=== PATIENT | female | born 1970 | race Caucasian/White ===

== ENCOUNTER 2024-06-03 13:10 | Outpatient (OUT) | payer BC, SELFPAY | END 2024-06-03 13:11 | disposition home or self-care (01) | LOC: PST 13:10 | PROVIDERS: Visit Provider Surgery | DX: Z01.818 Encounter for other preprocedural examination (principal); Z86.010 Personal history of colon polyps ==

== ENCOUNTER 2024-06-11 06:28 | Day surgery (SDC) | payer BC, SELFPAY ==
--- NOTE | 2024-06-11 | OP_ITS ---
OPERATION DATE: 06/11/2024 PREOPERATIVE DIAGNOSIS: Personal history of tubulovillous adenoma of the cecum. POSTOPERATIVE DIAGNOSIS: 4 mm sessile ascending colon polyp, as well as diffuse diverticulosis throughout the colon. PROCEDURE: Colonoscopy to cecum with cold snare polypectomy x1. SURGEON: Henry Hooks M.D. ANESTHESIA: Monitored anesthesia care. ESTIMATED BLOOD LOSS: Less than 1 mL. INDICATIONS AND CONSENT: Patient is a 54-year-old female with a personal history of colon polyps, tubulovillous adenoma removed from the ascending colon in 2020. She now presents for surveillance colonoscopy. Indications, risks, benefits, alternatives of proceeding with colonoscopy were explained extensively to the patient, including the risks of bleeding, colon perforation or anesthetic complications. All of her questions were answered. Informed consent was obtained. PROCEDURE: Patient brought to the operating room, placed in the left lateral decubitus position. Monitored anesthesia care was provided. Rectal exam was performed which showed no masses or blood. The scope was inserted into the anal canal. Under direct visualization was advanced. With the aid of abdominal compression, it was advanced to the cecum where cecal markings were clearly identified. There was noted to be a good prep. Upon withdrawal of the scope, mucosal surfaces were carefully examined. Within the ascending colon, there was noted to be a 4 mm sessile polyp that was removed with cold snare with good hemostasis. There was diffuse diverticulosis throughout the colon, including the right colon, without inflammatory changes or scarring. There were no other mass lesions or polyps. No inflammatory changes or ulcerations. The scope was retroflexed in the anal canal. There was no significant hemorrhoidal disease. Scope was then withdrawn. Patient tolerated procedure well, was sent to recovery room in good condition. f/u surveillance colonoscopy in 5 years. CC: Patient?s family physician FELIPE
--- OUTSIDE RECORDS SUMMARY | 2024-06-11 06:34 | XMS_ITS | CCD ---
Author Organization [facility] CliniSymt Care Team Providers Care Tour Agent Name Role Phone KOREY, DR WONG Admitting Unavailable NILL, DR WONG Attending Unavailable JOHNSON, DR SHWETHA Reddy Primary Care Unavailable NILL, DR WONG Consulting Unavailable MANA, CARMEN Consulting Unavailable DORKODANUTA PUENTE Consulting Unavailable NILL, DR WONG Admitting Unavailable NILL, DR WONG Attending Unavailable JOHNSON, DR SHWETHA Reddy Primary Care Unavailable NILL, DR WONG Consulting Unavailable JOHNSON, DR SHWETHA Reddy Admitting Unavailable JOHNSON, DR SHWETHA Reddy Attending Unavailable JOHNSON, DR SHWETHA Reddy Primary Care Unavailable JOHNSON, DR SHWETHA Reddy Consulting Unavailable JOHNSON, DR SHWETHA Reddy Primary Care Unavailable MARKER, DR BARROSO Admitting Unavailable MARKER, DR BARROSO Attending Unavailable MARKER, DR BARROSO Consulting Unavailable MALDONADO, LESLIE Consulting Unavailable Shwetha Johnson Unavailable Shwetha Johnson MD Primary Care Provider [phone] DERICK MONGE Attending Unavailable SHWETHA JOHNSON Referring Unavailable SHWETHA JOHNSON Primary Care Unavailable Shwetha Johnson Primary Care Unavailable Shwetha Johnson Admitting Unavailable Shwetha Johnson Attending Unavailable Shwetha Johnson Primary Care Unavailable Shwetha Johnson Admitting Unavailable Shwetha Johnson Attending Unavailable Fernanda Flood Consulting Unavailable Shwetha Johnson Primary Care Unavailable Fernanda Flood Admitting Unavailable Fernanda Flood Attending Unavailable Shwetha Johnson Primary Care Unavailable Derick Monge Admitting Unavailable Derick Monge Attending Unavailable WALE ANDERSON Primary Care Physician Marvin NAIR Attending Unavailable Allergies Allergy Classification Reported Allergen(s) Allergy Type Date of Onset Reaction(s) Facility (3 sources) benzonatate; Translations: [Walter Ingram] Drug Allergy Unknown [facility] Repository (2 sources) Clarithromycin; Translations: [Biaxin] Drug Allergy [facility] Repository (1 source) Biaxin *MACROLIDES* Propensity to adverse reactions Unknown adjust [facility] Other (1 source) Allergies Reconciled Propensity to adverse reactions Unknown adjust [facility] Other (1 source) patient allergy list reviewed by nurse or physicia Propensity to adverse reactions 4 Comment:Done [place] Other (1 source) benzonatate; Translations: [benzonatate] Drug Allergy Cough (finding) [facility] (1 source) Clarithromycin; Translations: [clarithromycin ] Drug Allergy Unknown (qualifier value) [facility] Medications Current Medications Medication Drug Class(es) Dates Sig (Normalized) Sig (Original) atorvastatin 40 mg oral tablet (9 sources) HMG-CoA Reductase Inhibitor Start: 08-22-2023 End: 09-27-2023 take 1 tablet by mouth once daily atorvastatin 40 mg Tab 40 mg = 1 tab(s), Oral, Daily, Refills(s) 0 Start Date: 09/27/23 Status: Ordered Start: 08-25-2019 take 80 mg by mouth once daily at bedtime Atorvastatin Active 80 MG PO Daily at bedtime August 25, 2019 1:00am take 1 tablet by bridger th every twenty-four hours Atorvastatin Calcium 10 MG 1 tablet once a day Active 24 hr metoprolol succinate 50 mg extended release oral tablet (9 sources) beta-Adrenergic Paola Start: 09-27-2023 take 1 tablet by mouth once daily metoprolol succinate 50 mg ER Tab 50 mg = 1 tab(s), Oral, Daily, Refills(s) 0 Start Date: 09/27/23 Status: Ordered Start: 08-22-2023 End: 09-27-2023 take 1 tablet by mouth every twenty-four hours in the morning metoprolol succinate XL (TOPROL XL) 50 mg 24 hr tablet Indications: Presence of coronary angioplasty implant and graft Take 1 tablet (50 mg total) by mouth in the morning. 90 tablet 0 09/28/2023 Active Start: 08-25-2019 take 25 mg by mouth twice jem y Metoprolol Tartrate Active 25 MG PO Twice daily August 25, 2019 1:00am Metoprolol Succi shayna 50 MG 1 tablet bid Active nitroglycerin 0.4 mg sublingual tablet (4 sources) Nitrate Vasodilator Start: 04-11-2024 nitroglyce rin 0.4 mg sublingual Tab oral, 0 Refill(s), Take by mouth as needed., Refills(s) 0 Start Date: 04/11/24 Status: Ordered End: 10-25-2023 nitroglycerin (NITROSTAT) 0. 4 MG SL tablet Take by mouth as needed. 0 10/25/2023 Discontinued (Patient Stopped On Own) omeprazole 20 mg delayed release oral capsule (8 sources) Proton Pump Inhibitor Start: 03-19-2024 take 1 capsule by mouth once daily Omeprazole Active 1 CAP PO Daily March 19, 2024 12:00am FreeTextSi capsule 30 minutes before morning meal Orally Once a day; Note: Source Status: Taking; Provider: Graciela Tadeo ( ) Start: 02-07-2021 take 1 capsule by mo [facility] once daily omeprazole 10 mg Cap-EC 10 mg = 1 cap(s), Oral, Daily, Refills(s) 0 Start Date: 02/07/21 Status: Ordered Start: 04-06-2020 take 1 capsule by mo [facility] in the morning omeprazole (PriLOSEC) 20 mg capsule Take 1 capsule (20 mg total) by mouth in the morning. 0 04/06/2020 Active ticagrelor 90 mg oral tablet (10 sources) Start: 09-20-2022 End: 11-16-2023 take 1 tablet by mouth in the morning BRILINTA 60 mg tablet TAKE 1 TABLET BY MOUTH IN THE MORNING AND 1 TABLET BEFORE BEDTIME 180 tablet 3 11/16/2023 Active Start: 02-07-2021 take 1 tablet by bridger twice daily Ticagrelor (Brilinta) 90 mg tablet Active 90 MG PO Twice daily March 19, 2024 12:00am Start: 08-25-2019 End: 09-01-2019 take 1 tablet by mouth twice daily Ticagrelor (Brilinta) 60 mg tablet Discontinued 60 MG PO Twice daily August 25, 2019 1:00am September 01, 2019 11:26am Brilinta Active 24 hr venlafaxine 150 mg extended release oral tablet (11 sources) Serotonin and Norepinephrine Reuptake Inhibitor Start: 05-14-2017 take 1 capsule by mouth once daily venlafaxine XR (EFFEXOR-XR) 150 mg 24 hr capsule Take 1 capsule (150 mg total) by mouth nightly. 0 05/14/2017 Active Start: 05-14-2017 take 1 capsule by mo [facility] every twenty-four hours in the morning venlafaxine XR (EFFEXOR-XR) 150 mg 24 hr capsule Take 1 capsule (150 mg total) by mouth in the morning. 0 05/14/2017 Active Start: 05-13-2017 End: 03-03-2024 take 150 mg by mouth once daily at bedtime Venlafaxine Active 150 MG PO Daily at bedtime 90 March 03, 2024 2:47pm Completed/Discontinued Medications Medication Drug Class(es) Dates Sig (Normalized) Sig (Original) amitriptyline hydrochloride 10 mg oral tablet (3 sources) Tricyclic Antidepressant Start: 03-19-2024 End: 03-20-2024 take 1 tablet by mouth once daily at bedtime Amitriptyline Discontinued 10 MG PO Daily at bedtime March 19, 2024 12:00am March 20, 2024 11:09am FreeTextSig: TAKE 1 TABLET BY MOUTH EVERYDAY AT BEDTIME; Note: Source Status: Start; Refills: 0; Qty: 90 Tablet; Provider: Graciela Tadeo ( ) Start: 02-21-2023 take 1 tablet by bridger every twenty-four hours Amitriptyline HCl 10 MG 1 tablet at bedtime Orally Once a day for 30 days January, Active cholecalciferol 0.025 mg oral capsule (1 source) Vitamin D Start: 08-25-2019 End: 03-20-2024 take 2 capsules by mouth once daily Cholecalciferol (Vitamin D3) (Vitamin D3) 1,000 unit Capsule Discontinued 2000 UNITS PO Daily August 25, 2019 1:00am March 20, 2024 11:09am Problems Active Problems Problem Classification Problem Date Documented Date Episodic/Chronic Abdominal pain (1 source) C/O pelvic pain 10-07-2010 Episodic Acute myocardial infarction (5 sources) Myocardial infarction; Translations: [Acute myocardial infarction, unspecified] 05-07-2017 Chronic Anxiety disorders (5 sources) Phobic disorder; 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, unspecified] Onset: 06-27-2018 02-07-2021 Chronic Complications of surgical procedures or medical care (1 source) Postprocedural asymptomatic ovarian failure; Translations: [Asymptomatic postprocedural ovarian failure] Chronic Conditions associated with dizziness or vertigo (5 sources) Benign paroxysmal positional vertigo; Translations: [Benign paroxysmal vertigo, unspecified ear] Onset: 07-08-2015 04-11-2024 Episodic Coronary atherosclerosis and other heart disease (20 sources) Atherosclerotic heart disease of [place] coronary artery without angina pectoris; Translations: [Old myocardial infarction] Onset: 02-18-2017 Resolved: 04-11-2024 06-07-2021 Chronic Coronary atherosclerosis and other heart disease (8 sources) Presence of coronary angioplasty implant and graft; Translations: [History of cardiovascular surgery] Onset: 05-19-2021 09-27-2023 Episodic Disorders of lipid metabolism (13 sources) Pure hyperglyceridemia; Translations: [Pure hyperglyceridemia] Onset: 10-21-2013 09-27-2023 Chronic Diverticulosis and diverticulitis (1 source) Diverticulosis of large intestine without perforation or abscess without bleeding; Translations: [DVRTCLOS LG INT NO PERF/ABSC W/O BL] Onset: 03-02-2021 Chronic Essential hypertension (7 sources) Hypertensive disorder; Translations: [Essential (primary) hypertension] Onset: 06-07-2021 06-07-2021 Chronic Genitourinary congenital anomalies (1 source) 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 Genitourinary symptoms and ill-defined conditions (1 source) Dysuria; Translations: [Dysuria] Episodic Menopausal disorders (2 sources) Menopause present; Translations: [Menopausal and female climacteric states] Onset: 04-22-2011 Chronic Menstrual disorders (1 source) Dysmenorrhea 12-12-2013 Chronic Miscellaneous mental health disorders (3 sources) Insomnia due to anxiety and fear; Translations: [Insomnia due to other mental disorder] Chronic Mood disorders (8 sources) Major depression, single episode; Translations: [Major depressive disorder, single episode, unspecified] Onset: 04-23-2017 05-07-2017 Chronic Osteoporosis (3 sources) Age-related osteoporosis without current pathological fracture; Translations: [Primary osteoporosis] Onset: 10-20-2016 02-07-2021 Chronic Other and ill-defined heart disease (1 source) Heart disease 02-07-2021 Chronic Other and unspecified benign neoplasm (1 source) Adenomatous polyp of colon 03-02-2021 Episodic Other bone disease and musculoskeletal deformities (1 source) Osteopenia 02-07-2021 Episodic Other connective tissue disease (2 sources) Lateral epicondylitis; Translations: [Lateral epicondylitis, unspecified elbow] Onset: 11-27-2014 02-07-2021 Episodic Other connective tissue disease (2 sources) Fibromyalgia; Translations: [Fibromyalgia] Onset: 02-24-2015 02-07-2021 Episodic Other endocrine disorders (1 source) Hyperparathyroidism, unspecified; Translations: [HYPERPARATHYROIDISM UNSPECIFIED] Onset: 03-02-2021 Chronic Other endocrine disorders (7 sources) Hyperparathyroidism; Translations: [Hyperparathyroidism, unspecified] Onset: 08-06-2019 08-06-2019 Chronic Other female genital disorders (1 source) Enlarged uterus 12-12-2013 Episodic Other nervous system disorders (2 sources) Carnes's palsy; 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] Onset: 09-09-2014 02-07-2021 Episodic Other non-traumatic joint disorders (2 sources) Joint pain; Translations: [Pain in unspecified joint] Onset: 02-24-2015 02-07-2021 Episodic Other nutritional; endocrine; and metabolic disorders (1 source) Hypercalcemia; Translations: [Hypercalcemia] Chronic Other nutritional; endocrine; and metabolic disorders (2 sources) Body mass index 40+ - severely obese; Translations: [Body mass index (BMI) 40.0-44.9, adult] Onset: 03-06-2018 Chronic Other nutritional; endocrine; and metabolic disorders (6 sources) Obesity; Translations: [Obesity, unspecified] Onset: 11-27-2014 05-07-2017 Chronic Other nutritional; endocrine; and metabolic disorders (1 source) Body mass index 30+ - obesity 04-16-2024 Chronic Other nutritional; endocrine; and metabolic disorders (1 source) Obese class III 04-16-2024 Chronic Other screening for suspected conditions (not mental disorders or infectious disease) (8 sources) Encounter for screening for malignant neoplasm of colon; Translations: [Encounter for screening mammogram for malignant neoplasm of breast] Onset: 02-23-2021 Episodic Residual codes; unclassified (6 sources) Obstructive sleep apnea syndrome; Translations: [Obstructive sleep apnea (adult) (pediatric)] Onset: 08-06-2019 08-06-2019 Chronic Residual codes; unclassified (1 source) Obstructive sleep apnea (adult) (pediatric); Translations: [Obstructive sleep apnea (adult) (pediatric)] Onset: 08-06-2019 Chronic Residual codes; unclassified (1 source) Sleep apnea 02-07-2021 Chronic Residual codes; unclassified (2 sources) Insomnia; Translations: [Insomnia, unspecified] Onset: 10-21-2013 02-07-2021 Episodic Residual codes; unclassified (1 source) Menopause present; Translations: [Asymptomatic menopausal state] 03-20-2024 Episodic Residual codes; unclassified (1 source) Asymptomatic menopausal state; Translations: [Symptomatic menopausal or female climacteric states] 03-20-2024 Episodic Substance-related disorders (1 source) Nicotine dependence, cigarettes, uncomplicated; Translations: [NICOTINE DEPEND CIGARETTES UNCOMP] Onset: 05-19-2021 Chronic Systemic lupus erythematosus and connective tissue disorders (3 sources) Takayasu's disease; 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]] Onset: 10-20-2016 02-07-2021 Chronic Unclassified (4 sources) CONTACT W/AND (SUSP) EXPOS COVID-19; Translations: [CONTACT W/AND (SUSP) EXPOS COVID-19] Onset: 02-25-2021 Unclassified (1 source) Med Refill Onset: 10-25-2023 Urinary tract infections (2 sources) Urinary tract infectious disease; Translations: [Urinary tract infection, site not specified] Episodic Past or Other Problems Problem Classification Problem Date Documented Da te Episodic/Chronic Cardiac dysrhythmias (4 sources) Palpitations; Translations: [Palpitations] Onset: 06-07-2021 06-07-2021 Episodic Headache; including migraine (1 source) Headache; Translations: [Headache, unspecified] Onset: 09-09-2014 Episodic Malaise and fatigue (1 source) Fatigue; Translations: [Other fatigue] Onset: 03-30-2015 Episodic Mood disorders (1 source) Mood disorders Nausea and vomiting (1 source) Nausea; Translations: [NAUSEA] Onset: 05-19-2021 Episodic Nonspecific chest pain (5 sources) Chest pain; Translations: [Chest pain, unspecified] Onset: 10-21-2013 Resolved: 06-07-2021 06-07-2021 Episodic Other aftercare (1 source) Other long term care social worker (current) drug therapy; Translations: [OTH [facility] CURRENT DRUG THERAPY] Onset: 05-19-2021 Episodic Other aftercare (1 source) Surgical follow-up; Translations: [Surgery follow-up examination] Onset: 03-29-2011 Episodic Other and unspecified benign neoplasm (1 source) Benign neoplasm of cecum; Translations: [BENIGN NEOPLASM OF CECUM] Onset: 03-02-2021 Episodic Other connective tissue disease (1 source) Fibromyalgia; Translations: [FIBROMYALGIA] Onset: 03-02-2021 Episodic Other connective tissue disease (1 source) Disorder of musculoskeletal system; Translations: [Other symptoms and signs involving the musculoskeletal system] Onset: 01-12-2016 Episodic Other connective tissue disease (1 source) Pain in forearm; Translations: [Pain in joint, forearm] Onset: 02-28-2017 Episodic Other fractures (1 source) Closed fracture of one rib; Translations: [Fracture of one rib, right side, initial encounter for closed fracture] Onset: 10-30-2016 Episodic Other gastrointestinal disorders (1 source) Bariatric surgery status; Translations: [BARIATRIC SURGERY STATUS] Onset: 05-19-2021 Episodic Other lower respiratory disease (4 sources) Dyspnea; Translations: [Shortness of breath] Onset: 09-16-2021 09-16-2021 Episodic Other skin disorders (4 sources) Generalized hyperhidrosis; Translations: [GENERALIZED HYPERHIDROSIS] Onset: 05-18-2021 Episodic Other skin disorders (1 source) Generalized hyperhidrosis Onset: 05-18-2021 04-11-2024 Episodic Residual codes; unclassified (1 source) Acquired absence of both cervix and uterus; Translations: [ACQUIRED ABSENCE BOTH CERVIX AND UTERUS] Onset: 05-19-2021 Episodic Residual codes; unclassified (2 sources) Edema; Translations: [Edema] Onset: 01-12-2016 04-11-2024 Episodic Spondylosis; intervertebral disc disorders; other back problems (3 sources) Lumbar radiculopathy; Translations: [Radiculopathy, lumbar region] Onset: 03-06-2018 04-11-2024 Episodic Unclassified (1 source) CONTACT W/AND (SUSP) EXPOS COVID-19; Translations: [CONTACT W/AND (SUSP) EXPOS COVID-19] Onset: 10-12-2021 Unclassified (1 source) LEIOMYOMATA 10-07-2010 Unclassified (1 source) Patient encounter status 04-11-2024 Results Test Name Value Interpretation Reference Range Facility General Surgery Office/Clini c Noteon 04-17-2024 General Surgery Office/Clinic Note General Surgery Office/Clinic Note Chief Complaint surveillance colonoscopy HPI Staff 54 year old female presents for surveillance colonoscopy. Denies abdominal or rectal pain. No rectal bleeding or change in bowel habits. Denies nausea or vomiting. No unexplained weight loss. Last colonoscopy completed 01/2021 with cecal villous adenoma. Patient taking Brilinta chronically. History of Present Illness 54 yo female with h/o htn, CAD, on Brilinta, Takayasu's disease, hyperlipidemia, CAPRICE, presents for surveillance colonoscopy. last colonoscopy 2020 with removal of cecal tubulovillous adenoma; patient denies change in bms or blood in stools, no abd complaints; abd operations significant for hyterectomy, gastric sleeve resection, umbilical hernia repair; on Brilinta, no asa or NSAID use; no fmhx of GI malignancy or IBD; vapes nicotine-containing products. Review of Systems PHQ Score Initial Depression Screen Score: 0 SCORE ROS - Provider Constitutional: no fever, no sweats, no weight loss. Eyes: no glasses, no blurred vision, no visual loss. ENMT: no dentures, no hoarseness, no swallowing difficulties, no hearing loss, no ear infection(s), no nose bleeds. Cardiovascular: normal blood pressure, no chest pain, regular heartbeat, no heart murmur. Respiratory: no shortness of breath, no cough, no asthma, no wheezing. Gastrointestinal: no nausea, no vomiting, no diarrhea, no constipation, no blood in stool, no change in bowel habits, no abdominal pain, no hepatitis. Genitourinary: no kidney stones, no urine infection, no dysuria. Musculoskeletal: no pain, no weakness. Skin: no changing moles, no rash, no skin lumps. Neurologic: no seizures, no epilepsy, no headache. Psychiatric: no emotional or psychiatric problem. Heme/Lymph: no bleeding problems, no anemia, no blood clots, no transfusions. Allergy/Immunologic: no swollen lymph nodes/glands, no IV drug abuse. Other: Additional ROS info: Except as noted in the above Review of Systems and in the History of Present Illness, all other systems have been reviewed and are negative or noncontributory. Physical Exam Vitals & Measurements HR: 72(Peripheral) RR: 16 BP: 124/84 HT: 64 in HT: 162.5 cm WT: 82 kg WT: 180.4 lb BMI: 31.05 HEENT: normal conjunctiva, sclera clear, no scleral icterus, EOM intact, PERRLA, oral mucosa moist without lesions. Neck: trachea midline, no mass, symmetric, no thyromegaly or nodules, no adenopathy Respiratory: lungs CTA, respirations non labored. Cardiovascular: regular rate and rhythm, no murmur, no pedal edema or varicosities. Gastrointestinal: soft, non distended, no tenderness, no masses, no palpable hernias, diastasis recti no, no hepatosplenomegaly; normal bs Lymphatic: no cervical adenopathy, no supraclavicular adenopathy. Musculoskeletal: normal gait, digits and nails without infection, nodes, cyanosis, clubbing. Skin: no rashes, no lesions, no ulcers, no subcutaneous nodules, induration. Psychiatric/Neuro: oriented to time, place, person, judgement normal, affect appropriate for age, insight intact, no focal deficits. Tests: review of old records completed , Discussed surgical options, risks, and possible complications with patient. Assessment/Plan 1. Personal history of colonic polyps (Z86.010: Personal history of colonic polyps) plan surveillance colonoscopy under anesthesia, informed consent obtained. 2. Vapes nicotine containing substance (Z72.0: Tobacco use) We strongly recommend to quit tobacco use. Cigarette smoking harms nearly every organ of the body, causes many diseases, and reduces the health of smokers in general. Quitting smoking lowers your risk for smoking-related diseases and can add years to your life. We encourage you to visit www.smokefree.gov access to helpful resources including free telephone support. If you decide on prescription treatment to help you quit, your family doctor would be happy to provide these. Follow-up No qualifying data available Problem List/Past Medical History Ongoing Benign paroxysmal positional vertigo BMI 31.0-31.9,adult Class 3 obesity Coronary atherosclerosis Depressive disorder Edema Generalized hyperhidrosis Hyperlipidemia Hyperparathyroidism Hypertensive disorder Lumbar radiculopathy Myocardial infarct Obstructive sleep apnea syndrome Personal history of colonic polyps Phobic disorder Pure hyperglyceridemia Takayasu's disease Tubulovillous adenoma of colon Vapes nicotine containing substance Historical Acute coronary syndrome Acute ischemic heart disease Anxiety Aortic arch syndrome Arthralgia Carnes palsy BPPV - Benign paroxysmal positional vertigo C/O pelvic pain CAD - Coronary artery disease Dizziness Double ureter Dysmenorrhea Fibromyalgia Heart disease Hyperparathyroidism Hypertriglyceridemia Insomnia Lateral epicondylitis LEIOMYOMATA Major depressive disorder Obesity Osteopenia Osteoporosis Screenin (more content not included)... Normal [facility] Comment on above: Result Comment: Elec tronically Signed By: KOREY PICKETT, Marvin Fitzgerald\.br\Date and Time Signed: 04/17/24 14:01 EDT Ambulatory Visit Summaryon 0 04-16-2024 Ambulatory Visit Summary Ambulatory Visit Summary LIZETTE BERGMAN :1970 Visit Date:04/16/2024 Ambulatory Visit Instructions Your Care Team Attending Physician - Marvin NAIR MD Primary Care Physician - WALE ANDERSON DO This Is Your Medications List Contact prescribing physician if questions or concerns atorvastatin (atorvastatin 40 mg Tab) metoprolol (metoprolol succinate 50 mg ER Tab) nitroglycerin (nitroglycerin 0.4 mg sublingual Tab) omeprazole (omeprazole 10 mg Cap-EC) ticagrelor (Brilinta 90 mg Tablet) venlafaxine (venlafaxine 150 mg oral tablet, extended release) Procedures Performed Colonoscopy (02/23/2021), Parathyroidectomy (10/01/2018), Bilateral oophorectomy, Extraction of wisdom tooth, Gastric sleeve, Insertion of coronary artery stent, Myringotomy and insertion of short-term tympanic ventilation tube, Nasal septoplasty, Plantar fasciotomy, Rectal prolapse, Repair of umbilical hernia, Repair of vaginal wall prolapse, Vaginal hysterectomy. Discharge Vitals Heart Rate (Peripheral) 72 Respiratory Rate 16 Blood Pressure 124/84 Height 162.5 cm Height 64 in Weight 82 kg Weight 180.4 lb BMI 31.05 Medications What How Much When Instructions Unchanged atorvastatin (atorvastatin 40 mg Tab) 1 Tablets By Mouth Every day Contact prescribing physician if questions or concerns Unchanged metoprolol (metoprolol succinate 50 mg ER Tab) 1 Tablets By Mouth Every day Contact prescribing physician if questions or concerns Unchanged nitroglycerin (nitroglycerin 0.4 mg sublingual Tab) oral, 0 Refill(s), Take by mouth as needed. Contact prescribing physician if questions or concerns Unchanged omeprazole (omeprazole 10 mg Cap-EC) 1 Capsules By Mouth Every day Contact prescribing physician if questions or concerns Unchanged ticagrelor (Brilinta 90 mg Tablet) By Mouth 2 times a day Contact prescribing physician if questions or concerns Unchanged venlafaxine (venlafaxine 150 mg oral tablet, extended release) 1 Tablets By Mouth Every day Contact prescribing physician if questions or concerns Allergies Biaxin (Unknown) Walter Ingram (Cough) Problems Ongoing - Any problem that you are currently receiving treatment for. Benign paroxysmal positional vertigo BMI 31.0-31.9,adult Class 3 obesity Coronary atherosclerosis Depressive disorder Edema Generalized hyperhidrosis Hyperlipidemia Hyperparathyroidism Hypertensive disorder Lumbar radiculopathy Myocardial infarct Obstructive sleep apnea syndrome Phobic disorder Pure hyperglyceridemia Takayasu's disease Tubulovillous adenoma of colon Historical - Any problem that you are no longer receiving treatment for. Acute coronary syndrome Acute ischemic heart disease Anxiety Aortic arch syndrome Arthralgia Carnes palsy BPPV - Benign paroxysmal positional vertigo C/O pelvic pain CAD - Coronary artery disease Dizziness Double ureter Dysmenorrhea Fibromyalgia Heart disease Hyperparathyroidism Hypertriglyceridemia Insomnia Lateral epicondylitis LEIOMYOMATA Major depressive disorder Obesity Osteopenia Osteoporosis Screening for malignant neoplasm of colon Sleep apnea Uterine enlargement Patient Survey You may receive a survey via text or e-mail asking about your office visit. Please share your experience with us by completing your survey. We appreciate your feedback and thank you for choosing us for your care. Normal [facility] Coding Summaryon 04-09-2024 Coding Summary HTMLBase 64 VkyroirlKNt9nLk+PGhlYWQ +[id number] NMTElOSywgQVBQTElOSyIgb fKhGV4cmFYlFNGc IC8+OM9mOLSpQjplxZSgw4I 1tVJ0A18rap7xENlozME4VL IaCbFrzbqok0iywCw2XWokM mluOyBt LMTcfI22JKX1iB57Ur27nCK nbXAzf0dfePl2FiByTZHkUP E6lVtzSNxyj1YmCUVhG82uv LQyl5U2 GRCvxGcgkWQjMqDgpIB5jG6 hAIawomupt0lfthmdTkh6mu 62dBWjp4Q8tUG8N7PdplJ8G GJvbGQg HdnyxVHKhX7rzppio4twjyv bDdSlHPEgAEh1DNh8MWWbrY sgWeMyRI28PLF6RLWzkjAuA 2FsLWFs yZjvIhX6z7R0Wj8IM4YCRvo eD0PICAEUONshyZT+PC90cj 79Y4WwMhulImk5QRLrZZT2k CW8zI8l DHJeQIesl5V9nXS5L3DlksF mfu9ju9uoDJDfKDowN77pvO Nqq2Y5BNGntVD5DOEdhGcpV iBzaG93 Oyc+ZLFtuRlya2QqPdicw5r tl8jbeZx2PicqBXHgrtTreD ciZVA4p3TpLy9zRLWhoAN2c CK8kB6l McJcHdK4HUrbE130ZpBzpLT uEwqdK45nT5IkzPZ+PHRyPj j5TQYknEcyYJ6mR7RoOXJak mctbGVm hUlpJO5kUMRwfqlxPXAxxK2 tGVUhU8q7KcJaCeM4JOzhJ5 XmJNRjhaokTh89eT8tUwAjT pD5TJjm F5JrdyL4WAStmBZjLWblLPE 9Q32yv9V0UESdSJXgGPR3xZ Y0oP4nmMfhmnfqkPTxyYtkb mVydGlj ZQzpJQdiS182HXIppQayXlB vZGluZyBEYXRlOiAgMDcvMT AvMjAyNDwvdGQ+KMYpPRK5b WxlPSAn kGMxFFuiMz1ebVvupRzgCI3 jRJMpjemeIACmyA6tJVHtnR CuaFlsCX3dNQDgqrldx848F iAxMHB0 VCKrmAGxP6PalP8yWwVbZLK jVPYgT5UdzPQnHAbxX901XW soLoI7WOXetnHeD8QvAVMdw WduOiB0 t1L6Tw5To9ZuulwuT1UrmED nHfQgUfryIQx7L7IqFyqlpN I+BL51UBUaQQ22XYh7XFN7f WxlPSdi HKUtA0XsmW4uVsLpYLQvVTU kOyc+PHRhYmxlIHdpZHRoPS ghURTgRqRxhQxoSH1iPh9sK GVyLWNv uXvafMMoUpBbt4cmPYLpDSb jUE2gpIqbM3KdbEQ1HQKzr0 i9Yl98M74nG5BifWD+PGNvb IZ2lIR5 sV3kBlYpAcO9ETmxV475LpK byIAkPkuxa5ywc5pkiVt6Oq N0LPNltmWndEqlEWJ6n1ViJ f99L09s IHdpZHRoPSIxNSUiIHZhbGl mro6flS7zXt2+UDDvlRZ0rT I6eJ1yWrNnVkN9SJtfT213Z nRvcCIv Giuko7ayf0ublWf5XlWyVZG bxpDklNrmHQA7h3BlWa77Z2 VnwGmuo6ZaGes0xq50sPQpa 8M3zIY4 U2CyUMYmcqzkoKOgsKqjOR8 aOJMjnbfrPKZhiC4dIOCsR0 p2LzGhOqO5SSbfE2RjlfR7P GJvbGQg DQWquDXDoD0bcgbaj1trakw cZuDhFSJyEOb8ELf1OAWyyP vaZbWpSWO3HtO0GRI4wRLro G8ezIza ebuurF3qSjk+HYF0zGHydCC VOY0nErxohPF+TMMbHID6hO udMMlyOYXkrF5zEWXvH9a1L iAwLjA1 MYrkT2QqkhG2LXAjqCFdFPU axXIHxG9vnomhr4utlthlXu BvQSHuGWu3JHs8XHEixXafA iBsZWZ0 AuS5JDF4sBNsoP3usLfdhly teP5bEou+UvlkkSypGEI3VR q8M8QzObd0AGLdtYhxPK9dz GFkZGlu Wo5wlRlieFiyLM7rKCCohyz st357AbPqh6liBJEkgJAmAR nxLMW7C40qv3V7WJToRAQbT PV8jCU3 fT5ldIzmavwhvWRyzJmwbhH irHgnXYprYBkeR498BXCgfJ ibOpLwAGg9L3RhPhk9VKDop MauNI4o sKFpJTykCg3cmTxbrSunBS0 fHBSjxzttc024NpSls6amOJ ZvxKNwNVlxEGA8P44ie0R2Q CMwMDAw VHK8oBL5pA1elEelfbvpsWB mdDsgdmVydGljYWwtYWxpZ2 81TQShpPtlQvNdvIm4S8PjV do2PTSy kWzeXW8cvWJhGHjdGo9daIu hrUpqQU2gEOQicyhwf132Sk Qju8atWYYipJJlSRkdAQM3I 71qz2Y5 OWRfCCDiXOR1gZV4pW1xdPn nbjogbGVmdDsgdmVydGljYW mrPHxnA536VQMihIduNgFeq GllbnQg SBitFCb6W5GiFcduxEE+PC9 2ORNsKX56xCLjyXKmr5mvlI t1FfNkZMOiVBL1pPhnGCibi 3JkZXIt X80twAXel6K2GNUunCjvkMI qSsGqmCT8yD5eRDqxhyucy8 gvyureLbfnr1bgmy40tL25L 29sIHdp ZHRoPSIzMCUiIHZhbGlnbj0 dnL0oQf0+VTKnuDF4lZY2xH 2eXCJcLwT7NYfsJ549JsPtl CIvPjxj m8pee8rbdUy1OiF8PAOyfkX jpUeoUUB8k6KfZy87Y38sZO dpZHRoPSIyMCUiIHZhbGlnb p1gnK4p Ii8+SEAfmIC3cFH3mX8jOuH zKrQ4CRhxB070PdTkzCXeGr yyI93rE9YznGH+JRGyPma9O CBzdHls UE9okDOxNCmoNb6eFDM1VdW bWpAmGXpuX2SpXJNjxcvfyw qjwJJ7AXYuTTCfsX52Eh2dv DogMTBw aMQHxK9etprwe9vlhvhiOgG fOXMlBHm6VDg5OZObvNppKz BaQID8ZoN3VXM0gXSoaD4fj Glnbjog iS5lK4KpLTHfaqcnMb97lI2 gWdTvIlI6YDnsNdb+U0FOQ0 iVVcqlSK9NRDrXFKAFHLnfx GQ+PHRk FZX5iEwyNLrxDIMmhO4zEFU tG7x2MzBxEsR2DDclT8JcWM LqpbuuLi16iG3hFoKdHbV4Z NmeX1Kr fvR4MSDtgIQsFWdwGNI4K12 ff4M2ZBLzHGFaPKN2hIP4cQ 1hbGlnbjogbGVmdDsgdmVyd GljYWwt QIkpP570MVKmgOaaNqG9UxK sSpX8YmE0V0WjBah7MPJrjO qxVC7ubJMpNXphGm4gkJhzv LmcZS5u VKGqdowbAZTzaY2rXNFzjZW wmBehGJ7rXKQshmawn045Nt YtNXI2AIOsxFQpC1IgnZ9dV iAjMDAw QFVdX4ReyAJoWPxjI994OJn gAaI4IXPyymThN2IgYUFqjZ vrUsM5o3T7Be18EHBTFCEmx zwvdGQ+ JOWnGVK7rZmkEMbtGEBjtW2 eJBYnW4e3LtKkKgT1COuyA2 FtAHGoviwbCw50nG3kIrRmS uW8SAak B2DlceL2PAYemUNzWAxqYXT 7U26te8T1EWSmEMWuVRR3rU H0cM2kgTanxxqgdWDajEpbr mVydGlj TPweFExbE807LZQilVlmRsC FTUFMRTwvdGQ+PPCyCFB9fZ xuGHcxWIBypF3lYKTgR6h2B iAwLjA1 CVidS2RbAVVockeoSj70dH0 eApEgOeI9VYvcT1FqkmY5LC GasHVjXSclTHZ1T57fr1R4K CMwMDAw AJY7rAM6nN9swPxlszhniKT mdDsgdmVydGljYWwtYWxpZ2 95PNAthCwwVs1UTD01LP25R 3RyPjwv dGFibGU+PHRhYmxlIHdpZHR yDSmuZGIqAxSpiLahDK0rSs 9yZGVyLWNvbGxhcHNlOiBjb 2xsYXBz JXvxOS1jwYmjT0CzbJD2YTA qu0u2Ag63F47oB2GewYE+PG UfrFL9tOT9jL9hLzUhHrM5F WpcX843 HaGidPTxKukmu4lkm4owhHz 4EhKkAPSayiFmxLtkQEU0s2 XxYl18S47eIWmdTLHwMBYvX CUiIHZh sQlmwi8wrF4aZb9+PGNvbCB 8pHH0hR1lTiJfSdL2JKdxQ1 28OiPnrRSiGwuqA64bB2Pac XA+PHRy Icg3XRKbcOzaHE6kzAXrIKq cIe4bLDQ3TpPxXyNjTBvqD3 HwVZUiktbjwkqyoJL7LXElX DUwaW47 Ue0gzIxeYu7kXIJeORR3OJF uwLHbU1IboM3hThEvXVTvMP PeA7TdrJTjFZadJ572ESvcL xT1WEBw jjApN8OxEGSgwAlrYdT7j9X 9Eh1QdEjrkMGwQY6aZkBpMW p7J4CbJgc0WOIiyQyaUW3fm GFkZGlu Sk8urEozgOznHO6wVNFqlwq re760DaBwc7ssCGOscOLfNV iwTBJ6J72ko2B6YOTpGOEyZ WG4eHP4 lN1olKvwkrewiOLfkXaklmX liSacXXwuPKsoQ976HXUkeT fcRlGUGgt0G2MdRtd1YOXis ZpoJZ9r cOHnQCppMg2pyZwklComRW2 xJCFuwupyb629AuKge0baER AenIAsINntVPM2H40lt4R6R CMwMDAw JOA9wXJ8yC5qaVzeokvssBM mdDsgdmVydGljYWwtYWxpZ2 07NSDndBqcWa7NPic6K2VsI df3CYNm cJdaXH8lxRLzYFtkXj2cvEw alZclXI1dCMSkohmys998Lu Rdz9ctJLEabKWnBYecOWV5U 49gt7H4 DRQhEBGpWSA9hJJ6bT3adJu nbjogbGVmdDsgdmVydGljYW suYXxlR013JDEsdVpmHgLwb WVyOjwv dGQ+UT65yg89U2VfZawfNai 4IKCmMEG1kEC0qL2dTVLwSN zqg3D5bTL3B3MwwyIqml1vw 2xsYXBz ZTo (more content not included)... [facility] BD Bone Density DEXA Studyon 03-31-2024 BD Bone Density DEXA Study Begin Addendum #1 Clinical content is unchanged. Pharmacologic treatment recommendations No uniform recommendation applies to all patients. Management plans must be individualized. Consider initiating pharmacologic treatment in postmenopausal women and men >= 50 years of age who have the following: Primary fracture prevention: T-score <= - 2. 5 at the femoral neck, total hip, lumbar spine, 33% radius (some uncertainty with existing data) by DXA. Low bone mass (osteopenia: T-score between - 1. 0 and - 2. 5) at the femoral neck or total hip by DXA with a 10-year hip fracture risk >= 3% or a 10-year major osteoporosis-related fracture risk >= 20% (i. e. , clinical vertebral, hip, forearm, or proximal humerus) based on the [place]-adapted FRAXregistered model. Secondary fracture prevention: Fracture of the hip or vertebra regardless of BMD [4, 5]. Fracture of proximal humerus, pelvis, or distal forearm in persons with low bone mass (osteopenia: T-score between - 1. 0 and - 2. 5). The decision to treat should be individualized in persons with a fracture of the proximal humerus, pelvis, or distal forearm who do not have osteopenia or low BMD [12, 13]. Rafa MS, Carmen SL, King KL, Tato EM, Celestine KG, AJ, Jim ES. The clinician's guide to prevention and treatment of osteoporosis. Osteoporos Int. 2021;33(10):3015-7022. doi: 10. 1007/s69894-131-44073-b . Epub 2021Jan 26. Erratum in: Osteoporos Int. 2021Apr 27;: PMID: 68393728; PMCID: XUB0940501. Final Dictated by: Иван Solis MD Dictated DT/TM: 04/11/24 1:58 Signed (Electronic Signature): Иван Solis MD 04/11/24 1:58 pm Technologist: THELMA EXAM: BD Bone Density DEXA Study. HISTORY: SCREENING FOR OSTEOPOROSIS. COMPARISON: Bone density study dated 02/07/2021. TECHNIQUE: Bone density study was performed. T-score values for the lumbar spine, right femoral neck and left femoral neck were obtained. FINDINGS: Value for the lumbar spine from L1 through L4 is -0.7. The value for the right femoral neck is -2.1. Value for the left femoral neck is -1.9. Findings are compatible with severe osteopenia with moderate to high increased fracture risk. No evidence of osteoporosis. Study was compared to the prior exam dated 02/07/2021 which demonstrates mild osteopenia with mild increased fracture risk. Findings are progressed compared to the prior exam. IMPRESSION: Findings compatible with severe osteopenia with moderate to high increased fracture risk. Findings are progressed compared to the prior exam. Final Dictated by: Иван Solis MD Dictated DT/TM: 04/01/24 10:06 Signed (Electronic Signature): Иван Solis MD 04/01/24 4:11 pm Technologist: [facility] Mammo Screening 3D Bilate ral.on 03-31-2024 [place] Mammo Screening 3D Bilateral. MAMMOGRAM SCREENING 3-D BILATERAL: CLINICAL DATA: Routine screening Screening digital mammogram study of both breasts was performed with 2-D and 3-D tomosynthesis imaging. Study was compared to the prior exam dated 11/08/2020. Scattered areas of fibroglandular density are noted bilaterally. There is no evidence of interval dominant spiculated mass, grouped microcalcifications or skin thickening which would be suggestive of malignancy. R2 ImageChecker was utilized for this study. IMPRESSION: No specific evidence of malignancy seen in either breast. BIRADS: 2 - Benign, no evidence of malignancy. Normal interval followup is recommended in 12 months. OVERALL ASSESSMENT- BENIGN A letter of notification will be sent to the patient regarding the results. Assessment / Recommendation: 2-1 Normal interval follow-up Breast density: Scattered Fibroglandular Density Recall interval: 012 months Final Dictated by: Иван Solis MD Dictated DT/TM: 04/01/24 1:11 Signed (Electronic Signature): Иван Solis MD 04/01/24 4:17 pm Technologist: ARIC Assessment: 2-Benign finding Recommendation: Normal interval follow-up [facility] Provider Orderson 03-31-2024 Provider Orders [id number] [facility] Coding Summaryon 10-29-2023 Coding Summary HTMLBase 64 RzerlhvsJOv4bPn+PGhlYWQ +JY1BNVGhG45cvJRoyR0qB2 NMTElOSywgQVBQTElOSyIgb jWzIU6xtCEeXXTn IC8+EE2sXZDpYlhfjUAih5R 7hHN5T27pdl6eMAdndOH1DU IiOwGvpezne6ckfRi0NWujK mluOyBt UJBntS92AEA2fL71On19kAT mgYQho6qdqXx7NaTrBZLgSD C9lGjyKJrcn9FhFMQwH84eu NSfe5C2 JOAmfHixoVCpTjNqiGK1pD9 eMBtwjxaed4kubhyhWro0wx 30hRDew6A1mNS1W1KacsZ9N GJvbGQg HiimbTZHhN4bcawsn9gcafb sCtZvKZWeYYp1JXj7WQDmhC fgUrFyJX61TOM8HZKqaoGjW 2FsLWFs cNtzYlW7f9D6Vk4IP7LYPhr bE8VCMUTRFTvcrRU+PC90cj 04M0DnVaoqOkz6MODoDPK9u NS7oT1f TDBeHAtiz1N1cLI8A0AtexY rwl5yl6pzEQNlDAhsR72vwD Dzc3S2OHOyvRF3EWIdrJxrF iBzaG93 Oyc+MMHbyJvcv1FaRkzkf7p gr1hcqMg9VapfWNVtzlSdyT aiWCS4t4StCl3hZITosMP3n DF9oP4a FnWfRrQ0GXbzN397VjQzjBQ uGzqnU39pP6FdkFI+PHRyPj m1IJTjlRgkWR7uD3ZwSGErc mctbGVm tTavRO2vCNDahtzrRSAovK7 dOQVkD3k7MtYcBdF5PQutT3 HbZRHcazbdFn51yK3kMnHeP tT7QPne Z1YgphJ4FNOwdLAsJErzWYQ 7V73zd6A3OMQwVCItUIY7kM C9rB4soVnneehejCNxhOqtl mVydGlj WCjcSVfnR769GBWrrJcxSoE vZGluZyBEYXRlOiAgMDEvMj kvMjAyNDwvdGQ+NIQlZWV8t WxlPSAn pLNqJUbwVe2yxNxudKjkGV8 hPYBpopudZYHmzI0qACLxoK JhhKjxCV6tVMDuqngxd761B iAxMHB0 WYGwySSxZ8YsdR1zPlWdPEI gTMGnR3FxuFKjSDlmO128BW byCgA7ITOomlWtF2DvBPNqr WduOiB0 n8R2Nt0Ai2OfgpskO8SnhZV vHzIkEpkxLJq8S3BlRdgmmG I+ZO69TCCiVW74BWn1ETK0v WxlPSdi JTSuW2OtfJ6oCiMuXCZcZXO kOyc+PHRhYmxlIHdpZHRoPS ljTFDeVzMbeYxoSQ2nCm5gT GVyLWNv bMehsGPqWwJwy7lfYTIgCOv xXJ7uuVqpI7GkeFI4HZClm0 l6Zc37O56yN8GilDS+PGNvb EV2rNV8 cE0mCuYjBiP7ORcnT995NkN pnEAiLhguk4byf7bjbAu9Ni U0KWTrdyGdcZgcZTL6o8BiO r20B46b IHdpZHRoPSIxNSUiIHZhbGl ecq6odU7wEl2+LLIsqIF1rO K5xG6hIrEeYqY8XCaoB773W nRvcCIv Kaxoo3idn6pixMf1CwCoEVG cplFxtUlyNKU4m9YqZj14E3 VvgLdme3NoZdy6xr83mWRrk 2Q5eLO9 I1DxVWGfuoxdaTTzjZffTS7 tZJLaxaidEKDxxP3iCDTjX2 z2BiKcWhN5RVoaW6ZbhfY1V GJvbGQg NZHsjIYSrW7xqxexc5jfdfv qCbUzSQDyGCi0JDr9ZGJifM lsJwKjPQU8FhB8FMR2wGQve G0daUna bpdhkV0eUug+KQN2dZHzmSJ AAT8kXpcpkMK+KTVaFHN4mM rvHLlvVZCpbA4lLVImT2s6E iAwLjA1 OZjdN7HprbK1JOWniXOlIHG mvDNXjU7hszuhv6dspwjjCk UkBCYqHTm4GEk8JKCobNshH iBsZWZ0 WwH5PZI2hERqfO7cxRwfxva zrO1tCce+PlmjjZbzXGR1MP g6F1TbCse0UBXcwLvmJQ7ge GFkZGlu Xy8ncFvqlTqmHC4ePJVsvjw lo370IzCfr3zoKYPbnOGnZW ieKHY5F23ew1J7IFIhRHXdN SX7nBI1 tV4vuZoawfpakPDfrIrlldB mwUyzILsuRPfsK161SJBysY ceGdNrKEq6C9TpWcb2QXOzs KyhOV2k xHVuEJgkLk9iyIouiZrtBB4 wBLGupsoin994GkHvq6bxDX ItsXZdPQkwTEC3F78jo1K0G CMwMDAw DHU5oNT5gJ0agWulndiubSA mdDsgdmVydGljYWwtYWxpZ2 54SZDnePzfCcIcaKs6N7TgI ki8QMLh aPehRS7noWQoYYmiVv4seNq pkDqiIF2lIFMntqous247Qz Myz4luKKKvuMOaCLwtOTT7G 01sa6S2 OKRqWNKpPDG9uGV5vP0wnCb nbjogbGVmdDsgdmVydGljYW whDQzyA875YHDqgNmlKzIlv GllbnQg ZSlmZVh1S7VmNvqwxQG+PC9 7CRZlJB16oEEhqZCna4rxuG g9DbRnVDEiIVQ9tJnpFUnme 3JkZXIt S67kwBSsq6P9UUGoyJhxaQX tGtGigFR4oO6bQOxvxprll1 tdvlpiWideq9aelv86bE28W 29sIHdp ZHRoPSIzMCUiIHZhbGlnbj0 gxZ9nWb1+NYLhfZI0nZP1rT 2oDUSpHlC2KAcdL130AwYhq CIvPjxj i9sgr2gomWz1FkL3TNBmjxU abAzgXOV8u7BtXa87Y06iMR dpZHRoPSIyMCUiIHZhbGlnb i9tuK7t Ii8+RVGenCM6fUL7sE9sQiO hLuX7FJslE857OxVyeNAwQp nxP32xE2UuwFT+LCEtFqf3J CBzdHls UF6xvMNaPKifAc5eMIP1XmJ aUcLcKRrnT1PrRREdbhztva qqaOM5TVStGKElvG23Ul3st DogMTBw yYAKnM6lnasij1bsnzzfGwC oCDWmOVx2LUc9JUHjbJbkIq PzKSI6XhK7QKC2sEDzeR6sh Glnbjog aQ7gS1YbHRPonbdxWv35cX9 sIwYiKhJ9KOdbFkn+U0FOQ0 nZJkdwZP8ZJOkYPLRBAOtcm GQ+PHRk HHK6wMfkWKhmQCEjcP7yLUY vV4u2CeIuKnJ8VLjwW9QeEC ZwqwsgEz80iH2cSoVfTmE5O OfpI8Gm dzM2BWFepWIlMNhtIQJ0W60 ff1K5FKSfVZKoIAI4wGZ0pW 1hbGlnbjogbGVmdDsgdmVyd GljYWwt URkqM032QBItoKebQcY1PoJ oIsU4FkE5W2AzRxm8OPUbgZ xaKH9ylKKkLCuhCj7jyCnvk RcmXG0w FQSmxwspKMTgtO8lKWOmlBY oyXnpUP8yAHIddeson538Zy XgPYQ2KLHzqICbX6VgwQ9uA iAjMDAw EAVuG2VgaRIsBJoaA823KSl oFoI6JXFwsbNjB3TfEEOdcA osVxG0k8P8Sy56HeFOZVVky zwvdGQ+ AACzWPQ4pRfrPWsuHUKhfS8 aZQAoP3v4JsSnQzL6BVofX7 CkLIXevqszBp68tE2lLsQhZ pJ1ALxn Q5DsobP3HQMroLFhJFdrUSK 0Y69er9W0ESJwYQDwKZB4mI J6kQ3jpDqafxbmaYDrmFcln mVydGlj HDkqJCtwS281VXSfiPoaVqL FTUFMRTwvdGQ+SDJxDAJ3tO ryZLsmLENusS4uNRHxX0o7D iAwLjA1 RYluV2QkSTUgyzrnDu92gC3 wRsXjCxZ8GOdwN5EgloN5TC FonGAdKWtqQBP4A88mz4P7X CMwMDAw YSW1pCK1zV1krTqcjjrhbQA mdDsgdmVydGljYWwtYWxpZ2 94ECGplGgpIb4PKL66CA23I 3RyPjwv dGFibGU+PHRhYmxlIHdpZHR zVFsoBULdErOinUawDE2hDc 9yZGVyLWNvbGxhcHNlOiBjb 2xsYXBz WKnySZ3wqOffR3AhjTH1ETM st2h4Gi63G63rM7EhqKP+PG TmjXV4rHD9uR2oFyGdVkM7V AjlG217 NbKlmXPuBrgeh5jeg1ouiUi 7UbJeRTTlrtWazNgpUZP6p2 LqNa57P61hYCiqPQJqJNKcL CUiIHZh yEifbc2htW5uFr5+PGNvbCB 3xEJ0fH5bToDnSzV5LRjiP4 50GsJedSOhLzddQ10iY5Ove XA+PHRy Ska7SJXjaPyyNU9enIZlURd pJj4uANO5TtDsFwMmDPegB2 AjFBOxjapgljeqdPQ8OUGaL DUwaW47 Fo8mzObgDz9nDRCaRKC9SNC leJXmY8PawW8nSvShYMAwVN VmD0OohFMhLTljY821NJhgX gX7DBBf wdLjI7PfQDMhaLsyTvO7v1Q 1Ql2CnMbztQApFC2lQjGnRR g8L2TmTik7PBUgkIsgCD9ia GFkZGlu Wi7zhDaxpWwyWF9gBWMxvpb uu966VdFvu7ytTNVhtTZnZE srSPL3N35id0K3GBJpVIKbC AV8kUG5 cH5nbMswqocbgQOwaNistlN ifFckNIghMZlyV088RWBtvG aeStMWYpu0I3PcNrt1YBKda WmhZI6m sGZjKGdjVh6stDyikMvlVC3 pPRKzlwfdc259GvBye6bjAE DfeWOrJTalQLC3Q17cd4H7C CMwMDAw WXG6eAQ2xI5avPlnujaceIN mdDsgdmVydGljYWwtYWxpZ2 73JRCtfHhfUu3TYce7S9QrW ha7ZOGd sBohAK3ofDLsZVhgOc2quHh xxZfzDL8vNKJpaecmp034Hm Zol5pmAEQfcKPnCCksXMA1Z 19sq2X5 PUEhDNQkNZX8dRX0nS2uzDy nbjogbGVmdDsgdmVydGljYW feCBqpN460CFUopOmaJjCsv WVyOjwv dGQ+ON81au90I9FsLdzkOik 1VQUlFMJ4tAJ1gF7yHPBlHC uvx1Q6qWV7H5UrfkAjhh8dv 2xsYXBz ZTo (more content not included)... [facility] ECG, Hospital Report Scanon 10-25-2023 [facility] Coding Summaryon 10-03-2023 Coding Summary HTMLBase 64 PxnmkivxEOm4uPa+PGhlYWQ +JR4AIFCdI72ltOJbfT5dV0 NMTElOSywgQVBQTElOSyIgb xIwKG5kaMLyXMDd IC8+TY2pLFHqPcthtDWhm7U 0lAW6U46esr3mUXcczDM8EC LrPzPakieln1zpkBo9BRbtL mluOyBt ZUVuaB80QIO2xY93Xf30pDA yjJQuy3owzIz6WkCxWVGvRF N8sOtyJGbwo6RwQOJpN07kr XVuv3M5 SEYceFqynXEaWpSkoED6uH9 gOMolokqbg6ejwiyxDyn2rt 67fQItz0G3lGU3R6YylxW8B GJvbGQg QlxreGMXtP5baltpl6zsshp tNrRiJNOpCRr6RRh8UANdnI cdYfQuQC66YHU8FBZqitThO 2FsLWFs qFucDeP3n7F4Tv1PG3CLGjg lB5WOWAPLHMkrxQN+PC90cj 96W0HqPyzaJho7UEXfSDD3w VK0qI5e FWDfAIqmy2U2eMB2X4MljfJ stz6en9eaYTGrUSinB79qiO Sky2Y6IJPldEP7QJStfCqxW iBzaG93 Oyc+JNUzkHjet5ThGtbsc5l mn1fkyKd4SzpoZDRrrhRhuB tlVUQ3z8TeWf2oCDVqzWW9v UD5wZ1q RaObHvF2KLnsL482WuKneBZ xVmvqK82aI8QrsJC+PHRyPj h5DIQsjSxwWT5tK8KkJUYov mctbGVm fUddIQ1cSIUharbfEIIziQ2 mEPVoX9f1HhQmTnU6UGqpH0 KfUBHplilqIq23eF0lGhMwA fV5UOym I0XnuvW7USVpiZVbHIcwBDL 0Q83zb4T9MIOsCFIeTKR9oR O7xN1dwAlavaoobQKlxFulu mVydGlj WSefHAjzC414YKPmqQtlHoX vZGluZyBEYXRlOiAgMDEvMD MvMjAyNDwvdGQ+XEBzOIT0n WxlPSAn uSRzYFqrHu3ymDtviPvuFY0 zTPWjevkuJTOctU7uSKJfiI VgvPawSW7hEKQesscet109A iAxMHB0 PNNspTShD8NedE5yKaYyLZS yEPBsH9BgmZBvURuzY027OS yrPfA0EEBensDoD4EzNAPzq WduOiB0 w0Z0Tb2Rd6QwjliiF0RwqCY xImXkGjlxUUp1L1QoIkoumO I+QN43BVTyVW41WKt4PXW3x WxlPSdi ILYoT5NygL6nXeRfAPMjZQJ kOyc+PHRhYmxlIHdpZHRoPS ydEKWoBrWtyGjvEA3fPt2eW GVyLWNv tXjxbLOdTmPoa5xhWJZzJBs qIP4ocWmkJ5ZauJG9WDYln8 g5Uz83P55fT1NnvRT+PGNvb WK7iBP5 jE6fXnRqZcG8QSmfI356NfZ tePRxGwxbd2rpr3qisRp5Qu F6OXCuanNcsBguLFW5x4EgN o90V26z IHdpZHRoPSIxNSUiIHZhbGl qrh0qvB1tMe3+BEZcwRD0vG O1mB7kIoDjBdE6LPseV833F nRvcCIv Mckmv9ypi4iykOp9ZdPdCKL vssLfmFamLNV3x2JbZe93I2 JreVqix1NgPkq7qi58qVOxr 2W3nBV1 O0EdRWLxvuclbSTbrYmmZO6 dOXOzdsyuQVCwtD4vRTVoQ4 j9ElPwMtO5UVbdY0PghlR1R GJvbGQg EUFinBZSnI2tcbeab7lotwt eLqUxOKZtKPw8DGo4IRSyeW ozIfErBAF2PuQ1XGJ6lNSwh U0xyPcu vowjyN6tZdi+QYF6yEXgcGS YJM2zSrqtbDO+OCJuOSW7iJ clGVeiBDIvqK6bAUBwR5x8E iAwLjA1 SHgpF1LmfkG8AFUilJVgWQI xtMKXmM2qwvajd4ksjvtcCv MsIKWrJPp3BCr7QBZpiWjyB iBsZWZ0 BhO9EGV8fEMtvS8wiNtzpcx zwH1uXbl+YouhzRjpMZA8AD w6C9YwTxu4RLOzyCdvCK7zc GFkZGlu Ud3apSgulCqyAU6oGJEidaq wl367DjDmo3cvCZTsmXLfHR ajLCR9H54ap9Q7TXMtCQNcU XQ6rFE9 pF4jxGvexbptfHAqkOgcppV vrOofEIyjZXrmM368NPYbmO knXbDaIPb8J5ReLse2CQSva BvxUZ0w oDEmBAzmZh4joXoeaJwgTY3 aSYXksewpc856CbOhz0rnSF DjdGJrONnpZSP7F85ll8H4Z CMwMDAw MHG5zVI8bU7rhRtgdefruSC mdDsgdmVydGljYWwtYWxpZ2 72LWCinEitUlXczBu8T9PpU ye2IQWr vYmjLZ3wkTBuBWwmXa7pfKh qnGnwLX3tDULaydnqi707Jw Gqi8iwSUWmnTLuRXnuCJH2S 45rb2J8 QCTuIXVqJLM7mDQ4hI7jyRy nbjogbGVmdDsgdmVydGljYW ihCOprU758VRBwrJyoDdNpz GllbnQg QZskQDl2G2SwDgilsJI+PC9 3UTZzPL54tMKdsBLnb7iqhP m5ViTwONRpYJV3gQevKJfzp 3JkZXIt F68poUClb1B7UOQygPabuLE eDcWxnMK4wF9sKWytbtjmu7 cfmukdVpaud7ssac22gC62G 29sIHdp ZHRoPSIzMCUiIHZhbGlnbj0 uzB4zUr5+KRCeaAP4vND1cO 7iFMHgIwM4PTgbN417GvTgx CIvPjxj y0dun0xswHu9AlR0PZMlbzV loWqiEQT1u6TvOp68P12yUK dpZHRoPSIyMCUiIHZhbGlnb m5wwV0l Ii8+DWKcnCE3uTJ8fQ1tVpA vDjZ5AOprO724SjYpdPEwKv oxP65yP0IsaNA+CSWtIrc1I CBzdHls EO7uzNZtJUtkNj4lTNQ6DnS wBpJmUHhrV0SwGKXziftxju uxxRH3SDQzOCScsD82Cu6nl DogMTBw gFCYkN2jkojtl7gcalpsXeL vOOCyAOt9GMj6KQPyfYeuGv NpWFF3IqK1ZZT9sWMkzN5vr Glnbjog jK3rJ6LcMWEpnqczCo55eA1 oYjZoWjL8LRkgQdd+U0FOQ0 nEVwwdFM5ATMtZYGILEUtwd GQ+PHRk XYD3yAzxZGjtKTWdzG3pTDP bR8v5AkIrUsB9JDsnH8FaIV DkigurQp61cL8jTlRuLkU0Q FlcA8Oi pfL5LAVjzUMrGPcoLGO1I94 wp2M2GVQkTWVrQAM5aDH7wA 1hbGlnbjogbGVmdDsgdmVyd GljYWwt JKmrP577BRAxzKxdRtU0XuI jAjG9MkF1R2OuUaz3RCFnkF tvAQ6qyTPwJCijIs1zmBpbn MsbOS6s SSOehwxnTAWpyN5sXJHeyRY tbGynUW6lJLWkarmwp292Vv NlQVN1KYEplZZvG9QrkJ4vE iAjMDAw WNWzM1RdfYNaGZtxS033HLd uDkJ7WFHhhgPgA8XoPYNjsW qfDiA0k7C0Sf62FnECNRPls zwvdGQ+ XVWqCWD6bBlpVUukUVPdiF7 xYDPcP8p7DmXrOmP8GBwtF5 IuVVAsfbjrXy07sH3wKjSsK jO4KXfm V7YtvnD4EEJiwCVpKKivOCW 9C15ho0I2HIJfBLLgZEE6yR J5bU0ekWzphctsjNDzgRflv mVydGlj AJmqNZduJ604WENihOunKrU FTUFMRTwvdGQ+OTDmNMU8vJ wwUPmbXPDfgQ9rAEMvQ7u4S iAwLjA1 TSqxU1NrGHFwcscsWe13lK4 sXkKeVxB2RKpvE9ZmqlN6UV McxWUuPUrxNNQ4C69jd5P0P CMwMDAw AYE3bBZ2jQ0ysPnrsuxaaDB mdDsgdmVydGljYWwtYWxpZ2 85NQEinBezBi9UFV32DX39D 3RyPjwv dGFibGU+PHRhYmxlIHdpZHR aVSijLDMbGaAdwUqtPU4bZu 9yZGVyLWNvbGxhcHNlOiBjb 2xsYXBz FTefBT8uyPuxO9OyaMU8LOB dn5o8Ow83F48uR4CmvTA+PG AwuSI5xGM4dY1wNlQtEgL6Y FeoV417 AcMcmNAdAshnu3xfm9clmPy 2WaFmWWWqxjWpqKtnZBV7i6 MyPp33I64kONlzMFOpDUWjY CUiIHZh bCsjgt5unL5bKs5+PGNvbCB 2fGS6tL7lYrBhUdE8NDvkK2 65WrWgtUQrNpzgA59jE9Ovq XA+PHRy Ieq0UZRabMwkTS2zdCQcHHm pHy1iEDS9IiHfThLsYVwyE4 FmERGjrfeediqhiLF5TLIrX DUwaW47 Qf2vjLymWj3fDIYqITO0ORH fgLQpM1GvmP9wXwNfPCFcJS CjC9DiuGFjERlxR570NXsmL oH4ZLSw ugQdG9VfZMFcoOvuLlO9t8E 4Us6OlCybvEPvUA4bLtXrVL i7H4UsFyk0ILIkbCloOY0is GFkZGlu Bm6bbRgdpLvpFW8nFQAfqpd pp521VgUsn8shEXTbkOKuGP ovPAF0A84gr7I4AGSnATEeN DH0hYG9 lR7urUgjfxbysJXavLojqgO onOmmREssJDpgG400OOLiiN aaDpQDZsm4C7XtHmf4EFCpm QukOU3d tFFeYJdaYc5feUsivMdrQZ6 nCTPqydxgt052PaInv8jmMF JjsIMfOIyxUJB7T23dd6W5Q CMwMDAw VNW3vTG5cF6tdAbbdfjrgCA mdDsgdmVydGljYWwtYWxpZ2 19ELSlxVjrRo2NZdx5L6UzB qo0NTOn yPzjKA0zaJSsPRwbVx4kzPi upEaoCL9fMFDkfvgxu898Xr Enx6rcBXQzaTRnCWqkWEU0M 35eh6K5 TQDlNNGxEOL5zXT2tC3uuTn nbjogbGVmdDsgdmVydGljYW tcXMkjU253YCYszSfoTzQsq WVyOjwv dGQ+QO95sv58U6DbFukeRje 4ATVpDXT0wTX9nN0gGJOsOV gcy8U9mHG0D9OpiiViau9no 2xsYXBz ZTo (more content not included)... [facility] Coding Summary HTMLBase 64 QeryfrxlSKd5dEj+PGhlYWQ +PT0FHLWvJ63vlWMfnC8eD5 NMTElOSywgQVBQTElOSyIgb wAmOH6tuZGyLCKj IC8+II3yNOTbCtaroINzh4O 7oKH5Z16wjb3uXGtzgQV5LL MbXfAfbclig3ezeYy0COdfK mluOyBt AOEzoB55AZS3gK11Us56aXS rtLSvn5jrfUe3BxZkRYXaDY F4mObyBXsaf9UcTXYmU09sa RKum4X5 HJLjoFenqWOrPvMxfYC9zG0 iTUknuxwqh4mjhynsGbq3uo 93qLFcm2K9nWF5R2PkceL1D GJvbGQg LokmlZORrI9hvjiyl8lwuvz bUaGfTJAcGOy0CGk4QITvsU vlEfKwAJ06HCR0TYVcuvCiX 2FsLWFs iEvkEuI1j1N2Id4IJ1MJHkq qD3TLOFBVZFnbeTE+PC90cj 51J2JfByymLzj6MXUaCVI7n MJ3gB7e HFOyRTkll2L2rEG6Z2JocaP fkw5nj3jsIJVfQQqxZ59mvN Pse2Z1IFHeeNL3MQQsuVmzP iBzaG93 Oyc+HUFniEsje2QrYnrgg2u ob0xrdDf5OpktTZJmlaZxdT qrZHW6w2KfUv9vBCOsjOQ8g HA4mH8f PoQrIyF9KSgtL632YeNedZR cLscaT36wF0UkqKJ+PHRyPj o5FVQaySarZR7zO0KtPYNzf mctbGVm jIceVW6yFEYhztnbERGzvT0 sJBQrZ5n6ZzHqWvE2YOuiL6 PnAUOmmfeoFi76uB2pJrPhL wB9NRyi L6FnssF9KTEcuUVdUAveVLR 3L61zx1J9HYJlJIVcUYQ3sE F8kE0bcUelrzskcFOufLuwd mVydGlj QDfcXKcpN324ASAzeRktZfD vZGluZyBEYXRlOiAgMDEvMD MvMjAyNDwvdGQ+VNEjILW9l WxlPSAn qHXdEIpzMo8mzYhraFaoJZ8 tWKCztdnuQNXnrU2eYKZhmA XbvQebFT2iHYSshauwx364K iAxMHB0 WNTnvRXmC3FhlS9pIqLdBZM tDGUeY9KjhSTlBMzlP315SH vuPxR5DNSqlqImB3KmAPSnb WduOiB0 i8F5Ac4Cw1LvxdvjC0QhrHD tZcNfAvpiJIj7Q2TfQyaahY I+HV05YITrSJ59TXv4DGW0p WxlPSdi FWOeW9BjlY7sOaRbGDAoLSG kOyc+PHRhYmxlIHdpZHRoPS vyWCYwRiIodPxiTS8eXb9nJ GVyLWNv dOvgaWXaHyWbs5sgOEUjRCb oFJ8scVvrT6JrvOD9GFYza5 l4Sp84M37gE2AfjMO+PGNvb QF3sNA7 oT9iJpUbXtQ6BFbwC914TuB fsJRxBqlhb8giu8mrtTo8Ts X8LISbiiVfuQcbXDX0n5NmS o73K06u IHdpZHRoPSIxNSUiIHZhbGl awj4rgU3gKe3+KUZrnVP1nZ I8eR7ySvGkFgE8EXsiG276K nRvcCIv Nlxth3hpd5wfqCb1WnQqTYN spjMkpHicUTY4b1YqZn25C5 ChrMept9IdWxj0kh61tNIld 8W1vHM9 O7PlNIDkkctpmUPzfCdxNW3 eWODhudhsKMSsdH1wVSMiW9 y3AgKnDsB6MFddN9AwceH0L GJvbGQg ZYVkgNFTpI1dwzwmt8zjjrm wFiYmEVNhYHl9IZg3WDUgzK bsQiSlPUO0OlZ3LSO1bCKty L3xbXhl ageeyS5gZec+GJU3vCDjjOF ORV5xHxdkhNH+DVVcEQH6yK sfAJpyEZEouM0gXRApV4m3Z iAwLjA1 VGfhG4XdayZ1SOCxkJDqTGN sfUKFwF6lbukcs1iilokaOh AhRUVmCFo8TQj1KCCxjFuzS iBsZWZ0 DpC2QJO5eFLdbP3suGijbps mdU2zPfj+QvrszSbmGBU7IF v9V1PsYbm4MTZezYfpNJ4uq GFkZGlu Ty1gmIfncOhqVN1cLKBfkka gy931TnOna5syOQOghGKtCG hkLJP5C54ks3M7ZTVzNQUtW VH5dJO2 nI4geKskefxgmCNnoZwlziM ffQqmAJnlDXusJ562QXDxcX wmAkDnLCm7L7UyCqs7XNOxs JeeVY7e bOSzNQmmGm5qlSozeFnbGE9 kQCNzqkdha177QyQue0sxEX AtuUMfCGfuHAB5V01lw2W3D CMwMDAw QHZ6gMO1bY3lrNpjxfpnoRE mdDsgdmVydGljYWwtYWxpZ2 42RHPmqPonJvKjgUu0J1WkI gq2YZGb hYodVY8bhBFfQOtwPq9cyEh yxSrbEJ6rZXEncwjvj945Yw Hyq8dhBYVkfMOjPIwhVBE4J 50lj6X3 TLFcRBLdLTZ8oKM1cA4ksTy nbjogbGVmdDsgdmVydGljYW lhGXgbA435ACLulVpwGcSpg GllbnQg YFwfPJc6Y4QwZktgzNY+PC9 2QJIwIO23tVBhvIFip7uzqG u5FgKoHGZeXJX1xKsxZQxtw 3JkZXIt L45vzGGrr5F2MSCcxAqyvMT oFaUkgCQ0rP9iIFxntpmev2 lqzolnFzfbb6yxgs47zD88V 29sIHdp ZHRoPSIzMCUiIHZhbGlnbj0 waZ1vLy9+SHMwrWP2vXH0jU 2gKHOiTbY9SYooC467SeDny CIvPjxj w9oud4jpoGp2TdJ0UJRvlgV sjRonJUA3j1ZhOe63K28aTG dpZHRoPSIyMCUiIHZhbGlnb w0xpN2d Ii8+YEAqbBY2vTP2zO7bLyF yZpD5CKutS628PgLpgDXqLl sbR70xW7CikSP+YPWsVfv7V CBzdHls PF1leMCsIFmhRo1rJEA1NjZ mZsEiWFmrQ5VaKUDgvzhrfv ydoDI7YPKbVHLopP47Le1xd DogMTBw cGFZxX2oaukqo3reqwosScG jYMWvRUd2TBt9ORKsdWyiTf ObOOC1HnT8QIG1wPSmcV4vf Glnbjog eE7vS6XmCIIlzktwKw38jU3 cHqNaAgN9IRgdCfj+U0FOQ0 vQFjkgAF7GIBhGFYHXUEtns GQ+PHRk QEQ3nVrqKQquMEAjwH6xANA yI3s9GxFpWrA9YGixI9HyTP TzeskcVm26dQ9bEwKrQnH4R EreT7Yk mbH8KSZciNCuMNcmRTF7P72 ep3Q0CGKuNNOuVIN3fDS2pA 1hbGlnbjogbGVmdDsgdmVyd GljYWwt MIfxU584QQEelHqaFgL5XyC bZyB4LfW8D6OeBes8MNBjbG syRF0kqZCwWWyiGc4ykWjst SauSN0o CENijxvmWYIaeN2wAOBieRI sxXguBC9sQJNiwbozp446Bc ExJFW9RGBfwAHbU7CxxC1hK iAjMDAw REYfV9OprDAjWYsgY959OBa vSgM2ATZiorXyA9BwYQCczY vxOaK7v3P8Td76NyNYITXrw zwvdGQ+ RPCcXRJ3rGotHKmuWHNclD9 tJHLgV3p6JiWnRsS0OCzqF5 ZnPDYxxxsbRq66bN6uJvFtY sT0CQsc Y8JpgnN9BXFodVSsELsxTEE 8A92uq3W7RVWnKHNaESE0gE N4mY1bzMcerdoooROokBzvg mVydGlj TJqtPTqiH116ENWebGqlQzG FTUFMRTwvdGQ+HLDnVHR8qD siTDiuORPmhY8kGSKcY7h2Y iAwLjA1 RIsnD1WhLGAwxmymZf28wL3 eKjHdVcE0GLgbN6KdvlH5RL ZhzBCyKRwbROJ0F40qz0Z1G CMwMDAw MOB8qSA1yZ1ypRdhmqjiaIZ mdDsgdmVydGljYWwtYWxpZ2 74AKGhrLyvBi4NCB76HQ05W 3RyPjwv dGFibGU+PHRhYmxlIHdpZHR uZTplJCUcCqDfbOipSA8dRp 9yZGVyLWNvbGxhcHNlOiBjb 2xsYXBz RRikZE2giNtyH1EuaLR2DAC jl2e9Rp73P90nI8LzpIY+PG WcjEG8tPP7cM0eGpLaGtJ3J FbuK192 NyOrlPYgOzxap3lcc7ocfUw 9UqVxVFUkqsHbsLvjMRV3o0 JtMy18Y63zOUwsVCUxSIBpZ CUiIHZh iXtgem2nwF1wCk0+PGNvbCB 4qFO1mX2gUvGyTbX6UBinN9 04TxXfuZLkQvhaM40kW2Tiq XA+PHRy Yfn7ADKaaHhuBG8ooLFnJVc oBl3fAQC4ThCdUlRnRQjhR2 BqMSIqpfdumyzelFZ7RFTjA DUwaW47 Wq5azHscFs7vPHJtBWM1HGV ioAYrO9ZcgD6zQnRfWXGlXN KxL0PxeDKuLAjvN426KOakE fH9MWEf lwIjW4HdYHFiqFllFiP3o0S 5Kd0ReGtxpRKmNX6fYhUxIR a7B8PwCik5EQJamNdhOS7tc GFkZGlu Ib6axQvqnHvyMZ3nQOBbtql ii015JqTql1geQGWgsBDrRN llLKR2W81sz6B4KDFpNCVuK OW1bQE9 zB6cdEtahavrxJMpdMluiqT fbKnuXOgpEEwpQ908AVUljZ zpNfMWYvj7W9KaVbn1LVXqp OehPD4k sPFyADrqIr5mvBiqhRwvLV9 bXPNqgsutb910PzInp9xiQM CvdDSaJYruMBF9Y48ou7T3D CMwMDAw SRB8aPU1tN9ijEwtvbucqOS mdDsgdmVydGljYWwtYWxpZ2 23JXBpdLevEn8AJtr6V3FfV fe2YLGd iYtsVK3bjYXaKVzmAs3lvKt mkVulLH9xMPPahmpct481Hj Xab7xsZFNvwBScMZamTYC9N 62jw6G4 GTFbPXYgBFI1vEZ5pD3xnRq nbjogbGVmdDsgdmVydGljYW ccBOnjY515PKUtuUweJjSht WVyOjwv dGQ+PX63bz96E3ClGhpgHxt 0RIFwDJA4eKL2eX5nLSEhEP abb7R7lHO1A0GgzkUjjf3ow 2xsYXBz ZTo (more content not included)... Normal [facility] .Auto Diff 09-27-2023 Auto Aurora % 6 % Normal 10-12 [facility] Comment on above: Performed By: #### 7 372280, [id number], 6335643, [id number] #### [facility] (DEFAULT) [address] [place] [address] Baso Abs# 0.0 x10 Normal 0.0-0.2 [facility] Comment on above: Performed By: #### 7 004061, [id number], 0639190, [id number] #### [facility] (DEFAULT) [address] [place] [address] Basophils/100 WBC (Bld) 1.1 % Normal 0.2-2.0 [facility] Comment on above: Performed By: #### 7 070572, 56591910, 9128232, [id number] #### [facility] (DEFAULT) [address] [place] [address] Eos Abs# 0.1 x10 Normal 0.0-0.4 [facility] Comment on above: Performed By: #### 7 019709, 69549276, 0852040, [id number] #### [facility] (DEFAULT) [address] [place] [address] Eosinophils/100 WBC (Bld) 1.9 % Normal 0.9-4.0 [facility] Comment on above: Performed By: #### 7 719225, 10456486, 9481281, [id number] #### [facility] (DEFAULT) [address] [place] [address] Lymph Abs# 1.0 x10 Low 1.3-2.9 [facility] Comment on above: Performed By: #### 7 338417, 95681861, 7189491, [id number] #### [facility] (DEFAULT) [address] [place] [address] Lymphocytes/100 WBC (Bld) 27 % Normal 14-48 [facility] Comment on above: Performed By: #### 7 788376, 04016615, 4932973, [id number] #### [facility] (DEFAULT) [address] [place] [address] Aurora Abs# 0.2 x10 Normal 0.0-0.8 [facility] Comment on above: Performed By: #### 7 078418, [id number], 9080562, [id number] #### [facility] (DEFAULT) [address] [place] [address] Neut Abs# 2.5 x10 Normal 1.5-9.2 [facility] Comment on above: Performed By: #### 7 649439, 29588678, 9706580, [id number] #### [facility] (DEFAULT) [address] [place], [place] [address] Neutrophils/100 WBC (Bld) 64 % Normal 44-88 [facility] Comment on above: Performed By: #### 7 808184, 14541678, 2334370, [id number] #### [facility] (DEFAULT) [address] [place] [address] CBC w/ Auto Diffon 3 Erythrocyte distribution width (RBC) [Ratio] 14.5 % Normal 11.5-15.0 [facility] Comment on above: Performed By: #### 7 078728, 16394425, 5784487, [id number] #### [facility] (DEFAULT) [address] [place] [address] Hematocrit (Bld) [Volume fraction] 33.8 % Normal 33.7-40.4 [facility] Comment on above: Performed By: #### 7 240584, 90048693, 3813488, [id number] #### [facility] (DEFAULT) [address] [place] [address] Hemoglobin (Bld) [Mass/Vol] 11.0 g/dL Low 11.3-15.9 [facility] Comment on above: Performed By: #### 7 147497, 65442038, 4490479, [id number] #### [facility] (DEFAULT) [address] [place] [address] 31792 MCH (RBC) [Entitic mass] 27 pg Normal 24-34 [facility] Comment on above: Performed By: #### 7 254971, 38183008, 0080765, [id number] #### [facility] (DEFAULT) [address] [place] [address] 23551 MCHC (RBC) [Mass/Vol] 32 g/dL Normal 26-37 [facility] Comment on above: Performed By: #### 7 072019, 29878661, 3194088, [id number] #### [facility] (DEFAULT) [address] [place] [address] 71096 MCV (RBC) [Entitic vol] 84 fL Normal 81-100 [facility] Comment on above: Performed By: #### 7 391574, 24198074, 5353875, [id number] #### [facility] (DEFAULT) [address] [place] [address] Platelet 294 x10 Normal 138-427 [facility] Comment on above: Performed By: #### 7 740921, 32995796, 4489898, [id number] #### [facility] (DEFAULT) [address] [place] [address] Platelet mean volume (Bld) [Entitic vol] 6.7 fL Normal 6.3-10.2 [facility] Comment on above: Performed By: #### 7 559494, 03949267, 5967479, [id number] #### [facility] (DEFAULT) [address] [place] [address] RBC 4.02 x10 Normal 3.70-5.30 [facility] Comment on above: Performed By: #### 7 473439, 07043192, 6513044, [id number] #### [facility] (DEFAULT) [address] [place] [address] WBC 3.9 x10 Normal 3.5-10.5 [facility] Comment on above: Performed By: #### 7 918299, 37235143, 5920026, [id number] #### [facility] (DEFAULT) [address] [place] [address] Man Diff? Auto Invalid Interpretation Code [facility] Comment on above: Performed By: #### 7 376500, 38498896, 3642730, [id number] #### [facility] (DEFAULT) [address] [place] [address] CMP Standardon 09-27-2023 eGFR Non AA >60 Invalid Interpretation Code [facility] Comment on above: Performed By: #### 7 595904, 38090139, 6307003, [id number] #### [facility] (DEFAULT) [address] [place] [address] eGFR AA >60 Invalid Interpretation Code [facility] Comment on above: Performed By: #### 7 726980, 61429112, 1639010, [id number] #### [facility] (DEFAULT) [address] [place] [address] Albumin [Mass/Vol] 4.0 g/dL Normal 3.5-5.0 [facility] Comment on above: Performed By: #### 7 027245, 22605219, 1089804, [id number] #### [facility] (DEFAULT) [address] [place] [address] Albumin/Globulin [Mass ratio] 1.2 {ratio} Low 1.4-2.6 [facility] Comment on above: Performed By: #### 7 140603, 17842406, 4292953, [id number] #### [facility] (DEFAULT) [address] [place] [address] Alk Phos 79 IU/L Normal 32-91 [facility] Comment on above: Performed By: #### 7 341677, 74241657, 3170990, [id number] #### [facility] (DEFAULT) [address] [place] [address] ALT [Catalytic activity/Vol] 15.0 U/L Normal 14.0-54.0 [facility] Comment on above: Performed By: #### 7 161885, 12093723, 7563491, [id number] #### [facility] (DEFAULT) [address] [place] [address] Anion gap [Moles/Vol] 11.9 mmol/L Normal 5.0-19.0 [facility] Comment on above: Performed By: #### 7 420112, 13960556, 4312022, [id number] #### [facility] (DEFAULT) [address] [place] [address] AST [Catalytic activity/Vol] 22 U/L Normal 15-41 [facility] Comment on above: Performed By: #### 7 252242, 95902750, 1605161, [id number] #### [facility] (DEFAULT) [address] [place] [address] Bili Total 0.9 mg/dL Normal 0.3-1.2 [facility] Comment on above: Performed By: #### 7 660560, 02898679, 6871153, [id number] #### [facility] (DEFAULT) [address] [place] [address] 82017 Calcium [Mass/Vol] 8.8 mg/dL Low 8.9-10.3 [facility] Comment on above: Performed By: #### 7 746875, 93504409, 4931568, [id number] #### [facility] (DEFAULT) [address] [place] [address]228 Chloride [Moles/Vol] 107 mmol/L Normal 101-111 [facility] Comment on above: Performed By: #### 7 357600, 65819266, 3991983, [id number] #### [facility] (DEFAULT) [address] [place] [address] 24154 CO2 [Moles/Vol] 25 mmol/L Normal 21-32 [facility] Comment on above: Performed By: #### 7 499846, 02981011, 9883248, [id number] #### [facility] (DEFAULT) [address] [place] [address] 16507 Creatinine [Mass/Vol] 0.57 mg/dL Low 0.60-1.30 [facility] Comment on above: Performed By: #### 7 014560, 98852187, 6950508, [id number] #### [facility] (DEFAULT) [address] [place] [address] 66139 Globulin (S) [Mass/Vol] 3.1 g/dL Normal 1.5-4.3 [facility] Comment on above: Performed By: #### 7 456053, 50910244, 1980529, [id number] #### [facility] (DEFAULT) [address] [place] [address] 89070 Glucose [Mass/Vol] 99.0 mg/dL Normal 74.0-118.0 [facility] Comment on above: Performed By: #### 7 517212, 38970979, 4811160, [id number] #### [facility] (DEFAULT) [address] [place] [address] 12573 Osmolality 278 mOsm/L Invalid Interpretation Code [facility] Comment on above: Performed By: #### 7 538343, 87832157, 0594582, [id number] #### [facility] (DEFAULT) [address] [place] [address] 48688 Potassium [Moles/Vol] 3.9 mmol/L Normal 3.6-5.1 [facility] Comment on above: Performed By: #### 7 205313, 82971180, 3433228, [id number] #### [facility] (DEFAULT) [address] [place] [address] 14327 Protein [Mass/Vol] 7.1 g/dL Normal 6.5-8.1 [facility] Comment on above: Performed By: #### 7 865757, 76249601, 6232618, [id number] #### [facility] (DEFAULT) [address] [place] [address] 47893 Sodium [Moles/Vol] 140.0 mmol/L Normal 136.0-144.0 [facility] Comment on above: Performed By: #### 7 001473, 19298080, 0602760, [id number] #### [facility] (DEFAULT) [address] [place] [address] 88241 Urea nitrogen [Mass/Vol] 10 mg/dL Normal 8-26 [facility] Comment on above: Performed By: #### 7 268348, 63524354, 6334258, [id number] #### [facility] (DEFAULT) [address] [place] [address] 99528 Urea nitrogen/Creatinin e [Mass ratio] 17.5 mg/mg High 4.6-16.2 [facility] Comment on above: Performed By: #### 7 661687, 59620598, 2611029, [id number] #### [facility] (DEFAULT) [address] [place] [address] 13116 Lipid Panel Standardon 09-27 Cholesterol [Mass/Vol] 119.0 mg/dL Normal 66.0-200.0 [facility] Comment on above: Order Comment: pt jennifer sharma order for lipidc.c. dr shwetha johnson Performed By: #### 1 [id number] ####[facility] (DEFAULT)[address] [place] [address] 57566 Cholesterol in HDL [Mass/Vol] 59 mg/dL Normal 40-71 [facility] Comment on above: Order Comment: pt rodriguez d a dup order for lipidc.c. dr shwetha johnson Performed By: #### 1 [id number] ####[facility] (DEFAULT)[address] [place] [address] 18010 Cholesterol in LDL [Mass/Vol] 33 mg/dL Normal 1-100 [facility] Comment on above: Order Comment: pt rodriguez d a dup order for lipidc.c. dr shwetha johnson Performed By: #### 1 [id number] ####[facility] (DEFAULT)[address] [place] [address] 86322 Cholesterol.total/ Cholesterol in HDL [Mass ratio] 2.0 {ratio} Normal 0.0-4.5 [facility] Comment on above: Order Comment: pt rodriguez d a dup order for lipidc.c. dr shwetha johnson Performed By: #### 1 [id number] ####[facility] (DEFAULT)[address] [place] [address] 09162 Triglyceride [Mass/Vol] 136.0 mg/dL Normal 0.0-150.0 [facility] Comment on above: Order Comment: pt rodriguez d a dup order for lipidc.c. dr shwetha johnson Performed By: #### 1 [id number] ####[facility] (DEFAULT)[address] [place] [address] 59525 VLDL. 27 mg/dL Normal 5-40 [facility] Comment on above: Order Comment: pt rodriguez d a dup order for lipidc.c. dr shwetha johnson Performed By: #### 1 [id number] ####[facility] (DEFAULT)[address] [place] [address] 26739 Provider Orderson 09-27-2023 Provider Orders [id number]#1.00 [facility] [id number]#1.00 [facility] TSH[facility] 09-27-2023 TSH Qn 0.88 m[IU]/L Normal 0.45-5.33 [facility] Comment on above: Performed By: #### 7 571204, 92009356, 5336776, [id number] #### [facility] (DEFAULT) [address] [place] [address] [facility]-01 SARS-CoV-2 (COVID-19) RNA CHRISTAL+probe Ql (Unsp spec) Not detected Normal NOT DETECTED [facility] Comment on above: Result Comment: This test is not yet approved or cleared by the [place] FDA. When there are no FDA-approved or cleared tests available, and other criteria are met, FDA can make tests available under an emergency access mechanism called an Emergency Use Authorization (EUA). The EUA for this test is supported by the [place] of Health and Human Service's (HHS's) declaration that circumstances exist to justify the emergency use of in vitro diagnostics for the detection and/or diagnosis of the virus that causes COVID-19. This EUA will remain in effect (meaning this test can be used) for the duration of the COVID-19 declaration justifying emergency of IVDs, unless it is terminated or revoked by FDA (after which the test may no longer be used). When diagnostic testing is negative, the possibility of a false negative should be considered in the context of a patient's recent exposures and the presence of clinical signs and symptoms consistent with SARS-CoV-2. Performed By: #### C VDTBH #### [facility] [address] [place], [place] [address] Dr. Madeline Short AMYLASEon 05-18-2021 Amylase [Catalytic activity/Vol] 55 U/L Normal 31-110 [facility] Comment on above: Performed By: #### H STROPN, LIPA, DREW ####[facility] [address] [place], [place] [address]RsmaieGianluca Lebron CARDIAC ARAM ADMITon 021 CK [Catalytic activity/Vol] 47 U/L Normal 30-135 [facility] Comment on above: Performed By: #### C MP, CMADM #### [facility] [address] [place], [place] [address] Gianluca eLbron CK.MB [Mass/Vol] 0.37 ng/mL Normal <=2.37 [facility] Comment on above: Performed By: #### C VALDEZ, KOMAL #### [facility] [address] [place] [address] Gianluca Vi HSTROP <4.0 Normal 4.0-35.5 [facility] Comment on above: Result Comment: CUT- OFF POINTS HAVE BEEN ESTABLISHED BASED ON THE FOURTH UNIVERSAL DEFINITIONS OF MYOCARDIAL INFARCTION. THE UPPER REFERENCE LIMIT (URL) OF TROPONIN, DEFINED THE 99TH PERCENTILE OF cTnI DISTRIBUTION IN A REFERENCE POPULATION, HAS BEEN CONFIRMED THE DECISION THRESHOLD FOR [place] DIAGNOSIS. Performed By: #### C VALDEZ, KOMAL #### [facility] [address] [place] [address] Gianluca Vi KRISTINE 13.0 ng/mL Normal <=61.5 [facility] Comment on above: Performed By: #### C VALDEZ, MUKUNDDM #### [facility] [address] [place], [place] [address] Gianluca Vi CBC AUTO DIFFon 05-18-2021 BASO # 0.0 103/ul Normal 0.0-0.1 [facility] Comment on above: Performed By: #### C BC #### [facility] [address] [place], [place] [address] Gianluca Vi Basophils/100 WBC (Bld) 0.6 % Normal 0.2-2.0 [facility] Comment on above: Performed By: #### C BC #### [facility] [address] [place], [place] [address] Gianluca Vi EO # 0.1 103/ul Normal 0.0-0.7 [facility] Comment on above: Performed By: #### C BC #### [facility] [address] [place], [place] [address] Gianluca Vi Eosinophils/100 WBC (Bld) 1.7 % Normal 0.9-7.0 [facility] Comment on above: Performed By: #### C BC #### [facility] [address] [place] [address] Gianluca Vi Erythrocyte distribution width (RBC) [Ratio] 13.0 % Normal 11.0-15.0 [facility] Comment on above: Performed By: #### C BC #### [facility] [address] [place] [address] Gianluca Lebron Hematocrit (Bld) [Volume fraction] 42.4 % Normal 36.0-48.0 [facility] Comment on above: Performed By: #### C BC #### [facility] [address] [place] [address] Gianlucarayo Lebron Hemoglobin (Bld) [Mass/Vol] 13.4 g/dL Normal 12.0-16.0 [facility] Comment on above: Performed By: #### C BC #### [facility] [address] [place] [address] Gianluca Vi IG # 0.03 10e3/ul Normal 0.00-0.03 [facility] Comment on above: Performed By: #### C BC #### [facility] [address] [place] [address] Gianluca Vi IG % 0.5 % Normal 0.0-0.5 [facility] Comment on above: Performed By: #### C BC #### [facility] [address] [place] [address] Gianlucarayo Lebron LYMPH # 1.5 103/ul Normal 1.2-3.8 [facility] Comment on above: Performed By: #### C BC #### [facility] [address] [place] [address] Gianluca Lebron Lymphocytes/100 WBC (Bld) 23.6 % Normal 20.5-60.0 [facility] Comment on above: Performed By: #### C BC #### [facility] [address] [place] [address] Gianluca Lebron MANUAL DIFF REQ NO Normal [facility] [place] [facility] Comment on above: Performed By: #### C BC #### [facility] [address] [place], [place] [address] Gianluca Lebron MCH (RBC) [Entitic mass] 30.7 pg Normal 26.7-34.0 [facility] Comment on above: Performed By: #### C BC #### [facility] [address] [place], [place] [address] Gianlucarayo Lebron MCHC (RBC) [Mass/Vol] 31.6 g/dL Normal 29.9-35.2 [facility] Comment on above: Performed By: #### C BC #### [facility] [address] [place], [place] [address] Gianlucarayo Lebron MCV (RBC) [Entitic vol] 97.0 fL Normal 81.0-99.0 [facility] Comment on above: Performed By: #### C BC #### [facility] [address] [place], [place] [address] Gianluca Vi MONO # 0.4 103/ul Normal 0.3-0.8 [facility] Comment on above: Performed By: #### C BC #### [facility] [address] [place] [id number] Gianluca Vi Monocytes/100 WBC (Bld) 6.9 % Normal 1.7-12.0 [facility] Comment on above: Performed By: #### C BC #### [facility] [address] [place], [place] [address] Gianluca Vi NEUT # 4.3 103/ul Normal 1.4-6.5 [facility] Comment on above: Performed By: #### C BC #### [facility] [address] [place], [place] [address] Gianluca Vi Neutrophils/100 WBC (Bld) 66.7 % Normal 43.0-75.0 [facility] Comment on above: Performed By: #### C BC #### [facility] [address] [place], [place] [address] Gianluca Vi Platelet mean volume (Bld) [Entitic vol] 9.3 fL Critically low 9.5-13.5 [facility] Comment on above: Performed By: #### C BC #### [facility] [address] [place], [place] [address] Gianluca Vi PLT 227 103/ul Normal 150-450 [facility] Comment on above: Performed By: #### C BC #### [facility] [address] [place], [place] [address] Gianluca Vi RBC 4.37 106/ul Normal 4.20-5.40 [facility] Comment on above: Performed By: #### C BC #### [facility] [address] [place] [id number] Gianlucarayo Lebron WBC 6.4 103/ul Normal 4.0-11.0 [facility] Comment on above: Performed By: #### C BC #### [facility] [address] [place] [id number] Gianluca Lebron LACTATE/LACTIC ACIDon 2020 Lactate [Moles/Vol] 1.6 mmol/L Normal 0.7-2.0 [facility] Comment on above: Performed By: #### L ACT ####[facility] [address] [place] [id number] Lebron LIPASEon 05-18-2021 Lipase [Catalytic activity/Vol] 88.0 U/L Normal 23.0-300.0 [facility] Comment on above: Performed By: #### H ASHLEY, LIPBecky, DREW ####[facility] [address] [place], [place] [address]Eiarni Vi PROF 14(COMP METB)on 021 Albumin [Mass/Vol] 4.2 g/dL Normal 3.5-5.0 [facility] Comment on above: Performed By: #### C VALDEZ, KOMAL #### [facility] [address] [place] [id number] Gianluca Vi Albumin/Globulin [Mass ratio] 1.2 {ratio} Normal [facility] Comment on above: Performed By: #### C VALDEZ, KOMAL #### [facility] [address] [place] [id number] Gianluca Vi ALP [Catalytic activity/Vol] 76 U/L Normal 38-126 [facility] Comment on above: Performed By: #### C VALDEZ, KOMAL #### [facility] [address] [place] [phone] Gianluca Vi ALT [Catalytic activity/Vol] 50 U/L Normal 9-52 [facility] Comment on above: Performed By: #### C VALDEZ, CMADM #### [facility] [address] [place], [place] [address] Gianluca Vi Anion gap [Moles/Vol] 15.0 mmol/L Normal [facility] Comment on above: Performed By: #### C VALDEZ, CMADM #### [facility] [address], [place] [address] Gianluca Vi AST [Catalytic activity/Vol] 28 U/L Normal 14-36 [facility] Comment on above: Performed By: #### C VALDEZ, CMADM #### [facility] [address], [place] [address] Gianluca Vi Bilirubin [Mass/Vol] 0.4 mg/dL Normal 0.2-1.3 [facility] Comment on above: Performed By: #### C VALDEZ, CMADM #### [facility] [address] [address] Gianluca Vi Calcium [Mass/Vol] 9.1 mg/dL Normal 8.4-10.2 [facility] Comment on above: Performed By: #### C VALDEZ, KOMAL #### [facility] [address] [id number] Gianluca Vi Chloride [Moles/Vol] 104 mmol/L Normal 98-107 [facility] Comment on above: Performed By: #### C VALDEZ, CMADM #### [facility] [address], [place] [address] Gianluca Vi CO2 [Moles/Vol] 26.2 mmol/L Normal 22.0-30.0 [facility] Comment on above: Performed By: #### C VALDEZ, KOMAL #### [facility] Laboratory [address] [id number] Gianluca Vi Creatinine [Mass/Vol] 0.82 mg/dL Normal 0.52-1.04 [facility] Comment on above: Performed By: #### C VALDEZ, CMADM #### [facility] Laboratory [address] [place], [place] [address] Gianluca Vi EGFR-AF EGYPTIAN >60 Normal >=60 [facility] Comment on above: Performed By: #### C VALDEZ, CMADM #### [facility] [address], [place] [address] Gianluca Vi EGFR-NON AF EGYPTIAN >60 Normal >=60 [facility] Comment on above: Performed By: #### C VALDEZ, CMADM #### [facility] [address], [place] [address] Gianluca Vi Globulin (S) [Mass/Vol] 3.4 g/dL Normal [facility] Comment on above: Performed By: #### C VALDEZ, CMADM #### [facility] [address] [place], [place] [address] Gianluca Vi Glucose [Mass/Vol] 88 mg/dL Normal 74-106 [facility] Comment on above: Performed By: #### C VALDEZ, CMADM #### [facility] [address], [place] [address] Gianluca Vi Potassium [Moles/Vol] 3.2 mmol/L Critically low 3.4-5.0 [facility] Comment on above: Performed By: #### C VALDEZ, CMADM #### [facility] [address] [place], [place] [address] Gianluca Vi Protein [Mass/Vol] 7.6 g/dL Normal 6.1-8.2 [facility] Comment on above: Performed By: #### C VALDEZ, CMADM #### [facility] [address] [phone] Gianluca Vi Sodium [Moles/Vol] 142 mmol/L Normal 137-145 [facility] Comment on above: Performed By: #### C VALDEZ, CMADM #### [facility] [address] [place], [place] [address] Gianluca Vi Urea nitrogen [Mass/Vol] 16.0 mg/dL Normal 7.0-17.0 [facility] Comment on above: Performed By: #### C VALDEZ, CMADM #### [facility] [address] [place], [place] [address] Gianluca Vi Urea nitrogen/Creatinin e [Mass ratio] 19.5 mg/mg Normal [facility] Comment on above: Performed By: #### C VALDEZ, CMADM #### [facility] Laboratory [address] [phone] Gianluca Lebron PROTIMEon 05-18-2021 INR Coag (PPP) [Relative time] 1.01 {INR} Normal [facility] Comment on above: Performed By: #### P T, PTT #### [facility] [address] [address] Gianluca Lebrno INR GUIDELINES SEE BELOW Normal [facility] Comment on above: Result Comment: ARLEY RED INR: 2.0 - 3.0 CONDITIONS NOT LISTED BELOW 2.5 - 3.5 FOR PROSTHETIC HEART VALVE REPLACEMENT 2.5 - 3.5 RECURRENT THROMBOSIS Performed By: #### P T, PTT #### [facility] [address] [address] Gianluca Lebron PT Coag (PPP) [Time] 10.9 s Normal 9.0-11.6 [facility] Comment on above: Performed By: #### P T, PTT #### [facility] [address] [address] Gianluca Lebron PTTon 05-18-2021 aPTT Coag (Bld) [Time] 25.7 s Normal 22.3-36.2 [facility] Comment on above: Performed By: #### P T, PTT #### [facility] [address] [address] Gianluca Lebron TROPONIN, HIGH SENSITIVITYon 05-18-2021 HSTROP 4.3 pg/mL Normal 4.0-35.5 [facility] Comment on above: Result Comment: CUT- OFF POINTS HAVE BEEN ESTABLISHED BASED ON THE FOURTH UNIVERSAL DEFINITIONS OF MYOCARDIAL INFARCTION. THE UPPER REFERENCE LIMIT (URL) OF TROPONIN, DEFINED THE 99TH PERCENTILE OF cTnI DISTRIBUTION IN A REFERENCE POPULATION, HAS BEEN CONFIRMED THE DECISION THRESHOLD FOR [place] DIAGNOSIS. Performed By: #### H RODNEY RAMIREZ AMY ####[facility] [address] [id number] Lebron XR CHEST 1 Von 05-18-2021 XR CHEST 1 V EXAM: XR CHEST 1 V HISTORY: CHEST PAIN, UNSPECIFIED COMPARISON: Chest radiograph dated 12/20/2017. TECHNIQUE: One view of the chest was obtained. FINDINGS: The cardiac silhouette is stable in size. The lungs are clear. There is no significant pneumothorax or pleural effusion. No acute osseous abnormality is seen. IMPRESSION: 1. No acute cardiopulmonary abnormality. Electronically authenticated by: Jeremie MALDONADO Date: 2021-05-18 00:22 Normal [facility] Covid-19 PCR (CVDTBH)on 01-30 SARS-CoV-2 (COVID-19) RNA CHRISTAL+probe Ql (Unsp spec) Not detected Normal NOT DETECTED [facility] Comment on above: Result Comment: This test is not yet approved or cleared by the [place] FDA. When there are no FDA-approved or cleared tests available, and other criteria are met, FDA can make tests available under an emergency access mechanism called an Emergency Use Authorization (EUA). The EUA for this test is supported by the [employer] of Health and Human Service's (HHS's) declaration that circumstances exist to justify the emergency use of in vitro diagnostics for the detection and/or diagnosis of the virus that causes COVID-19. This EUA will remain in effect (meaning this test can be used) for the duration of the COVID-19 declaration justifying emergency of IVDs, unless it is terminated or revoked by FDA (after which the test may no longer be used). When diagnostic testing is negative, the possibility of a false negative should be considered in the context of a patient's recent exposures and the presence of clinical signs and symptoms consistent with SARS-CoV-2. Performed By: #### C VDTB #### [facility] [address] Metabolic Empo n 01-28-2021 Albumin [Mass/Vol] 4.0 g/dL Normal 3.2-5.5 [facility] Comment on above: Performed By: #### L ESVIN EBS CMP #### [address] Albumin/Globulin [Mass ratio] 1.7 {ratio} Normal [facility] Comment on above: Performed By: #### L STEVEN MCALLISTER CMP #### [facility] [address] [place] [address] [place] ALP [Catalytic activity/Vol] 68 U/L Normal 32-92 [facility] Comment on above: Performed By: #### L IPID, EBS CMP #### [facility] [address] [id number] [facility] ALT [Catalytic activity/Vol] 29 U/L Normal 10-60 [facility] Comment on above: Performed By: #### L IPID, EBS CMP #### [facility] [address] [id number] [facility] AST [Catalytic activity/Vol] 25 U/L Normal 10-42 [facility] Comment on above: Performed By: #### L IPID, EBS CMP #### [facility] [address] Bilirubin [Mass/Vol] 0.8 mg/dL Normal 0.3-1.2 [facility] Comment on above: Performed By: #### L IPID, EBS CMP #### [facility] [address] Calcium [Mass/Vol] 9.2 mg/dL Normal 8.2-10.2 [facility] Comment on above: Performed By: #### L IPID, EBS CMP #### [facility] [address] [place] [address] [place] Chloride [Moles/Vol] 105 mmol/L Normal 95-114 [facility] Comment on above: Performed By: #### L IPID, EBS CMP #### [facility] [address] [place] [address] [place] CO2 [Moles/Vol] 24.8 mmol/L Normal 22.0-30.0 [facility] [place] [facility] Comment on above: Performed By: #### L IPID, EBS CMP #### [facility] [address] [id number] [place] Creatinine [Mass/Vol] 0.68 mg/dL Normal 0.44-1.03 [facility] Comment on above: Performed By: #### L IPID, EBS CMP #### [facility] [address] [place] [address] [place] Estimated GFR ( Jenniffer > 60 Normal [facility] Comment on above: Result Comment: GFR estimated reference range: According to KDOQI guidelines, <60 ml/min/1.73m2 is sufficient to diagnose a patient with chronic kidney disease. Performed By: #### L IPID, EBS CMP #### [address] Estimated GFR (Non- Am > 60 Normal [facility] Comment on above: Performed By: #### L IPID, EBS CMP #### [address] Globulin (S) [Mass/Vol] 2.3 g/dL Normal [facility] Comment on above: Performed By: #### L IPID, EBS CMP #### [address] Glucose [Mass/Vol] 83 mg/dL Normal 70-100 [facility] Comment on above: Performed By: #### L IPID, EBS CMP #### [address] Potassium [Moles/Vol] 4.0 mmol/L Normal 3.5-5.1 [facility] Comment on above: Performed By: #### L IPID, EBS CMP #### [address] Protein [Mass/Vol] 6.3 g/dL Normal 6.1-7.9 [facility] Comment on above: Performed By: #### L IPID, EBS CMP #### [place] [address] [place] Sodium [Moles/Vol] 140 mmol/L Normal 136-146 [facility] Comment on above: Performed By: #### L IPID, EBS CMP #### [address] Urea nitrogen [Mass/Vol] 15 mg/dL Normal 9-23 [facility] Comment on above: Performed By: #### L IPID, EBS CMP #### [facility] [address] [place] [address] Lipid Panelon 01-28-2021 Cholesterol [Mass/Vol] 187 mg/dL Normal 140-200 [facility] Comment on above: Result Comment: Chol less than 200 mg/dl low risk Chol 201-239 mg/dl borderline risk Chol 240 mg/dl and greater high risk Performed By: #### L IPID, EBS CMP #### [facility] [address] Cholesterol in HDL [Mass/Vol] 53 mg/dL Normal 35-85 [facility] Comment on above: Result Comment: HDL CHOL ATP-III CLASSIFICATION Cardiovascular Risk HDL > or equal to 60 mg/dL LOW HDL < 40 mg/dL HIGH Performed By: #### L IPID, ProtonMail CMP #### [facility] [address] [place] [address] Cholesterol.total/ Cholesterol in HDL [Mass ratio] 3.5 {ratio} Normal <5.0 [facility] Comment on above: Result Comment: PERF ORMED BY: [place] [address] PATHOLOGIST TIRE BUILDER OPERATOR JAY GONZALEZ M.D. Performed By: #### L IPID, ProtonMail CMP #### [address] LDL Cholesterol,Calcul ated 98 mg/dL Normal 0-100 [facility] Comment on above: Result Comment: LDL ATP III CLASSIFICATION LDL less than 100 mg/dL Optimal LDL 100-129 mg/dL Near or above optimal LDL 130-159 mg/dL Borderline high LDL 160-189 mg/dL High LDL greater than 189 mg/dL Very high Performed By: #### L IPID, EBS CMP #### [facility] [address] [place] [address] [place] Triglyceride w/Reflex 180 mg/dL High 35-149 [facility] Comment on above: Result Comment: TRIG ATP III CLASSIFICATION TRIG less than 150 mg/dL Normal TRIG 150-199 mg/dL Borderline high TRIG 200-500 mg/dL High TRIG greater than 500 mg/dL Very high Standard traceable to the Center for Disease Conrtrol and Prevention (CDC) test method. Performed By: #### L IPID, EBS CMP #### [facility] [address] [id number] [facility] VLDL CHOLESTEROL 36 mg/dL Normal [facility] [place] [facility] Comment on above: Performed By: #### L IPID, STEVEN CMP #### [facility] [address] [id number] [facility] Vital Signs Date Time Vital Sign Value Performing Clinician Facility 04-16-2024 14:56-0400 Blood Pressure Location Marvin NILL [facility] 04-16-2024 14:56-0400 Diastolic blood pressure 84 mm[Hg] Marvin NILL [facility] 04-16-2024 14:56-0400 Heart rate 72 /min Marvin NILL [facility] 04-16-2024 14:56-0400 Respiratory rate 16 /min Marvin NILL [facility] 04-16-2024 14:56-0400 Systolic blood pressure 124 mm[Hg] Marvin NILL [facility] 03-20-2024 11:02-0400 Body height 162.56 cm [facility] 03-20-2024 11:02-0400 Body mass index (BMI) [Ratio] 31.2 kg/m2 [facility] 03-20-2024 11:02-0400 Body weight 82.55 kg [facility] 03-20-2024 11:02-0400 Diastolic blood pressure 88 mm[Hg] [facility] 03-20-2024 11:02-0400 Heart rate 80 /min [facility] 03-20-2024 11:02-0400 Systolic blood pressure 143 mm[Hg] [facility] 10-25-2023 11:43-0500 Body height 162.6 cm Derick Monge MD Work Phone: [email or web address] 10-25-2023 11:43-0500 Body mass index (BMI) [Ratio] 31.24 kg/m2 Derick Monge MD Work Phone: [email or web address] 10-25-2023 11:43-0500 Body weight 82.56 kg Derick Monge MD Work Phone: [email or web address] 10-25-2023 11:43-0500 Diastolic blood pressure 80 mm[Hg] Derick Monge MD Work Phone: [email or web address] 10-25-2023 11:43-0500 Heart rate 77 /min Derick Monge MD Work Phone: [email or web address] 10-25-2023 11:43-0500 SaO2% (BldA) [Mass fraction] 96 % Derick Monge MD Work Phone: [email or web address] 10-25-2023 11:43-0500 Systolic blood pressure 98 mm[Hg] Derick Monge MD Work Phone: [email or web address] 02-21-2023 10:30-0400 Body height 161.29 cm Shwetha Johnson Other [facility] Other 02-21-2023 10:30-0400 Body mass index (BMI) [Ratio] 30.68 kg/m2 Shwetha Johnson Other [facility] Other 02-21-2023 10:30-0400 Body weight 79.83 kg Shwetha Johnson Other [facility] Other 02-21-2023 10:30-0400 Diastolic blood pressure 82 mm[Hg] Shwetha Johnson Other [facility] Other 02-21-2023 10:30-0400 Systolic blood pressure 115 mm[Hg] Shwetha Johnson Other [facility] Other Encounters Encounter Date Encounter Type Care Provider Facility Start: 04-16-2024 End: 04-16-2024 ambulatory Marvin NAIR Facility: [facility] Start: 04-16-2024 End: 04-16-2024 Patient encounter procedure Marvin NAIR [facility] [place] Start: 03-31-2024 End: 03-31-2024 ambulatory Shwetha Johnson Facility:[facility] Start: 03-20-2024 End: 03-20-2024 ambulatory [facility] Work Phone: Start: 03-20-2024 End: 03-20-2024 Patient encounter procedure [facility] Work Phone: Start: 11-15-2023 Refill Frank sanchez DO Work Phone: [facility] Comment on above: Med Refill Start: 10-25-2023 End: 10-25-2023 ambulatory DERICK MONGE [facility] Start: 10-25-2023 End: 10-25-2023 ambulatory Shwetha Johnson Facility:[facility] Start: 10-25-2023 End: 10-25-2023 Office outpatient visit 25 minutes Derick Monge MD Work Phone: [facility] Comment on above: Presence of coronary angioplasty implant and graft (Primary Dx); Mixed hyperlipidemia; Primary hypertension; Obstructive sleep apnea Start: 10-24-2023 [facility] Start: 09-27-2023 End: 09-27-2023 Refill Danuta Matthews RN [facility] Comment on above: Med Refill Start: 09-06-2023 End: 09-06-2023 ambulatory Shwetha Johnson Other [facility] Other Start: 09-06-2023 Encounter for genera l adult medical examination without abnormal findings Shwetha Johnson [facility] Start: 09-06-2023 Telephone encounter Shwetha Johnson [facility] Start: 02-21-2023 End: 02-21-2023 ambulatory Shwetha Johnson Other [facility] Other Start: 02-21-2023 Encounter for genera l adult medical examination without abnormal findings Shwetha Graciela [facility] Start: 02-21-2023 Periodic preventive med est patient 40-64yrs Shwetha Graciela [facility] Start: 10-12-2021 End: 10-12-[address] SHWETHA JOHNSON Facility:[facility] Start: 05-18-2021 End: 05-18-[address] SHWETHA JOHNSON Facility:[facility] Start: 02-25-2021 Encounter for preprocedural laboratory examination DR MARVIN NAIR [facility] Start: 02-23-2021 End: 02-23-[address] MARVIN NAIR Facility:[facility] Start: 02-21-2021 End: 02-22-[address] MARVIN NAIR Facility:[facility] Start: 02-21-2021 End: 02-22-2021 Encounter for preprocedural laboratory examination DR MARVIN NAIR Facility:[facility] Start: 01-27-2021 Adult health examination Sweta pena Graciela Other [facility] Other Start: 01-27-2021 Gynecological examin ation normal Shwetha Graciela Other [facility] Other Procedures Date Procedure Procedure Detail Performing Clinician Start: 10-25-2023 ECG, HOSPITAL REPORT SCAN Derick Monge MD Work Phone: Start: 10-25-2023 Follow-up visit Follow-up DERICK MONGE Start: 02-23-2021 Colonoscopy Marvin BRITTON Comment on above: with polypectomy Start: 10-01-2018 Parathyroidectomy Barrett ARAUJOL Start: 02-28-2017 Screening mammography Shiva Johnson Other Start: 10-21-2013 General examination of patient Shwetha Johnson Other Bilateral oophorectomy Barrett ARAUJOL Extraction of wisdom tooth M ichael NILL Fasciotomy of foot Marvin Millard ILL Gastric sleeve Marvin NILL Myringotomy and inse rtion of short-term tympanic ventilation tube Marvin NILL Nasal septoplasty Marvin NI LL Placement of stent i n coronary artery Marvin NILL Rectal prolapse (disorder) Shiva ichdrake NILL Repair of umbilical hernia Shiva ichdrake NILL Repair of vaginal wa ll prolapse Marvin NILL Screening for malign ant neoplasm of breast Shwethabarbara Johnson Other Screening for malign ant neoplasm of colon Shwetha Johnson Other Vaginal hysterectomy Marvin ARAUJOL Plan of Treatment Date Care Activity Detail Author Start: 10-25-2024 Adult BMI Screening Adult BMI Screen ing [facility] Start: 10-25-2024 Tobacco Screening Tobacco Screening [facility] [employer] Start: 10-25-2023 End: 10-25-2023 Patient encounter procedure 10/25/2023 11:45 AM EST Office Visit [facility] [address] [place] [phone] Derick Monge MD [address] [place] [address] [facility] Start: 09-20-2023 Adult BMI Screening [facility] Start: 09-20-2023 Tobacco Screening [facility] Start: 06-01-2023 COVID-19 Vaccine ( season) COVID-19 Vaccine ( season) [facility] Start: 06-01-2023 Influenza vaccination Influenza Vacc ine [facility] Start: 01-30-2020 Administration of varicella zoster vaccine Zoster (Shingles) Vaccine (1 of 2) [facility] [employer] Start: 06-01-2005 DTaP,Tdap and Td Vaccines (1 - Tdap) DTaP,Tdap and Td Vaccines (1 - Tdap) [facility] Start: 01-30-1988 Adult BMI Follow Up Plan Adult BMI F ollow Up Plan [facility] [employer] Start: 1982 Depression Screening Depression Scre ening [facility] DXA Skeletal system.axial Views for bone density [facility] End: 10-25-2024 Lipid panel Lipid panel Lab Routine Mixed hyperlipidemia Presence of coronary angioplasty implant and graft 1 Occurrences starting 10/25/2023 until 10/25/2024 [facility] Work Phone: Comment on above: 1 Occurrences starti ng 10/25/2023 until 10/25/2024 MG Breast - bilatera l Screening [facility] Immunizations Immunization Date Immunization Notes Care Provider Fa cility 07-23-2023 influenza virus vacc ine, unspecified formulation Marvin NAIR [facility] 07-04-2022 influenza virus vacc ine, unspecified formulation Danuta Matthews RN [facility] 10-03-2021 COVID-19 Vaccine Pfi zer - Documentation Purposes Only Shwetha Johnson Other [facility] 12-31-2020 SARS-CoV-2 (COVID-19 ) mRNA-1273 vaccine Marvin NAIR [facility] 12-03-2020 SARS-CoV-2 (COVID-19 ) mRNA-1273 vaccine Marvin NAIR [facility] Payers Date Payer Category Payer Blue [place] Blue [employer] [id number] 2022 Unknown [id number] 1970 Unknown [id number] 1970 Unknown [id number] 1970 Unknown [id number] 1970 Unknown [id number] 1970 Unknown [id number] 1970 Unknown [id number] 1970 Unknown [id number] 1970 Unknown [id number] 1970 Unknown [id number] 1970 Unknown [id number] 1959 Private Health Insurance [id number] 1959 Unknown [id number] Self-pay Self Pay [id number] Unknown [place] BC/ [id number] Social History Date Type Detail Facility Unknown if ever smoked [facility] Other Start: 11-10-2020 End: 09-20-2022 Sex Assigned At [facility] Other Start: 09-20-2022 End: 04-16-2024 Tobacco smoking status NHIS Ex-smoker [facility] Start: 07-09-2016 History of tobacco use Current smoke r [facility] Start: 07-09-2016 History of tobacco use Cigarette Smo ker [facility] Start: 11-10-2020 End: 09-20-2022 Cigarettes smoked current (pack per day) - Reported 0.3 [facility] Start: 09-20-2022 Tobacco use and exposure Smokeless tobacco non-user [facility] Start: 09-20-2022 End: 10-25-2023 Alcohol intake Current drinker of alcohol (finding) [facility] [employer] Housing Instability Unknown [facility] Start: 1970 Sex Assigned At Not on file P [facility] Start: 1970 Sex Assigned At Female F [facility] Medical Equipment Procedure Code Equipment Code Equipment Origin al Text Equipment Identifier Dates Nathaniel Xience Alpin e 3.50h90lb Repl [id number] - [id number] FDA Start: 02-19-2017 Nathaniel Xience Alpin e 3.0x12mm Repl [id number] - [id number], [id number] FDA Start: 03-09-2017 Functional Status Date Assessment Result Facility 04-16-2024 Functional Status N/A [facility] [place] Clinical Notes 02-23-2021 to 11-15-2023 Telephone Encounter - Eve Wallace RN - 11/15/2023 5:22 PM ESTTelephone Encounter - Eve Wallace RN - 11/15/2023 5:22 PM Dora oMnge MD - 10/25/2023 11:45 AM EST Note Date & Type Note Facility 11-15-2023 Miscellaneous Notes Formattin g of this note might be different from the original. OV 10/25/23 09/27/23 CMP, Lipids, CBC documented in this encounter [facility] 11-15-2023 Telephone encount er Note OV 10/25/23 09/27/23 CMP, Lipids, CBC [facility] 10-25-2023 History of Presen t illness Narrative Lizette Lupe Rudi Date of visit: 10/25/2023 Date of : 1970 Age: 53 y.o. Patient Active Problem List Diagnosis Hyperlipidemia Presence of coronary angioplasty implant and graft Depression Hypertension Obesity Myocardial infarction ([facility]) Atherosclerotic heart disease of [place] coronary artery with angina pectoris ([facility]) Obstructive sleep apnea Hyperparathyroidism ([facility]) Palpitations Shortness of breath Allergies Allergen Reactions No Known Drug Allergies Other reaction(s): Unknown Other reaction(s): Unknown Current Outpatient Medications Medication Sig Dispense Refill atorvastatin (LIPITOR) 40 mg tablet Take 1 tablet (40 mg total) by mouth in the morning. (Patient taking differently: Take 1 tablet (40 mg total) by mouth nightly.) 90 tablet 0 metoprolol succinate XL (TOPROL XL) 50 mg 24 hr tablet Take 1 tablet (50 mg total) by mouth in the morning. 90 tablet 0 omeprazole (PriLOSEC) 20 mg capsule Take 1 capsule (20 mg total) by mouth in the morning. ticagrelor (BRILINTA) 60 mg tablet Take 1 tablet (60 mg total) by mouth in the morning and 1 tablet (60 mg total) before bedtime. 180 tablet 3 venlafaxine XR (EFFEXOR-XR) 150 mg 24 hr capsule Take 1 capsule (150 mg total) by mouth nightly. 0 nitroglycerin (NITROSTAT) 0.4 MG SL tablet Take by mouth as needed. (Patient not taking: Reported on 10/25/2023) No current facility-administered medications for this visit. Chief Complaint Patient presents with Follow-up 1 YR L/S BCD SCHED W/ PT LABS-08/2023 Med Refill Coronary Artery Disease Hyperlipidemia History of Present Illness 53-year-old female who is here for follow-up visit. She is past medical history of hypertension, coronary artery disease with prior LAD and RCA stent, history of [place], hyperlipidemia, strong family history of premature coronary artery disease and history of gastric bypass surgery. She is doing very well on medical therapy reports no angina. She is very active. Blood pressure on the lower side however does fluctuate quite a bit no lightheadedness or dizziness. No bleeding issues on Brilinta. She is on 60 Brilinta twice daily. she has been lifting grandkids recently and complained of mild pain in the shoulder blades Past Medical History: Diagnosis Date Angina pectoris ([facility]) Atherosclerotic heart disease of [place] coronary artery with unspecified angina pectoris ([facility]) Carnes's palsy 2013 Coronary artery disease Depression Hyperlipidemia Hypertension Myocardial infarction ([facility]) Obesity Presence of coronary angioplasty implant and graft Sleep apnea No data recorded No data recorded No data recorded Past Surgical History: Procedure Laterality Date Coronary angiogram and left ventricular gram/pressure N/A 03/09/2017 Performed by Favian Tinoco MD at [facility] Coronary angiogram and left ventricular gram/pressure N/A 02/19/2017 Performed by Carlos Keyes MD at [facility] HYSTERECTOMY Intravascular pressure measurement first vessel(fractional flow reserve) N/A 03/09/2017 Performed by Favian Tinoco MD at [facility] Revascularization occlusion with myocardial infarction drug eluting stent right coronary artery N/A 02/19/2017 Performed by Carlos Keyes MD at [facility] SEPTOPLASTY SLEEVE GASTROPLASTY Stent drug-eluting left anterior descending N/A 03/09/2017 Performed by Favian Tinoco MD at [facility] Thrombectomy with pronto / export N/A 02/19/2017 Performed by Carlos Keyes MD at [facility] Family History Problem Relation Age of Onset Hypertension Mother Stroke Father Heart disease Father Alcohol abuse Father Heart disease Brother Social History Socioeconomic History Marital status: Spouse name: Not on file Number of children: Not on file Years of education: Not on file Highest education level: Not on file Occupational History Not on file Tobacco Use Smoking status: Former Packs/day: .25 Types: Cigarettes Start date: 07/09/2016 Smokeless tobacco: Never Vaping Use Vaping Use: Every day Substances: Nicotine Devices: Pre-filled pod Substance and Sexual Activity Alcohol use: Yes Alcohol/week: 0.0 standard drinks of alcohol Drug use: No Sexual activity: Defer Other Topics Concern Caffeine Use Yes Social History Narrative Not on file Social Determinants of Health Financial Resource Strain: Not on file Food Insecurity: No Food Insecurity (09/20/2022) Hunger Screening Food Insecurity - Worry: Never True Food Insecurity - Inability: Never True Transportation Needs: Not on file Physical Activity: Not on file Stress: Not on file Social Connections: Not on file Interpersonal Safety: Not on file Housing Instability: Not on file Review of Systems Review of Systems Constitutional: Negative for malaise/fatigue and weight gain. HENT: Negative for hearing loss and nosebleeds. Eyes: Negative for blurred vision and double vision. Respiratory: Negative for shortness of breath, sleep disturbances due to breathing and wheezing. Endocrine: Negative for polydipsia. Hematologic/Lymphatic: Negative for bleeding problem. Does not bruise/bleed easily. Skin: Negative for color change, itching and rash. Musculoskeletal: Negative for back pain, falls, joint swelling, muscle cramps and muscle weakness. Gastrointestinal: Negative for heartburn, hematochezia and melena. Genitourinary: Negative for hematuria. Neurological: Negative for dizziness, headaches, light-headedness, loss of balance, numbness, seizures and tremors. Psychiatric/Behavioral: Negative for altered mental status, depression and memory loss. Allergic/Immunologic: Negative for environmental allergies and persistent infections. CARDIOVASCULAR: Please review HPI. Physical Examination General appearance: Alert, oriented and cooperative. In no acute distress. Skin: Warm and dry to touch. Head: Normocephalic, without obvious abnormality, atraumatic. Ears, Nose, Mouth, Throat: Throat clear without erythema or exudate. Dentition intact. Eyes: Conjunctivae unremarkable, EOM intact. Neck: No JVD, No carotid bruit. Neck supple, trachea midline. Respiratory: Clear to auscultation bilaterally, no use of accessory muscles. Cardiovascular: RRR with normal S1 and S2 with no murmurs. Gastrointestinal: Soft, non-tender. Bowel sounds normal. Musculoskeletal: No peripheral edema. Neurologic: Oriented to time, person and place, affect appropriate. No focal/major motor defects noted. Psychiatric: Appropriate mood, memory and judgement. VITAL SIGNS: BP 98/80 (BP Site: Left Arm) Pulse 77 Ht 162.6 cm (5' 4 ) Wt 82.6 kg (182 lb) LMP (LMP Unknown) SpO2 96% BMI 31.24 kg/m No orders of the defined types were placed in this encounter. There are no discontinued medications. IMPRESSIONS/PLAN Coronary artery disease -prior LAD and RCA stent with preserved ejection fraction -continue Brilinta -continue metoprolol 2. Hyperlipidemia Last LDL cholesterol 117 No recent lipid panel Recheck lipids Continue Lipitor 40 mg 3. History of gastric bypass surgery Will follow-up on lipids. Stable cardiovascular status follow-up on a yearly basis TODAYS ORDERS No orders of the defined types were placed in this encounter. FOLLOW UP No follow-ups on file. PCP: SHWETHA JOHNSON MD Referring Physician: Shwetha Johnson MD [address] [place] [id number] [facility] Miscellaneous Notes Formattin g of this note might be different from the original. Left message for patient to remind them to bring their most current medication list with them to their appointment. [facility]23 Telephone encount er Note Left message for patient to remind them to bring their most current medication list with them to their appointment. [facility] Evaluation note Encounter Date Diagnosis Assessment Notes Aug, Wellness examination (ICD-10 - Z00.00) [facility] Other 05-24-2023 Evaluation note* Encounter Date Diagnosis Assessment Notes Treatment Notes Treatment Clinical Notes January, Wellness examination (ICD-10 - Z00.00) general topics regarding health education were discussed in detail. All preventative issues were discussed including remaining a nonsmoker, colorectal screening, the importance of proper sleep for brain health maintenance, maintaining a heart-healthy balanced diet, recognizing and addressing signs of anxiety and depression, maintaining positive relationships with family and friends. January, Screening mammogram, encounter for (ICD-10 - Z12.31) January, Chronic depression (ICD-10 - F32.A) January, Insomnia due to other mental disorder (ICD-10 - F51.05) January, Other We have discuss ed the necessity of following up with PCP regularly as well as specialists, as needed. Discussed F/U with dentistry and optometry at least yearly. Discussed all preventative measures/ cancer screenings as applicable to this patient. Emphasized the importance of a reduced fat, low carb diet to promote heart health and controlled blood sugars. Reviewed social history and ensured patient is safe within the home today. Pt denies any abuse of alcohol, nicotine, caffeine or recreational drugs. I have ensured patient is of stable mental and physical health today. We have discussed appropriate F/U schedule as well as blood work and vaccinations that apply. All questions answered and patient is sent home pleased, without concerns. [facility] Other 05-26-2021 NoteOPERATIVE NOTE OPERATION DATE: 02-23-21 ANESTHETIC: Monitored anesthesia care. PREOPERATIVE DIAGNOSIS:Colorectal screening. POSTOPERATIVE DIAGNOSIS:Caecal polyp and mild sigmoid diverticulosis. PROCEDURE NAME:Colonoscopy to the cecum with cold snare polypectomy x1 for cecal polyp. ESTIMATED BLOOD LOSS: Less than 1 mL. INDICATIONS AND CONSENT: The patient is a 51 year-old female who present for colorectal screening. Indications, risks, benefits, and alternatives of proceeding with colonoscopy were explained extensively to the patient including the risk of bleeding, colon perforation, or anesthetic complications. All of her questions were answered and informed consent was obtained. PROCEDURE: The patient was brought to the OR and placed in the left lateral decubitus position. Monitored anesthesia care was provided. Rectal exam was performed which showed no masses or blood. The scope was inserted into the anal canal, under direct visualization it was advanced to the cecum where cecal markings were clearly identified. Upon withdrawal of the scope mucosal surfaces were carefully examined. There were no mass lesions, there was noted to be a good prep. Within the cecum there was noted to be a 5 mm irregular sessile polyp that was removed with cold snare with good hemostasis. There was noted to be a mild sigmoid diverticulosis without inflammatory changes or scarring. The scope was retroflexed in the anal canal, there was no significant hemorrhoidal disease. The scope was then withdrawn, the patient tolerated the procedure well and was sent to the Recovery Room in good condition. cc:Dr. Shwetha Johnson. [facility] Signed and Approved by: DR MARVIN NAIR . 02/23/2021 13:56:00[facility]05-26-2021 NoteOPERATIVE NOTE ADDENDUM 03-09-21 ADDENDUM: Followup colonoscopy will be obtained in three years due to findings of a tubulovillous adenoma on this colonoscopy. [facility] Signed and Approved by: DR MARVIN NAIR . 03/11/2021 17:31[facility]00[facility] No data available for this section [facility] Evaluation note* Diagnosis Presence of coronary angioplasty implant and graft Mixed hyperlipidemia documented in this encounter [facility] Diagnosis Presence of coronary angioplasty implant and graft- Primary Mixed hyperlipidemia Primary hypertension Unspecified essential hypertension Obstructive sleep apnea Obstructive sleep apnea (adult) (pediatric) documented in this [facility] Diagnosis Onset Date Resolution Status Menopause acute Screening mammogram for breast cancer acute [facility] Work Phone: History general Narrative - Reported* Type Description Date Medical History Depression Medical History heart disease Surgical History septoplasty Surgical History hernia repair Surgical History hysterectomy Surgical History 2 stents in heart Hospitalization History see above surgical histo ry [facility] Other Hospital Discharge instructions No data available for this section [facility] InstructionsNot on filedocumented in this encounter [facility] filedocumented in this [facility] filedocumented in this [facility] System[facility]ructionsNot on filedocumented in this encounter [facility] No data available for this section [facility] Summary Purpose Family History No Family History Records Found Relationship Condition Age at Onset Recorded Date/T [place] Not Specified Healthy female adult Unknown brother Hyperlipidemia Unknown History of percutane ous transluminal coronary angioplasty Unknown Myocardial infarction Unknown father Cerebrovascular accident (CVA) Unknown Alcohol abuse Unknown brother Heart disease Unknown father Unknown Hypertension Unknown Heart disease Unknown History of stroke Unknown Advance Directives No Advanced Directives Records Found Advance Directive Response Recorded Date/ Time Advance Directives No March 25 1:45pm Reason for Referral Specialty Diagnoses / Procedures Referred By Contac t Referred To Contact Diagnoses Mixed hyperlipidemia Presence of coronary angioplasty implant and graft Procedures ECG, Hospital Report Scan Derick Monge MD [address] [place] [address] Referral ID Status Reason Start Date Expiration Date V isits Requested Visits Authorized [id number] Pending Review 10/25/2023 10/24/2024 1 1 Chief Complaint and Reason for Visit Chief Complaint Wellness Reason for Visit Menopause Screening mammogram for breast cancer Additional Source Comments INFORMATION SOURCE (unrecogn ized section and content) DATE CREATED AUTHOR 10/15/2021 [facility] DATE CREATED AUTHOR AUTHOR'S ORGANIZ ATION 11/01/2021 [facility] DATE CREATED AUTHOR AUTHOR'S ORGANIZ ATION 10/28/2023 [facility] DATE CREATED AUTHOR AUTHOR'S ORGANIZ ATION 04/15/2024 [facility] DATE CREATED AUTHOR AUTHOR'S ORGANIZ ATION 04/21/2024 [facility] REASON FOR VISIT (unrecogniz ed section and content) Reason Onset Date Comments Med Refill 09/27/2023 Reason Comments Follow-up 1 YR L/S BCD SCHED W / PT LABS-08/2023 Med Refill Coronary Artery Disease Hyperlipidemia Reason Comments Med Refill Care Teams (unrecognized sec tion and content) Tour Agent Relationship Specialty Start Date End Date Shwetha Johnson MD [address] [place] [address] PCP - General 02/19/17 Tour Agent Relationship Specialty Start Date End Date Shwetha Johnson MD [address] [place], [place] [id number] PCP - General 02/19/17 Tour Agent Relationship Specialty Start Date End Date Shwetha Johnson MD [address] [place] [id number] PCP - General 02/19/17 Tour Agent Relationship Specialty Start Date End Date Shwetha Johnson MD [address] [place], [place] [id number] PCP - General 02/19/17 Team Status: Active Member Role Status Dates Shwetha Johnson MD Primary Care Provider Active Team Status: Inactive Member Role Status Dates Shwetha Johnson MD Primary Care Provide r, Attending Provider Active Start: March 20, 2024 End: March 20, 2024 Goals (unrecognized section and content) Goals may be documented in a n alternate section FOR RECORDS PERTAINING TO PATIENTS WHO ARE OR HAVE BEEN ENROLLED IN A CHEMICAL DEPENDENCY/SUBSTANCEABUSE PROGRAM, SOME INFORMATION MAY BE OMITTED. This clinical summary was aggregated from multiple sources. Caution should be exercised in using it in the provision of clinical care. This summary normalizes information from multiple sources, and as a consequence, information in this document may materially change the coding, format and clinical context of patient data. In addition, data may be omitted in some cases. CLINICAL DECISIONS SHOULD BE BASED ON THE PRIMARY CLINICAL RECORDS. [facility]. provides no warranty or guarantee of the accuracy or completeness of information in this document.
[2024-06-11 06:35] VITALS: BP 122/76; PULSE 85; TEMP 36.2; O2SAT 98; BMI 30.6
[2024-06-11] MEDS: LACTATED RINGER'S SOLUTION 1,000 ML 50 ML IV (07:10)
[2024-06-11 07:57] VITALS: BP 127/87; PULSE 83; TEMP 36.3; O2SAT 98
[2024-06-11 08:12] VITALS: BP 121/84; PULSE 75; O2SAT 97
[2024-06-11 08:27] VITALS: BP 120/84; PULSE 66; O2SAT 99
[2024-06-11 08:42] VITALS: BP 122/82; PULSE 80; O2SAT 96
== END 2024-06-11 08:42 | disposition home or self-care (01) ==
PROVIDERS: PCP Family Medicine; Visit Provider Surgery
PROC: (CPT 811; principal; 2024-06-11 07:30)
DX: K63.5 Polyp of colon (principal); Z86.010 Personal history of colon polyps; K57.30 Diverticulosis of large intestine without perforation or abscess without bleeding; I25.10 Atherosclerotic heart disease of native coronary artery without angina pectoris; Z90.710 Acquired absence of both cervix and uterus; Z98.84 Bariatric surgery status; Z95.5 Presence of coronary angioplasty implant and graft; I25.2 Old myocardial infarction; M54.16 Radiculopathy, lumbar region; E07.9 Disorder of thyroid, unspecified
CPT/HCPCS: 45385; 88305; J2704

== ENCOUNTER 2024-10-15 20:34 | Outpatient (REF) | payer BC, SELFPAY ==
--- OUTSIDE RECORDS SUMMARY | 2024-10-15 20:37 | XMS_ITS | CCD ---
Author Organization [facility] CliniSyny Care Team Providers Care Political Science Faculty Member Name Role Phone KOREY, DR WONG Admitting Unavailable NILL, DR WONG Attending Unavailable JOHNSON, DR JADE Reddy Primary Care Unavailable NILL, DR WONG Consulting Unavailable MANA, CARMEN Consulting Unavailable BRYANNA CHAUHAN Consulting Unavailable NILL, DR WONG Admitting Unavailable NILL, DR WONG Attending Unavailable JOHNSON, DR JADE Reddy Primary Care Unavailable NILL, DR WONG Consulting Unavailable JOHNSON, DR JADE Reddy Admitting Unavailable JOHNSON, DR JADE Reddy Attending Unavailable JOHNSON, DR JADE Reddy Primary Care Unavailable JOHNSON, DR JADE Reddy Consulting Unavailable JOHNSON, DR JADE Reddy Primary Care Unavailable MARKER, DR BARROSO Admitting Unavailable MARKER, DR BARROSO Attending Unavailable MARKER, DR BARROSO Consulting Unavailable MALDONADO, LESLIE Consulting Unavailable Jade Johnson Unavailable Jade Johnson MD Primary Care Provider DIONE MONGE Attending Unavailable JADE JOHNSON Referring Unavailable JADE JOHNSON Primary Care Unavailable Jade Johnson Primary Care Unavailable Jade Johnson Admitting Unavailable Jade Johnson Attending Unavailable Jade Johnson Primary Care Unavailable Jade Johnson Admitting Unavailable Jade Johnson Attending Unavailable Fernanda Flood Consulting Unavailable Jade Johnson Primary Care Unavailable Fernanda Flood Admitting Unavailable Fernanda Flood Attending Unavailable Jade Johnson Primary Care Unavailable Dione Monge Admitting Unavailable Dione Monge Attending Unavailable AYAAN ANDERSON Primary Care Physician MD Jade Johnson Primary Care Provider MD Marvin Hooks Attending Provider [phone] Marvin HOOKS Attending Unavailable Marvin HOOKS Attending Unavailable KOREYMarvin Attending Unavailable Jade Johnson MD Primary Care Provider [phone] Ayaan Espitia DO W Unavailable [phone] Jade Johnson MD Primary Care Provider [phone] Marvin Hooks MD Attending Provider Ayaan Espitia DO Attending Provider Jade Johnson Primary Care Unavailable Marvin Hooks Admitting Unavailable Marvin Hooks Attending Unavailable Ayaan Espitia Admitting Unavailable Ayaan Espitia Attending Unavailable Jade Johnson Primary Care Unavailable AYAAN ESPITIA Attending Unavailable JADE JOHNSON Referring Unavailable AYAAN ESPITIA Attending Unavailable AYAAN ESPITIA W Attending Unavailable AYAAN ESPITIA Attending Unavailable Allergies Allergy Classification Reported Allergen(s) Allergy Type Date of Onset Reaction(s) Facility (3 sources) benzonatate; Translations: [Tessalon Perles] Drug Allergy Unknown [facility] (2 sources) Clarithromycin; Translations: [Biaxin] Drug Allergy [facility] (1 source) Biaxin *MACROLIDES* Propensity to adverse reactions Unknown [facility] Other (1 source) Allergies Reconciled Propensity to adverse reactions Unknown [facility] Other (1 source) patient allergy list reviewed by nurse or physicia Propensity to adverse reactions 10-21-19 14 Comment:Done [facility] Other (2 sources) benzonatate; Translations: [benzonatate] Drug Allergy Cough (finding) [facility] (2 sources) Clarithromycin; Translations: [clarithromycin] Drug Allergy Unknown (qualifier value) [facility] (13 sources) benzonatate Drug Allergy 08-16-20 Cough [facility] (13 sources) Macrolides And Ketolides Drug Allergy 08-16-20 [facility] (1 source) benzonatate Drug Allergy 03-20-20 [facility] (1 source) Clarithromycin Drug Allergy 03-20-20 [facility] Medications Current Medications Medication Drug Class(es) Dates Sig (Normalized) Sig (Original) atorvastatin 40 mg oral tablet (20 sources) HMG-CoA Reductase Inhibitor Start: 08-22-2023 End: 09-27-2023 atorvastatin (Lipitor) 40 MG tablet Take 40 mg by mouth 09/27/2023 Active Start: 08-25-2019 take 1 tablet by bridger th once daily at bedtime Atorvastatin 80 mg Tablet Active 80 MG PO Daily at bedtime August 25, 2019 12:00am take 1 tablet by bridger th every twenty-four hours Atorvastatin Calcium 10 MG 1 tablet once a day Active 24 hr metoprolol succinate 50 mg extended release oral tablet (20 sources) beta-Adrenergic Paola Start: 09-27-2023 take 1 tablet by mouth once daily metoprolol succinate 50 mg ER Tab 50 mg = 1 tab(s), Oral, Daily, Refills(s) 0 Start Date: 09/27/23 Status: Ordered Start: 08-22-2023 End: 09-27-2023 take 1 tablet by mouth every twenty-four hours metoprolol succinate XL (Toprol-XL) 50 MG 24 hr tablet Take 50 mg by mouth 09/27/2023 Active Start: 08-25-2019 take 1 tablet by mouth twice d aily Metoprolol Tartrate 25 mg tablet Active 25 MG PO Twice daily August 25, 2019 12:00am Metoprolol Succi shayna 50 MG 1 tablet bid Active nitroglycerin 0.4 mg sublingual tablet (14 sources) Nitrate Vasodilator Start: 04-11-2024 End: 10-08-2024 nitroglycerin (Nitrostat) 0.4 MG SL tablet oral, 0 Refill(s), Take by mouth as needed., Refills(s) 0 04/11/2024 10/08/2024 Discontinued End: 10-25-2023 nitroglycerin (NITROSTAT) 0. 4 MG SL tablet Take by mouth as needed. 0 10/25/2023 Discontinued (Patient Stopped On Own) omeprazole 20 mg delayed release oral capsule (20 sources) Proton Pump Inhibitor Start: 03-19-2024 take 1 capsule by mouth once daily Omeprazole 20 mg capsule,delayed release(DR/EC) Active 1 CAP PO Daily March 18, 2024 11:00pm [employer] capsule 30 minutes before morning meal Orally Once a day; Note: Source Status: Taking; Provider: Graciela Tadeo ( ) Start: 02-07-2021 take 1 capsule by mo uth once daily omeprazole 10 mg Cap-EC 10 mg = 1 cap(s), Oral, Daily, Refills(s) 0 Start Date: 02/07/21 Status: Ordered Start: 04-06-2020 take 1 capsule by mo uth in the morning omeprazole (PriLOSEC) 20 mg capsule Take 1 capsule (20 mg total) by mouth in the morning. 0 04/06/2020 Active take 1 tablet by bridger th before mealtime omeprazole OTC (PriLOSEC OTC) 20 MG EC tablet Take 20 mg by mouth in the morning. Take before meals. Do not crush, chew, or split.. Active ticagrelor 90 mg oral tablet (20 sources) Start: 09-20-2022 End: 11-16-2023 take 1 tablet by mouth in the morning BRILINTA 60 mg tablet TAKE 1 TABLET BY MOUTH IN THE MORNING AND 1 TABLET BEFORE BEDTIME 180 tablet 3 11/16/2023 Active Start: 02-07-2021 ticagrelor (Br ilinta) 90 MG tablet Twice daily 03/19/2024 Active Start: 08-25-2019 End: 09-01-2019 take 1 tablet by mouth twice daily Ticagrelor (Brilinta) 60 mg tablet Discontinued 60 MG PO Twice daily August 25, 2019 12:00am September 01, 2019 10:26am Brilinta Active Completed/Discontinued Medications Medication Drug Class(es) Dates Sig (Normalized) Sig (Original) amitriptyline hydrochloride 10 mg oral tablet (5 sources) Tricyclic Antidepressant Start: 03-19-2024 End: 03-20-2024 take 1 tablet by mouth once daily at bedtime Amitriptyline 10 mg tablet Discontinued 10 MG PO Daily at bedtime March 18, 2024 11:00pm March 20, 2024 10:09am FreeText[employer]: TAKE 1 TABLET BY MOUTH EVERYDAY AT BEDTIME; Note: Source Status: Start; Refills: 0; Qty: 90 Tablet; Provider: Graciela Tadeo ( ) Start: 02-21-2023 take 1 tablet by bridger th every twenty-four hours Amitriptyline HCl 10 MG 1 tablet at bedtime Orally Once a day for 30 days January, Active cholecalciferol 0.025 mg oral capsule (14 sources) Vitamin D Start: 08-25-2019 End: 03-20-2024 take 2 capsules by mouth once daily Cholecalciferol (Vitamin D3) (Vitamin D3) 1,000 unit Capsule Discontinued 2000 UNITS PO Daily August 25, 2019 12:00am March 20, 2024 10:09am End: 10-15-2024 cholecalciferol (Vitamin D3) 25 MCG (1000 UT) tablet 1 (one) time each day at the same time 10/15/2024 Discontinued 24 hr venlafaxine 150 mg extended release oral tablet (20 sources) Serotonin and Norepinephrine Reuptake Inhibitor Start: 05-14-2017 take 1 capsule by mouth once daily venlafaxine XR (EFFEXOR-XR) 150 mg 24 hr capsule Take 1 capsule (150 mg total) by mouth nightly. 0 05/14/2017 Active Start: 05-14-2017 take 1 capsule by mo ut every twenty-four hours in the morning venlafaxine XR (EFFEXOR-XR) 150 mg 24 hr capsule Take 1 capsule (150 mg total) by mouth in the morning. 0 05/14/2017 Active Start: 05-13-2017 End: 05-20-2024 take 1 tablet by mouth once daily at bedtime Venlafaxine 150 mg Tablet Extended Release 24hr Discontinued 150 MG PO Daily at bedtime August 25, 2019 12:00am November 13, 2023 8:47am Problems Active Problems Problem Classification Problem Date Documented Da te Episodic/Chronic Abdominal pain (2 sources) C/O pelvic pain 10-07-2010 Episodic Diverticulosis and diverticulitis (1 source) Diverticulosis of large intestine without perforation or abscess without bleeding; Translations: [DVRTCLOS LG INT NO PERF/ABSC W/O BL] Onset: 03-02-2021 Chronic Genitourinary congenital anomalies (2 sources) 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 Genitourinary symptoms and ill-defined conditions (1 source) Dysuria; Translations: [Dysuria] Episodic Menopausal disorders (2 sources) Menopause present; Translations: [Menopausal and female climacteric states] Onset: 04-22-2011 Chronic Menstrual disorders (2 sources) Dysmenorrhea 12-12-2013 Chronic Miscellaneous mental health disorders (3 sources) Insomnia due to anxiety and fear; Translations: [Insomnia due to other mental disorder] Chronic Osteoporosis (4 sources) Age-related osteoporosis without current pathological fracture; Translations: [Primary osteoporosis] Onset: 10-20-2016 02-07-2021 Chronic Other aftercare (2 sources) Long-term current use of anticoagulant; 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] 08-19-2024 Episodic Other and ill-defined heart disease (2 sources) Heart disease 02-07-2021 Chronic Other bone disease and musculoskeletal deformities (2 sources) Osteopenia 02-07-2021 Episodic Other connective tissue disease (3 sources) Lateral epicondylitis; Translations: [Lateral epicondylitis, unspecified elbow] Onset: 11-27-2014 02-07-2021 Episodic Other connective tissue disease (3 sources) Fibromyalgia; Translations: [Fibromyalgia] Onset: 02-24-2015 02-07-2021 Episodic Other endocrine disorders (1 source) Hyperparathyroidism, unspecified; Translations: [HYPERPARATHYROIDISM UNSPECIFIED] Onset: 03-02-2021 Chronic Other female genital disorders (2 sources) Enlarged uterus 12-12-2013 Episodic Other nervous system disorders (3 sources) Carnes's palsy; 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] Onset: 09-09-2014 02-07-2021 Episodic Other non-traumatic joint disorders (3 sources) Joint pain; Translations: [Pain in unspecified joint] Onset: 02-24-2015 02-07-2021 Episodic Other nutritional; endocrine; and metabolic disorders (2 sources) Body mass index 40+ - severely obese; Translations: [Body mass index (BMI) 40.0-44.9, adult] Onset: 03-06-2018 Chronic Other nutritional; endocrine; and metabolic disorders (7 sources) Obesity; Translations: [Obesity, unspecified] Onset: 11-27-2014 05-07-2017 Chronic Other screening for suspected conditions (not mental disorders or infectious disease) (20 sources) Encounter for screening for malignant neoplasm of colon; Translations: [Encounter for screening mammogram for malignant neoplasm of breast] Onset: 02-23-2021 Resolved: 08-16-2024 Episodic Other upper respiratory disease (6 sources) Bleeding from nose; Translations: [Epistaxis] 08-19-2024 Episodic Residual codes; unclassified (1 source) Obstructive sleep apnea (adult) (pediatric); Translations: [Obstructive sleep apnea (adult) (pediatric)] Onset: 08-06-2019 Chronic Residual codes; unclassified (2 sources) Sleep apnea 02-07-2021 Chronic Residual codes; unclassified (3 sources) Insomnia; Translations: [Insomnia, unspecified] Onset: 10-21-2013 02-07-2021 Episodic Residual codes; unclassified (2 sources) Asymptomatic menopausal state; Translations: [Symptomatic menopausal or female climacteric states] 03-20-2024 Episodic Substance-related disorders (1 source) Nicotine dependence, cigarettes, uncomplicated; Translations: [NICOTINE DEPEND CIGARETTES UNCOMP] Onset: 05-19-2021 Chronic Unclassified (4 sources) CONTACT W/AND (SUSP) EXPOS COVID-19; Translations: [CONTACT W/AND (SUSP) EXPOS COVID-19] Onset: 02-25-2021 Unclassified (1 source) Med Refill Onset: 10-25-2023 Urinary tract infections (2 sources) Urinary tract infectious disease; Translations: [Urinary tract infection, site not specified] Episodic Past or Other Problems Problem Classification Problem Date Documented Da te Episodic/Chronic Acute myocardial infarction (19 sources) Myocardial infarction; Translations: [Acute myocardial infarction, unspecified] Onset: 08-16-2024 Resolved: 08-16-2024 05-07-2017 Chronic Anxiety disorders (20 sources) Phobic disorder; 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, unspecified] Onset: 06-27-2018 Resolved: 08-16-2024 02-07-2021 Chronic Cardiac dysrhythmias (17 sources) Palpitations; Translations: [Palpitations] Onset: 06-07-2021 Resolved: 08-16-2024 06-07-2021 Episodic Complications of surgical procedures or medical care (14 sources) Postprocedural asymptomatic ovarian failure; Translations: [Asymptomatic postprocedural ovarian failure] Onset: 08-16-2024 Resolved: 08-16-2024 08-16-2024 Chronic Conditions associated with dizziness or vertigo (20 sources) Benign paroxysmal positional vertigo; Translations: [Benign paroxysmal vertigo, unspecified ear] Onset: 07-08-2015 Resolved: 08-16-2024 04-11-2024 Episodic Coronary atherosclerosis and other heart disease (20 sources) Atherosclerotic heart disease of [place] coronary artery without angina pectoris; Translations: [Old myocardial infarction] Onset: 02-18-2017 Resolved: 08-16-2024 06-07-2021 Chronic Coronary atherosclerosis and other heart disease (20 sources) Presence of coronary angioplasty implant and graft; Translations: [History of cardiovascular surgery] Onset: 05-19-2021 Resolved: 08-16-2024 09-27-2023 Episodic Disorders of lipid metabolism (20 sources) Pure hyperglyceridemia; Translations: [Pure hyperglyceridemia] Onset: 10-21-2013 Resolved: 08-16-2024 09-27-2023 Chronic Essential hypertension (20 sources) Hypertensive disorder; Translations: [Essential (primary) hypertension] Onset: 06-07-2021 Resolved: 08-16-2024 06-07-2021 Chronic Headache; including migraine (1 source) Headache; Translations: [Headache, unspecified] Onset: 09-09-2014 Episodic Malaise and fatigue (1 source) Fatigue; Translations: [Other fatigue] Onset: 03-30-2015 Episodic Mood disorders (20 sources) Major depression, single episode; Translations: [Major depressive disorder, single episode, unspecified] Onset: 04-23-2017 Resolved: 08-16-2024 05-07-2017 Chronic Mood disorders (1 source) Mood disorders Nausea and vomiting (1 source) Nausea; Translations: [NAUSEA] Onset: 05-19-2021 Episodic Nonspecific chest pain (5 sources) Chest pain; Translations: [Chest pain, unspecified] Onset: 10-21-2013 Resolved: 06-07-2021 06-07-2021 Episodic Other aftercare (1 source) 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; Translations: [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] Onset: 05-19-2021 Episodic Other aftercare (1 source) Surgical follow-up; Translations: [Surgery follow-up examination] Onset: 03-29-2011 Episodic Other and unspecified benign neoplasm (1 source) Benign neoplasm of cecum; Translations: [BENIGN NEOPLASM OF CECUM] Onset: 03-02-2021 Episodic Other and unspecified benign neoplasm (15 sources) Adenomatous polyp of colon ; Translations: [Benign neoplasm of colon, unspecified] Onset: 08-16-2024 Resolved: 08-16-2024 03-02-2021 Episodic Other and unspecified benign neoplasm (15 sources) Benign neoplasm of ascending colon; Translations: [Benign neoplasm of ascending colon] Onset: 06-25-2024 Resolved: 08-16-2024 Episodic Other and unspecified benign neoplasm (14 sources) History of polyp of colon; Translations: [History of colonic polyps] Onset: 08-16-2024 Resolved: 08-16-2024 04-17-2024 Episodic Other connective tissue disease (1 source) Fibromyalgia; Translations: [FIBROMYALGIA] Onset: 03-02-2021 Episodic Other connective tissue disease (1 source) Disorder of musculoskeletal system; Translations: [Other symptoms and signs involving the musculoskeletal system] Onset: 01-12-2016 Episodic Other connective tissue disease (1 source) Pain in forearm; Translations: [Pain in joint, forearm] Onset: 02-28-2017 Episodic Other endocrine disorders (20 sources) Hyperparathyroidism; Translations: [Hyperparathyroidism, unspecified] Onset: 08-06-2019 Resolved: 08-16-2024 08-06-2019 Chronic Other fractures (1 source) Closed fracture of one rib; Translations: [Fracture of one rib, right side, initial encounter for closed fracture] Onset: 10-30-2016 Episodic Other gastrointestinal disorders (1 source) Bariatric surgery status; Translations: [BARIATRIC SURGERY STATUS] Onset: 05-19-2021 Episodic Other gastrointestinal disorders (13 sources) Constipation; Translations: [Outlet dysfunction constipation] Onset: 11-19-2013 Resolved: 08-16-2024 08-16-2024 Episodic Other lower respiratory disease (17 sources) Dyspnea; Translations: [Shortness of breath] Onset: 09-16-2021 Resolved: 08-16-2024 09-16-2021 Episodic Other nutritional; endocrine; and metabolic disorders (14 sources) Hypercalcemia; Translations: [Hypercalcemia] Onset: 08-16-2024 Resolved: 08-16-2024 08-16-2024 Chronic Other nutritional; endocrine; and metabolic disorders (15 sources) Body mass index 30+ - obesity; Translations: [Body mass index (BMI) 31.0-31.9, adult] Onset: 08-16-2024 Resolved: 08-16-2024 04-16-2024 Chronic Other nutritional; endocrine; and metabolic disorders (15 sources) Obese class III; Translations: [Class 3 obesity] Onset: 08-16-2024 Resolved: 08-16-2024 04-16-2024 Chronic Other skin disorders (4 sources) Generalized hyperhidrosis; Translations: [GENERALIZED HYPERHIDROSIS] Onset: 05-18-2021 Episodic Other skin disorders (15 sources) Generalized hyperhidrosis; Translations: [Generalized hyperhidrosis] Onset: 05-18-2021 Resolved: 08-16-2024 04-11-2024 Episodic Residual codes; unclassified (20 sources) Obstructive sleep apnea syndrome; Translations: [Obstructive sleep apnea (adult) (pediatric)] Onset: 08-06-2019 Resolved: 08-16-2024 08-06-2019 Chronic Residual codes; unclassified (1 source) Acquired absence of both cervix and uterus; Translations: [ACQUIRED ABSENCE BOTH CERVIX AND UTERUS] Onset: 05-19-2021 Episodic Residual codes; unclassified (16 sources) Edema; Translations: [Edema, unspecified] Onset: 01-12-2016 Resolved: 08-16-2024 04-11-2024 Episodic Residual codes; unclassified (16 sources) Menopause present; Translations: [Asymptomatic menopausal state] Onset: 08-16-2024 Resolved: 08-16-2024 03-20-2024 Episodic Residual codes; unclassified (14 sources) Nicotine-filled electronic cigarette user; Translations: [Tobacco use] Onset: 08-16-2024 Resolved: 08-16-2024 04-17-2024 Episodic Residual codes; unclassified (13 sources) History of parathyroidectomy; Translations: [Other specified postprocedural states] Onset: 08-16-2024 Resolved: 08-16-2024 08-16-2024 Episodic Spondylosis; intervertebral disc disorders; other back problems (20 sources) Lumbar radiculopathy; Translations: [Radiculopathy, lumbar region] Onset: 03-06-2018 Resolved: 08-16-2024 04-11-2024 Episodic Systemic lupus erythematosus and connective tissue disorders (18 sources) Takayasu's disease; 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]] Onset: 10-20-2016 Resolved: 08-16-2024 02-07-2021 Chronic Thyroid disorders (13 sources) Non-toxic uninodular goiter; Translations: [Nontoxic single thyroid nodule] Onset: 08-16-2024 Resolved: 08-16-2024 08-16-2024 Chronic Unclassified (1 source) CONTACT W/AND (SUSP) EXPOS COVID-19; Translations: [CONTACT W/AND (SUSP) EXPOS COVID-19] Onset: 10-12-2021 Unclassified (2 sources) LEIOMYOMATA 10-07-2010 Unclassified (2 sources) Patient encounter status 04-11-2024 Results Test Name Value Interpretation Reference Range Facility Basophils Auto (Bld) [#/Vol] Ordered By: Ayaan Espitia on 08-19-2024 Basophils (Bld) [#/Vol] Automated basophil count 0.0-0.2 [facility] Basophils/100 WBC Auto (Bld) Ordered By: Ayaan Espitia on 08-19-2024 Basophils/100 WBC (Bld) Automated basophil % . [facility] CBC W Auto Differential pane l (Bld)on 08-19-2024 Basophils (Bld) [#/Vol] 0 10*3/uL 0.0 - 0.2 10*3/uL [facility] Basophils/100 WBC Manual cnt (Syn fld) 0.8 % . [facility] Eosinophils (Bld) [#/Vol] 0.1 10*3/uL 0.0 - 0.45 10*3/uL [facility] Eosinophils/100 WBC Manual cnt (Syn fld) 1.9 % . [facility] Erythrocyte distribution width (RBC) [Ratio] 15.4 % High 11.9 - 15.3 % [facility] Hematocrit (Bld) [Volume fraction] 32.5 % Low 34.0 - 46.4 % [facility] Hemoglobin (Bld) [Mass/Vol] 10.2 g/dL Low 11.8 - 15.4 g/dL [facility] Interpretation and review of laboratory results Abnormal [facility] Lymphocytes (Bld) [#/Vol] 1.3 10*3/uL 1.00 - 4.8 10*3/uL [facility] Lymphocytes/100 WBC Manual cnt (Syn fld) 35.6 % . [facility] MCH (RBC) [Entitic mass] 24.3 pg Low 24.7 - 34.3 pg [facility] MCHC (RBC) [Mass/Vol] 31.5 g/dL Low 32.0 - 35.0 g/dL [facility] MCV (RBC) [Entitic vol] 77 fL Low 80 - 100 fL [facility] Monocytes (Bld) [#/Vol] 0.3 10*3/uL 0.0 - 0.8 10*3/uL [facility] Monocytes+Macropha [facility]/100 WBC Manual cnt (Syn fld) 8.8 % . [facility] Neutrophils (Bld) [#/Vol] 2 10*3/uL 1.8 - 7.7 10*3/uL [facility] Neutrophils/100 WBC Manual cnt (Syn fld) 52.9 % . [facility] NRBC 0.1 /100{WBC} 0 - 0.5 /100{WBC} [facility] Platelet mean volume (Bld) [Entitic vol] 7.2 fL 6.3 - 10.7 fL [facility] Platelets (Bld) [#/Vol] 256 10*3/uL 150 - 450 10*3/uL [facility] RBC LM.HPF (Urine sed) [#/Area] 4.22 10*6/uL 3.60 - 5.00 10*6/uL [facility] WBC (Bld) [#/Vol] 3.8 10*3/uL 3.8 - 11.6 10*3/uL [facility] WBC LM.HPF (Urine sed) [#/Area] 3.8 10*3/uL 3.8 - 11.6 10*3/uL [facility] Complete Blood Count Auto Di ffon 08-19-2024 Basophils (Bld) [#/Vol] 0.0 10*3/uL Normal 0.0-0.2 [facility] Comment on above: Result Comment: PERF ORMED BY: [place] [address] PATHOLOGIST METAL TURNER LEONA WRIGHT M.D. Performed By: #### C BC #### [place] [address] [place] Basophils/100 WBC (Bld) 0.8 % Normal . [facility] Comment on above: Performed By: #### C BC #### [facility] [address] [place] [address] [place] Eosinophils (Bld) [#/Vol] 0.1 10*3/uL Normal 0.0-0.45 [facility] Comment on above: Performed By: #### C BC #### [place] [address] [place] Eosinophils/100 WBC (Bld) 1.9 % Normal . [facility] Comment on above: Performed By: #### C BC #### [address] Erythrocyte distribution width (RBC) [Ratio] 15.4 % High 11.9-15.3 [facility] Comment on above: Performed By: #### C BC #### [address] Hematocrit (Bld) [Volume fraction] 32.5 % Low 34.0-46.4 [facility] Comment on above: Performed By: #### C BC #### [address] Hemoglobin (Bld) [Mass/Vol] 10.2 g/dL Low 11.8-15.4 [facility] Comment on above: Performed By: #### C BC #### [place] [address] [place] Lymphocytes (Bld) [#/Vol] 1.3 10*3/uL Normal 1.00-4.8 [facility] Comment on above: Performed By: #### C BC #### [address] Lymphocytes/100 WBC (Bld) 35.6 % Normal . [facility] Comment on above: Performed By: #### C BC #### [address] MCH (RBC) [Entitic mass] 24.3 pg Low 24.7-34.3 [facility] Comment on above: Performed By: #### C BC #### [address] MCV (RBC) [Entitic vol] 77.0 fL Low 80-100 [facility] Comment on above: Performed By: #### C BC #### [address] Mean Corpuscular HGB Conc 31.5 g/dL Low 32.0-35.0 [facility] Comment on above: Performed By: #### C BC #### [address] Monocytes (Bld) [#/Vol] 0.3 10*3/uL Normal 0.0-0.8 [facility] Comment on above: Performed By: #### C BC #### [address] Monocytes/100 WBC (Bld) 8.8 % Normal . [facility] Comment on above: Performed By: #### C BC #### [address] Neutrophils (Bld) [#/Vol] 2.0 10*3/uL Normal 1.8-7.7 [facility] Comment on above: Performed By: #### C BC #### [address] Neutrophils/100 WBC (Bld) 52.9 % Normal . [facility] Comment on above: Performed By: #### C BC #### [address] NRBC% 0.1 /100{WBC} Normal 0-0.5 [facility] Comment on above: Performed By: #### C BC #### [address] Platelet mean volume (Bld) [Entitic vol] 7.2 fL Normal 6.3-10.7 [facility] Comment on above: Performed By: #### C BC #### [place] [address] [place] Platelets (Bld) [#/Vol] 256 10*3/uL Normal 150-450 [facility] Comment on above: Performed By: #### C BC #### [place] [address] [place] RBC (Bld) [#/Vol] 4.22 10*6/uL Normal 3.60-5.00 [facility] Comment on above: Performed By: #### C BC #### [address] WBC (Bld) [#/Vol] 3.8 10*3/uL Normal 3.8-11.6 [facility] Comment on above: Performed By: #### C BC #### [address] ECG 12 lead ECGon 08-19-2024 ECG 12 lead ECG [facility] [place] [address] [place] [address] Electrocardiograph Report Signed Patient: Dana Grijalva MR#: [id number] : 1970 Acct:[id number] Age/Sex: 54 / F ADM Date: 08/19/24 Loc: Room: Type: [facility] Attending Dr: Ayaan Espitia DO Ordering Provider: Ayaan Espitia DO Date of Service: 08/19/24 ECG/ECG 12 lead ECG: see order Copies to: Test Reason : Blood Pressure : */* mmHG Vent. Rate : 60 BPM Atrial Rate : 60 BPM P-R Int : 188 ms QRS Dur : 80 ms QT Int : 424 ms P-R-T Axes : 2 20 23 degrees QTcB Int : 424 ms Normal sinus rhythm Normal ECG No previous ECGs available Confirmed by Francoise Benton ([id number]) on 08/19/2024 11:29:50 AM Referred By: Electronically Signed By: Francoise Benton Transcribed By: MUS Signed By Francoise Benton MD 4 [phone] Normal [facility] Eosinophils Auto (Bld) [#/Vo l]Ordered By: Ayaan Espitia on 08-19-2024 Eosinophils (Bld) [#/Vol] Automated eosinophil count 0.0-0.45 [facility] Eosinophils/100 WBC Auto (Bl d)Ordered By: Ayaan Espitia on 08-19-2024 Eosinophils/100 WBC (Bld) Automated eosinophil % . [facility] Erythrocyte distribution wid th Auto (RBC) [Ratio]Ordered By: Ayaan Espitia on 08-19-2024 Erythrocyte distribution width (RBC) [Ratio] Erythrocyte distribution width [Ratio] by Automated count High 11.9-15.3 [facility] Hematocrit Auto (Bld) [Volum e fraction]Ordered By: Ayaan Espitia on 08-19-2024 Hematocrit (Bld) [Volume fraction] Hematocrit [Volume Fraction] of Blood by Automated count Low 34.0-46.4 [facility] Hemoglobin [Mass/volume] in BloodOrdered By: Ayaan Espitia on 08-19-2024 Hemoglobin (Bld) [Mass/Vol] Hemoglobin [Mass/volume] in Blood Low 11.8-15.4 [facility] Leukocytes [#/volume] correc kalpana for nucleated erythrocytes in Blood by Automated counOrdered By: Ayaan Espitia on 08-19-2024 WBC corrected for nucl RBC Auto (Bld) [#/Vol] Leukocytes [#/volume] corrected for nucleated erythrocytes in Blood by Automated coun 3.8-11.6 [facility] Lymphocytes Auto (Bld) [#/Vo l]Ordered By: Ayaan Espitia on 08-19-2024 Lymphocytes (Bld) [#/Vol] Lymphocytes [#/volume] in Blood by Automated count 1.00-4.8 [facility] Lymphocytes/100 WBC Auto (Bl d)Ordered By: Ayaan Espitia on 08-19-2024 Lymphocytes/100 WBC (Bld) Lymphocytes/100 leukocytes in Blood by Automated count . [facility] MCH Auto (RBC) [Entitic mass ]Ordered By: Ayaan Espitia on 08-19-2024 MCH (RBC) [Entitic mass] MCH [Entitic mass] by Automated count Low 24.7-34.3 [facility] MCHC Auto (RBC) [Mass/Vol]Or dered By: Ayaan Espitia on 08-19-2024 MCHC (RBC) [Mass/Vol] MCHC [Mass/volume] by Automated count Low 32.0-35.0 [facility] MCV Auto (RBC) [Entitic vol] Ordered By: Ayaan Espitia on 08-19-2024 MCV (RBC) [Entitic vol] MCV [Entitic volume] by Automated count Low 80-100 [facility] Monocytes Auto (Bld) [#/Vol] Ordered By: Ayaan Espitia on 08-19-2024 Monocytes (Bld) [#/Vol] Automated blood monocyte count 0.0-0.8 [facility] Monocytes/100 WBC Auto (Bld) Ordered By: Ayaan Espitia on 08-19-2024 Monocytes/100 WBC (Bld) Automated monocyte % . [facility] Neutrophils Auto (Bld) [#/Vo l]Ordered By: Ayaan Espitia on 08-19-2024 Neutrophils (Bld) [#/Vol] Neutrophils [#/volume] in Blood by Automated count 1.8-7.7 [facility] Neutrophils/100 WBC Auto (Bl d)Ordered By: Ayaan Espitia on 08-19-2024 Neutrophils/100 WBC (Bld) Automated neutrophil % . [facility] Nucleated erythrocytes [Pres ence] in Blood by Automated countOrdered By: Ayaan Espitia on 08-19-2024 Nucleated RBC Auto Ql (Bld) Nucleated erythrocytes [Presence] in Blood by Automated count 0-0.5 [facility] Platelet mean volume Auto (B ld) [Entitic vol]Ordered By: Ayaan Espitia on 08-19-2024 Platelet mean volume (Bld) [Entitic vol] Platelet mean volume [Entitic volume] in Blood by Automated count 6.3-10.7 [facility] Platelets Auto (Bld) [#/Vol] Ordered By: Ayaan Espitia on 08-19-2024 Platelets (Bld) [#/Vol] Platelets [#/volume] in Blood by Automated count 150-450 [facility] RBC Auto (Bld) [#/Vol]Ordere d By: Ayaan Espitia on 08-19-2024 RBC (Bld) [#/Vol] Erythrocytes [#/volu me] in Blood by Automated count 3.60-5.00 [facility] WBC Auto (Bld) [#/Vol]Ordere d By: Ayaan Espitia on 08-19-2024 WBC (Bld) [#/Vol] Leukocytes [#/volume ] in Blood by Automated count 3.8-11.6 [facility] Cristóbal 06-11-2024 L Specimen: [id number] Received: 06/12/24 Status: LASHAY Cid Num: [id number] Spec Type: Surgical Subm Dr: Marvin Hooks MD FACS Tissues: A Colon Biopsy (ASCENDING COLON POLYP) Procedures: HE/2, Gross/Micro L4 Age/ Patient Sex Location Account Attending Physician Dana Grijalva 54/F [place] [id number] Marvin Hooks MD FACS SPEC NUM: [id number] RECD: 06/12/24 STATUS: LASHAY CID NUM: [id number] KRISTA: 06/11/[address]: Marvin Hooks MD FACS ENTERED: 06/12/24 [facility] DR: Coretta Gusman SPEC TYPE: Surgical DEPT: FATEM[facility] AUGUST ENTERED BY: [id number] RECV BY: [id number] ORDERED: HE/2, Gross/Micro L4 ORDERED: HE/2, Gross/Micro L4 Pathological Diagnosis Ascending colon polyp biopsy: -Fragments of tubular adenomatous polyp without malignancy Clinical Information Ascending colon polyp, diffuse diverticulosis Gross Description Specimen was received in formalin with the patient's name and ascending colon polyp and consists of 2 heredia soft tissue fragments measuring 0.2 and 0.4 cm in greatest dimension. The specimen is entirely submitted in cassette A1. Microscopic Description Microscopic examinations are performed supporting the above interpretation CPT Codes 78886 Specimen: [id number] Received: 06/12/24 Status: LASHAY Cid Num: [id number] Spec Type: Surgical Subm Dr: Marvin Hooks MD FACS Tissues: A Colon Biopsy (ASCENDING COLON POLYP) Procedures: HE/2, Gross/Micro L4 Patient: Dana Grijalva [id number] (Continued) Signed (signature on file) Juliana Short MD 06/19/24 0912 Normal [facility] General Surgery Office/Clini c Noteon 04-17-2024 General [...] Osteoporosis Screenin (more content not included)... Normal [facility] Comment on above: Result Comment: Elec tronically Signed By: Marvin HOOKS MD\.br\Date and Time Signed: 04/17/24 14:01 EDT Ambulatory Visit Summaryon 0 04-16-2024 Ambulatory Visit Summary Ambulatory Visit Summary DANA GRIJALVA :1970 Visit Date:04/16/2024 Ambulatory Visit Instructions Your Care Team Attending Physician - Marvin HOOKS MD Primary Care Physician - AYAAN ANDERSON DO This Is Your Medications List [...] for choosing us for your care. Normal [facility] Coding Summaryon 04-09-2024 Coding Summary HTMLBase 64 TahqdrtaXYl8mYl+PGhlYWQ +[id number] NMTElOSywgQVBQTElOSyIgb yTeHJ2rbPHeEWFu IC8+KY1gKEMeEowqaEWug6Q 8hDJ8U29knt1uLYiehAD6JN FyQnEvuousd6aiuNi4TOcnU mluOyBt FEFeeP09NJA5pC38By36rXS blWJrh7kmlXl5EyGiENKmGP M2kBvgWKona6HyOEMfR21pb TVai6O1 ZCKjhAhyxYDrIpQpvRK1nW0 hEXnjowhib3bfgqphLtc1vc 08rIDux1U8oCX1D3AlieK5P GJvbGQg MwzqgSQHqR0lsoibd1bteqi eLcWeVTOlHQg7HJk6GGUycC bbWiJyTL53AJA3RYVezoNsJ 2FsLWFs qJtjEkP1e4Q0By9UH2KMSxb eH9BQCCCTZCvnsMP+PC90cj 05T9YkOsgsGhz8INYlISG7j GK6sG3e RLYfFJyxs4A8eWD6J0DnfcC hzv3xh4jwUTAbPDtiW72gwW Kzj3H6XYZctDA6BDBbkUmtL iBzaG93 Oyc+FVQtoPtxs5HiQkssy6c tp5ujnOo3YoerKYBngqYxsR fjWPX2a7DdLz6sKZCdaRF4j WO1zL7n LsYnZaF1HVdxQ034QqTkgRS sLditS86qB9BpfAM+PHRyPj z4XXLogIppOH3rW9DzMYLhh mctbGVm mCitRP6wPUIcohzwQFFvwV9 tJHPlX1b3ZqNvNxI0WZdfF0 LiIAHypfvgUa64cU9cRfPsQ jI7NArv X0VboxI6KVCrrEAsSVzjSQS 9C98qx0Z8VJXiSBTwIRY1pL B2nC5htNyconwjeWFbgWshz mVydGlj TTliIFjsX819BEFubZiuXeG vZGluZyBEYXRlOiAgMDcvMT AvMjAyNDwvdGQ+RPJwAPB2b WxlPSAn vSHcNHzfOt1lmWgddJrhZN9 sSRYvufseXBDtfJ1nTFGvzG GpjRohAS4hHEZklqato115O iAxMHB0 EXIpdPXzN8FpnZ1aLiRyHBM pCKZuJ0KtpOJwZVmkK951VL etAeO2XNVhqxYxT1FlZFMqo WduOiB0 r9D1Mc8Hn1DwsgqaB9GqfKS qSjYeZjxqPXx0C7ThVitczP I+WJ11IUJuHV95TXi2DMW4i WxlPSdi WOHeH2QsrF6sGeNgSYBfCMM kOyc+PHRhYmxlIHdpZHRoPS shLBDgMvIgxProGQ7lHq1fB GVyLWNv hAdznNMtUmWtn0haYMLhTCt zDU1wjPofT5KzpJQ9LKRgp5 r5Xf89Q58jM3UfsKM+PGNvb ED1dDU8 dM9jNoPqAyL9EKsnN734UyO stGJuDgzdf9fjn6qvrMc3Jz P2OAAkbrDccMvbBES7o7ClJ b95K14o IHdpZHRoPSIxNSUiIHZhbGl rae3lfP8fVk7+SUWfiUH7zL V3zV4vWjGePsZ9GLbwO996S nRvcCIv Kqece6pzh8tuoRs3CkOcWVT daaNwoDnnYHX2c4MmGj22A6 SbaJzcc2KkTbf6mp14yEAgf 0T6tOX6 Q7ArJNHklxivbXZryRdaBQ5 eQSUyteveKGUixJ3iKYSrL8 h2RyBcJhW8XDggC4MgewR2F GJvbGQg CWHkjRRZoC2iaufyi7apwbm wPjKfTMCeDHa6NIb1OIHegA ekGuXqJAA7RbP7VYD2uBCkk W0uhJye nklseN9gSyl+EQA0bVIseQT NNT8eJpftiUN+EKOeTXJ1aE efUXhkGQTfbY0lJIBmJ4m8F iAwLjA1 QUhcI6ElwiD4RXCroCZfWBQ cyUJHgD0iowkwa1qopthfQq SwTQHbGPv0KIc6KEIilDsaB iBsZWZ0 LeE5UTJ3aAZvqK5jeKpwlnx xxR0cLcw+RumwaUheAPL2NY b4Q3QjSez5GXSafPftAY8fc GFkZGlu Ob7poZeifMavMA9cLDHftoj fp412PoFfj9nsHMFpbEJeEF tqPZC1H47kf9X0PREiKACjO ZK6fEH8 iB1omXfznvivhYYclBpnebM auEfdYBmbRHhjR927NLUzzF leEfSxWGw9J2AvWve5VVYss JlwPU1u bWOtWXnpZr7imKwkwRxlLR7 sKGDjvfjqr621IlXcu8xcSC SquLXqPMblGLI1Q95tk0N8P CMwMDAw BGU8dZS5oV0nbGnfdiiozTB mdDsgdmVydGljYWwtYWxpZ2 29JGJkeAwxCkFsjJj1U4IbM op9YIEk nQldOP8cuVFpPTrmFh2jjZu muQbiGK7jQMQuyefcw439Sd Rge6hzPENqbMDwFNgmXRM7A 02st3Q5 MKVrCLHjLNX4rBN5jK9umPs nbjogbGVmdDsgdmVydGljYW hyYWgjR549YGFphFerXoXex GllbnQg KXooFYx3V0AbNracjJK+PC9 9NZGgFR93hNPoaKHsc6ikuP e6JjMbNDBuJTL9cOtuLMrik 3JkZXIt A54nbCJip7W5KQDteYhiaQS bSrYvqCS8xR0dXQqdtgupg8 yaaiblZlnef3dcqq88cI68B 29sIHdp ZHRoPSIzMCUiIHZhbGlnbj0 jcP5wNi7+YNNmvAM0fLK5bV 4zTPRoZaS2YVhjC314TsCqe CIvPjxj e9tmz1phqFs2LmQ4WUIoysB qcXdaMWT5u0TtHr78M27cFS dpZHRoPSIyMCUiIHZhbGlnb x5bnJ7h Ii8+MWFztVZ6mDD6dT6lLlT mPiM1LJlxF430DfReuQUvSq foH74qN5LubIR+RGEjXfv0X CBzdHls RJ3rtFRdBKrqJe3pIFM1WvE mQgQuPRziV2XoIKSensnhbj xfzSJ0IEElAYBtaH40Up5rr DogMTBw tEYJuF2ubpyup2rzcgniZyL uQNXnLNs5MNn8UWAjlWeqSa WwYYR1WcQ8LMV6iUTbsU7zo Glnbjog eE7uW6UyVACbqkolJo87uR7 hLeXvBjF4CAgrHdo+U0FOQ0 pQGazdNP4TDXaYGTDYZMmzn GQ+PHRk DBZ4tNvoVJpmJGUrzR2zNSN jM8b9JaMxOmZ1HFrfQ4BrPX QapledYy59bE7yHjQbQtM6Z WqbY4Ky nxY5BBAafMKwZNkyNXQ1T06 hz8C5BJGeCTSbXMX2yDV9cP 1hbGlnbjogbGVmdDsgdmVyd GljYWwt CTtfZ021AHGctIqvPaQ5DjC uWzT9XaK1X6ScKkd1RWCqwY xeKP7gjXLqZTbbLc8etTntu ZpfYX4d YLVmdhckJXBgtQ2dDSWbjUV fpIhlVA2yXEIqtmugw195My HfUTL5AXYjaBIgX5NogX0hH iAjMDAw GEIcO4LqiCPxNVqzQ498LZg wInK9AFQcqkLlH5IkIFCqeL lqZrI4l6X8Eb46YABBJFVdp zwvdGQ+ NKOoRLN3oGdiSMxaHIMtxG7 aYXPlB3i6UhCuDdP6MBogI9 NtBJUlbixiFj04wB1oDrMxG mI7DQvr B9TgdwT3ZNOvnANbZBzsCAB 5R52hr7X9CFDuWQWlFFP9xT N9iU9erVardvjjzRQpyEoyx mVydGlj GVqgZFpzP906VVLghPxtVhX FTUFMRTwvdGQ+TLJbKPI0nJ uxGUftPAHjaM0gTBTrW1m0P iAwLjA1 FCndW8DdUCEmclohTr41rI6 dOoWoZsZ2POalI4DoqaQ5JP UctBVgZYerCBL7Q27jk5N9X CMwMDAw DDH3iFY0tH8agEdegmszbBU mdDsgdmVydGljYWwtYWxpZ2 41NLDukYutEr8OZN08EU48B 3RyPjwv dGFibGU+PHRhYmxlIHdpZHR uDUcbLZLrJkEnuUlhBL0sCa 9yZGVyLWNvbGxhcHNlOiBjb 2xsYXBz CEomAD3itFuhA6GtpKG3GOA ov3a1Bw78Q20gX5MhbWS+PG CszWN6oOE9xA5yDqMvYwJ5W LygK814 SpSczECnRnois6lms3tptNv 8LcOeQSVuypAnlLtxJKP4k4 PrEf00J88mAIbkOIOlHEQjT CUiIHZh sCtphs0roY1mBp3+PGNvbCB 7tOL8wW7nQqSvGiU6BBriW4 02JuNrwKGiKvnuH04jX4Jnj XA+PHRy Dit2LNEfyJphBY1tjQHqFXj yLt6tAIX5LjDsSnDlMEtqF8 TlBSRdwrzcffvtvJU5NOUfP DUwaW47 Um4pvHghPt6dXYZtOOL4DNB wnQMnJ9DkyW7tHeDhHFEqHJ PiR0EwgRCmCLknG779BKqtJ cK7ZPAp nsNtP4OhDDEewBoxAlN2f5T 6Gw6MvIwcgRFfPX0yOfJiSG l4V3TaYpu6LYThkSbzBT7gh GFkZGlu Yf0ruBgpmQyxGK9iXRDihls kf374MdNrz9hwUEXrsPIeTH xjYHR9F68qu5P7VLHdYLDxJ SI3vYG0 vE3kxHpkwbxziQIqySknsfH boCunFAtsZWrnZ163UFTrdC crVdJZWsz6A7HnQes5XHGnz PkaZD6l oAPiUZxwZz7hqEoztQvoOK1 hOVVbphoma248IwLsw6kiFA OpwZGtZPllUMD2L95jw4N4P CMwMDAw YLI5jFW1tO7iyCkmcatyoXO mdDsgdmVydGljYWwtYWxpZ2 68LCJsdBemZu0FPfe2J4AtJ jp8DJSb gDajRT8xnZZhVHqdDv5ofCh huDhtNX7nJROcnkzhb399Cf Eoj7duUFNumVBeUTcjOWN6J 58qg7X0 LGMyUZFcVVD3cHL6xM3rjKu nbjogbGVmdDsgdmVydGljYW orAYdjA622FMSvnTgoHjVhm WVyOjwv dGQ+GJ40zn78I2TyOfkhLdw 5LOMxRYY4oNW7fP0pZFGsCV wfw1W0fPF5B1NtqmSbev9at 2xsYXBz ZTo (more content not included)... [facility] BD Bone Density DEXA Studyon 03-31-2024 BD [...] prevention and treatment of osteoporosis. Osteoporos Int. 2021;33(10):0721-5863. doi: 10. 1007/s15240-142-93178-p . Epub 2021Jan 26. Erratum in: Osteoporos Int. 2021Apr 27;: PMID: [id number]; PMCID: [id number]. Final Dictated by: Иван Solis MD Dictated [...] Иван Solis MD 04/01/24 4:11 pm Technologist: THELMA [facility] Mammo Screening 3D Bilate ral.on 03-31-2024 PR Mammo Screening 3D Bilateral. MAMMOGRAM SCREENING 3-D [...] thickening which would be suggestive of malignancy. [employer] was utilized for this study. IMPRESSION: No [...] Иван Solis MD 04/01/24 4:17 pm Technologist: EM Assessment: 2-Benign finding Recommendation: Normal interval follow-up [facility] Provider Orderson 03-31-2024 Provider Orders [id number] OTGTIFF [facility] Coding Summaryon 10-29-2023 Coding Summary HTMLBase 64 TuydsezxCOf8lCe+PGhlYWQ +KR4AINGoT58hzXSwqD9yY5 NMTElOSywgQVBQTElOSyIgb mCjVZ2eeWMiZDHv IC8+SB5uFLYuYkpcxKKfu1O 2lNI9H81gdz8qZQqizJL5AX NkErGdbzyvx3cnzHm3TRxpL mluOyBt UQYnrG83GSF6qL19Lz19aVW zfZCgb6gpmVv7MwKoMYSqTT F1aSdfKUgyk1FsXTCaR99al EDqu0V7 YDQqtSbagMNsNjDfpJO6lK0 jYVnbfzzpy8ddlisdUmq2ts 51uIBih9F7mCH1I3BxefB1T GJvbGQg VglaxWEBoL4ijmjsk5frkol cFoYuEHOzORv1WOd4NLIisG vsPcJvHW81RGB1OGCnogBkP 2FsLWFs kQxfTcE3y9S8Mf4RT5IWIrn oA3EWENQIMQxkvET+PC90cj 35N7HwIfprOlt7YCTmRBO0p FM1yD1o JNZmNFrzu0N5jXY0Z5IbrpC yya4un5dfEUAiRAxtG06fdB Lxp2Z1CAXlhLE0DZPngMycB iBzaG93 Oyc+ZSRrbQstf1IeFldpu8w sh2pyyNt9PsroBDEywfDutD reEWT6f0CvIf1aMLWgiTE0i FT1aR4f MqLeCsR1LLmcQ390KhHwbNZ gTfmoU19cQ9ZcvHY+PHRyPj t5JNHgxJzsAL8dQ7NbVJZeg mctbGVm eVdnPN1oDLBvrgtpOPSydP3 xVULvY6t6UnRfFjY4PYejW7 UpRIHymzpwCl80rT7bLiTyS fL0IMnk N1IouuH4HTCcsGLxFFrdTXI 2X07al6S0NWHgJIAwSAG5yL G8kS2enWuetkxxxUHskQhfc mVydGlj YNltIVfsX553FALbxPbvVnF vZGluZyBEYXRlOiAgMDEvMj kvMjAyNDwvdGQ+PUIdEAF3z WxlPSAn kJZqOOkfQp6saSnglGegOR6 hKWYkefvoKMIcnF6fFRXhnU UfeBfxJC6zYUGiuhrph956I iAxMHB0 HNBuoDXnA6LgoB7fInGvNYF vZQGmF3IdhYHmWAoxH776SL rcZmZ1LOMvdqYwZ2WxSEHgm WduOiB0 s8O7Xt6Ud7DxxzbmH2YagRL yZnJvGgweQMf6H3MeNaiusC I+FC60HXKwRZ92MWy6YHO2w WxlPSdi JUZpW8LpmD3hNhTiMTCsUXQ kOyc+PHRhYmxlIHdpZHRoPS cmCTRfIhVmgAvzQJ3iKp7qN GVyLWNv cItfgCGyVeQrn7nsVWLbPEj rPW7zfDqnM5BcvFL2MYIrt6 x2Ic96C88fC6TekXA+PGNvb VX3cCN0 qR6aBoZiPhG0MCtyE740SpC ijEJhOinhd9xqp6ahkCk0Xq L4GLGrljEgqEarUXS8o9KoB s49R26i IHdpZHRoPSIxNSUiIHZhbGl tey2ztR2gOs7+ZETbuDT1tH Y6uB7rSuPvCmC7OBsmG754Q nRvcCIv Phvaa8oov3khvWm6SeHeSXC irfAodNqrZBT7y5PqAk18C5 EbyJkem2OlTdn8uj63oJSxw 7G8fYM4 Z0UtCKNvwxaqtQOroZrsIK1 eSCHixozcVJQumC6uAKAsY3 q5AzXqKgE0HAmtV3TyoxL1I GJvbGQg LNRjvPVImK6lmtemz5rsehm gMrNgMFVaHNw0MVo1RZYybG riDsXoPTL3CrG3AII1zJHrc L8fgElp faihbX0eBuw+JWP2xZFzwYX XKN2hSydxdXL+RAFbZUP3dV vjDQtaCKCouY5vJPDtZ1w3F iAwLjA1 JZvdB6SovgI7THNpjMIzBDZ csQLChM1yztmih4fznjlpQt KiOFUuZNl6HAg1GGAilIhrA iBsZWZ0 NsJ2POT6xENecD7soAnejyb qfP5wZzh+RcntsLmuSZW8NW y3C4ZyDpk4EUOemAduHA8oh GFkZGlu Sh8ruMpsgIcwOI9bAQBqgoq gt119TxFfr3ooGCJxnGVbTD giBTG5M44jn3P1LXFnEFJgJ HC6gHA3 qY7mqMpwdgfxtKZezVojxwE gyRzlNVutVQcrH560ZLSdfY mtDqJhDZy7S1RhTmw9JZCpi EjiYS8e iAFlXBsxOn6qxFfzlFgsDQ5 sKMUlyidwa783DxRob6yiMJ YsmJLtUWoaITS5M47gn7L4T CMwMDAw ZCE9cTE3uR5bvLapltkdtHF mdDsgdmVydGljYWwtYWxpZ2 25RZKlrJtoPsIwmXa5L6NjA dg8ASKp dRwrUW2svOMpDPrpQv9eiTs odRlsGT3qBGNxapkhk461Lu Nwy3mzSRZgfYQiYJxzLBG7C 06dv0A1 TJLrYPIqFGE3oJF1oJ6wrIn nbjogbGVmdDsgdmVydGljYW wbTUurP500PSWgiLwxAxBdh GllbnQg KFbiGMb5F1QyGfcdsFH+PC9 8YFKoPU88dENnoPSbs0aaxP t4AfHkDKQlTQP1yRryYQlrp 3JkZXIt M20acCRfp7X7CIJxqBekrPL aOtFuoXT3yN7dDGmfyjhoy1 fytifzOgrvv8ktbs37uA99O 29sIHdp ZHRoPSIzMCUiIHZhbGlnbj0 gvJ4cSd4+VYDocSK2yME4uS 5lFCUvYiS0JLvlJ965ZqJpd CIvPjxj h7bty9wxqZl6GgD9DJQpwkQ rwHmhHWT7e2QsRa16J73wSS dpZHRoPSIyMCUiIHZhbGlnb z1rjT4p Ii8+AYWkjNA2jCI2bP3rIjP dRlD7MRikE374ZyDncVMjTb zxU96wC1OdvCN+DUBkXir9A CBzdHls GR9cwZRzVRnhSy8sCQQ3YeR kMtLcQZbdY0JiVLHgatckby fheMO5KYZmUYYbtE96Fs6jh DogMTBw hNOXwH2olfauo2jxwpazLnO fAYVjHXh2ERc3IHOyaObvIf GlDMZ1JsP3CLS4qFQdgP9kk Glnbjog lO1jH1OaTGPurxiqFj64kW9 xSeErRkM8XMzfZsu+U0FOQ0 zTAyfsZK2SRXmJVHNVVZtbh GQ+PHRk XBD7yUchJKudGNWowC8oYXP tT5v4PaIdZkD2IYvkK1WvUX DbyupzYq18dL3qIjCwCeN3G KhuK6Sy bsJ2RUWapOHqHSvzCBQ3W05 bd8Z6RYCtFMFjHRU4bKA1pT 1hbGlnbjogbGVmdDsgdmVyd GljYWwt VZqrR400TPPzmIcnKpA8FtA yEeF7HjD4A9KeIgm0RTJmkN blKP3apUGrLQbdIj1qnZxcf IstTZ9q NYKjehahBOYfnD4jVEBcuNM zjQgjGD1kOARxnakzb255Bb YeWLD9WCEqmMNkQ9SzzO0kS iAjMDAw LWEwK6DqqAWlDTykO134FJp fMnO5VCTiwkIbF2BjAXNqqC daPdW7a5Y5Li30SrJTLRXau zwvdGQ+ EBNxHUG4fWiaMNbrKRNeoG0 yMWQnZ8f6YaVbGaI1URczN8 NzXRRyzwpwCy83cV1rVqBbK oD3BOyo T1PvkcU9UZSndSVjNWnsIGV 5W76kd5W8DNElLUVlTFZ6eL N5aV5ntPmksdkohAVbwYljt mVydGlj DFxzZGddT156QBDfvOnuOrB FTUFMRTwvdGQ+JURxYFP8jH wvYMygOGDgvI4vDYIjC2i9F iAwLjA1 WSxxZ4HxZDLzyytdDj73yZ8 cZzQzEiD0CVmdL3FrxiR1XA JhoNMpOTwmSDG7F28kl6R3T CMwMDAw NEB2xHV2nY0xwGyuunogvOH mdDsgdmVydGljYWwtYWxpZ2 42ZWHtqApzPm5UDZ89ZP63L 3RyPjwv dGFibGU+PHRhYmxlIHdpZHR dJFxgORKvSeKxgQlyBL7zFr 9yZGVyLWNvbGxhcHNlOiBjb 2xsYXBz QOcgBV4scAsmJ9AidFZ5ZXZ gp0x9Uv28M66mA1GmdEN+PG GcyKO5aHZ6pB0vRsWlIkX6X CpzN014 IhGmhEHqAaqgd5igs9izkIa 3FxUmUEWkngNxfVghDTR5c2 CgTn64H77kRKfsZZFeREKvA CUiIHZh hJemzf7fjU6cMv4+PGNvbCB 2qQO7hQ3hYtPsElY0ADrfN9 20EiZekIGhAqhiN29zW1Xsh XA+PHRy Wat8IFRybNjmZW6ohSCjKJp dYv4kNWH5XxAbUtUjIVdyG4 PmWIXmumzcedxfbNH9SXQeB DUwaW47 Ky2hpKnrEt8nZSMrBZH2EWG aiWQaE6NqsA7cJnHcHGQpXR KyV5LafJGhLOyhA421SHgkM sX9XFFx jpXkW9WcPCLgjLahUoL0v2V 0Ms2TsUlpxLHiGV0uTtXrER t6B8CkYpr1SWKtmQdvLR7lo GFkZGlu Eu8zxQnseCnhXE1wBJRncuo mb962ApUme5suLVCwgAPmEK ntACG8M12gu5S8HDKnRPZtI TQ5tRT9 uT5mkKlflksfrJOiqIljyzV wqOtgHOwfHKwnG368TKLpzT tmAjSEClj2H3CoWhk9WZPtv EbhGG0q hEBzKXmzPp8nwPspfGvbAZ1 nFTBwozbqy499QrLzd0mrTH ZxfONhPKxwKQA4E33yv2L4Z CMwMDAw WGL6wGP9bP0wkCyozestdTZ mdDsgdmVydGljYWwtYWxpZ2 75AVYzrUmmUv9HQyq9D8SuB yt4TVTv bRcwLX0lxYIvHKbrQj4dmNm keRboWH4iZQDdlbska358Fk Kon2fdIMVrvKWmBEqjFHK9V 84kw8S3 RJKsYVCmHTN3wEY4pY5onKn nbjogbGVmdDsgdmVydGljYW kkCQwzO882EDGmdDdmTpAvi WVyOjwv dGQ+RE33xp20J6ElYvfwQqx 4GXOiPLB9wRL3fU8qGHTxWS lmr6H6vYJ7F3NczcOnpt2au 2xsYXBz ZTo (more content not included)... [facility] ECG, Hospital Report Scanon 10-25-2023 [facility] Coding Summaryon 10-03-2023 Coding Summary HTMLBase 64 QmwihvulHSr3vMr+PGhlYWQ +NG8APSGeC86izLDybL0bP7 NMTElOSywgQVBQTElOSyIgb iViJO2szPJkQAHl IC8+BB6gRTZxMhkrwWIwz3D 6xNS0R94jgp9yUPjmfLC1TI LaDmSohxbwj1cumHq1OFzhL mluOyBt TQMniT65JCJ5wR20Kh72xLS vkFClu2etaBi2WcZaYKOaRD S4mZzcODlgr8CzRPUbY62vd RWcd6Q9 OTNunKjrqGHoPzRilFF8lI3 jSBzblrnqi1nppjsoSpk0mn 66qVGkx2H5qFE4X0RlxwB2O GJvbGQg AbgwwCJCmN6muxmuk3fiazv cPdEcSCQdIZu0ADb9URDtmY vyUcGgAJ18SSQ8GNJigkUyF 2FsLWFs iVyfVxY4w8P6Gg8XR1QJNxx uQ0KNSEYYHGvteOE+PC90cj 43E4LpCfzfZgc6RDGyOCZ4t UL0hP5j RRAlQIjfs9S2rLX2U9RmlgI hkd8bt0amVPMaGUltJ60knM Qgo5W1NQNxtAT6NQKpoRpdM iBzaG93 Oyc+MOXzePqsd9GcAjxbb3n ux5xcgJp8LebcDKAqgcOmtB enLVA0o5EgFy4fITFtpWL8b GN9tA0x OjMpCkD0YJnnM100CeYegJK fMpuxP05eM6FawMI+PHRyPj s1AZYngOxvIW2tT7OqLYCob mctbGVm uAxfID7vMWBkxeqfQSVqsZ7 pKUUuW0j8VcZjYyM2WSyvS6 DoJFCsfbdgRx23sA8vIcRzX xL3MOfm B0QgcrI3QPAleGGzEKoxXXD 8A69rl3R6JMJgIZBxXKG2dS F2qW9fuZqypmjdpSRvsQxni mVydGlj NXyfXSrwC770JERjzWyaVfT vZGluZyBEYXRlOiAgMDEvMD MvMjAyNDwvdGQ+JNKuHDV4n WxlPSAn wXKtTFwyAd5emSenuWrgUM2 qDLXqyexmLOStoM0bMMCiuY ZldEuqRC0xDQEdgiwqv785Y iAxMHB0 BTKdbKYqL3DacF5xEkKhYBH lMEGiE9JmbWTnLKfuT033SB ivSxE0BJLxxaLmO6OnKTHtw WduOiB0 l4N3Ql6Pl7IqdotdM1FnnVK oZcMtGlspINc4Q9YbXlyfuF I+FV86OUDvSI05UFi3WRI5x WxlPSdi IRUlM9CapC9cMdTtFPRfITK kOyc+PHRhYmxlIHdpZHRoPS xjHLPmFbPhtBnoVT8kNw9pZ GVyLWNv qAblsNLdAuOtr5ccNULpMKe vHA5beNylW7FsvAK4IBCwx8 o5Fb75X17dH7ZpqMQ+PGNvb LW7eZZ6 vL7aYxPqErZ4XAniS514InJ iyVJdAfncb5amq7kdcXl6Vb P7AMBwdiDjtEvzXHS1m9FeN f85R63u IHdpZHRoPSIxNSUiIHZhbGl pzu9acY6xPz7+MXDqsWW9rS B1oV4yHxIgXhS3LZxaY542D nRvcCIv Ectnl9rpq0hwiSj6JtWlDYO zkcMmkWdfPUF9l6XsCb14B3 DieHvmy3ZuRyo1im49pVVxh 8Y9wCN7 T8LnQJGsigcqgSQkuSufLB8 gYPTqcssjPKErsW8oGAKeC1 w2RtDbHfV8BZgzM7TiysU3P GJvbGQg GJZsdMIMxE8hbcfoq6mrhii iZhKuYBBtQYo2AMs8NZBceE viOqDnYHZ1OuI7AOP2hTVuy T1gzJja uxyplN2fRmc+SEX3sGYxxCP LPA9kWgisuGL+WAUwBEU6aN hbHOwnOEBbtE9tZHSbC3y2D iAwLjA1 NGkwJ8YgwtJ3WTDjmJUwKTS azSWByI4uycsls2olrqduWy HqDHIiVVd0HIo6URSsaSoeP iBsZWZ0 AgB9CDC1eOSbaI6gxQjqlvz bxP6bFle+OfxeqMlsPVE4SH h2W9CeEiz9HNGjfCphLU3vw GFkZGlu Lb3vnCeqbAhaLC4cWJSpsfw qs865HvLvy7iqDAKuaVRhND seWSP7J66ny6Z9UKFgPQJwQ SZ7tTR4 eK8avZwdjvmpqDFrxCvfvzA taUmkUKoqTJrkF328XRMvuC iaAzLvEMh2G1ZhLqa1MNFgf NqgLT3u dIPdOBovPf2arQcxiDrkOA5 oXOEialfqi858OmDua1mkOT VlpYSgNAruYEH1P24be3O6U CMwMDAw TKO2aCZ5sI7bfUaruiscbFR mdDsgdmVydGljYWwtYWxpZ2 55AUBghLssRlEjaOf4Z4UxD xv1AXQf fJtlVQ6uwWEySTmxFz1pcNh htYymOB1zQDBuywjph606Gw All9mqFBRzfJFrZVypDLL1V 86ev6S7 EANqXMFeTLA8rLJ4cS0bfRp nbjogbGVmdDsgdmVydGljYW nyAAaqL109SFWblBhsUuRtc GllbnQg VKioPMo1M7DhMxbrzZU+PC9 9UBXdXZ85wBOqkDCoh6zfuZ p7NnJcMTGmRKM3zVqlMYjsu 3JkZXIt O84prHIux0J9ZYTdnSxenPS nCrPstQN3nC9cCGhugytim6 ylzlylUubjm8tyvr33hY36H 29sIHdp ZHRoPSIzMCUiIHZhbGlnbj0 lfQ1jBa7+UTEekJH8qNL4tF 5tOSVqJmZ0YLfkE080XaYhs CIvPjxj f9lxr2xluRq0TwO3XTTenuC puLffDVA3b2KvEi07N22oEQ dpZHRoPSIyMCUiIHZhbGlnb i2bpB9t Ii8+OHSzvMJ7jHG2vK5oFqE bKtJ3VXqtJ193MoKneGTeNf rjB06zS5MnfNJ+LQSoZyt7Z CBzdHls GM9xcMFkJPpiHg2iBWS0LyK uWbLrFWepB1TsZDOtmwyeia mpsIC7ETQyYCQuiJ23Ym9xy DogMTBw zSNFqX0iufxnn5tvovmxDaX pKBPwFSz6PPw0RJEdbCwhEy AaJHD8VhT0YKM9mZEzoP9mj Glnbjog iD5xD7TjUHXxuqvwWu26tU3 hUyYqDjG2HUqzLph+U0FOQ0 qVQhqoWI8CDIzODNQEMLixl GQ+PHRk XXM2aRrdAGahUDZphA3tJQK kS6w2XeLjLiU0VDdyP2HuUL ZbxopoPj04lP3iEvBiEeF7B SsgG0Id gjE8ZSLqkYRrXAhcXWA3F57 zl8K2UPCqIBDmQJQ3hTJ0zR 1hbGlnbjogbGVmdDsgdmVyd GljYWwt YEjrA419QGPcbXqbXqP1YmI fGjI4CpI6R1QpCdk3EVEuzM akHK6keNShDMxhBg1qjRfdz KvyRI6z STBlooviIGIqcR9vCFHgzDS seHovMU9dUUAnsjdkn330Hb VlHIW5XNUjkZCyE8TjmZ7lD iAjMDAw YTTbN4AieQWlKGoiW713WXl bFjW1IXJtihTdK4CeMZBmlM jrZkB1f1K0Vv91TjAUITRqg zwvdGQ+ XGIpSGC3hUpaGEtnQYHnuL8 mQCJgG1d9FkYaXsK5OKapH0 OcZTMfryjnMn90gL7gWoZwM iK4FCrh E7IyjzD4KWSjzWGmDApsWHT 5C01nl2E8VOMdAMUoYBC4kA K7iR1hsMjlfgpyhGYbvSgbx mVydGlj CFysIAcqO137AZTuzMhmPdW FTUFMRTwvdGQ+EZSmURA5lU wwIEkzRGDjcU9kXPUrX3o1E iAwLjA1 NWceD7OfXIYgqzaaDa86gN5 oJyDbXzD0RBwkS8XtxfB6IZ RbgYQpXNyuNTR5N41yo5X1Y CMwMDAw WFR5eTG1sQ7ntIdbaxygkGK mdDsgdmVydGljYWwtYWxpZ2 80NPWehJquFy2MOR25EV28K 3RyPjwv dGFibGU+PHRhYmxlIHdpZHR tARztBYWeXsPcpJflDL5lSh 9yZGVyLWNvbGxhcHNlOiBjb 2xsYXBz HUviYT5wiPjuP4WigRC6HTM cm6s3Uf45C91fL0WlrQF+PG CcbBN4dLA7bY1yWsIsBqC2J QgoJ454 GfZoaMKlKecfc8ajj5girAw 3QvWgMIKrfyGlzDbrXZO5f6 TlWg82Q68gWYqxAXUcCPVyM CUiIHZh wRboml9sqX4cVa5+PGNvbCB 4sAZ9gP7pDxJwFhC5USckC7 33TaOdsWTdFngkG58tF9Msl XA+PHRy Pua2NGHfiOxwMH7nhWViXSc yGl2lNYW8VnGdTdYsBTisA8 MmBQNaajtiwsqmdAH5QFLaI DUwaW47 Qc9dbWnoAy9yJWIwJAX8GSG ccIFvV0VklW8qDiEfWEMaOP RkQ5UtqKNbQKscH913MUgmM fD1YUEq olXzH3UoSTRfoXxbIkQ5x8E 2Tv2HsYrswRPnCP7xUtIdLR t4V8SqOgo2TLOlaPaeTL2vh GFkZGlu Xm7xqSzwrJlxVF4oXMMltkw [id number] ekOHY8W85cr6Q0ZQFwPOTfU YB0gGC8 iR8bsXkvhinuzJIvxCwlmuX vxOcxSDvfTFxyV488OOMvaM pkMcEBNxb6J9DxZoa5ETWqv AunBX1n nZRhKEwqBi7zkNwgxAbyZS0 dKXJeaptqa390ObXan3izAW StmKQdEEauYKQ4M33mw4N0P CMwMDAw WEI5eHD2xW9yvChighurhHG mdDsgdmVydGljYWwtYWxpZ2 24GNNvjZglEl3SAro5V6RfT oe7RREz tMqcOO9beUXgWJmySb3wxYf ggYbgPM8gLPOuvrmvq693Lc Kfd3lkLNNonCUtSZpaAVI4F 88nt0L4 TNEuYJAyRPM4lMZ2cD2zwBu nbjogbGVmdDsgdmVydGljYW mzNTozN170VLGytTomJiXgb WVyOjwv dGQ+KA27fe71E3TrJjwbKzy 0KOYxGGU0iVT1rH4fWXYnFT ahe8W4xOS7J8EdzqQbqx7lc 2xsYXBz ZTo (more content not included)... [facility] Coding Summary HTMLBase 64 XvirgvspPPj0hIv+PGhlYWQ +DS7JUTNaU52yoVSpfX6uE3 NMTElOSywgQVBQTElOSyIgb aQwTN6fcGNdZFUa IC8+SY3uWIYiUeavjCKds4B 5wXW8X58jkw2oAEcnpOU4VG OlSaDzjqiky0tjnKe1XVhdY mluOyBt LKVktL45INB5uL86Ez78mZZ wdYXff2fphJj9InKrVHQcLN W1tHsyHBece9VqMKGmJ98xy XLfz0K4 CSUvrWubqCOmEkTuuEX7yK5 fZYwhdsnlz9rsefklWaq5og 12cQHcf3U5wVB3B1WheeJ8L GJvbGQg SqpoxNVErY3nrbnne1pzvbz zHjYjJQAhHRc3UMi9ERNjpG znQmJqLJ48GWI6OJHwbtIqI 2FsLWFs lGgwSlK1e9I0Bj9RC0JANot tK2RUJTDEICpxgPC+PC90cj 13O4MgIbhuPoa4SPDoDIT9o UM9kN8z TYYdXIrhs5V9dHE2F5OcodD kzh8og8ckXLWgVLpdF31emM Nyp7Z7JNFylZU4ZHGuvLexO iBzaG93 Oyc+QLTyyRjtp8MvEazgs0j al0qstCt8HzcwXTHaayUuaC odTDW8d5GpPk0bABIlmRB9n YI4oS6g IrXwMjY0OSfrO020BvKstWC bLtelH51rS9JgbWS+PHRyPj c7BHQmsHdvNW7uY1QkSMOiz mctbGVm sJcgOU7cFJWskfjuJSBahS5 jPWDiE2l7FbSiHiP3KZfmP5 VqTQTlskgeDw18fM9aIbRrQ sQ2UOyl Q6NlwyH3QNNzlNBgAQgaUHC 9A50uq2Q0TIJnMTWuJTM8cS C1eF7zxUejyixtpUMywSygl mVydGlj XZwrMDahY250IQBrsSewWhP vZGluZyBEYXRlOiAgMDEvMD MvMjAyNDwvdGQ+PVKvRYC4h WxlPSAn nMEuXMszTx9hqEmumWgoTH1 uCJImojpoVCHebB6vXVTtqH HiwWnoOJ6uICHotejnb927J iAxMHB0 WYLsfAInC7YqdP5dXzStPTK sAYNiB9YfqURxSRmoR749SY zsTzB6CXCkweXdK8HqSEFgh WduOiB0 n0V0Xb8Fy4LdzikeK3NdbZJ rMeFvJtalGVt1C1HvHlceoI I+PF45EEUtSY68DGi8GXY7p WxlPSdi USPwV0JvdB7aQmGrOTXfANF kOyc+PHRhYmxlIHdpZHRoPS mfKVFrHhWzaAhnUJ9xSh7tC GVyLWNv zDhxyPVvJfNpy4lqXKJwUJg cXT7chQrpF3TfbXM5AZHwv4 g3Mu60L51zZ0XjpUU+PGNvb OL1vQQ3 oX0aGsXlLkC5XWicQ139QqU ryJGdTdpru6jbl5kmxCo9Hd T6PPYzwuRntLhfHFL3h3CcY l68D29k IHdpZHRoPSIxNSUiIHZhbGl bke5ppE5iWy5+JPKqlDE3oW I9aW4wJcQkOsL1AIbhH054D nRvcCIv Vtkgi1ebd6sijLz5LoGeSMC qgbBbiYfaBYP2y3KuRw72N0 AvvYjan0DcJoh6qu59sNNsv 0N2yHL7 L5BxCCRasmjdiRByrMufFG4 kQJJugpqjCUUekL6pRPWdX4 h3QeHaKzL0RXdyK5UnhdD2Z GJvbGQg YCFkwZDWvS1xjunkv2mhmbo bQsIdTDRoRAg1REh0TUKhfS biKiUrSJM8JhT0GLM3vGXmv P1sfVab dqfixT3tIjo+XIE4aXCzaSM KDD3fSddnbWC+AJPvLGZ5oN mhWIzfFBBvnB6bJNMoC3b8Z iAwLjA1 MXuiM4FztgU5THVrzIJnFIT khOOEdV2duuytt9ainhvoEc BwFIKkUGv0TZm6IFRfdLfaM iBsZWZ0 EoX4BUC8wKXbrE5dzOzgtmb koQ7lZxb+AzrxkDbfLOP5EZ n1L1GuWvy2PELbyUrlEW9np GFkZGlu Qd6igLcazRqvXC9nFMMmtqb wu129NgLnt3llBFRvaTKtCG tkVKG1C66na1E4XEMiNZBrD IY1jBC3 fF5luSudijlqkRJqeDklvwV jjPdxLCleGMerE319LMTxoK rlHfEmQFi2O8IhEox8FYTur UvdQS1e xNWkFCabNr2trBgheCtfCF8 pWTZhdgaep026OtZqc0idFI QrjUTqYLnrNJG2H34gf8C8U CMwMDAw AOC8sBJ7pJ8qtDafqnhulMU mdDsgdmVydGljYWwtYWxpZ2 05JMBoyJamKiCriGt0T6VqC ue1RHRq mFitZB0yrHSnDXqnCm6voFz pbBznXQ0nRTAsmcfin928Ms Iqr6hdWFYdlRWqDTbjJVM2I 24ke4M8 MRBvXJLgREU2pOW7wQ1eqEk nbjogbGVmdDsgdmVydGljYW brNCktM777JAWlgBqjNwUfu GllbnQg ABtjSNa1X1PoVmlioBI+PC9 8XYDdOM88hEJaoVWvw6ggrL t4KwYiEWNyZWJ4aPgdRWwgx 3JkZXIt Z50haIXrm3Y4EGAxpDzhkJW dBrGbxRV3bF6dJZkyjluid8 xjnleeFtkjx5fbbk21gN51V 29sIHdp ZHRoPSIzMCUiIHZhbGlnbj0 owG9nGy3+QXNupBQ1pHE5gQ 0qNKEeFmC7UFzqR263NnJou CIvPjxj b9dzl5zpnDq9OyN2QPTmqiJ ebZxrAFZ5w9NeEl25F31wUK dpZHRoPSIyMCUiIHZhbGlnb y5jzR4a Ii8+WBGvmPZ6dNC9dX6hImT rAoN8BJgkW386NvDpmFOqSu dbQ76lQ3LfbUP+RWFqWav4P CBzdHls YS1bzUOkGHheFk3wEZF8OuT zBkNmHCkuJ7FlBLXkbxjgwk cjnCU6BJGsZSMfoO49Rn8vb DogMTBw tROUtC0arywrp5evifvuVgS wOVOzZLi8VKm9ZQDgyUmiGj HhUCV5LhN3LJW6nSDifM2kv Glnbjog jZ6nN9KdBWSnnozkYj21sJ1 uNpDnXnJ2ZPvlNtt+U0FOQ0 fCVnmjWX7PIAhJYJGTURdrs GQ+PHRk FEB6fRrxJXueKUQoqC4wWZJ wF2p4TeJuBiT8ZSaaQ4ZfBK SffjhyCs04fQ3fPtZhQvF0T IcxB7Cr fuZ4DLEkrCLjBNaiMMI8H06 xa5G4OSRcLXHjIVH2pKL9jB 1hbGlnbjogbGVmdDsgdmVyd GljYWwt UGfvC787RXFvjJpmPoW6ZcK aEuC5GlI3V7MfRag1AJTstU huDK0boNAsZIofEn4mdIpsi QqkVN3u KDFsfkqtQDJfxJ0tGQGvlCR ttKluGH9mWXOgmvcxy366Ud FlBJZ6EZGhwFUkV2GkpR3nE iAjMDAw KGMaC6YyaBLhWLmaN837DPf tIsN1MCMrqmMzM9VdXRCdnH wxWoX1z7B5Dr66VtVPUWFog zwvdGQ+ VZMtADM1zZorBGqnNZQseM8 zJHDhN9x3AxTlYnN5TVbqN5 XuBPQtywmsDh16gE2yOpSwG kB8RCrv T4VciaP1HVZtpSLfKPnaZBL 0X43xx6C2AIFjHXIuTYI7cU E9bP7gdCqjiqqmmPYmzEftv mVydGlj MYrcQPpxQ484DTElgQxoChI FTUFMRTwvdGQ+VHAoTIS5iA jxYMtbOBYbwI0fCSAlP2p7X iAwLjA1 HSegM7LkNJQcneiwLh94rB0 fQlUaRlG4NOezO7JijlM3FD ObwGLeVVybEHJ2I10bl3N8V CMwMDAw OOX1bMX1mW5pkUxiqxrdyMP mdDsgdmVydGljYWwtYWxpZ2 05IXFfsQzwUs2EMW42CP47L 3RyPjwv dGFibGU+PHRhYmxlIHdpZHR fXVqyWTWpAtZltPluPW0uUp 9yZGVyLWNvbGxhcHNlOiBjb 2xsYXBz WNrvYP8kzGkcG5DjgTK2FNV ng7p0Df04P17bF9JwcLY+PG YiiWO1cBO4lZ4xDyNyDkG6Y WyxL070 UxTyzDWnWpous8sxc8uljCv 2ZpKqJEShtcTzxUaoJLM2u3 XoKr39A11bTDtpJIPjIOAsQ CUiIHZh zZveox2wvK2aYl3+PGNvbCB 0lXY5yJ0rYdWvDpZ9OXfyS4 57UnQdkXGyWhaaW49jB7Dsh XA+PHRy Mui5FZGchJyrHJ2orUChCBh pId9wIUZ6SoHjXoSnUJrdK4 LbMHKmfprczydicTI5WTJcL DUwaW47 Gt1cwZojPy3nSQPgPSA2SKO tvASeM6UlyE1kFiIgFIMkAK ZkW5HbvGErZZowA383HVibR cT4RXZb qtMeW0TeOEFbgOkaQqJ2i4L 6Wy9XiAhrrFGdJI3jWkBxUH c8H6YwPva8VDOumXcmMK4hy GFkZGlu Cc4wtYlkrPepFU7cUDAfqhx ce615FaCkd9zrLJYxvJStUA usBWY9A22nw7Y5BCFqEYZtZ NE8mEQ7 eP3coLsrblfnsTRqvHqpkaQ kxLlpBTysTKveV002DPZrdB tcOhRUVkj0C8YeHwr2BEYpm HseGY3l wUAtZYmePe8jpIqonStxTC4 pHHPkiihcr424SwExt7rmDG TxjCTsQEtgVNB2E54jp6A9T CMwMDAw VYT6vKL9nQ8ptPytvztueGD mdDsgdmVydGljYWwtYWxpZ2 39PVSlfGpnIm6QPob4G2EtC hs4SYZn kBqnUU3iiYLfXRlwQx4zhUf fjJtyBA7qPEHnwsdje077Dp Epg5lzHUQkuBZxWRubPRK2F 36dq1J5 LCCwGRNxFOJ2oIT8uW1bwNd nbjogbGVmdDsgdmVydGljYW meFXnqM366OZAmnGufSeOdz WVyOjwv dGQ+BC73jx10B2DeWpznBbf 7ECYlWXG8yFR6jD9eDAXlVY oxc1Z5hUN3P6YmwnPigb4ec 2xsYXBz ZTo (more content not included)... Normal [facility] .Auto Diff 09-27-2023 Auto [place] % 6 % Normal 10-12 [facility] Comment on above: Performed By: #### 7 [id number], [id number], [id number], [id number] #### [facility] (DEFAULT) [address] [place] [address] Baso Abs# 0.0 x10 Normal 0.0-0.2 [facility] Comment on above: Performed By: #### 7 [id number], [id number], 9770102, [id number] #### [facility] (DEFAULT) [address] [place] [address] Basophils/100 WBC (Bld) 1.1 % Normal 0.2-2.0 [facility] Comment on above: Performed By: #### 7 508397, [id number], 4719552, [id number] #### [facility] (DEFAULT) [address] [place] [address] Eos Abs# 0.1 x10 Normal 0.0-0.4 [facility] Comment on above: Performed By: #### 7 891643, [id number], 4152236, [id number] #### [facility] (DEFAULT) [address] [place] [address] Eosinophils/100 WBC (Bld) 1.9 % Normal 0.9-4.0 [facility] Comment on above: Performed By: #### 7 388418, 43484312, 6955844, [id number] #### [facility] (DEFAULT) [address] [place] [address] Lymph Abs# 1.0 x10 Low 1.3-2.9 [facility] Comment on above: Performed By: #### 7 082873, 72730147, 3452982, [id number] #### [facility] (DEFAULT) [address] [place] [address] Lymphocytes/100 WBC (Bld) 27 % Normal 14-48 [facility] Comment on above: Performed By: #### 7 419754, 38668585, 2801172, [id number] #### [facility] (DEFAULT) [address] [place] [address] [place] Abs# 0.2 x10 Normal 0.0-0.8 [facility] Comment on above: Performed By: #### 7 275183, 60307426, 9080300, [id number] #### [facility] (DEFAULT) [address] [place] [address] Neut Abs# 2.5 x10 Normal 1.5-9.2 [facility] Comment on above: Performed By: #### 7 781886, 53797195, 4978895, [id number] #### [facility] (DEFAULT) [address] [place] [address] Neutrophils/100 WBC (Bld) 64 % Normal 44-88 [facility] Comment on above: Performed By: #### 7 044985, 47539957, 5306122, [id number] #### [facility] (DEFAULT) [address] [place] [address] CBC w/ Auto Diffon 3 Erythrocyte distribution width (RBC) [Ratio] 14.5 % Normal 11.5-15.0 [facility] Comment on above: Performed By: #### 7 892017, 17172436, 0807207, [id number] #### [facility] (DEFAULT) [address] [place] [address] Hematocrit (Bld) [Volume fraction] 33.8 % Normal 33.7-40.4 [facility] Comment on above: Performed By: #### 7 946838, 42096746, 5622303, [id number] #### [facility] (DEFAULT) [address] [place] [address] Hemoglobin (Bld) [Mass/Vol] 11.0 g/dL Low 11.3-15.9 [facility] Comment on above: Performed By: #### 7 939522, 15504822, 2353290, [id number] #### [facility] (DEFAULT) [address] [place] [address] 15609 MCH (RBC) [Entitic mass] 27 pg Normal 24-34 [facility] Comment on above: Performed By: #### 7 057356, 90570661, 8873761, [id number] #### [facility] (DEFAULT) [address] [place] [address] MCHC (RBC) [Mass/Vol] 32 g/dL Normal 26-37 [facility] Comment on above: Performed By: #### 7 750500, 69479816, 4501414, [id number] #### [facility] (DEFAULT) [address] [place] [address] MCV (RBC) [Entitic vol] 84 fL Normal 81-100 [facility] Comment on above: Performed By: #### 7 491241, 03004453, 6613257, [id number] #### [facility] (DEFAULT) [address] [place] [address] Platelet 294 x10 Normal 138-427 [facility] Comment on above: Performed By: #### 7 745693, 61674380, 7445519, [id number] #### [facility] (DEFAULT) [address] [place] [address] Platelet mean volume (Bld) [Entitic vol] 6.7 fL Normal 6.3-10.2 [facility] Comment on above: Performed By: #### 7 802587, 30028095, 3292677, [id number] #### [facility] (DEFAULT) [address] [place] [address] RBC 4.02 x10 Normal 3.70-5.30 [facility] Comment on above: Performed By: #### 7 435486, 54060476, 4123971, [id number] #### [facility] (DEFAULT) [address] [place] [address] WBC 3.9 x10 Normal 3.5-10.5 [facility] Comment on above: Performed By: #### 7 021983, 16303947, 8371060, [id number] #### [facility] (DEFAULT) [address] [place] [address] Man Diff? Auto Invalid Interpretation Code [facility] Comment on above: Performed By: #### 7 567803, 72664929, 0349688, [id number] #### [facility] (DEFAULT) [address] [place] [address] CMP Standardon 09-27-2023 eGFR Non AA >60 Invalid Interpretation Code [facility] Comment on above: Performed By: #### 7 542570, 77302116, 9990453, [id number] #### [facility] (DEFAULT) [address] [place] [address] eGFR AA >60 Invalid Interpretation Code [facility] Comment on above: Performed By: #### 7 466459, 02731206, 7785731, [id number] #### [facility] (DEFAULT) [address] [place] [address] Albumin [Mass/Vol] 4.0 g/dL Normal 3.5-5.0 [facility] Comment on above: Performed By: #### 7 227690, 55990309, 0776031, [id number] #### [facility] (DEFAULT) [address] [place] [address] Albumin/Globulin [Mass ratio] 1.2 {ratio} Low 1.4-2.6 [facility] Comment on above: Performed By: #### 7 709194, 84148752, 9575251, [id number] #### [facility] (DEFAULT) [address] [place] [address] Alk Phos 79 IU/L Normal 32-91 [facility] Comment on above: Performed By: #### 7 491674, 48462331, 3300334, [id number] #### [facility] (DEFAULT) [address] [place] [address] ALT [Catalytic activity/Vol] 15.0 U/L Normal 14.0-54.0 [facility] Comment on above: Performed By: #### 7 687102, 73848204, 3312029, [id number] #### [facility] (DEFAULT) [address] [place] [address] 07891 Anion gap [Moles/Vol] 11.9 mmol/L Normal 5.0-19.0 [facility] Comment on above: Performed By: #### 7 879045, 89182768, 7690449, [id number] #### [facility] (DEFAULT) [address] [place] [address] 20396 AST [Catalytic activity/Vol] 22 U/L Normal 15-41 [facility] Comment on above: Performed By: #### 7 769332, 38530658, 7672210, [id number] #### [facility] (DEFAULT) [address] [place] [address] 49792 Bili Total 0.9 mg/dL Normal 0.3-1.2 [facility] Comment on above: Performed By: #### 7 824489, 77234230, 6751044, [id number] #### [facility] (DEFAULT) [address] [place] [address] 54975 Calcium [Mass/Vol] 8.8 mg/dL Low 8.9-10.3 [facility] Comment on above: Performed By: #### 7 134633, 53089511, 5214976, [id number] #### [facility] (DEFAULT) [address] [place] [address] 20577 Chloride [Moles/Vol] 107 mmol/L Normal 101-111 [facility] Comment on above: Performed By: #### 7 662625, 14483503, 4943713, [id number] #### [facility] (DEFAULT) [address] [place] [address] 73305 CO2 [Moles/Vol] 25 mmol/L Normal 21-32 [facility] Comment on above: Performed By: #### 7 792021, 40882773, 5212218, [id number] #### [facility] (DEFAULT) [address] [place] [address] 20087 Creatinine [Mass/Vol] 0.57 mg/dL Low 0.60-1.30 [facility] Comment on above: Performed By: #### 7 758077, 42852212, 4892864, [id number] #### [facility] (DEFAULT) [address] [place] [address] 91414 Globulin (S) [Mass/Vol] 3.1 g/dL Normal 1.5-4.3 [facility] Comment on above: Performed By: #### 7 633067, 06508694, 5490317, [id number] #### [facility] (DEFAULT) [address] [place] [address] 82855 Glucose [Mass/Vol] 99.0 mg/dL Normal 74.0-118.0 [facility] Comment on above: Performed By: #### 7 138444, 08220657, 5795931, [id number] #### [facility] (DEFAULT) [address] [place] [address] 52311 Osmolality 278 mOsm/L Invalid Interpretation Code [facility] Comment on above: Performed By: #### 7 718865, 91637683, 5882151, [id number] #### [facility] (DEFAULT) [address] [place] [address] 07258 Potassium [Moles/Vol] 3.9 mmol/L Normal 3.6-5.1 [facility] Comment on above: Performed By: #### 7 347718, 30853133, 8258038, [id number] #### [facility] (DEFAULT) [address] [place] [address] 07553 Protein [Mass/Vol] 7.1 g/dL Normal 6.5-8.1 [facility] Comment on above: Performed By: #### 7 487595, 11553346, 7000988, [id number] #### [facility] (DEFAULT) [address] [place] [address] 18329 Sodium [Moles/Vol] 140.0 mmol/L Normal 136.0-144.0 [facility] Comment on above: Performed By: #### 7 549684, 02098568, 5431058, [id number] #### [facility] (DEFAULT) [address] [place] [address] 76084 Urea nitrogen [Mass/Vol] 10 mg/dL Normal 8-26 [facility] Comment on above: Performed By: #### 7 498872, 85104935, 8468656, [id number] #### [facility] (DEFAULT) [address] [place] [address] 33209 Urea nitrogen/Creatinin e [Mass ratio] 17.5 mg/mg High 4.6-16.2 [facility] Comment on above: Performed By: #### 7 089529, 28575352, 0563979, [id number] #### [facility] (DEFAULT) [address] [place] [address] 83362 Lipid Panel Standardon 09-27 Cholesterol [Mass/Vol] 119.0 mg/dL Normal 66.0-200.0 [facility] Comment on above: Order Comment: pt rodriguez d a dup order for lipidc.c. dr jade johnson Performed By: #### 1 [id number] ####[facility] (DEFAULT)[address] [place] [address] 09780 Cholesterol in HDL [Mass/Vol] 59 mg/dL Normal 40-71 [facility] Comment on above: Order Comment: pt rodriguez d a dup order for lipidc.c. dr jade johnson Performed By: #### 1 [id number] ####[facility] (DEFAULT)[address] [place] [address] 93994 Cholesterol in LDL [Mass/Vol] 33 mg/dL Normal 1-100 [facility] Comment on above: Order Comment: pt rodriguez d a dup order for lipidc.c. dr jade johnson Performed By: #### 1 [id number] ####[facility] (DEFAULT)[address] [place] [address] 55942 Cholesterol.total/ Cholesterol in HDL [Mass ratio] 2.0 {ratio} Normal 0.0-4.5 [facility] Comment on above: Order Comment: pt rodriguez d a dup order for lipidc.c. dr jade johnson Performed By: #### 1 [id number] ####[facility] (DEFAULT)[address] [place] [address] 15273 Triglyceride [Mass/Vol] 136.0 mg/dL Normal 0.0-150.0 [facility] Comment on above: Order Comment: pt rodriguez d a dup order for lipidc.c. dr jade johnson Performed By: #### 1 [id number] ####[facility] (DEFAULT)[address] [place] [address] 50341 VLDL. 27 mg/dL Normal 5-40 [facility] Comment on above: Order Comment: pt jennifer pena dup order for lipidc.c. dr jade johnson Performed By: #### 1 [id number] ####[facility] (DEFAULT)[address] [place] [address] 04946 Provider Orderson 09-27-2023 Provider Orders [id number]#1.00 OTGTIFF Normal [facility] Provider Orders [id number] [id number]#1.00 OTGTIFF Normal [facility] TSHon 09-27-2023 TSH Qn 0.88 m[IU]/L Normal 0.45-5.33 [facility] Comment on above: Performed By: #### 7 485832, [id number] #### [facility] (DEFAULT) [address] [place] [id number] Covid-19 PCR [facility]-01 SARS-CoV-2 (COVID-19) RNA CHRISTAL+probe Ql (Unsp spec) Not detected Normal NOT DETECTED [facility] Comment on above: Result Comment: This test is not yet approved or cleared by the [place] FDA. When there are no FDA-approved or cleared tests available, and other criteria are met, FDA can make tests available under an emergency access mechanism called an Emergency Use Authorization (EUA). The EUA for this test is supported by the [place] of Health and Human Service's (HHS's) declaration [...] consistent with SARS-CoV-2. Performed By: #### [facility] #### [facility] [address] [place] [address] Dr. Madeline Short AMYLASEon 05-18-2021 Amylase [Catalytic activity/Vol] 55 U/L Normal 31-110 [facility] Comment on above: Performed By: #### H RODNEY RAMIREZ, DREW ####[facility] [id number] [id number] Lebron CARDIAC ARAM ADMITon 021 CK [Catalytic activity/Vol] 47 U/L Normal 30-135 [facility] Comment on above: Performed By: #### C KOMAL KELLOGG #### [facility] [address] [place] [address] Gianluca Lebron CK.MB [Mass/Vol] 0.37 ng/mL Normal <=2.37 [facility] Comment on above: Performed By: #### C KOMAL KELLOGG #### [facility] [address] [place] [address] Gianluca Lebron HSTROP <4.0 Normal 4.0-35.5 [facility] Comment on above: Result Comment: CUT- OFF POINTS HAVE BEEN ESTABLISHED BASED ON THE FOURTH UNIVERSAL DEFINITIONS OF MYOCARDIAL INFARCTION. THE UPPER REFERENCE LIMIT (URL) OF TROPONIN, DEFINED THE 99TH PERCENTILE OF cTnI DISTRIBUTION IN A REFERENCE POPULATION, HAS BEEN CONFIRMED THE DECISION THRESHOLD FOR TX DIAGNOSIS. Performed By: #### C KOMAL KELLOGG #### [facility] [address] [place] [address] Gianluca Lebron KRISTINE 13.0 ng/mL Normal <=61.5 [facility] Comment on above: Performed By: #### C KOMAL KELLOGG #### [facility] [address] [place] [address] Gianluca Lebron CBC AUTO DIFFon 05-18-2021 BASO # 0.0 103/ul Normal 0.0-0.1 [facility] Comment on above: Performed By: #### C BC #### [facility] [address] [id number] Gianluca Vi Basophils/100 WBC (Bld) 0.6 % Normal 0.2-2.0 [facility] Comment on above: Performed By: #### C BC #### [facility] [address] [place] [address] Gianluca Vi EO # 0.1 103/ul Normal 0.0-0.7 [facility] Comment on above: Performed By: #### C BC #### [facility] [address] [place], [place] [id number] Gianluca Vi Eosinophils/100 WBC (Bld) 1.7 % Normal 0.9-7.0 [facility] Comment on above: Performed By: #### C BC #### [facility] [address] [place] [address] Ginaluca Vi Erythrocyte distribution width (RBC) [Ratio] 13.0 % Normal 11.0-15.0 [facility] Comment on above: Performed By: #### C BC #### [facility] [address] [place] [address] Gianluca Vi Hematocrit (Bld) [Volume fraction] 42.4 % Normal 36.0-48.0 [facility] Comment on above: Performed By: #### C BC #### [facility] [address] [place] [address] Gianluca Vi Hemoglobin (Bld) [Mass/Vol] 13.4 g/dL Normal 12.0-16.0 [facility] Comment on above: Performed By: #### C BC #### [facility] [address] [place] [address] Gianluca Vi IG # 0.03 10e3/ul Normal 0.00-0.03 [facility] Comment on above: Performed By: #### C BC #### [facility] [address] [place] [address] Gianluca Vi IG % 0.5 % Normal 0.0-0.5 [facility] Comment on above: Performed By: #### C BC #### [facility] [address] [place] [address] Gianluca Vi LYMPH # 1.5 103/ul Normal 1.2-3.8 [facility] Comment on above: Performed By: #### C BC #### [facility] [address] [place], [place] [id number] Gianluca Lebron Lymphocytes/100 WBC (Bld) 23.6 % Normal 20.5-60.0 [facility] Comment on above: Performed By: #### C BC #### [facility] [address] [place] [address] Gianluca Lebron MANUAL DIFF REQ NO Normal [facility] Comment on above: Performed By: #### C BC #### [facility] [address] [place] [address] Gianlucarayo Lebron MCH (RBC) [Entitic mass] 30.7 pg Normal 26.7-34.0 [facility] Comment on above: Performed By: #### C BC #### [facility] [address] [place] [address] Gianlucarayo Lebron MCHC (RBC) [Mass/Vol] 31.6 g/dL Normal 29.9-35.2 [facility] Comment on above: Performed By: #### C BC #### [facility] [address] [place] [address] Gianlucarayo Lebron MCV (RBC) [Entitic vol] 97.0 fL Normal 81.0-99.0 [facility] Comment on above: Performed By: #### C BC #### [facility] [address] [place] [address] Gianlucarayo Kochen MONO # 0.4 103/ul Normal 0.3-0.8 [facility] Comment on above: Performed By: #### C BC #### [facility] [address] [place] [address] Gianlucarayo Lebron Monocytes/100 WBC (Bld) 6.9 % Normal 1.7-12.0 [facility] Comment on above: Performed By: #### C BC #### [facility] [address] [place] [address] Gianluca Vi NEUT # 4.3 103/ul Normal 1.4-6.5 [facility] Comment on above: Performed By: #### C BC #### [facility] [address] [place], [place] [address] Gianluca Lebron Neutrophils/100 WBC (Bld) 66.7 % Normal 43.0-75.0 [facility] Comment on above: Performed By: #### C BC #### [facility] [address] [place], [place] [address] Gianluca Lebron Platelet mean volume (Bld) [Entitic vol] 9.3 fL Critically low 9.5-13.5 [facility] Comment on above: Performed By: #### C BC #### [facility] [address] [place], [place] [address] Gianluca Kochen PLT 227 103/ul Normal 150-450 [facility] Comment on above: Performed By: #### C BC #### [facility] [address] [place], [place] [address] Gianlucarayo Kochen RBC 4.37 106/ul Normal 4.20-5.40 [facility] Comment on above: Performed By: #### C BC #### [facility] [address] [place], [place] [address] Gianluca Lebron WBC 6.4 103/ul Normal 4.0-11.0 [facility] Comment on above: Performed By: #### C BC #### [facility] [address] [place], [place] [address] Gianluca Lebron LACTATE/LACTIC ACIDon 2020 Lactate [Moles/Vol] 1.6 mmol/L Normal 0.7-2.0 [facility] Comment on above: Performed By: #### L ACT ####[facility] [address] [place], [place] [address]EbpvpbGianluca Lebron LIPASEon 05-18-2021 Lipase [Catalytic activity/Vol] 88.0 U/L Normal 23.0-300.0 [facility] Comment on above: Performed By: #### H RODNEY RAMIREZ AMY ####[facility] [address] [place] [id number] Vi PROF 14(COMP METB)on 021 Albumin [Mass/Vol] 4.2 g/dL Normal 3.5-5.0 [facility] Comment on above: Performed By: #### C VALDEZ, KOMAL #### [facility] [address] [place] [id number] Gianluca Vi Albumin/Globulin [Mass ratio] 1.2 {ratio} Normal [facility] Comment on above: Performed By: #### C VALDEZ, KOMAL #### [facility] [address] [place] [id number] Gianluca Vi ALP [Catalytic activity/Vol] 76 U/L Normal 38-126 [facility] Comment on above: Performed By: #### C VALDEZ, KOMAL #### [facility] [address] [place] [address] Gianluca Vi ALT [Catalytic activity/Vol] 50 U/L Normal 9-52 [facility] Comment on above: Performed By: #### C VALDEZ, KOMAL #### [facility] [address] [place] [address] Gianluca Vi Anion gap [Moles/Vol] 15.0 mmol/L Normal [facility] Comment on above: Performed By: #### C VALDEZ, KOMAL #### [facility] [address] [place] [address] Gianluca Vi AST [Catalytic activity/Vol] 28 U/L Normal 14-36 [facility] Comment on above: Performed By: #### C VALDEZ, KOMAL #### [facility] [address] [place], [place] [id number] Gianluca Vi Bilirubin [Mass/Vol] 0.4 mg/dL Normal 0.2-1.3 [facility] Comment on above: Performed By: #### C VALDEZ, KOMAL #### [facility] [address] [place], [place] [id number] Gianluca Vi Calcium [Mass/Vol] 9.1 mg/dL Normal 8.4-10.2 [facility] Comment on above: Performed By: #### C VALDEZ, KOMAL #### [facility] [address] [place], [place] [address] Gianluca Vi Chloride [Moles/Vol] 104 mmol/L Normal 98-107 [facility] Comment on above: Performed By: #### C MP, CMADM #### [facility] [address] [place], [place] [address] Gianluca Vi CO2 [Moles/Vol] 26.2 mmol/L Normal 22.0-30.0 [facility] Comment on above: Performed By: #### C MP, CMADM #### [facility] [address] [place] [place] [id number] Gianluca Vi Creatinine [Mass/Vol] 0.82 mg/dL Normal 0.52-1.04 [facility] Comment on above: Performed By: #### C VALDEZ, CMADM #### [facility] [address] [place] [id number] Gianluca Vi EGFR-AF PORTUGUESE >60 Normal >=60 [facility] Comment on above: Performed By: #### C VALDEZ, CMADM #### [facility] [address] [place] [id number] Gianluca Vi EGFR-NON AF PORTUGUESE >60 Normal >=60 [facility] Comment on above: Performed By: #### C MP, CMADM #### [facility] [address] [place] [id number] Gianluca Vi Globulin (S) [Mass/Vol] 3.4 g/dL Normal [facility] Comment on above: Performed By: #### C MP, CMADM #### [facility] [address] [place] [id number] Gianluca Vi Glucose [Mass/Vol] 88 mg/dL Normal 74-106 [facility] Comment on above: Performed By: #### C MP, CMADM #### [facility] [address] [place] [id number] Gianluca Vi Potassium [Moles/Vol] 3.2 mmol/L Critically low 3.4-5.0 [facility] Comment on above: Performed By: #### C MP, CMADM #### [facility] [address] [place] [place] [id number] Gianluca Iv Protein [Mass/Vol] 7.6 g/dL Normal 6.1-8.2 [facility] Comment on above: Performed By: #### C MP, CMADM #### [facility] [address] [place] [address] Gianluca Vi Sodium [Moles/Vol] 142 mmol/L Normal 137-145 [facility] Comment on above: Performed By: #### C MP, CMADM #### [facility] [address] [place] [address] Gianluca Vi Urea nitrogen [Mass/Vol] 16.0 mg/dL Normal 7.0-17.0 [facility] Comment on above: Performed By: #### C VALDEZ, CMADM #### [facility] [address] [place] [address] Gianluca Vi Urea nitrogen/Creatinin e [Mass ratio] 19.5 mg/mg Normal [facility] Comment on above: Performed By: #### C VALDEZ, CMADM #### [facility] [address] [place] [address] Gianluca Vi PROTIMEon 05-18-2021 INR Coag (PPP) [Relative time] 1.01 {INR} Normal [facility] Comment on above: Performed By: #### P T, PTT #### [facility] [address] [place] [address] Gianluca Vi INR GUIDELINES SEE BELOW Normal [facility] Comment on above: Result Comment: ARLEY RED INR: 2.0 - 3.0 CONDITIONS NOT LISTED BELOW 2.5 - 3.5 FOR PROSTHETIC HEART VALVE REPLACEMENT 2.5 - 3.5 RECURRENT THROMBOSIS Performed By: #### P T, PTT #### [facility] [address] [place] [address] Gianluca Vi PT Coag (PPP) [Time] 10.9 s Normal 9.0-11.6 [facility] Comment on above: Performed By: #### P T, PTT #### [facility] [address] [place] [address] Gianluca Vi PTTon 05-18-2021 aPTT Coag (Bld) [Time] 25.7 s Normal 22.3-36.2 [facility] Comment on above: Performed By: #### P T, PTT #### [facility] [address] [place], [place] [address] Gianluca Lebron TROPONIN, HIGH SENSITIVITYon 05-18-2021 HSTROP 4.3 pg/mL Normal 4.0-35.5 [facility] Comment on above: Result Comment: CUT- OFF POINTS HAVE BEEN ESTABLISHED BASED ON THE FOURTH UNIVERSAL DEFINITIONS OF MYOCARDIAL INFARCTION. THE UPPER REFERENCE LIMIT (URL) OF TROPONIN, DEFINED THE 99TH PERCENTILE OF cTnI DISTRIBUTION IN A REFERENCE POPULATION, HAS BEEN CONFIRMED THE DECISION THRESHOLD FOR TX DIAGNOSIS. Performed By: #### H RODNEY RAMIREZ, DREW ####[facility] [address] [place], [place] [address]DlshxrGianluca Lebron XR CHEST 1 Von 05-18-2021 XR [...] Jeremie MALDONADO Date: 2021-05-18 00:22 Normal [facility] Covid-19 PCR (CVDTBH)on 01-30 SARS-CoV-2 (COVID-19) RNA CHRISTAL+probe Ql (Unsp spec) Not detected Normal NOT DETECTED [facility] Comment on above: Result Comment: This test is not yet approved or cleared by the [place] FDA. When there are no FDA-approved or cleared tests available, and other criteria are met, FDA can make tests available under an emergency access mechanism called an Emergency Use Authorization (EUA). The EUA for this test is supported by the [place] of Health and Human Service's (HHS's) declaration [...] consistent with SARS-CoV-2. Performed By: #### C [facility] #### [facility] [address] [place] [address] Gianluca Lebron Vital Signs Date Time Vital Sign Value Performing Clinician Facility 10-15-2024 13:11-0500 Body mass index (BMI) [Ratio] 31.38 kg/m2 [employer] DO Work Phone: [facility] 10-15-2024 [id number] Body weight 82.92 kg [employer] Work Phone: [facility] 10-15-2024 13:11-0500 Diastolic blood pressure 84 mm[Hg] [employer] Work Phone: [facility] 10-15-2024 13:11-0500 Systolic blood pressure 122 mm[Hg] [employer] Work Phone: [facility] 10-08-2024 13:04-0500 Body height 162.6 cm Ayaan Murcek DO Work Phone: [facility] 10-08-2024 13:04-0500 Body mass index (BMI) [Ratio] 44.63 kg/m2 Ayaan Murcek DO Work Phone: [facility] 10-08-2024 13:04-0500 Body weight 117.94 kg Ayaan Murcek DO Work Phone: [facility] 09-10-2024 14:24-0500 Body height 162.6 cm Ayaan Murcek DO Work Phone: [facility] 09-10-2024 14:24-0500 Body mass index (BMI) [Ratio] 44.63 kg/m2 Ayaan Murcek DO Work Phone: [facility] 09-10-2024 14:24-0500 Body weight 117.94 kg Ayaan Murcek DO Work Phone: [facility] 08-19-2024 10:05-0500 Body height 162.6 cm Ayaan Espitia DO Work Phone: [facility] 08-19-2024 10:05-0500 Body mass index (BMI) [Ratio] 44.97 kg/m2 Ayaan Chavezcek DO Work Phone: [facility] 08-19-2024 10:05-0500 Body weight 118.84 kg Ayaan Dunhamk DO Work Phone: [facility] 04-16-2024 14:56-0400 Blood Pressure Location Marvin NILL [facility] 04-16-2024 14:56-0400 Diastolic blood pressure 84 mm[Hg] Marvin NILL [facility] 04-16-2024 14:56-0400 Heart rate 72 /min Marvin NILL [facility] 04-16-2024 14:56-0400 Respiratory rate 16 /min Marvin NILL [facility] 04-16-2024 14:56-0400 Systolic blood pressure 124 mm[Hg] Marvin NILL [facility] 03-20-2024 11:02-0400 Body height 162.56 cm [facility] 03-20-2024 11:02-0400 Body mass index (BMI) [Ratio] 31.2 kg/m2 [facility] 03-20-2024 11:02-0400 Body weight 82.55 kg [facility] 03-20-2024 11:02-0400 Diastolic blood pressure 88 mm[Hg] [facility] 03-20-2024 11:02-0400 Heart rate 80 /min [facility] 03-20-2024 11:02-0400 Systolic blood pressure 143 mm[Hg] [facility] 10-25-2023 11:43-0500 Body height 162.6 cm Dione Monge MD Work Phone: [employer] 10-25-2023 11:43-0500 Body mass index (BMI) [Ratio] 31.24 kg/m2 Dione Monge MD Work Phone: [facility] [facility] 10-25-2023 11:43-0500 Body weight 82.56 kg Dione Monge MD Work Phone: [facility] 10-25-2023 11:43-0500 Diastolic blood pressure 80 mm[Hg] Dione Monge MD Work Phone: [employer] 10-25-2023 11:43-0500 Heart rate 77 /min Dione Monge MD Work Phone: [employer] 10-25-2023 11:43-0500 SaO2% (BldA) [Mass fraction] 96 % Dione Monge MD Work Phone: [employer] 10-25-2023 11:43-0500 Systolic blood pressure 98 mm[Hg] Dione Monge MD Work Phone: [employer] 02-21-2023 10:30-0400 Body height 161.29 cm Jade Johnson Other [employer] Other 02-21-2023 10:30-0400 Body mass index (BMI) [Ratio] 30.68 kg/m2 Jade Johnson Other [employer] Other 02-21-2023 10:30-0400 Body weight 79.83 kg Jade Johnson Other [employer] Other 02-21-2023 10:30-0400 Diastolic blood pressure 82 mm[Hg] Jade Johnson Other [employer] Other 02-21-2023 10:30-0400 Systolic blood pressure 115 mm[Hg] Jade Graciela Other [facility] [employer] Other Encounters Encounter Date Encounter Type Care Provider Facility Start: 10-15-2024 End: 10-15-2024 Bamboo flowsheet Leonard Yoel DO Work Phone: [facility] Start: 10-15-2024 End: 10-15-2024 Bamboo flowsheet Leonard Yoel DO Work Phone: [facility] Start: 10-15-2024 End: 10-15-2024 Patient encounter procedure Leonard Yoel DO Work Phone: [facility] Start: 10-15-2024 End: 10-15-2024 Periodic preventive med est patient 40-64yrs Leonard Yoel DO Work Phone: [facility] Comment on above: Well woman exam with routine gynecological exam; Breast cancer screening by mammogram Start: 10-08-2024 End: 10-08-2024 Bamboo flowsheet Ayaan W Murcek DO Work Phone: [facility] Start: 10-08-2024 End: 10-08-2024 Bamboo flowsheet Ayaan W Murcek DO Work Phone: [facility] Start: 10-08-2024 End: 10-08-2024 Office outpatient visit 15 minutes Ayaan W Murcek DO Work Phone: [facility] Comment on above: Epistaxis (Primary D x) Start: 10-08-2024 End: 10-08-2024 ambulatory AYAAN W MURCEK Not Available Start: 09-10-2024 End: 09-10-2024 Office outpatient visit 25 minutes Ayaan W Murcek DO Work Phone: [facility] Comment on above: Epistaxis (Primary D x) Start: 09-10-2024 End: 09-10-2024 ambulatory AYAAN W MURCEK Not Available Start: 09-10-2024 End: 09-10-2024 Bamboo flowsheet Ayaan W Murcek DO Work Phone: [facility] Start: 09-10-2024 End: 09-10-2024 Bamboo flowsheet Ayaan Espitia DO Work Phone: [facility] Start: 09-03-2024 End: 09-03-2024 ambulatory AYAAN ESPITIA Not Available Start: 08-19-2024 End: 08-19-2024 Bamboo flowsheet Ayaan Espitia DO Work Phone: [facility] Start: 08-19-2024 End: 08-19-2024 Bamboo flowsheet Ayaan Espitia DO Work Phone: [facility] Start: 08-19-2024 End: 08-19-2024 External Result Encounter Ayaan Espitia DO Work Phone: [facility] Unsolicited Start: 08-19-2024 End: 08-19-2024 Patient encounter procedure Jade Johnson MD Work Phone: [facility] Work Phone: Start: 08-19-2024 End: 08-19-2024 ambulatory Jade Johnson MD Work Phone: [facility] Work Phone: Start: 08-19-2024 Encounter for other preprocedural examination Ayaan Espitia [facility] Start: 08-19-2024 End: 08-19-2024 Office outpatient new 45 minutes Ayaan Espitia DO Work Phone: [facility] Comment on above: Epistaxis (Primary D x); Preop testing; Chronic anticoagulation Start: 08-19-2024 End: 08-19-2024 Patient encounter status Ayaan Espitia DO Work Phone: [facility] Start: 08-19-2024 End: 08-19-2024 ambulatory AYAAN ESPITIA Not Available Start: 08-16-2024 End: 08-16-2024 Patient encounter status Ayaan Espitia DO Work Phone: [facility] Start: 06-25-2024 ambulatory Marvin R NILL Facility :[facility] Start: 06-25-2024 End: 06-25-2024 Patient encounter procedure Marvin R NILL [facility] Start: 06-11-2024 End: 06-11-2024 ambulatory MD Jade Johnson Work Phone: [facility] Work Phone: Start: 06-11-2024 End: 06-11-2024 Departed Referred MD Jade Johnson Work Phone: [facility] Start: 06-11-2024 End: 06-11-2024 ambulatory Marvin R NILL Facility:[id number] Start: 04-16-2024 End: 04-16-2024 ambulatory Marvin R NILL Facility:[facility] Start: 04-16-2024 End: 04-16-2024 Patient encounter procedure Marvin R NILL [facility] Start: 03-31-2024 End: 03-31-2024 ambulatory Jade Johnson Facility:[facility] Start: 03-31-2024 Patient encounter status MD Keven Johnson Work Phone: [facility] Start: 03-20-2024 End: 03-20-2024 ambulatory [facility] Work Phone: Start: 03-20-2024 End: 03-20-2024 Encounter for general adult medical examination without abnormal findings MD Jade Johnson Work Phone: [facility] Start: 03-20-2024 End: 03-20-2024 Patient encounter procedure [facility] Work Phone: Start: 11-15-2023 Refill Frank Blanchard s DO Work Phone: [facility] Comment on above: Med Refill Start: 10-25-2023 End: 10-25-2023 ambulatory DIONE MONGE [facility] Start: 10-25-2023 End: 10-25-2023 ambulatory Jade Johnson Facility:[facility] Start: 10-25-2023 End: 10-25-2023 Office outpatient visit 25 minutes Dione Monge MD Work Phone: [facility] Comment on above: Presence of coronary angioplasty implant and graft (Primary Dx); Mixed hyperlipidemia; Primary hypertension; Obstructive sleep apnea Start: 10-24-2023 Telephone encounter Jessica Pena [facility] Start: 09-27-2023 End: 09-27-[address] RN [facility] Comment on above: Med Refill Start: 09-06-2023 End: 09-06-2023 ambulatory Jade Johnson Other [employer] Other Start: 09-06-2023 Encounter for genera l adult medical examination without abnormal findings Jade Johnson [facility] Start: 09-06-2023 Telephone encounter Jade Johnson [facility] Start: 02-21-2023 End: 02-21-2023 ambulatory Jade Johnson Other [employer] Other Start: 02-21-2023 Encounter for genera l adult medical examination without abnormal findings Jade Johnson [facility] Start: 02-21-2023 Periodic preventive med est patient 40-64yrs Jade Johnson [facility] Start: 10-12-2021 End: 10-12-[address] JADE JOHNSON Facility:[facility] Start: 05-18-2021 End: 05-18-[address] JADE JOHNSON Facility:[facility] Start: 02-25-2021 Encounter for preprocedural laboratory examination DR MARVIN HOOKS [facility] [place] Start: 02-23-2021 End: 02-23-[address] MARVIN HOOKS Facility:[facility] Start: 02-21-2021 End: 02-22-[address] MARVIN HOOKS Facility:[facility] Start: 02-21-2021 End: 02-22-2021 Encounter for preprocedural laboratory examination DR MARVIN HOOKS Facility:[facility] Start: 01-27-2021 Adult health examination Sweta Johnson Other [employer] Other Start: 01-27-2021 Gynecological examin ation normal Jade Johnson Other [employer] Other Procedures Date Procedure Procedure Detail Performing Clinician Start: 08-19-2024 Complete blood count with white cell differential, automated Ayaan Espitia DO Work Phone: Start: 06-11-2024 Colonoscopy Ayaan geronimo DO Work Phone: Start: 06-11-2024 Colonoscopy Marvin NI LL Start: 10-25-2023 ECG, HOSPITAL REPORT SCAN Dione Monge MD Work Phone: Start: 10-25-2023 Follow-up visit Follow-up DIONE MONGE Start: 02-23-2021 Colonoscopy Marvin NI LL Comment on above: with polypectomy Start: 10-01-2018 Parathyroidectomy Barrett HOOKS Start: 02-28-2017 Screening mammography Shiva Johnson Other Start: 10-21-2013 General examination of patient Jade Johnson Other Bilateral oophorectomy Barrett HOOKS Extraction of wisdom tooth Shiva ichdrake ARAUJOL Fasciotomy of foot Marvin RUGGIERO Gastric sleeve Marvin ARAUJOL Myringotomy and inse rtion of short-term tympanic ventilation tube Marvin ARAUJOL Nasal septoplasty Marvin NI LL Placement of stent i n coronary artery Marvin NILL Rectal prolapse (disorder) Shiva whiting Nanovi Repair of umbilical hernia Shiva whiting NILArieso Repair of vaginal wa ll prolapse Marvin Nanovi Screening for malign ant neoplasm of breast Jade Johnson Other Screening for malign ant neoplasm of colon Jade Johnson Other Vaginal hysterectomy Marvin Nanovi Plan of Treatment Date Care Activity Detail Author Start: 06-11-2034 Screening for malign ant neoplasm of colon [facility] Start: 10-21-2025 End: 10-21-2025 Patient encounter procedure 10/21/2025 1:00 PM EST Office Visit [facility] [address] [place] [address] Leonard Diallo, DO [address] [place], [place] [id number] [facility] Start: 10-25-2024 Adult BMI Screening Adult BMI Screen ing [facility] Start: 10-25-2024 Tobacco Screening Tobacco Screening [facility] Start: 10-15-2024 End: 12-13-2025 MG Breast - bilateral Screening Bilateral screening mammogram Imaging Routine Breast cancer screening by mammogram Expected: 10/15/2024, Expires: 12/13/2025 [facility] Work Phone: Comment on above: Expected: 10/15/2024 , Expires: 12/13/2025 Start: 10-15-2024 End: 10-15-2024 Patient encounter procedure 10/15/2024 1:00 PM EST Office Visit [facility] [address] [place] [address] Leonard iDallo, DO [address] [place], [place] [phone] [facility] Start: 10-08-2024 End: 10-08-2024 Patient encounter procedure [facility] Comment on above: Arrived Start: 09-10-2024 End: 09-10-2024 Patient encounter procedure [facility] Comment on above: Arrived Start: 08-19-2024 End: 08-19-2025 CBC W Auto Differential panel - Blood CBC and differential Lab Routine Preop testing Expected: 08/19/2024 (Approximate), Expires: 08/19/2025 [facility] Work Phone: Comment on above: Expected: 08/19/2024 (Approximate), Expires: 08/19/2025 Start: 08-19-2024 End: 08-19-2025 ECG 12 lead ECG 12 lead ECG Routine Preop testing Expected: 08/19/2024 (Approximate), Expires: 08/19/2025 [facility] Comment on above: Expected: 08/19/2024 (Approximate), Expires: 08/19/2025 Start: 08-19-2024 End: 08-19-2024 Patient encounter procedure 08/19/2024 10:00 AM EST Office Visit [facility] [address] [place] [phone] Ayaan Espitia, [address] [place] [address] Arrived [facility] Comment on above: Arrived Start: 10-25-2023 End: 10-25-2023 Patient encounter procedure 10/25/2023 11:45 AM EST Office Visit [facility] [address] [place] [phone] Dione Monge MD [address] [place] [address] [facility] Start: 09-20-2023 Adult BMI Screening Adult BMI Screen ing [facility] Start: 09-20-2023 Tobacco Screening Tobacco Screening [facility] Start: 06-01-2023 COVID-19 Vaccine ( season) COVID-19 Vaccine ( season) [facility] Start: 06-01-2023 Influenza vaccination Influenza Vacc ine [facility] Start: 01-30-2020 Administration of varicella zoster vaccine Zoster (Shingles) Vaccine (1 of 2) [facility] Start: 2010 Screening for malign ant neoplasm of breast Mammogram [facility] Start: 06-01-2005 DTaP,Tdap and Td Vaccines (1 - Tdap) DTaP,Tdap and Td Vaccines (1 - Tdap) [facility] Start: 01-30-2000 Screening for malign ant neoplasm of cervix [facility] Start: 1991 Screening for malign ant neoplasm of cervix Pap Smear [facility] Start: 01-30-1988 Adult BMI Follow Up Plan Adult BMI F ollow Up Plan [facility] Start: 1982 Depression Screening Depression Scre ening [facility] Start: 1970 Screening for malign ant neoplasm of colon [facility] DXA Skeletal system.axial Views for bone density [facility] End: 10-25-2024 Lipid panel Lipid panel Lab Routine Mixed hyperlipidemia Presence of coronary angioplasty implant and graft 1 Occurrences starting 10/25/2023 until 10/25/2024 [facility] Work Phone: Comment on above: 1 Occurrences starti ng 10/25/2023 until 10/25/2024 MG Breast - bilatera l Screening [facility] THIN PREP TIS PAP AN D HR HPV DNA THIN PREP TIS PAP AND HR HPV DNA Pathology and Cytology Routine Well woman exam with routine gynecological exam Ordered: 10/15/2024 [facility] Comment on above: Ordered: 10/15/2024 Immunizations Immunization Date Immunization Notes Care Provider Catherine holguin 07-11-2024 influenza, seasonal, injectable, preservative free Ayaan Espitia DO Work Phone: [facility] 07-23-2023 influenza virus vaccine, unspecified formulation Marvin HOOKS [facility] 07-23-2023 influenza, injectabl e, quadrivalent, preservative free Ayaan Espitia DO Work Phone: [facility] 07-04-2022 influenza, injectabl e, quadrivalent, preservative free Ayaan Murcek DO Work Phone: [facility] 07-04-2022 influenza virus vaccine, unspecified formulation Bryanna Matthews RN [facility] 10-03-2021 COVID-19 Vaccine Pfi zer - Documentation Purposes Only Jade Johnson Other [facility] 12-31-2020 SARS-CoV-2 (COVID-19 ) mRNA-1273 vaccine Marvin HOOKS [facility] 12-03-2020 SARS-CoV-2 (COVID-19 ) mRNA-1273 vaccine Marvin NILL [facility] 07-15-2020 influenza, injectabl e, quadrivalent, preservative free Ayaan Murcek DO Work Phone: [facility] 07-17-2019 influenza, injectabl e, quadrivalent, preservative free Ayaan Murcek DO Work Phone: [facility] 07-09-2018 influenza, injectabl e, quadrivalent, contains preservative Ayaan Murcek DO Work Phone: [facility] 07-09-2017 influenza, seasonal, injectable Ayaan Murcek DO Work Phone: [facility] 07-11-2016 influenza, injectabl e, quadrivalent, preservative free Ayaan Murcek DO Work Phone: [facility] 07-28-2009 novel [id number], preservative-free, injectable Ayaan Murcek DO Work Phone: [facility] 11-03-2005 hepatitis B vaccine, pediatric or pediatric/adolescent dosage Ayaan Murcek DO Work Phone: [facility] 08-02-2005 hepatitis B vaccine, adult dosage Ayaan Murcek DO Work Phone: [facility] 06-28-2005 hepatitis B vaccine, adult dosage Ayaan Murcek DO Work Phone: [facility] 05-31-2005 TD(adult) unspecifie d formulation Ayaan Espitia DO Work Phone: [facility] Payers Date Payer Category Payer Blue Cross Blue Shield BCBS [id number] 2024 Self-pay [id number] 2022 Blue Cross Blue Shield [id number] 2022 Unknown [id number] .[id number] 1970 Unknown [id number] 2.16.840.1.285094.3.579 .2.593 1970 Unknown [id number] 2.16.840.1.341843.3.579 .2.593 1970 Unknown [id number] 2.16.840.1.279594.3.579 .2.593 1970 Unknown [id number] 2.16.840.1.252856.3.579 .2.593 1970 Unknown [id number] 2.16.840.1.954440.3.579 .2.1286 1970 Unknown [id number] 2.16.840.1.340758.3.579 .2.8 1970 Unknown [id number] 2.16.840.1.712128.3.579 .2. 1970 Unknown [id number] 2.16.840.1.656547.3.579 .2. 1970 Unknown [id number] 2.16.840.1.688057.3.579 .2. 1970 Unknown [id number] 2.16.840.1.274499.3.579 .2. 1970 Unknown [id number] 2.16.840.1.029278.3.579 .2. 1970 Unknown [id number] 2.16.840.1.791172.3.579 .2. 1970 Unknown [id number] 2.16.840.1.925852.3.579 .2.1258 1970 Unknown [id number] 2.16.840.1.633694.3.579 .2.1258 1970 Unknown [id number] 2.16.840.1.161442.3.579 .2.1258 1970 Unknown [id number] 2.16.840.1.021028.3.579 .2.9 1959 Private Health Insurance [id number] 1959 Unknown [id number] Unknown [place] / [id number] Unknown [id number] 2.16.840.1.500598.3.579 .2.531 Unknown [id number] 2.16.840.1.321607.3.579 .2.531 Social History Date Type Detail Facility Unknown if ever smoked [facility] Start: 09-20-2022 End: 10-08-2024 Sex Assigned At [facility] Start: 09-01-2019 End: 09-20-2022 Tobacco smoking status NHIS Ex-smoker [facility] Start: 07-09-2016 History of tobacco use Current smoker [facility] Start: 07-09-2016 History of tobacco use Cigarette Smoker [facility] Start: 09-20-2022 End: 10-08-2024 Cigarettes smoked current (pack per day) - Reported 0.3 [facility] Start: 09-20-2022 Tobacco use and exposure Smokeless tobacco non-user [facility] Start: 09-20-2022 End: 10-15-2024 Alcohol intake Current drinker of alcohol (finding) [facility] Housing Instability Unknown [facility] Start: 1970 Sex Assigned At Not on file [facility] Start: 1970 Sex Assigned At Female [facility] Start: 08-19-2024 Tobacco smoking status ILIS Tobacco smoking consumption unknown [facility] Start: 08-20-2024 Sex Female (finding) [facility] Start: 08-19-2024 End: 10-08-2024 Tobacco use and exposure User of smokeless tobacco [facility] Start: 10-08-2024 Tobacco smoking status ILIS Smokes tobacco daily [facility] Start: 10-08-2024 Tobacco Comment I use Vape, not cigarettes [facility] Medical Equipment Procedure Code Equipment Code Equipment Origin al Text Equipment Identifier Dates Nathaniel Xience Alpin e 3.03v31rg Repl [id number] - [id number] FDA Start: 02-19-2017 Nathaniel Xience Alpin e 3.0x12mm Repl [id number] - [id number] [facility] Start: 03-09-2017 Functional Status Date Assessment Result Facility 04-16-2024 Functional Status N/A [facility] Clinical Notes 02-23-2021 to 10-15-2024 Vi Ly LPN - 10/15/2024 1:00 PM Arturo Espitia, DO - 10/08/2024 1:00 PM Arturo Espitia, DO - 09/10/2024 2:30 PM Arturo Espitia, DO - 08/19/2024 10:00 AM EST Note Date & Type Note Facility 10-15-2024 History of Present illness Narrative Reason for Appointment: Patient ID: Dana Grijalva is a 54 y.o. female who presents for [facility] Women Visit Patient presents today for Annual Exam. MEDICATIONS Current Outpatient Medications Medication Instructions atorvastatin (LIPITOR) 40 mg metoprolol succinate XL (TOPROL-XL) 50 mg omeprazole OTC (PRILOSEC OTC) 20 mg, Daily before breakfast ticagrelor (Brilinta) 90 MG tablet Twice daily venlafaxine XR (Effexor XR) 150 MG 24 hr capsule Every 24 hours ALLERGIES Allergies Allergen Reactions Benzonatate Cough Macrolides And Ketolides Other Reaction(s): Unknown PROBLEMS Active Ambulatory Problems Diagnosis Date Noted No Active Ambulatory Problems Resolved Ambulatory Problems Diagnosis Date Noted Benign neoplasm of ascending colon 08/16/2024 Benign paroxysmal positional vertigo 07/08/2015 Bilateral sciatica 08/16/2024 Atherosclerotic heart disease of [place] coronary artery with angina pectoris ([facility] 03/13/2017 Depression ([facility]) 08/16/2024 Edema 01/12/2016 Generalized hyperhidrosis 05/18/2021 History of colonic polyps 08/16/2024 History of parathyroidectomy 08/16/2024 Hyperlipidemia ([facility]) 08/16/2024 Hyperparathyroidism ([facility]) 08/06/2019 Hypertension ([facility]) 06/07/2021 Hypercalcemia 08/16/2024 Lumbar radiculopathy 03/06/2018 Menopause 08/16/2024 Myocardial infarction ([facility]) 08/16/2024 Nontoxic single thyroid nodule ([facility]) 08/16/2024 BMI 31.0-31.9,adult 08/16/2024 Class 3 obesity 08/16/2024 Obstructive sleep apnea 08/06/2019 Palpitations 06/07/2021 Phobic disorder ([facility]) 06/27/2018 Outlet dysfunction constipation 11/19/2013 Postprocedural hypoparathyroidism (CMS/HCC) 08/16/2024 Presence of coronary angioplasty implant and graft 08/16/2024 Pure hyperglyceridemia (CMS/HCC) 10/21/2013 Screening mammogram for breast cancer 08/16/2024 Wellness examination 08/16/2024 Shortness of breath 09/16/2021 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 08/16/2024 Vapes nicotine containing substance 08/16/2024 No Additional Past Medical History HISTORY PAST MEDICAL HISTORY SOCIAL HISTORY Past Medical History: Diagnosis Date Atherosclerotic heart disease of [place] coronary artery with angina pectoris (CMS/HCC) 03/13/2017 Benign neoplasm of ascending colon 08/16/2024 Benign paroxysmal positional vertigo 07/08/2015 Bilateral sciatica 08/16/2024 BMI 31.0-31.9,adult 08/16/2024 Class 3 obesity 08/16/2024 Depression (CMS/HCC) 08/16/2024 Edema 01/12/2016 Generalized hyperhidrosis 05/18/2021 History of colonic polyps 08/16/2024 History of parathyroidectomy 08/16/2024 Hypercalcemia 08/16/2024 Hyperlipidemia (CMS/HCC) 08/16/2024 Hyperparathyroidism (CMS/HCC) 08/06/2019 Hypertension (CMS/HCC) 06/07/2021 Lumbar radiculopathy 03/06/2018 Menopause 08/16/2024 Myocardial infarction (CMS/HCC) 08/16/2024 Nontoxic single thyroid nodule (CMS/HCC) 08/16/2024 Obstructive sleep apnea 08/06/2019 Outlet dysfunction constipation 11/19/2013 Palpitations 06/07/2021 Phobic disorder (CMS/HCC) 06/27/2018 Postprocedural hypoparathyroidism (CMS/HCC) 08/16/2024 Presence of coronary angioplasty implant and graft 08/16/2024 Pure hyperglyceridemia (CMS/HCC) 10/21/2013 Screening mammogram for breast cancer 08/16/2024 Shortness of breath 09/16/2021 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 SURGICAL HISTORY Past Surgical History: Procedure Laterality Date CARDIAC CATHETERIZATION NASAL ENDOSCOPY 09/03/2024 Left nasal endoscopy with Cautery TOTAL ABDOMINAL HYSTERECTOMY N/A 2011 REVIEW OF SYSTEMS Review of Systems: Review of Systems Constitutional: Negative. HENT: Negative. Eyes: Negative. Respiratory: Negative. Cardiovascular: Negative. Gastrointestinal: Negative. Genitourinary: Negative. Musculoskeletal: Negative. Skin: Negative. Neurological: Negative. All other systems reviewed and are negative. Hematological: Negative. Endocrine: Negative. Allergic/Immunologic: Negative. OBJECTIVE Objective: Physical Exam Constitutional: Appearance: Normal appearance. She is well-developed. Genitourinary: Vulva normal. Vaginal cuff intact. Cervix is absent. Uterus is absent. Cardiovascular: Rate and Rhythm: Normal rate and regular rhythm. Abdominal: General: Bowel sounds are normal. There is no distension. Palpations: Abdomen is soft. Tenderness: There is no abdominal tenderness. There is no guarding or rebound. Musculoskeletal: General: No swelling. Normal range of motion. Right lower leg: No edema. Left lower leg: No edema. Neurological: Mental Status: She is alert and oriented to person, place, and time. Skin: General: Skin is warm and dry. Psychiatric: Mood and Affect: Mood normal. Behavior: Behavior normal. Vitals and nursing note reviewed. Exam conducted with a computer art instructor present. Vitals: Estimated body mass index is 31.38 kg/m as calculated from the following: Height as of 10/08/24: 5' 4 . Weight as of this encounter: 182 lb 12.8 oz. BP: 122/84 No LMP recorded. ASSESSMENT & PLAN ICD-10-CM 1. Well woman exam with routine gynecological exam Z01.419 THIN PREP TIS PAP AND HR HPV DNA 2. Breast cancer screening by mammogram Z12.31 Bilateral screening mammogram Bilateral screening mammogram Annual: Patient presents today for an annual exam. Patient states she is doing well and has no complaints. Pap was obtained without difficulty and patient given mammogram order to have scheduled/obtained. Orders Placed This Encounter Procedures Bilateral screening mammogram Follow Up: Patient is to return in one year for annual unless needed otherwise. Documented by Vi Ly LPN on behalf of: Leonard Diallo DO documented in this encounter [facility] 10-08-2024 History of Present illness Narrative HPI Patient presents today about 3 weeks postop endoscopic cauterization left posterior epistaxis. She has had no further bleeding. Relevant postoperative physical examination Examination shows that the cauterized areas anteriorly are healing nicely. Mucosa is very dry however Assessment/plan Dana was seen today for epistaxis (nose bleed). Diagnoses and all orders for this visit: Epistaxis (Primary) Comments: I encouraged the patient to really step up the use of intranasal saline and saline gel. I will see her back as needed documented in this encounter [facility] 09-10-2024 History of Present illness Narrative HPI Patient presents today 1 week postop endoscopic cauterization of left posterior epistaxis. She is doing fine, no further bleeding. Relevant postoperative physical examination Examination shows significant eschar in left septum with no evidence of bleeding. Assessment/plan Dana was seen today for epistaxis (nose bleed). Diagnoses and all orders for this visit: Epistaxis (Primary) Comments: Patient advised to use liberal amounts of intranasal saline and saline gel, no nose blowing. 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/HCC) 03/13/2017 Benign neoplasm of ascending colon 08/16/2024 Benign paroxysmal positional vertigo 07/08/2015 Bilateral sciatica 08/16/2024 BMI 31.0-31.9,adult 08/16/2024 Class 3 obesity 08/16/2024 Depression (CMS/HCC) 08/16/2024 Edema 01/12/2016 Generalized hyperhidrosis 05/18/2021 History of colonic polyps 08/16/2024 History of parathyroidectomy 08/16/2024 Hypercalcemia 08/16/2024 Hyperlipidemia (CMS/HCC) 08/16/2024 Hyperparathyroidism (CMS/HCC) 08/06/2019 Hypertension (CMS/HCC) 06/07/2021 Lumbar radiculopathy 03/06/2018 Menopause 08/16/2024 Myocardial infarction (CMS/HCC) 08/16/2024 Nontoxic single thyroid nodule (CMS/HCC) 08/16/2024 Obstructive sleep apnea 08/06/2019 Outlet dysfunction constipation 11/19/2013 Palpitations 06/07/2021 Phobic disorder (CMS/HCC) 06/27/2018 Postprocedural hypoparathyroidism (CMS/HCC) 08/16/2024 Presence of coronary angioplasty implant and graft 08/16/2024 Pure hyperglyceridemia (CMS/HCC) 10/21/2013 Screening mammogram for breast cancer 08/16/2024 Shortness of breath 09/16/2021 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 Take before meals. Do not crush, chew, or split.., Disp: , Rfl: ticagrelor (Brilinta) 90 MG tablet, Twice daily, Disp: , Rfl: venlafaxine XR (Effexor XR) 150 MG 24 hr capsule, 1 (one) time each day at the same time, Disp: , Rfl: cholecalciferol (Vitamin D3) 25 MCG (1000 UT) tablet, 1 (one) time each day at the same time (Patient not taking: Reported on 08/19/2024), Disp: , Rfl: nitroglycerin (Nitrostat) 0.4 MG SL tablet, oral, 0 Refill(s), Take by mouth as needed., Refills(s) 0 (Patient not taking: Reported on 08/19/2024), Disp: , Rfl: History reviewed. No pertinent surgical history. Social History Socioeconomic History Marital status: Spouse name: Not on file Number of children: Not on file Years of education: Not on file Highest education level: Not on file Occupational History Not on file Tobacco Use Smoking status: Unknown Smokeless tobacco: Current Substance and Sexual Activity Alcohol use: Not on file Drug use: Not on file Sexual activity: Not on file Other Topics Concern Not on file Social History Narrative Not on file Social Drivers of Health Financial Resource Strain: Not on file Food Insecurity: No Food Insecurity (09/20/2022) Received from [facility] Hunger Screening Within the past 12 months we worried whether our food would run out before we got money to buy more.: Never True Within the past 12 months the food we bought just didn't last and we didn't have money to get more.: Never True Transportation Needs: Not on file Physical Activity: Not on file Stress: Not on file Social Connections: Not on file Intimate Partner Violence: Not on file Housing Stability: Not on file Subjective Patient ID: HPI Patient is a 54-year-old female referred for frequent left-sided epistaxis. Patient is anticoagulated chronically because of coronary stents were placed a number of years ago. She has bleeding almost daily, sometimes brisk. She took herself off the Brilinta 5 days ago anticipating possibly cauterization in the office. Review of Systems ROS The specialty specific review of systems is noncontributory except for that recorded in the intake questionnaire and /or described in the history of present illness. Objective ENT Physical Exam Physical Exam Constitutional: Appearance: Normal appearance. HENT: Head: Atraumatic. Ears: External ear shows no abnormality Bilateral ear canals are clear Tympanic membranes intact, no evidence of middle ear fluid or other pathology. Nose: External nose appears to be normal Nares patent. Septal deviation to the right. Over the left anterior septum are a number of sizable ectatic vessels with clot on them. No evidence of polyp, mass or pus bilaterally. Oral Cavity: No evidence of trismus Lips appear normal Dental good Tongue of normal size and configuration, floor of mouth mucosa clear. Buccal mucosa shows no evidence of ulceration, mass or other abnormality Hard palate soft palate mucosa intact with no evidence of mass, ulceration or other abnormality Uvula of normal size and configuration Oropharynx: Tonsils small Posterior pharyngeal wall normal Neck: No evidence of palpable abnormality Thyroid without evidence of thyromegaly or mass. No cervical lymphadenopathy present. Cardiovascular: Rate and Rhythm: Normal rate and regular rhythm. . Skin: General: Skin is warm and dry. Neurological: General: No focal deficit present. Mental Status: alert and oriented to person, place, and time. Assessment/Plan Dana was seen today for epistaxis (nose bleed). Diagnoses and all orders for this visit: Epistaxis (Primary) Comments: I am reluctant to attempt to cauterize this in the office because of the size of the vessels and the fact that the patient has been chronically anticoagulated. Preop testing - CBC and differential; Future - ECG 12 lead; Future - CBC and differential - ECG 12 lead Dana was seen today for epistaxis (nose bleed). Diagnoses and all orders for this visit: Epistaxis (Primary) Comments: I am reluctant to attempt to cauterize this in the office because of the size of the vessels and the fact that the patient has been chronically anticoagulated. Preop testing - CBC and differential; Future - ECG 12 lead; Future - CBC and differential - ECG 12 lead Chronic anticoagulation Comments: Patient will have to be off of her anticoagulants 5 days preoperatively. Much better to do this in an operating room setting to control when he undue bleeding. I should probably also perform nasal endoscopy to make sure there is nothing posteriorly could be causing this kind of bleeding. Therefore risks and benefits of nasal endoscopy with cauterization of epistaxis were discussed with the patient, consent was given. documented in this encounter [facility] 11-15-2023 Miscellaneous Notes OV 10/25/23 09/27/23 CMP, Lipids, CBC documented in this encounter [facility] [employer] [facility] 11-15-2023 Telephone encounter Note OV 10/25/23 09/27/23 CMP, Lipids, CBC [facility] 10-25-2023 History of Present illness Narrative Dana Lupe Rudi Date of visit: 10/25/2023 Date of : 1970 Age: 53 y.o. Patient Active Problem List Diagnosis Hyperlipidemia Presence of coronary angioplasty implant and graft Depression Hypertension Obesity Myocardial infarction ([facility]) Atherosclerotic heart disease of [place] coronary artery with angina pectoris ([facility]) Obstructive sleep apnea Hyperparathyroidism ([facility]) Palpitations Shortness of breath Allergies Allergen Reactions [...] prior LAD and RCA stent, history of [place], hyperlipidemia, strong family history of premature coronary [...] Past Medical History: Diagnosis Date Angina pectoris ([facility] Atherosclerotic heart disease of [place] coronary artery with unspecified angina pectoris ([facility]) Carnes's palsy 2014 Coronary artery disease Depression Hyperlipidemia Hypertension Myocardial infarction ([facility]) Obesity Presence of coronary angioplasty implant and graft Sleep apnea No data recorded No data recorded No data recorded Past Surgical History: Procedure Laterality Date Coronary angiogram and left ventricular gram/pressure N/A 03/09/2017 Performed by Favian Tinoco MD at [facility]AC [facility]ATH [facility]S Coronary angiogram and left ventricular gram/pressure N/A 02/19/2017 Performed by Carlos Keyes MD at [facility]ATH [facility]S HYSTERECTOMY Intravascular pressure measurement first vessel(fractional flow reserve) N/A 03/09/2017 Performed by Favian Tinoco MD at [facility] CARD[facility] CATH [facility]S Revascularization occlusion with myocardial infarction drug eluting stent right coronary artery N/A 02/19/2017 Performed by Carlos Keyes MD at [facility] C[facility]AC CATH LABS SEPTOPLASTY SLEEVE GASTROPLASTY Stent drug-eluting left anterior descending N/A 03/09/2017 Performed by Favian Tinoco MD at [facility] CATH [facility] Thrombectomy with pronto / export N/A 02/19/2017 Performed by Carlos Keyes MD at [facility] CARD[facility] CATH LABS Family History Problem Relation [...] FOLLOW UP No follow-ups on file. PCP: JADE JOHNSON MD Referring Physician: Jade Johnson MD [address] [place] [address] documented in this encounter [facility] 10-24-2023 Miscellaneous Notes Left message for patient to remind them to bring their most current medication list with them to their appointment. [facility] Telephone encounter Note Left message for patient to remind them to bring their most current medication list with them to their appointment. [facility] 09-06-2023 Evaluation note Encounter Date Diagnosis Assessment Notes Aug, Wellness examination (ICD-10 - Z00.00) [facility] 05-24-2023 Evaluation note* Encounter Date Diagnosis [...] patient is sent home pleased, without concerns. [facility] 05-26-2021 NoteOPERATIVE NOTE OPERATION DATE: 02-23-21 [...] the Recovery Room in good condition. cc:Dr. Jade Johnson. [facility] Signed and Approved by: DR MARVIN HOOKS . 02/23/2021 13:56:00[facility]05-26-2021 NoteOPERATIVE NOTE ADDENDUM 03-09-21 ADDENDUM: Followup colonoscopy will be obtained in three years due to findings of a tubulovillous adenoma on this colonoscopy. [facility] Signed and Approved by: DR MARVIN HOOKS . 03/11/2021 17:31[facility]00[facility] No data available for this section [facility] Evaluation note* Diagnosis Presence of coronary angioplasty implant and graft Mixed hyperlipidemia [facility] Presence of coronary angioplasty implant and graft- Primary Mixed hyperlipidemia Primary hypertension Unspecified essential hypertension Obstructive sleep apnea Obstructive sleep apnea (adult) (pediatric) [facility] Diagnosis Onset Date Resolution Status Menopause acute Screening mammogram for breast cancer acute [facility] Work Phone: evaluation note* Diagnosis Onset Date Resolution Status Menopause acute Screening mammogram for breast cancer acute Wellness examination acute [facility] Work Phone: Evaluation noteNo assessment information available [facility] Work Phone: evaluation note* Diagnosis Epistaxis- Primary Preop testing Unspecified pre-operative examination Chronic anticoagulation Encounter for long-term (current) use of anticoagulants documented in this encounter [facility]* Diagnosis Epistaxis- Primary documented in this encounter [facility]* Diagnosis Epistaxis- Primary documented in this encounter [facility]* Diagnosis Well woman exam with routine gynecological exam Routine gynecological examination Breast cancer screening by mammogram documented [facility] this encounter [facility] N[facility]ative - Reported* Type Description Date Medical History Depression Medical History heart disease Surgical History septoplasty Surgical History hernia repair Surgical History hysterectomy Surgical History 2 stents in heart Hospitalization History see above surgical histo ry [facility] [employer] Other Hospital Discharge instructions No data available for this section [facility] Surgery [place] InstructionsNot on filedocumented in this encounter [facility] filed[facility]ed in this [facility] filedocumented in this encounter [facility] filedocumented in this encounter [facility] No data available for this section [facility] General Surgery [place] Summary Purpose Family History Relationship Condition Age at Onset Recorded Date/T deep[place] Not Specified Healthy female adult Unknown brother Hyperlipidemia Unknown History of percutane ous transluminal coronary angioplasty Unknown Myocardial infarction Unknown father Cerebrovascular accident (CVA) Unknown Alcohol abuse Unknown brother Heart disease Unknown father Unknown Hypertension Unknown Heart disease Unknown History of stroke Unknown Relationship Condition Age at Onset Recorded Date/T [place] mother Healthy female adult Unknown brother Hyperlipidemia Unknown History of percutane ous transluminal coronary angioplasty Unknown Myocardial infarction Unknown father Cerebrovascular accident (CVA) Unknown Alcohol abuse Unknown brother Heart disease Unknown father Unknown Hypertension Unknown Heart disease Unknown History of stroke Unknown Advance Directives Advance Directive Response Recorded Date/ Time Advance Directives No March 25 1:45pm Advance Directive Response Recorded Date/ Time Advance Directives No March 25 12:45pm Reason for Referral Specialty Diagnoses / Procedures Referred By Contac t Referred To Contact Diagnoses Mixed hyperlipidemia Presence of coronary angioplasty implant and graft Procedures ECG, Hospital Report Scan Dione Monge MD [address] [place] [address] Referral ID Status Reason Start Date Expiration Date V isits Requested Visits Authorized [id number] Pending Review 10/25/2023 10/24/2024 1 1 Chief Complaint and Reason for Visit Chief Complaint Wellness Reason for Visit Menopause Screening mammogram for breast cancer Chief Complaint Wellness Unknown Reason for Visit Menopause Screening mammogram for breast cancer Wellness examination Chief Complaint Admit Date Unknown June 11, 2024 7:53am Z01.818 August 19, 2024 11:07am Additional Source Comments INFORMATION SOURCE (unrecogn ized section and content) DATE CREATED AUTHOR 10/15/2021 [facility] DATE CREATED AUTHOR AUTHOR'S ORGANIZ ATION 10/28/2023 [facility] DATE CREATED AUTHOR AUTHOR'S ORGANIZ ATION 04/15/2024 [facility] DATE CREATED AUTHOR AUTHOR'S ORGANIZ ATION 06/24/2024 [facility] DATE CREATED AUTHOR AUTHOR'S ORGANIZ ATION 08/21/2024 [facility] DATE CREATED AUTHOR AUTHOR'S ORGANIZ ATION 10/14/2024 [facility] EPIC REASON FOR VISIT (unrecogniz ed section and content) Reason Onset Date Comments Med Refill 09/27/2023 Reason Comments Follow-up 1 YR L/S BCD SCHED W / PT LABS-08/2023 Med Refill Coronary Artery Disease Hyperlipidemia Reason Comments Med Refill Reason Comments Epistaxis (Nose Bleed) New Patient: Epis taxis Reason Comments Epistaxis (Nose Bleed) S/p cautery Reason Comments Epistaxis (Nose Bleed) 1 month kenroy / na ana cristina cautery Reason Comments Well Women Visit Care Teams (unrecognized sec tion and content) Political Science Faculty Member Relationship Specialty Start Date End Date Jade Johnson MD [address] [place] [address] PCP - General 02/19/17 Political Science Faculty Member Relationship Specialty [place] [address] [place] [id number] PCP - General 02/19/17 Political Science Faculty Member Relationship Specialty [place] [address] [place] [address] [phone] PCP - General 02/19/17 Political Science Faculty Member Relationship Specialty Start Date End Date Jade Johnson MD [address] [place] [address] [phone] PCP - General 02/19/17 Team Status: Active Member Role Status Dates Jade Johnson MD Primary Care Provider Active Team Status: Inactive Member Role Status Dates Jade Johnson MD Primary Care Provide r, Attending Provider Active Start: March 20, 2024 End: March 20, 2024 Team Status: Inactive Member Role Status Dates Jade Jhonson MD Primary Care Provider Active Start: June 11, 2024 End: June 11, 2024 Marvin Hooks MD [facility] Attending Provider Active Start: June 11, 2024 End: June 11, 2024 Political Science Faculty Member Relationship Specialty [place] [address] [place] [phone] PCP - General Family Medicine 08/13/24 Ayaan Espitia DO [address] [place] [address] Otolaryngology 08/19/24 Team Status: Inactive Member Role Status Dates Jade Johnson MD Primary Care Provider Active Start: August 19, 2024 End: August 19, 2024 Ayaan Espitia DO Attending Provider Active S tart: August 19, 2024 End: August 19, 2024 Political Science Faculty Member Relationship Specialty Start Date End Date Jade Johnson MD [address] [place] [phone] PCP - General Family Medicine 08/13/24 Ayaan Espitia DO [address] [place] [address] Otolaryngology 08/19/24 Political Science Faculty Member Relationship Specialty Start Date End Date Jade Johnson MD [address] [facility]], [place] [phone] PCP - General Family Medicine 08/13/24 Ayaan Espitia DO [address] [place] [address] Otolaryngology 08/19/24 Political Science Faculty Member Relationship Specialty Start Date End Date Jade Johnson MD [address] [facility]], [place] [phone] PCP - General Family Medicine 08/13/24 Ayaan Espitia DO [address] [place] [address] Otolaryngology 08/19/24 Political Science Faculty Member Relationship Specialty Start Date End Date Jade Johnson MD [address] [facility]], [place] [phone] PCP - General Family Medicine 08/13/24 Ayaan Espitia, DO [address] [place] [address] Otolaryngology 08/19/24 Political Science Faculty Member Relationship Specialty Start Date End Date Jade Johnson MD [address] [facility]], [place] [phone] PCP - General Family Medicine 08/13/24 Ayaan Espitia, DO [address] [place] [address] Otolaryngology 08/19/24 Political Science Faculty Member Relationship Specialty Start Date End Date Jade Johnson MD [address] [facility]], [place] [phone] PCP - General Family Medicine 08/13/24 Ayaan Espitia, DO [address] [place] [address] Otolaryngology 08/19/24 Political Science Faculty Member Relationship Specialty Start Date End Date Jade Johnson MD [address] [facility]], [place] [phone] PCP - General Family Medicine 08/13/24 Ayaan Espitia, [address] [place] [address] Otolaryngology 08/19/24 Goals (unrecognized section and content) Goals may [...] BE BASED ON THE PRIMARY CLINICAL RECORDS. [employer] [facility]. provides no warranty or guarantee of the accuracy or completeness of information in this document.
[2024-10-20 13:08] LABS: Age Gdln ACOG Testing Note (.); HPV Aptima Negative (Negative); IGP, Aptima HPV, rfx 16/18,45 Note (.)
== END 2024-10-15 20:35 | disposition home or self-care (01) ==
LOC: LAB 20:34
PROVIDERS: PCP Family Medicine; Visit Provider Obstetrics & Gynecology
DX: Z01.419 Encounter for gynecological examination (general) (routine) without abnormal findings (principal)
CPT/HCPCS: 87624; 88175

== ENCOUNTER 2025-02-09 05:37 | Emergency (ER) | payer BC, SELFPAY ==
[2025-02-09] VITALS (8 sets, daily range): BP systolic 118–142; BP diastolic 79–89; PULSE 75–90; TEMP 36.7; O2SAT 94–99; BMI 30.9
--- NOTE | 2025-02-09 05:52 | PC.NURSE ---
this patient complains of right side face pain from a fall this morning around 04:00 am with LOC. this patient admits to drinking [employer] this patient's daughter she stopped drinking around 01:00 am this patient ambulated well and her gait was steady, this patient arrives with family
--- NOTE | 2025-02-09 05:53 | ECG_ITS ---
[facility] Test Date: 2025-02-09 Pat Name: LIZETTE BERGMAN Department: Room: - Gender: Female Ar Manager: : 1970 Requested By: [id number] Order Number: [id number] Reading MD: MINNIE SIMMONS M.D. Measurements Intervals Traer Rate: 90 P: 25 MS: 226 QRS: 61 QRSD: 82 T: 40 QT: 388 QTc: 436 Interpretive Statements 1100 Sinus rhythm 2231 First degree AV block 9150 abnormal ECG Compared to ECG 05/17/2021 23:24:52 First degree AV block now present Electronically Signed On 02-09-2025 7:00:55 EDT by MINNIE SIMMONS M.D.
--- NOTE | 2025-02-09 05:55 | ED.FALL1 ---
HPI HPI - Fall General Chief Complaint: Fall Stated Complaint: FALL Time Seen by Provider: 02/09/25 05:40 Source: patient Mode of arrival: walk-in Limitations: no limitations History of Present Illness HPI Narrative: This 55-year-old female is brought to the emergency department by her daughters. The patient and her family had a bonfire yesterday and were outside drinking until around 1 AM. She woke up this morning to use the bathroom and does not recall what happened after that. Her daughter states that she heard a loud noise and found her mother unresponsive in the bathroom. It is thought that she may have struck the right side of her face on the counter or sink in the bathroom. She has pain in the right side of her face with bruising underneath her right eye and a small subconjunctival hemorrhage in the lateral aspect of the right eye. She states she is having severe pain in her right cheek and also numbness on the right side of her face. She denies any neck pain. Her daughter states that after they found her and tried to roll her over she passed out several additional times. They were ultimately able to bring her back to a normal level of consciousness and drove her to the emergency department. The patient is on blood thinners due to a history of heart disease. She states she has 2 coronary stents. She denies any chest pain at this time. She denies any nausea or vomiting. She has no focal neurologic weakness numbness or tingling. She did not injure her upper or lower extremities. Related Data Home Medications ?Medication ?Instructions ?Recorded ?Confirmed atorvastatin 40 mg tablet 40 mg PO DAILY 06/03/24 02/09/25 metoprolol succinate 50 mg 50 mg PO DAILY 06/03/24 02/09/25 tablet,extended release 24 hr nitroglycerin 0.4 mg sublingual 0.4 mg sublingual Q5M PRN chest 06/03/24 06/11/24 tablet pain omeprazole 10 mg capsule,delayed 10 mg PO DAILY 06/03/24 02/09/25 release ticagrelor 90 mg tablet (Brilinta) 90 mg PO BID 06/03/24 02/09/25 venlafaxine 150 mg 150 mg PO DAILY 06/03/24 06/11/24 capsule,extended release 24 hr Allergies Allergy/AdvReac Type Severity Reaction Status Date / Time benzonatate (From LocPlanetsalAppointedd Allergy Cough Verified 02/09/25 05:46 Perles) clarithromycin (From Biaxin) Allergy Unknown Verified 02/09/25 05:46 Opioid HPI Opioid Management Most Recent Pain and Opioid Data: Last Pain Scale 10 Today, 06:35 Last MAR Pain Assessment Today, 06:35 Review of Systems ROS Status of ROS 10 or more systems reviewed and unremarkable except as noted in history and below [facility] Medical History (Updated 02/09/25 @ 06:50 by Daina Valles MD) Osteopenia ?M85.80 - Other specified disorders of bone density and structure, unspecified site (ICD-10) Lateral epicondylitis ?M77.10 - Lateral epicondylitis, unspecified elbow (ICD-10) Dysmenorrhea ?N94.6 - Dysmenorrhea, unspecified (ICD-10) 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) Pelvic pain ?R10.2 - Pelvic and perineal pain (ICD-10) 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) Arthralgia ?M25.50 - Pain in unspecified joint (ICD-10) Anxiety ?F41.9 - Anxiety disorder, unspecified (ICD-10) Acute ischemic heart disease ?I24.9 - Acute ischemic heart disease, unspecified (ICD-10) Acute coronary syndrome ?I24.9 - Acute ischemic heart disease, unspecified (ICD-10) 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 - Benign neoplasm of colon, unspecified (ICD-10) 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-10) 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 - Phobic anxiety disorder, unspecified (ICD-10) Lumbar radiculopathy ?M54.16 - Radiculopathy, lumbar region (ICD-10) Hyperparathyroidism ?E21.3 - Hyperparathyroidism, unspecified (ICD-10) Hyperhidrosis ?R61 - Generalized hyperhidrosis (ICD-10) Osteoporosis ?M81.0 - Age-related osteoporosis without current pathological fracture (ICD-10) Sleep disorder ?G47.9 - Sleep disorder, unspecified (ICD-10) Arthritis ?M19.90 - Unspecified osteoarthritis, unspecified site (ICD-10) Back pain ?M54.9 - Dorsalgia, unspecified (ICD-10) Fibromyalgia ?M79.7 - Fibromyalgia (ICD-10) Anticoagulated ?Z79.01 - [facility] (current) use of anticoagulants (ICD-10) Depression ?F32.A - Depression, unspecified (ICD-10) Electronic cigarette use ?Z78.9 - Other specified health status (ICD-10) Sleep apnea ?G47.30 - Sleep apnea, unspecified (ICD-10) Extremity edema ?R60.0 - Localized edema (ICD-10) Vertigo ?R42 - Dizziness and giddiness (ICD-10) GERD (gastroesophageal reflux disease) ?K21.9 - Gastro-esophageal reflux disease without esophagitis (ICD-10) Hypertension ?I10 - Essential (primary) hypertension (ICD-10) High cholesterol ?E78.00 - Pure hypercholesterolemia, unspecified (ICD-10) Coronary artery disease ?I25.10 - Atherosclerotic heart disease of [place] coronary artery without angina pectoris (ICD-10) Myocardial infarction ?I21.9 - Acute myocardial infarction, unspecified (ICD-10) Colon polyp ?K63.5 - Polyp of colon (ICD-10) Surgical History (Updated 06/03/24 @ 12:47 by Dana Salas NP) History of pubovaginal sling ?Z96.0 - Presence of urogenital implants (ICD-10) History of foot surgery ?Z98.890 - Other specified postprocedural states (ICD-10) History of nasal septoplasty ?Z98.890 - Other specified postprocedural states (ICD-10) History of myringotomy ?Z98.890 - Other specified postprocedural states (ICD-10) History of bilateral oophorectomy ?Z90.722 - Acquired absence of ovaries, bilateral (ICD-10) History of wisdom tooth extraction ?K08.409 - Partial loss of teeth, unspecified cause, unspecified class (ICD-10) History of gastric bypass ?Z98.84 - Bariatric surgery status (ICD-10) History of hysterectomy ?Z90.710 - Acquired absence of both cervix and uterus (ICD-10) H/O parathyroidectomy ?Z98.890 - Other specified postprocedural states (ICD-10) ?Z90.89 - Acquired absence of other organs (ICD-10) History of hernia repair ?Z98.890 - Other specified postprocedural states (ICD-10) ?Z87.19 - Personal history of other diseases of the digestive system (ICD-10) History of colonoscopy ?Z98.890 - Other specified postprocedural states (ICD-10) History of cardiac catheterization ?Z98.890 - Other specified postprocedural states (ICD-10) History of heart artery stent ?Z95.5 - Presence of coronary angioplasty implant and graft (ICD-10) Family History (Updated 06/03/24 @ 12:47 by Dana Salas NP) Other Cancer Family history of diabetes mellitus Family history of hypertension Family history of myocardial infarction Family history of stroke Social History (Updated 06/03/24 @ 12:36 by Dana Salas NP) Within the past year, how often did you have a drink containing alcohol: 2-4 times a month Do you use any of these nicotine containing products: vaping products Non-prescribed substance use: denies use Previous occupational history: [employer] Highest level of school completed/degree received: Associate degree: academic program Little interest or pleasure in doing things: not at all Feeling down, depressed, or hopeless: not at all Exam Narrative Exam Narrative: Vital signs and Nursing Notes reviewed: Patient is afebrile with a normal pulse, blood pressure is elevated 142/89, she has not hypoxic with pulse ox of 99% on room air General: Awake, alert, oriented, anxious and tearful, holding the right side of her face, GCS 15, no respiratory distress HEENT: Normocephalic, there is erythema swelling and bruising to the right orbital area. There is a large bruise underneath the right eye. There is an abrasion and tenderness to the lateral aspect of the right orbit with a small right lateral subconjunctival hemorrhage. Pupils are equal and reactive. There is no entrapment noted. There is no jaw tenderness. There is tenderness to the right zygoma area without crepitus. Neck: Supple, no midline bony vertebral tenderness or step-off Chest: Lungs are clear to auscultation with good air entry, there is no wheezing rhonchi or rales appreciated no accessory muscle use, patient is speaking in complete sentences-no chest wall tenderness to palpation CVS: Regular rate and rhythm S1-S2, no murmurs rubs or gallops, pulses are brisk and equal bilaterally ABD: Soft, nondistended, nontender, no rebound guarding or rigidity, bowel sounds are normal, no pulsatile masses appreciated Extremities: Moving all extremities, no lower extremity tenderness or swelling noted Skin: Normal in appearance without rash,pallor, petechiae or purpura Neuro: No focal deficits Constitutional Vital Signs, click to edit/add: Last Vital Signs Temp 98.0 F 02/09/25 05:46 Pulse 87 02/09/25 05:46 Resp 19 02/09/25 05:46 BP 142/89 H 02/09/25 05:46 Pulse Ox 99 02/09/25 05:46 O2 Del Method Room Air 02/09/25 05:46 Course Vital Signs Vital signs: Vital Signs Temperature 98.0 F 02/09/25 05:46 Pulse Rate 87 02/09/25 05:46 Respiratory Rate 19 02/09/25 05:46 Blood Pressure 142/89 H 02/09/25 05:46 Pulse Oximetry 99 02/09/25 05:46 Oxygen Delivery Method Room Air 02/09/25 05:46 Temperature 98.0 F 02/09/25 05:46 Pulse Rate 87 02/09/25 05:46 Respiratory Rate 19 02/09/25 05:46 Blood Pressure 142/89 H 02/09/25 05:46 Pulse Oximetry 99 02/09/25 05:46 Oxygen Delivery Method Room Air 02/09/25 05:46 MDM - Fall MDM Narrative Medical decision making narrative: This 55-year-old female is brought to the emergency department by her daughters after she passed out at home this morning. The patient admits that she was up till around 1 AM drinking. She woke up to use the bathroom and passed out in the bathroom. She does not remember any of the details prior to that except that she needed to go to the bathroom and she got out of bed. She presents for evaluation of pain and numbness on the right side of her face. She appears to have struck the right lateral periorbital area and orbital area as she has tenderness and bruising at the lateral orbital area and bruising underneath the right eye and a small subconjunctival hemorrhage in the right eye. Her vision is grossly intact. There is no entrapment. She has tenderness over the zygoma. She did not have any neck tenderness. She had no additional injuries appreciated. Her daughter did state that after finding her on the floor and rolling her over she passed out several additional times while they were trying to wake her up. Cardiac workup was ordered due to her history of heart disease. She has a normal EKG at 90 bpm with a first-degree AV block. An IV was placed and cardiac workup was ordered as well as CT scan of the brain, facial bones and cervical spine. She was medicated with IV fluids, Zofran and morphine. Her white count is low at 3 with a stable hemoglobin. The remainder of her labs and CT scans are pending at this time. She will be signed out to the incoming physician at 7 AM. Lab Data Attestation: I reviewed the patient's lab results. Labs: Lab Results 02/09/25 Range/Units 06:25 WBC 3.0 L (4.0-11.0) 10^3/uL RBC 3.84 L (4.20-5.40) 10^6/uL Hgb 9.2 L (12.0-16.0) g/dL Hct 29.9 L (36.0-48.0) % MCV 77.9 L (81.0-99.0) fL MCH 24.0 L (26.7-34.0) pg MCHC 30.8 (29.9-35.2) g/dL RDW 16.1 H (11.0-15.0) % Plt Count 252 (150-450) 10^3/uL MPV 8.7 L (9.5-13.5) fL Neut % (Auto) 63.5 (43.0-75.0) % Lymph % (Auto) 25.6 (20.5-60.0) % [place] % (Auto) 10.0 (1.7-12.0) % Eos % (Auto) 0.3 L (0.9-7.0) % Baso % (Auto) 0.3 (0.2-2.0) % Neut # (Auto) 1.9 (1.4-6.5) 10^3/uL Lymph # (Auto) 0.8 L (1.2-3.8) 10^3/uL [place] # (Auto) 0.3 (0.3-0.8) 10^3/uL Eos # (Auto) 0.0 (0.0-0.7) 10^3/uL Baso # (Auto) 0.0 (0.0-0.1) 10^3/uL Abs Immat Gran (auto) 0.01 (0.00-0.03) 10^3/uL Imm/Tot Granulo (auto) 0.3 (0.0-0.5) % ECG Data Attestation: I personally reviewed and interpreted this ECG as follows: (Sinus rhythm at 90 bpm, first-degree AV block, normal axis, no acute ST segment elevation or T wave inversion) Discharge Plan Discharge Patient Disposition: Still a Patient
--- OUTSIDE RECORDS SUMMARY | 2025-02-09 06:08 | XMS_ITS | CCD ---
Author Organization [facility] CliniSy[facility] Care Team Providers Care Sand Technologist Name Role Phone KOREY, DR WONG Admitting Unavailable NILL, DR WONG Attending Unavailable JOHNSON, DR JADE Reddy Primary Care Unavailable NILL, DR WONG Consulting Unavailable MANA, CARMEN Consulting Unavailable DORBRYANNA DARLING Consulting Unavailable NILL, DR WONG Admitting Unavailable NILL, DR WONG Attending Unavailable JOHNSON, DR JADE Reddy Primary Care Unavailable NILL, DR WONG Consulting Unavailable JOHNSON, DR JADE Reddy Admitting Unavailable JOHNSON, DR JADE Reddy Attending Unavailable JOHNSON, DR JDAE Reddy Primary Care Unavailable JOHNSON, DR JADE Reddy Consulting Unavailable JOHNSON, DR JADE Reddy Primary Care Unavailable MARKER, DR BARROSO Admitting Unavailable MARKER, DR BARROSO Attending Unavailable MARKER, DR BARROSO Consulting Unavailable MALDONADO, LESLIE Consulting Unavailable Jade Johnson Unavailable Jade Johnson Primary Care Unavailable Jade [...] Care Provider MD Marvin Hooks Attending Provider [phone] Marvin HOOKS Attending Unavailable KOREY, Marvin Fitzgerald Attending Unavailable KOREY, Marvin Fitzgerald Attending Unavailable Jade Johnson MD Primary Care Provider Ayaan Espitia DO Unavailable [phone] Jade Johnson MD Primary Care Provider Marvin Hooks MD Attending Provider Ayaan Espitia DO Attending Provider [phone] Jade Johnson Primary Care Unavailable Marvin Hooks Admitting Unavailable Korey, Marvin Fitzgerald Attending Unavailable Omkar, Ayaan Admitting Unavailable Omkar, Ayaan Attending Unavailable Jade Johnson Primary Care Unavailable LEONARD DIALLO Attending Unavailable OMKAR, AYAAN W Attending Unavailable MURERENDIRA, AYAAN W Attending Unavailable MURERENDIRA, AYAAN W Attending Unavailable MURERENDIRA, AYAAN W Attending Unavailable JADE JOHNSON Referring Unavailable Jade Johnson MD Primary Care Provider DIONE MONGE Attending Unavailable JADE JOHNSON Referring Unavailable JADE JOHNSON Primary Care Unavailable Allergies Allergy Classification Reported Allergen(s) Allergy Type Date of Onset Reaction(s) Facility (3 sources) benzonatate; Translations: [Tessalon Perles] Drug Allergy Unknown [facility] Repository (2 sources) Clarithromycin; Translations: [Biaxin] Drug Allergy [facility] Repository (1 source) Biaxin *MACROLIDES* Propensity to adverse reactions Unknown [facility] Other (1 source) Allergies Reconciled Propensity to adverse reactions Unknown [facility] Other (1 source) patient allergy list reviewed by nurse or physicia Propensity to adverse reactions 10-21-19 14 Comment:Done [facility] Other (2 sources) benzonatate; Translations: [benzonatate] Drug Allergy Cough (finding) [facility] (2 sources) Clarithromycin; Translations: [clarithromycin] Drug Allergy Unknown (qualifier value) [facility] (14 sources) benzonatate Drug Allergy 08-16-20 Cough [facility] (14 sources) Macrolides And Ketolides Drug Allergy 08-16-20 [facility] (1 source) benzonatate Drug Allergy 03-20-20 [facility] Repository (1 source) Clarithromycin Drug Allergy 03-20-20 [facility] Repository Medications Current Medications Medication Drug Class(es) Dates Sig (Normalized) Sig (Original) atorvastatin 40 mg oral tablet (20 sources) HMG-CoA Reductase Inhibitor Start: 10-29-2024 take 1 tablet by mouth in the morning atorvastatin (LIPITOR) 40 mg tablet Indications: Mixed hyperlipidemia Take 1 tablet (40 mg total) by mouth in the morning. 90 tablet 3 10/29/2024 Active Start: 03-28-2024 take 1 tablet by bridger th in the morning atorvastatin (LIPITOR) 40 mg tablet Indications: Mixed hyperlipidemia Take 1 tablet (40 mg total) by mouth in the morning. 90 tablet 1 03/28/2024 Active Start: 08-22-2023 End: 10-29-2024 take 1 tablet by mouth in the morning atorvastatin (LIPITOR) 40 mg tablet Indications: Mixed hyperlipidemia Take 1 tablet (40 mg total) by mouth in the morning. 90 tablet 09/28/2023 03/28/2024 Discontinued Start: 08-25-2019 take 1 tablet by bridger th once daily at bedtime Atorvastatin 80 mg Tablet Active 80 MG PO Daily at bedtime August 25, 2019 12:00am take 1 tablet by bridger th every twenty-four hours Atorvastatin Calcium 10 MG 1 tablet once a day Active 24 hr metoprolol succinate 50 mg extended release oral tablet (20 sources) beta-Adrenergic Thiago Start: 10-29-2024 take 1 tablet by mouth every twenty-four hours in the morning metoprolol succinate XL (TOPROL XL) 50 mg 24 hr tablet Indications: Presence of coronary angioplasty implant and graft Take 1 tablet (50 mg total) by mouth in the morning. 90 tablet 10/29/2024 Active Start: 03-28-2024 take 1 tablet by bridger th every twenty-four hours in the morning metoprolol succinate XL (TOPROL XL) 50 mg 24 hr tablet Indications: Presence of coronary angioplasty implant and graft Take 1 tablet (50 mg total) by mouth in the morning. 90 tablet 1 03/28/2024 Active Start: 09-27-2023 take 1 tablet by mouth once da liam metoprolol succinate 50 mg ER Tab 50 mg = 1 tab(s), Oral, Daily, Refills(s) 0 Start Date: 09/27/23 Status: Ordered Start: 08-22-2023 End: 10-29-2024 take 1 tablet by mouth every twenty-four hours in the morning metoprolol succinate XL (TOPROL XL) 50 mg 24 hr tablet Indications: Presence of coronary angioplasty implant and graft Take 1 tablet (50 mg total) by mouth in the morning. 90 tablet 09/28/2023 03/28/2024 Discontinued Start: 08-25-2019 take 1 tablet by bridger th twice daily Metoprolol Tartrate 25 mg tablet Active 25 [...] capsule (20 sources) Proton Pump Inhibitor Start: 02-07-2021 take 1 capsule by mouth once daily omeprazole 10 mg Cap-EC 10 mg = 1 cap(s), Oral, Daily, Refills(s) 0 Start Date: 02/07/21 Status: Ordered Start: 04-06-2020 take 1 capsule by mo uth in the morning omeprazole (PriLOSEC) 20 mg capsule Take 1 capsule (20 mg total) by mouth in the morning. 04/06/2020 Active take 1 tablet by bridger th before mealtime omeprazole OTC (PriLOSEC OTC) 20 MG EC tablet Take 20 mg by mouth in the morning. Take before meals. Do not crush, chew, or split.. Active ticagrelor 60 mg oral tablet (20 sources) Start: 10-29-2024 End: 10-29-2024 take 1 tablet by mouth once, then take 1 tablet by mouth in the morning, then take 1 tablet by mouth at bedtime ticagrelor (BRILINTA) 60 mg tablet Take 1 tablet (60 mg total) by mouth once for 1 dose. TAKE 1 TABLET BY MOUTH IN THE MORNING AND 1 TABLET BEFORE BEDTIME 180 tablet 3 10/29/2024 10/29/2024 Active Start: 09-20-2022 End: 10-29-2024 take 1 tablet by mouth in the [...] 12:00am September 01, 2019 10:26am Brilinta Active 24 hr venlafaxine 150 mg extended release oral capsule (20 sources) Serotonin and Norepinephrine Reuptake Inhibitor Start: 05-14-2017 take 1 capsule by mouth once daily venlafaxine XR (EFFEXOR-XR) 150 mg 24 hr capsule Take 1 capsule (150 mg total) by mouth nightly. 0 05/14/2017 Active Start: 05-14-2017 take 1 capsule by mo [facility] every twenty-four hours in the morning [...] 25, 2019 12:00am November 13, 2023 8:47am Completed/Discontinued Medications Medication Drug Class(es) Dates Sig [...] day at the same time 10/15/2024 Discontinued Problems Active Problems Problem Classification Problem Date Documented Date Episodic/Chronic Abdominal pain (2 sources) C/O pelvic pain 10-07-2010 Episodic Acute myocardial infarction (20 sources) Myocardial infarction; Translations: [Acute myocardial infarction, unspecified] Onset: 08-16-2024 Resolved: 08-16-2024 04-11-2024 Chronic Coronary atherosclerosis and other heart disease (20 sources) Atherosclerotic heart disease of [place] coronary artery without angina pectoris; Translations: [Old myocardial infarction] Onset: 02-18-2017 Resolved: 08-16-2024 02-07-2021 Chronic Disorders of lipid metabolism (20 sources) Pure hyperglyceridemia; Translations: [Pure hyperglyceridemia] Onset: 10-21-2013 Resolved: 08-16-2024 04-11-2024 Chronic Diverticulosis and diverticulitis (1 source) Diverticulosis of large intestine without perforation or abscess without bleeding; Translations: [DVRTCLOS LG INT NO PERF/ABSC W/O BL] Onset: 03-02-2021 Chronic Essential hypertension (20 sources) Hypertensive disorder; Translations: [Essential (primary) hypertension] Onset: 06-07-2021 Resolved: 08-16-2024 04-11-2024 Chronic Genitourinary congenital anomalies (2 sources) Double [...] to other mental disorder] Chronic Mood disorders (20 sources) Major depression, single episode; Translations: [Major depressive disorder, single episode, unspecified] Onset: 04-23-2017 Resolved: 08-16-2024 04-11-2024 Chronic Osteoporosis (4 sources) Age-related osteoporosis without current pathological fracture; Translations: [Primary osteoporosis] Onset: 10-20-2016 02-07-2021 Chronic Other aftercare (2 sources) Long-term current use of anticoagulant; Translations: [FCI (current) use of anticoagulants] 08-19-2024 Episodic Other [...] UNSPECIFIED] Onset: 03-02-2021 Chronic Other endocrine disorders (20 sources) Hyperparathyroidism; Translations: [Hyperparathyroidism, unspecified] Onset: 08-06-2019 Resolved: 08-16-2024 02-07-2021 Chronic Other female genital disorders (2 sources) [...] Chronic Other nutritional; endocrine; and metabolic disorders (10 sources) Obesity; Translations: [Obesity, unspecified] Onset: 11-27-2014 02-07-2021 Chronic Other upper respiratory disease (6 sources) Bleeding from nose; Translations: [Epistaxis] 08-19-2024 Episodic Residual codes; unclassified (20 sources) Obstructive sleep apnea syndrome; Translations: [Obstructive sleep apnea (adult) (pediatric)] Onset: 08-06-2019 Resolved: 08-16-2024 04-11-2024 Chronic Residual codes; unclassified (2 sources) Sleep [...] [CONTACT W/AND (SUSP) EXPOS COVID-19] Onset: 02-25-2021 Urinary tract infections (2 sources) Urinary tract infectious disease; Translations: [Urinary tract infection, site not specified] Episodic Past or Other Problems Problem Classification Problem Date Documented Da te Episodic/Chronic Anxiety disorders (20 sources) Phobic disorder; 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, unspecified] Onset: 06-27-2018 Resolved: 08-16-2024 02-07-2021 Chronic Cardiac dysrhythmias (20 sources) Palpitations; Translations: [Palpitations] Onset: 06-07-2021 Resolved: 08-16-2024 08-16-2024 Episodic Complications of surgical procedures or medical care (15 sources) Postprocedural asymptomatic ovarian failure; Translations: [Asymptomatic [...] of cardiovascular surgery] Onset: 05-19-2021 Resolved: 08-16-2024 08-16-2024 Episodic Headache; including migraine (1 source) Headache; Translations: [Headache, unspecified] Onset: 09-09-2014 Episodic Malaise and fatigue (1 source) Fatigue; Translations: [Other fatigue] Onset: 03-30-2015 Episodic Mood disorders (1 source) Mood disorders Nausea and vomiting (1 source) Nausea; Translations: [NAUSEA] Onset: 05-19-2021 Episodic Nonspecific chest pain (8 sources) Chest pain; Translations: [Chest pain, unspecified] Onset: 10-21-2013 Resolved: 06-07-2021 06-07-2021 Episodic Other aftercare (1 source) Other [place] [facility] (current) drug therapy; Translations: [OTH INTERMEDIATE CURRENT DRUG THERAPY] Onset: 05-19-2021 Episodic Other aftercare (1 source) Surgical follow-up; Translations: [Surgery follow-up examination] Onset: 03-29-2011 Episodic Other and unspecified benign neoplasm (1 source) Benign neoplasm of cecum; Translations: [BENIGN NEOPLASM OF CECUM] Onset: 03-02-2021 Episodic Other and unspecified benign neoplasm (16 sources) Adenomatous polyp of colon ; Translations: [Benign neoplasm of colon, unspecified] Onset: 08-16-2024 Resolved: 08-16-2024 03-02-2021 Episodic Other and unspecified benign neoplasm (16 sources) Benign neoplasm of ascending colon; Translations: [Benign neoplasm of ascending colon] Onset: 06-25-2024 Resolved: 08-16-2024 Episodic Other and unspecified benign neoplasm (15 sources) History of polyp of colon; Translations: [...] STATUS] Onset: 05-19-2021 Episodic Other gastrointestinal disorders (14 sources) Constipation; Translations: [Outlet dysfunction constipation] Onset: 11-19-2013 Resolved: 08-16-2024 08-16-2024 Episodic Other lower respiratory disease (20 sources) Dyspnea; Translations: [Shortness of breath] Onset: 09-16-2021 Resolved: 08-16-2024 08-16-2024 Episodic Other nutritional; endocrine; and metabolic disorders (15 sources) Hypercalcemia; Translations: [Hypercalcemia] Onset: 08-16-2024 Resolved: 08-16-2024 08-16-2024 Chronic Other nutritional; endocrine; and metabolic disorders (16 sources) Body mass index 30+ - obesity; Translations: [Body mass index (BMI) 31.0-31.9, adult] Onset: 08-16-2024 Resolved: 08-16-2024 04-16-2024 Chronic Other nutritional; endocrine; and metabolic disorders (16 sources) Obese class III; Translations: [Class 3 obesity] Onset: 08-16-2024 Resolved: 08-16-2024 04-16-2024 Chronic Other screening for suspected conditions (not mental disorders or infectious disease) (20 sources) Encounter for screening for malignant neoplasm of colon; Translations: [Encounter for screening mammogram for malignant neoplasm of breast] Onset: 02-23-2021 Resolved: 08-16-2024 Episodic Other skin disorders (4 sources) Generalized hyperhidrosis; Translations: [GENERALIZED HYPERHIDROSIS] Onset: 05-18-2021 Episodic Other skin disorders (16 sources) Generalized hyperhidrosis; Translations: [Generalized hyperhidrosis] Onset: 05-18-2021 Resolved: 08-16-2024 04-11-2024 Episodic Residual codes; unclassified (1 source) Acquired absence of both cervix and uterus; Translations: [ACQUIRED ABSENCE BOTH CERVIX AND UTERUS] Onset: 05-19-2021 Episodic Residual codes; unclassified (17 sources) Edema; Translations: [Edema, unspecified] Onset: 01-12-2016 Resolved: 08-16-2024 04-11-2024 Episodic Residual codes; unclassified (17 sources) Menopause present; Translations: [Asymptomatic menopausal state] Onset: 08-16-2024 Resolved: 08-16-2024 03-20-2024 Episodic Residual codes; unclassified (15 sources) Nicotine-filled electronic cigarette user; Translations: [Tobacco use] Onset: 08-16-2024 Resolved: 08-16-2024 04-17-2024 Episodic Residual codes; unclassified (14 sources) History of parathyroidectomy; Translations: [Other specified postprocedural states] Onset: 08-16-2024 Resolved: 08-16-2024 08-16-2024 Episodic Spondylosis; intervertebral disc disorders; other back problems (20 sources) Lumbar radiculopathy; Translations: [Radiculopathy, lumbar region] Onset: 03-06-2018 Resolved: 08-16-2024 04-11-2024 Episodic Systemic lupus erythematosus and connective tissue disorders (19 sources) Takayasu's disease; 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 [facility] Comment on above: TESTS RESULT FLAG UN ITS REF RANGE LAB Clinician Provided Cytology Information Source.............Vagina No. of containers..01 ThinPrep Vial Age Algo ACOG Anamaria... 30-65 FLAG LEGEND: L-Low Normal,H-High Normal,LL-Alert Low,HH-Alert High <-Panic Low,>-Panic High,A-Abnormal,AA-Critical Abnormal Performed at: 01 =[address] [phone] Christie Gutierrez MD, HPV APTIMA Negative Negative [facility] Comment on above: This nucleic acid am plification test detects fourteen high- risk HPV types (16,18,31,33,35,39,45,51,52,56,58,59,66,68) without differentiation. Performed at: =[address] [id number] Concert Singer: Christie Gutierrez MD, Phone: [phone] Performed at: [address] [id number] Concert Singer: Christie Gutierrez MD, Phone: [phone] IGP, APTIMA HPV, RFX [birth year]/18[birth year] Note . [facility] Comment on above: TESTS RESULT FLAG UN ITS REF RANGE LAB DIAGNOSIS: 02 NEGATIVE FOR INTRAEPITHELIAL LESION OR MALIGNANCY. Specimen adequacy: 02 Satisfactory for evaluation. No endocervical component is identified. Performed by: 02 [facility] (ASCP) . Note: Note 02 The Pap smear is a screening test designed to aid in the detection of premalignant and malignant conditions of the uterine cervix. It is not a diagnostic procedure and should not be used as the sole means of detecting cervical cancer. Both false-positive and false-negative reports do occur. Test Methodology: Note 02 This liquid based ThinPrep(R) pap test was screened with the use of an image guided system. HPV Genotype Reflex Note 02 Criteria not met, HPV Genotype not performed. FLAG LEGEND: L-Low Normal,H-High Normal,LL-Alert Low,HH-Alert High <-Panic Low,>-Panic High,A-Abnormal,AA-Critical Abnormal Performed at: 02 [address] [facility] [address] [phone] Christie Gutierrez MD, [facility] [employer] Basophils Auto (Bld) [#/Vol] Ordered By: Ayaan Espitia on 08-19-2024 Basophils (Bld) [#/Vol] Automated basophil count 0.0-0.2 [facility] Basophils/100 WBC Auto (Bld) Ordered By: Ayaan Espitia on 08-19-2024 Basophils/100 WBC (Bld) Automated basophil % . [facility] CBC W Auto Differential pane l (Bld)on 08-19-2024 Basophils (Bld) [#/Vol] 0 10*3/uL 0.0 - 0.2 10*3/uL [facility] [employer] Basophils/100 WBC Manual cnt (Syn fld) 0.8 % . [facility] Eosinophils (Bld) [#/Vol] 0.1 10*3/uL 0.0 - 0.45 10*3/uL [facility] [employer] Eosinophils/100 WBC Manual cnt (Syn fld) 1.9 % . [facility] Erythrocyte distribution width (RBC) [Ratio] 15.4 % High 11.9 - 15.3 % [facility] Hematocrit (Bld) [Volume fraction] 32.5 % Low 34.0 - 46.4 % [facility] Hemoglobin (Bld) [Mass/Vol] 10.2 g/dL Low 11.8 - 15.4 g/dL [facility] Interpretation and review of laboratory results Abnormal [facility] Lymphocytes (Bld) [#/Vol] 1.3 10*3/uL 1.00 - 4.8 10*3/uL [facility] Lymphocytes/100 WBC Manual cnt (Syn fld) 35.6 % . [facility] MCH (RBC) [Entitic mass] 24.3 pg Low 24.7 - 34.3 pg [facility] MCHC (RBC) [Mass/Vol] 31.5 g/dL Low 32.0 - 35.0 g/dL [facility] MCV (RBC) [Entitic vol] 77 fL Low 80 - 100 fL [facility] Monocytes (Bld) [#/Vol] 0.3 10*3/uL 0.0 - 0.8 10*3/uL [facility] Monocytes+Macropha ges/100 WBC Manual cnt (Syn fld) 8.8 % . [facility] Neutrophils (Bld) [#/Vol] 2 10*3/uL 1.8 - 7.7 10*3/uL [facility] Neutrophils/100 WBC Manual cnt (Syn fld) 52.9 % . [facility] NRBC 0.1 /100{WBC} 0 - 0.5 /100{WBC} [facility] Platelet mean volume (Bld) [Entitic vol] 7.2 fL 6.3 - 10.7 fL [facility] Platelets (Bld) [#/Vol] 256 10*3/uL 150 - 450 10*3/uL [facility] RBC LM.HPF (Urine sed) [#/Area] 4.22 10*6/uL 3.60 - 5.00 10*6/uL [facility] WBC (Bld) [#/Vol] 3.8 10*3/uL 3.8 - 11.6 10*3/uL [facility] WBC LM.HPF (Urine sed) [#/Area] 3.8 10*3/uL 3.8 - 11.6 10*3/uL [facility] Complete Blood Count Auto Di ffon 08-19-2024 Basophils (Bld) [#/Vol] 0.0 10*3/uL Normal 0.0-0.2 [facility] Comment on above: Result Comment: PERF ORMED BY: [place] [address] PATHOLOGIST ELOCUTION TEACHER LEONA WRIGHT M.D. Performed By: #### C BC #### [address] Basophils/100 WBC (Bld) 0.8 % Normal . [facility] Comment on above: Performed By: #### C BC #### [address] Eosinophils (Bld) [#/Vol] 0.1 10*3/uL Normal 0.0-0.45 [facility] Comment on above: Performed By: #### C BC #### [address] Eosinophils/100 WBC (Bld) 1.9 % Normal . [facility] Comment on above: Performed By: #### C BC #### [address] Erythrocyte distribution width (RBC) [Ratio] 15.4 % High 11.9-15.3 [facility] Comment on above: Performed By: #### C BC #### [address] Hematocrit (Bld) [Volume fraction] 32.5 % Low 34.0-46.4 [facility] Comment on above: Performed By: #### C BC #### [address] Hemoglobin (Bld) [Mass/Vol] 10.2 g/dL Low 11.8-15.4 [facility] Comment on above: Performed By: #### C BC #### [address] Lymphocytes (Bld) [#/Vol] 1.3 10*3/uL Normal 1.00-4.8 [facility] Comment on above: Performed By: #### C BC #### [address] Lymphocytes/100 WBC (Bld) 35.6 % Normal . [facility] Comment on above: Performed By: #### C BC #### [address] MCH (RBC) [Entitic mass] 24.3 pg Low 24.7-34.3 [facility] Comment on above: Performed By: #### C BC #### [address] MCV (RBC) [Entitic vol] 77.0 fL Low 80-100 [facility] Comment on above: Performed By: #### C BC #### [address] Mean Corpuscular HGB Conc 31.5 g/dL Low 32.0-35.0 [facility] Comment on above: Performed By: #### C BC #### [address] Monocytes (Bld) [#/Vol] 0.3 10*3/uL Normal 0.0-0.8 [facility] Comment on above: Performed By: #### C BC #### [address] Monocytes/100 WBC (Bld) 8.8 % Normal . [facility] Comment on above: Performed By: #### C BC #### [address] Neutrophils (Bld) [#/Vol] 2.0 10*3/uL Normal 1.8-7.7 [facility] Comment on above: Performed By: #### C BC #### [address] Neutrophils/100 WBC (Bld) 52.9 % Normal . [facility] Comment on above: Performed By: #### C BC #### [facility] [address] NRBC% 0.1 /100{WBC} Normal 0-0.5 [facility] Comment on above: Performed By: #### C BC #### [facility] [address] Platelet mean volume (Bld) [Entitic vol] 7.2 fL Normal 6.3-10.7 [facility] Comment on above: Performed By: #### C BC #### [facility] [address] Platelets (Bld) [#/Vol] 256 10*3/uL Normal 150-450 [facility] Comment on above: Performed By: #### C BC #### [facility] [address] RBC (Bld) [#/Vol] 4.22 10*6/uL Normal 3.60-5.00 [facility] Comment on above: Performed By: #### C BC #### [facility] [address] WBC (Bld) [#/Vol] 3.8 10*3/uL Normal 3.8-11.6 [facility] Comment on above: Performed By: #### C BC #### [address] ECG 12 lead ECGon 08-19-2024 ECG 12 lead ECG [facility] Main [place] [address] [place] [address] Electrocardiograph Report Signed Patient: Dana Grijalva MR#: [id number] : 1970 Acct:[id number] Age/Sex: 54 / F ADM Date: 08/19/24 Loc: Room: Type: [facility] Attending Dr: Ayaan Espitia DO Ordering Provider: [...] previous ECGs available Confirmed by Francoise Benton ([id number]) on 08/19/2024 11:29:50 AM Referred By: Electronically Signed By: Francoise Benton Transcribed By: MUS Signed By Francoise Benton MD 4 112[address] Normal [facility] Eosinophils Auto (Bld) [#/Vo l]Ordered By: Ayaan Espitia on 08-19-2024 Eosinophils (Bld) [#/Vol] Automated eosinophil count 0.0-0.45 [facility] Eosinophils/100 WBC Auto (Bl d)Ordered By: Ayaan Espitia on 08-19-2024 Eosinophils/100 WBC (Bld) Automated eosinophil % . [facility] Erythrocyte distribution wid th Auto (RBC) [Ratio]Ordered By: Ayaan Espitia on 08-19-2024 Erythrocyte distribution width (RBC) [Ratio] Erythrocyte distribution width [Ratio] by Automated count High 11.9-15.3 [facility] Hematocrit Auto (Bld) [Volum e fraction]Ordered By: Ayaan Espitia on 08-19-2024 Hematocrit (Bld) [Volume fraction] Hematocrit [Volume Fraction] of Blood by Automated count Low 34.0-46.4 [facility] Hemoglobin [Mass/volume] in BloodOrdered By: Ayaan Espitia on 08-19-2024 Hemoglobin (Bld) [Mass/Vol] Hemoglobin [Mass/volume] in Blood Low 11.8-15.4 [facility] Leukocytes [#/volume] correc aklpana for nucleated erythrocytes in Blood by Automated counOrdered By: Ayaan Espitia on 08-19-2024 WBC corrected for nucl RBC Auto (Bld) [#/Vol] Leukocytes [#/volume] corrected for nucleated erythrocytes in Blood by Automated coun 3.8-11.6 [facility] Lymphocytes Auto (Bld) [#/Vo l]Ordered By: Ayaan Espitia on 08-19-2024 Lymphocytes (Bld) [#/Vol] Lymphocytes [#/volume] in Blood by Automated count 1.00-4.8 [facility] Lymphocytes/100 WBC Auto (Bl d)Ordered By: Ayaan Espitia on 08-19-2024 Lymphocytes/100 WBC (Bld) Lymphocytes/100 leukocytes in Blood by Automated count . [facility] MCH Auto (RBC) [Entitic mass ]Ordered By: Ayaan Espitia on 08-19-2024 MCH (RBC) [Entitic mass] MCH [Entitic mass] by Automated count Low 24.7-34.3 [facility] MCHC Auto (RBC) [Mass/Vol]Or dered By: Ayaan Espitia on 08-19-2024 MCHC (RBC) [Mass/Vol] MCHC [Mass/volume] by Automated count Low 32.0-35.0 [facility] MCV Auto (RBC) [Entitic vol] Ordered By: Ayaan Espitia on 08-19-2024 MCV (RBC) [Entitic vol] MCV [Entitic volume] by Automated count Low 80-100 [facility] Monocytes Auto (Bld) [#/Vol] Ordered By: Ayaan Espitia on 08-19-2024 Monocytes (Bld) [#/Vol] Automated blood monocyte count 0.0-0.8 [facility] Monocytes/100 WBC Auto (Bld) Ordered By: Ayaan Espitia on 08-19-2024 Monocytes/100 WBC (Bld) Automated monocyte % . [facility] Neutrophils Auto (Bld) [#/Vo l]Ordered By: Ayaan Espitia on 08-19-2024 Neutrophils (Bld) [#/Vol] Neutrophils [#/volume] in Blood by Automated count 1.8-7.7 [facility] Neutrophils/100 WBC Auto (Bl d)Ordered By: Ayaan Espitia on 08-19-2024 Neutrophils/100 WBC (Bld) Automated neutrophil % . [facility] Nucleated erythrocytes [Pres ence] in Blood by Automated countOrdered By: Ayaan Espitia on 08-19-2024 Nucleated RBC Auto Ql (Bld) Nucleated erythrocytes [Presence] in Blood by Automated count 0-0.5 [facility] Platelet mean volume Auto (B ld) [Entitic vol]Ordered By: Ayaan Espitia on 08-19-2024 Platelet mean volume (Bld) [Entitic vol] Platelet mean volume [Entitic volume] in Blood by Automated count 6.3-10.7 [facility] Platelets Auto (Bld) [#/Vol] Ordered By: Ayaan Espitia on 08-19-2024 Platelets (Bld) [#/Vol] Platelets [#/volume] in Blood by Automated count 150-450 [facility] RBC Auto (Bld) [#/Vol]Ordere d By: Ayaan Espitia on 08-19-2024 RBC (Bld) [#/Vol] Erythrocytes [#/volu me] in Blood by Automated count 3.60-5.00 [facility] WBC Auto (Bld) [#/Vol]Ordere d By: Ayaan Espitia on 08-19-2024 WBC (Bld) [#/Vol] Leukocytes [#/volume ] in Blood by Automated count 3.8-11.6 [facility] Cristóbal 06-11-2024 L Specimen: [id number] Received: 06/12/24 Status: [facility] Num: [id number] Spec Type: Surgical Subm Dr: Marvin Hooks MD FACS Tissues: A Colon Biopsy (ASCENDING COLON POLYP) Procedures: HE/2, Gross/Micro L4 Age/ Patient Sex Location Account Attending Physician Dana Grijalva 54/F [facility] [id number] Marvin Hooks MD FACS SPEC NUM: [id number] RECD: 06/12/24 STATUS: [facility] NUM: [id number] KRISTA: 06/11/[address]: Marvin Hooks MD FACS ENTERED: 06/12/24 [facility] DR: Coretta Gusman SPEC TYPE: Surgical DEPT: FATEM[facility]UST ENTERED BY: [id number] RECV BY: [id number] ORDERED: HE/2, Gross/Micro L4 ORDERED: HE/2, Gross/Micro [...] performed supporting the above interpretation CPT Codes 64705 Specimen: [id number] Received: 06/12/24 Status: [facility] Jose Roberto Num: [id number] Spec Type: Surgical Subm Dr: Marvin Hooks MD [facility] Tissues: A Colon Biopsy (ASCENDING COLON POLYP) Procedures: Elgin BAILON/Kathy L4 Patient: Dana Grijalva [id number] (Continued) Signed (signature on file) Juliana Short MD 06/19/24911 Normal [facility] Office/Clini c Noteon 04-17-2024 General [...] Osteoporosis Screenin (more content not included)... Normal [facility] Comment on above: Result Comment: Elec [...] for choosing us for your care. Normal [facility] Coding Summaryon 04-09-2024 Coding Summary HTMLBase 64 QsygsjjxWCx8jRc+PGhlYWQ +JW7KPDLvG91fkMAqyO7fN0 NMTElOSywgQVBQTElOSyIgb hTbVJ0bzHSwCKMp IC8+NT6tBXIuDaofmRZnw6U 4yEY4G36dtp1uKEaslUK5AR VeEbYtugpml0qkmIp4SQwpZ mluOyBt XAFpoC11QQJ3nK96Dt01iJC llGXdy5owbGw7LpRuDUQyDT K0nPxcUPxoi5TiGKRnO28rq XDjr4U6 NZXrmGekdQVpKbMrqCA4iR5 zYQrphwqob8twprvoJxu1tj 55wNAev7B3bIG9S4NagfF3P GJvbGQg HjbesHHJsU1twlpuk4jvayn dJzEzJPBmUSy4HFd3VDCejL gkRrJgWT28UDP2KPGqjoPnE 2FsLWFs qMpwCgO1k4T0Su8ST7TWShv mR4ZREQCSCCjaqUN+PC90cj 76O7DwTimaQpc9SBWjMDY5z MN5iW9x NXBmTXoni1J7aYQ2M6TetpH lvp8mm7fdLRJuKVwlO85eqY Imu2U9DPZvoJI4FCKzlTraM iBzaG93 Oyc+ERMqkFyfy4CkAgcsc2k sb9mchTq1JuhiNTOvhjJguP pcMTG7h2AnFh5dITZpaNV4h HI6xP0h PdUvUhW8VNtkM777LyOuxES rExflI53oF8DsfNM+PHRyPj y2HUNcnUeoAW5rW1CwUXZyd mctbGVm fIdpCB3rKRYrxxnwXPLzhZ2 eXOLqP8q1BuHeKdP3BMhsZ3 KlBMGmzwfxUo16eW6lLaYvI uL5JFua W9EixpI0RDKnyWPmZOywEAY 0D37yj7U8PHGpAHJoRCE4dZ H9qH8kyQkqmwxwoGZnkPqua mVydGlj UQjtCKcwI560BZHppOjqCnT vZGluZyBEYXRlOiAgMDcvMT AvMjAyNDwvdGQ+UAMaUGC9m WxlPSAn lNUrDWtpJl0kbVhtiSqqHX6 lBULqbkinRVMfwF2lUZUmoI HgwPdsSC2lCKEcnfddz079G iAxMHB0 LICzcDPsF8TwzB7pQnDaNJR rHZWzC0FntDAtCHwpZ147IQ ihSfV5EAHfewKxE5JpPLKbk WduOiB0 a1N4Ks7Rv7HnaznfU3PpwCF cHoWfJohtSNp3F3YuFapfrL I+AB27HGWqNN30CVr5WMZ5q WxlPSdi BNTqR3IhrV6cWpZjRHAmCKM kOyc+PHRhYmxlIHdpZHRoPS opXPYyWtOpzNlvKQ7dRt0gG GVyLWNv rDuraIGsSjSdq5ozDBBlDYb mBR9spXmpT2XzcKC4PBAtf7 c0Rs95J46hT2OgfYD+PGNvb PT0eTL3 iF7zIbHzPyO9CLstF117VbX peBKsWeqgj8hto2inlRe5Kc V1WJAazrGsmKmfFCQ9k7LuN u97M52j IHdpZHRoPSIxNSUiIHZhbGl lee0taP0lSz5+HBJhuFT2vK E4pF6iFcMuHsM3TLixU208F nRvcCIv Faddv1ehf8xorMd7MeZvFCN bfnUeiYjzYQY0b0BiXy21P0 QrsCwps7VmSmv1fk27fNNga 1P5yFV7 R1MzTBUdlqjjyCJncNyoMX0 gTCKcknahDJJpaG9pABXpX4 y7HhJwKyE1GUkzX4QvybN1J GJvbGQg XURvcAVNiD0koyjwc5ygmof uYiSxGWBgOGg9NIh7QIWwmE scXzJmZUC9MgQ3JKW1eNMkb R9fpQwo mqmuvF3rKfu+ABA2lVKtnZN LZS7zLnbghRC+DGCfQJB0nF gsFSblICVubT4cZLBtO6s0X iAwLjA1 EFbtT4WwkdJ3UFAknEMuHTQ ikCYWdE3zauzfj1zkygvwEi QmJZGcXPu7CIg4AFYxzEcjA iBsZWZ0 HpL5IZO8hOClpC8roQkebro zeI6oJzo+FbsqxKdqYMP5YX o4B1VlTad9CGVhaDdsPR9pc GFkZGlu Mx1whNpyaRzoRN9kGKZcwvw pr630BvZug9fuQGCqwVUbQG rsSTB2O89hf4A0GCReMMLxX YD8rYI2 mX3hiAiwvydolAXqcLtuhdP hcBiaYQzaBBayQ491FFGujH ckHoDcHJh8H6KbCbw2VPWxv CpiLY6i qHFzDJxkNn8tsNxhnQriPA0 gATKupddhj634ZaObk7ceCY PfoBLjRCjpYYY0L73cp4V6M CMwMDAw LNA5qVI0xO9lyChvfpwbfUU mdDsgdmVydGljYWwtYWxpZ2 61FJYzdDkbEzQfbLn6H4NnF ij4NOMh rTmmIR6nzWVrLLhzRi9lmLf laRddFI5uDHPobpmtm748Ev Yjm5bfUJMefFDcVJepROA8T 21no0X9 TZArGYEbUVR5uFK3dV3osBg nbjogbGVmdDsgdmVydGljYW uaGPzoB801GBDhbEwcVbHhf GllbnQg QQuvTTg6W6UfEvjirOX+PC9 7IYRoAN75qSZgyLPyl0jmvZ p4XpEiAQMzFBE1rHllVMgdl 3JkZXIt V62gdYNbd5B1AUCjqJcjbAY yOwDqhYF2xB8zMSfeswjmz7 elztsjPnlod8aniz06uU92L 29sIHdp ZHRoPSIzMCUiIHZhbGlnbj0 xyG4rNk3+OKQzeDP7qVB3gH 5zZBGmKbX9HLrkW811XiNon CIvPjxj b4mbd7ijcZi0NgX6ZIKqhhV obYjkRSV5w5RaOf43O43bHU dpZHRoPSIyMCUiIHZhbGlnb q6ifB5a Ii8+ACZtxCU3nXA7hP4gSwV xWoJ5ISylA797YzKjcCUfWl dgY78bF0VffOG+XBCzEpv3U CBzdHls CD9fxZUhNDcfBr4dMIS7XjY mDyOcRTnjD5QyOSCnthnqlg cbkJR5NOSjXYKpyT45Wa1rc DogMTBw bXJYlD8cjosie3bgxcutSjP kWEGfVZy2KZi2YRXytBfoMw HhPEO3SjA1RVC5vAXufV0sr Glnbjog lU8dS1AyLWTfffcbTf22vS5 xFyMrWkX9HLuiSvd+U0FOQ0 yTCztdSX2JYUyPQBBYWSpoy GQ+PHRk QQS6eEnyLYkuHRCsdO5yDCP mA4v5FyWlYbJ5NUrnU4PsOY ZznwibDp23vE6jWgBoRkA4U GpwZ1Vr feF3WLLhyXKjWEysXSF4Y77 lb3M1UCCnLXYhSMS7fPP3jQ 1hbGlnbjogbGVmdDsgdmVyd GljYWwt NQqkU195QCBjkQvxWdY0HvW xLcV5OpD1Z7LvOsd8YESvdE vpMG1yuOCaNMrnTn3pxKsqi HeuSR6b FUQzcdojALEinU3mQIClaIM saSuiNS7kBBByxrwsh826Bi BgUDE7KRIzuRHoG1LwjS9jB iAjMDAw ZLFiJ6HhmUHzYWqlD286PSb yHzC7EMFyfaObH2BgVMBjuW wcLaL8g6U3Aq24URPIGAKwa zwvdGQ+ MYSkICI4gSqtYRycQWBelU6 vATHzD6a6WjPeZrB9IRlnQ2 ObXWYrqvanZp71fB4kCcSjY wY1OCgr I6IpltA7OZFqdWLhZLquCXQ 5W94qq6C6WBErFJJfOJJ6aY L0gA3weNyqsjdeoQWiuBbgx mVydGlj YHoxTEjqL746RBMonWdbYiV FTUFMRTwvdGQ+JEYnOTB4hQ juYLijKEQxyO9mMWQpS3l3J iAwLjA1 ODnlN7GvZCJqmkpbHz73yP0 aZbPzShQ1SZqcN2OcflQ7KR UczYMiISxoKUZ5J96la7G2C CMwMDAw LZJ8hBJ8vP1xzLaytwfclNN mdDsgdmVydGljYWwtYWxpZ2 30HXMpzTdfDa4XXN94EF76R 3RyPjwv dGFibGU+PHRhYmxlIHdpZHR kPHlvNHZwRxJvwYjzED2rYz 9yZGVyLWNvbGxhcHNlOiBjb 2xsYXBz EDohWM4omWseV0KetBY7ABR hd9g0Xm06I42nM5PsfYQ+PG PlhQA0nLN9nL0iCpZnTkA6G VdaJ400 NlFayGWdFnyxc2jnz7ranZy 6QkJuPQJbhoRecEdcKOY7m9 ZjNi00E79eNTolVIXpMGOzN CUiIHZh mNscea9cwB0qIi5+PGNvbCB 1zYX6cI0pObXyLrI7NEooP6 98HeQfjFHnQdgtD08kU0Iuo XA+PHRy Jvf9JNLzdPojQV1lzNNuLMu rVk2oUBH7OaAfFtBhTDkoO6 JlTAXzhsmzidqhiSX3USFeF DUwaW47 Vq7vsYtsQw2bQDAyFNX5RBM inDAzG4OdhY1uLkIeFFNaWS WeE2PlyONqFZmhH765STtnK jP2SNAn onKbZ6MmTYVbvJjpXzC4e9S 9Rc0KuPtxwFQhXA4zPpYgBW a1Y7RwApx8JENhnBfzHA5ii GFkZGlu Hy9vcLxbbCdzOU9cXPNmjip xe813QwWmt1wpLVVmnVNkJS dtTAM2L28qh9I6SKBsXNAkS OO2vBY4 eW3siHxwbtlvnJWsoErknnS woWvuKPthESepW411ETUlfJ jxVmDCMna4Q9KpOpx1UYCpb RnwJP0q xZBfEJjkMo8bdJzibUhlQE8 hWGXyrutze431UyHeq1vpJI AalEReSTzhFOR2D20iy9K2V CMwMDAw POB8pOY8xD0qrBgmvdmftCK mdDsgdmVydGljYWwtYWxpZ2 31SOQvjEliPo3AGyl7W6BaE up3CBIo bTmfAA1kaAHvGZwmOq6xhVh uwUxqVC4vIKJyibeue163Vy Dbb4kxRVYcmRSuEXgiDJY7F 05eh6G0 HRJrZBAmOVD5iJU7cN6snGz nbjogbGVmdDsgdmVydGljYW yaZCbnO187JDBhbCogGgJyy WVyOjwv dGQ+CO75it32Y4CzGoutDig 5EINhFJG6qBP4fW9sIYHeIK bnx2S2uEV9D5HfldCvrs8zd 2xsYXBz ZTo (more content not included)... [facility] BD Bone Density DEXA Studyon 03-31-2024 [...] prevention and treatment of osteoporosis. Osteoporos Int. 2021;33(10):4694-9407. doi: 10. 1007/g37600-924-80006-k . Epub 2021Jan 26. Erratum in: Osteoporos Int. 2021Apr 27;: PMID: [id number]; PMCID: [id number]. Final Dictated by: Иван Solis MD Dictated [...] Иван Solis MD 04/01/24 4:11 pm Technologist: [facility] Mammo Screening 3D Bilate ral.on 03-31-2024 ME Mammo Screening 3D Bilateral. MAMMOGRAM SCREENING 3-D [...] Assessment: 2-Benign finding Recommendation: Normal interval follow-up [facility] Provider Orderson 03-31-2024 Provider Orders [id number] [facility] Coding Summary[facility] 10-29-2023 Coding Summary HTMLBase 64 BgrikbjpDZr1nSj+PGhlYWQ +PK5XQDTqZ53juNDvfP3dF7 NMTElOSywgQVBQTElOSyIgb jDaPC9tgYKzTXUy IC8+KP7yXSUlNsmugIVuu8W 0xRO1T11vfs8mWUtzwJL4EU BrOsFffjhgx1fuiXg8MWpmH mluOyBt XGWwfN92CJT5pY07Qy00pEI cyQVma0yelHr1LwSbSNItVI A4uUihTMpyi7FeYPChJ90no TRem9I7 IQQroNygqPPzXpYejPW4mQ1 uLByaognnz4lhoudcAqi8un 21oSZyo1C7uHP3U2IrbrR2D GJvbGQg WjqjrAXXtZ1ucfmyn4qfijo mIjCjNCVqXRb2KWd8KTImcC otJtUgPB45QOS9BFOsuxIfB 2FsLWFs kNjvAqE3q9N2Gs8DP2OOUel xS1GUYWZLEVtfeMV+PC90cj 20G4QaAfoeXix2QWStPKQ6w TJ1mP8c HKGlCNujz2E0gGZ9X1CaxaB qqd1gv2juPBUwNUbaB58saJ Lqe7Z1QYEeeGW4SGJqtFksG iBzaG93 Oyc+ADEhbTszi0QoCogor1j dr0tqeMl6GjqsGILftkFwqU qiQDT7n7PbQd3pPZYlgDZ8f FW8sV4q FaYbPyH9JDojV688RoOxgWR lZykoP18oC1EcwNB+PHRyPj v2SASxzGajER6gW1YfDKJac mctbGVm fXgsOV8vUAWpsxalLHTcwA9 eQWKwT7m5AwLnYsU5OWxiC5 VnKNEkpgeiGq00dB3kRkYqV lL9RGzc Z6SizkM2MFGadUNaJAbpENB 5A79yv8W5TQMqMBJzSBM5sF P3gU2lrZpkroqimRTupLnac mVydGlj WEekECkvM902AZFcgLvyYlS vZGluZyBEYXRlOiAgMDEvMj kvMjAyNDwvdGQ+OXQvJWY5m WxlPSAn hURbOIzqKn6deBwqzCpzHW5 eMFIbhvtsQKRitC0oZWUycF YvmAlmSC1oWETcwngkt446D iAxMHB0 SBWyhSZmV0IgvE5xKoKzZJJ cYUSsP1ChcVItFQajG974RN wrYxH2YOXomrBiE0CmCNNfb WduOiB0 m0C4Gs8Sy7GbddrhV3IkbJS hIcSsZiwhKDh6N4KaInrlyE I+MC47VLIeNA29IMn9IMZ9k WxlPSdi YAVsJ3NycC2hZaXyLDNmTOZ kOyc+PHRhYmxlIHdpZHRoPS gzMEAcLdNwkVwcZA1fYs8iN GVyLWNv xYkpmCZkOiDft4umOTTiFUa gOV3zbPlbU9MwbUF7AAJgr6 e4Zp18G79aH0EtnLQ+PGNvb FR8wNF2 zG4lBqWaEwX5COhrZ039XbV jmNPySgtul6okz7vfnNd5Wn V3TDRoguOvjNwaJJU3x3OiR x20Y95r IHdpZHRoPSIxNSUiIHZhbGl out8dkT2nCi0+XVTdcPN5fI W0kO2eHgOfXiR5JTgmE859P nRvcCIv Qoewl6acg1zgnMs3CgNfVVO hpkSnaPonADE3g9MpFv12F4 YkrRsbp9WaRtv4dw05wIFam 1H4iBT5 Z1SvHBZggqrzvNLqpDwaQJ5 qHXMvhyipWPVpsY8zOSUdU3 m1NwNlAaJ2MQeeT1LvjtS8M GJvbGQg CBFupOVHzQ1njjipr7xkkre hWtJbBHFfBHz9ZWc2OINnmN odTxPoRKS2ChQ0UJB3eZQrp H1muDcx slacsY6bAor+JFC3bMFrkOC HVU4nXyjekIP+JKHnDBQ3xE vzDAlvUNQdxP2hMIKjI3n1F iAwLjA1 KJxeR6XsyzB1ZRSatRSnOEI jaOLCjJ8fcrjbp9kafyoxWh YcTEUiJYb1CSi4FKCnnItbM iBsZWZ0 VbP3MGF5hYXqpF6onKkzxoz ckS0xBvb+IrpeoMumXSJ0ZI i5P9MdWfv0QVBjkCpaJA9zi GFkZGlu Jq8uwHzcrJjnML4yUBOldxl xw946FpLcq4ukQJKovZMxPK qySCH5J25cq6Q7WCXeYVSeM MP7gUQ3 fH5faYrtlikyeWLzoPkqjoU wqLqaOLxbELwmM958CFYhvR duAtTdBQl8B1LnXzu3RFAti XpgEP8q fAStTRwhUn6jkAfbuMacAZ0 oYUDekkxxf342OjIkt5zqFW CqbKOyVTemLKX0A23wp2E9S CMwMDAw MRW6bTY1hR9buVnmcmsavLT mdDsgdmVydGljYWwtYWxpZ2 96OQDewAwwZiWjkCy0O2AoQ if3PGMq vAmuME0nkNKiHQpeHn4jgJe ivWpfKY6lWIYeyuoaj131Pb Qst7ofTVQrfWKmSVlwFVF2Y 69rd8V3 JETrBMZmXZP7rHK4aY8hfXf nbjogbGVmdDsgdmVydGljYW jwNBlzS194KXSbfZhkXhQit GllbnQg VQcjEBa5F9LnAektmHC+PC9 4NIEzXP28oIYfnCCtv1indO h5DgQfBCDmGTO9hQxiJFyfz 3JkZXIt G79hqIYjj9Y1LZHbwRetwQL wDaVddDM5kH3vKMhjfnywi5 irvutjPswfm7bemx45qS98G 29sIHdp ZHRoPSIzMCUiIHZhbGlnbj0 qvT8tVh3+XHZwxPH9uWF9tL 9fCMMxBhB3VFpeP340TvGth CIvPjxj s1rqi3uubKt5WhL4XTCvkwG ocWbiMXT9g0YlJo12R52dYB dpZHRoPSIyMCUiIHZhbGlnb r6gdJ2b Ii8+RYCjxDB7hXO2xT3gMhP kNyT3EBknJ243KrWzgOQkJy vfY56wP2CadUN+OUXeKjz9F CBzdHls PQ5yyJSqYQznLu7bZUS2AsY zFoRcTIfbR5HePLMpqovtzg dwoTR7RDCwERYqrV06Eg5dl DogMTBw lGEUtI8vkyjtj8fdfezkZvW bTKAzELh6NFd9YOEmxDztUg StNSB8BoU4MGG6gOUjjN2az Glnbjog uT6dP4IyFNCazerkKt09lO1 rJxMtWdF1HJpkQhb+U0FOQ0 rIVtcbFC9IJWbYQINMOLkys GQ+PHRk VHB4tDugXMlkSKGkwD6rILG iC5n5MgTzVfT0UGpiL2WfBG MloubrFf28xL1hHuZjIgP3I PsaM6Xv qmD3YUGrzALfWXfcIPD2D72 sj4Q1FXMkWEWqNAG8aFL8nT 1hbGlnbjogbGVmdDsgdmVyd GljYWwt AYstL161GDKkhJdaGgE0IvA sAiV3KcN1Z8VxHsg2ZJZdbC ksPT9pyIImGVoiMg5hmXpje VfnBO2b UGSrbsihHHDasP1qJBPitZF rhApaTG3mUDNytwtss371Gq RmUGP9RWOlaZZjP0YkbT2zP iAjMDAw IDJhY8BmdCAnFKevU040QEf pSqS4ZXSwxiWzN8NaRDTkiB uaYfQ8s0L1Gj00BeNGKEHyd zwvdGQ+ ULOfKGK2dEyvIDuyFTFwpN2 zWGXgW9s6DcUyLmI1JWfiC8 LyHFBtxyypFw19iS6oAlVqG fX3APzw K1HwaxR5MPChsKElQVxoRAB 8U23sz5M9XFLcOYTeDEN1bZ Z0uX8djFucgihxmMVupJvbk mVydGlj SJsoSLvlD099UOAkgJxcWaO FTUFMRTwvdGQ+RLXdKZT1zI kcQCqbAAMofX9uVIVrN3o2Q iAwLjA1 UMwgG5RhFZSqxbfuQx45nG6 fQlPqByK7SVpeS8SuexX1NF AmsKDuICpzJHG9X46vf8Q2Y CMwMDAw BXX5uFV8bD2wdLymoycnmPT mdDsgdmVydGljYWwtYWxpZ2 74UEHrfStaLf0NAI65ZU72P 3RyPjwv dGFibGU+PHRhYmxlIHdpZHR aFMbcGNYzHpFgdAudEA8hNa 9yZGVyLWNvbGxhcHNlOiBjb 2xsYXBz MDtlJH5brVpsC0MhaCZ7ECE qe8f0Al04F70bO0QwpIV+PG KusNC5hXE2qA0sKhPnCrI8U SpyP195 FkVltORpNdxxu8jiu9ijyRl 8PuFuNVCoypChlUkfKCB8y0 NcEq08C39eBMphDNLkXRQiM CUiIHZh vCrbhx7ljX1uQg6+PGNvbCB 5oQC9jG7tRgSyCyW6PKgjP2 20YpZajNWpAnudS98cA1Wjw XA+PHRy Owz2GELyjInyTV2evIFkHFc jSf3qOQQ9NmSeUbSdFYibH0 ZbVYIllffzeentlXF0XUAfB DUwaW47 Mk4jlWvgTa1bAGRgWDY4RHR onBZkZ3IrbT1jXoVmKXFlIX NhX7IiiFGkGGljN130VMzeM nG3MZOe acHqK9DuBNZcoBaxTvL4b9J 9Dc8TgGxjpONbIL6xIwDlMW l5C4LgUlf7BAPejKwbXT0dk GFkZGlu Cc9hgJkpzOjjQR5zZFHqafi ah866WvVam5njPUTwgVJyXW scTYO2V66nk5B7UOHjMTIyK HB8bVL2 gU1akKrhqqkhpHJrkCiyheM seLnsZEoxDJieP382TLWhvK xvObZRBzm5N4UeBub6HLYyt FewWE1d fXWbRVvyXm8upZhiiVclLW8 hJULgkgxvr242XuHtm7ymNW WspUSdWQffTFK5G09om6O3A CMwMDAw NCI8qSI6aG3jzElpvvqicBF mdDsgdmVydGljYWwtYWxpZ2 41RMMqpKbwPl8FQry5W6UkC bp4ASPf lJlbRP2tuGPvOEjoZn6nrKf ihFbuIZ2iMNVkjyzir135Rn Ynp7ioYJBhvQBlEKvzTAO6A 46mo0H4 GMDuDYBrPYG2lII4nR3agPh nbjogbGVmdDsgdmVydGljYW hvZGmmT040HHYugCgjXnJxm WVyOjwv dGQ+EQ21xr06Z0ZeYcjjHja 8ZTVtNYW8eQG8gH3cYGJuZO hnv3J6sIS5C3AjnuAflc6fk 2xsYXBz ZTo (more content not included)... [facility] ECG, Hospital Report Scanon 10-25-2023 [facility] Coding Summaryon 10-03-2023 Coding Summary HTMLBase 64 BujymxgpSVr9oRa+PGhlYWQ +TD2ZBCNdA31teJLzzB3jD9 NMTElOSywgQVBQTElOSyIgb iPuEG5xzEOvDZLc IC8+YL6iYTYvOnqcjXUeu9K 0eWB5M74mbt0jSMnneCD5YS TvTaPjkhsvb1qonFn9USrfK mluOyBt TFQgbF80LII6dW93Ec48qAI xkUMbi9rfyDy3UgFeFSCbNB C4mWwvYJmst4AfJSLjG06ka DYwl3H7 CEKfzLqsyWIbBbHicCL4vN2 fTLvfztpea6wwgyjmUve9ao 75eXTvo1A6yDL8X7QhaeY7E GJvbGQg MrvecOCDzY1gtndme4tebvi rImGeQCMfDZq6DKo0IEQviI wlMjGyNZ40MQI1KZCnouSvF 2FsLWFs sJkyTkX5a5A6Eg5BW1SVBwv eT8RTDXGFROrjyGL+PC90cj 35P8YxQjlsUpr6MFOvOAN2y AO7cA5y DZZcZJjle6N1uYP5E8KrpwG zdx4ju2ppDQSrQBeaR53raV Iiq9E5MLBjvRT7OCXzxMpzM iBzaG93 Oyc+GVHbrAqio9SiNbxwv7x am9hywZg6FurkEZXcivPpaT cmLLG6l7PyYt9gHNSjwYV7a ZJ3kG7c VvYoHwR4PTocC866ApNtqWO vXbdtO05kO7KwpAQ+PHRyPj m7DOKinLjmBM4dQ2LgCXAri mctbGVm gIfaAN4qRJDcqykjNZYkvW1 bRCDaB7t3FtMhRqD3ARugT9 YcWHQpqwrxZr22zF4gVfYcN vP4YAfh L4QtowL6ONEjrZLbTCaaXFE 7W27ha7H9SAVgOLWyZUJ2hC K4zR6reOnhgzkdwNDbeHqli mVydGlj PXivXTccM943YWFpkBadJkY vZGluZyBEYXRlOiAgMDEvMD MvMjAyNDwvdGQ+ZUEtRXL9q WxlPSAn mYKtNOasRk8ehHvxxPviVF7 nJXLxcamkTXWfuV9xVLJspZ QdlEcuWN5iQKFuqnhrz474M iAxMHB0 CVPmoBTgQ7UgoC7aDuSiEVB fQHYjN3FpxLWnGHhsA693YQ rzRoE7FHOelqQbH9IoIUFoj WduOiB0 r6B1Xe8Cq5KyghlpO6ChkDN rCwCbYcnjUIa3I9BtIxxzbU I+MW82AOCoOG92GEc8TJC7n WxlPSdi FAHmJ4OhlR1aPpOtDGIjJNQ kOyc+PHRhYmxlIHdpZHRoPS oaBCBbCaNrnDwhVK6mSy8jP GVyLWNv dKcadMMlDvKsi8loPBEsGTj rMA9vcHakQ5AtxBJ0ZMAhb0 t4Dv80F52zO9EtlXB+PGNvb WM0mDT2 sS2jNcCrOcC4YCqsN973NxW wgPQhCqsij4uiy8bkvBy6Dt I7NPVqcnExqGdoVWS9j3ZaJ b77S63c IHdpZHRoPSIxNSUiIHZhbGl yko1paR5hLo5+FYYsrEC4bC H5oA0dNfFrPyR7ARdwY271L nRvcCIv Qczjt3qzo3yfwKe9WtXdLJZ vjiXwgHqvAPD1b3XuWs82T4 RsoZghd2NpUst4rl49zPMnr 8V4bXB4 G3BqFLQgheuphQErxChtPP9 oPQNcrbzyPFFztE7tZTRbA6 s3AaQlNbF8CLihS6GtorG3G GJvbGQg ZXVvfBYCtC9amriyv7silgt lJvZiIDBpQLs2TNw9RZDnoL chRsItIEM2OkK5BTQ6kQSpc Q7zgVcl hllpyF5ySkb+ACE7hLSwaFW TLR3jNogqvCL+AWZjTMC2iD xvQWmvYTLqfA3zGHKjL3d2N iAwLjA1 VQumE4MzobE4ZAMfaJZhMQB yuVPVtH8prtbja5crygzfFr JsYOQvEKy4VWm0SZBlnAkzM iBsZWZ0 SmD9QED9nYDbwC9dwJehwhk vzT1mExm+VxomsAbvLAE8AD l8I3GvYmu6XVRpsTlbWN9mj GFkZGlu Vj7rsKbexTnzGN5qAKSxgmm lo357GnKdh1tfESPbeGEgRR dkKFN8S66gu2C4TCPoWECqA YK2cQF3 pE1ruUbwwblzlFMkaByqjgN tfOuiMNkbKUoiS823URPwnR qgZzInNNx0S8NrBrt1BESen SmvVU6o cXRoHFesMy7blQmwiHxuPM2 yFYJtxwtsl235CzUvi9bwWW LduKJtNUgmQQI8Q71zf1L8V CMwMDAw THJ6gBU8iE0wuUevfgsabBJ mdDsgdmVydGljYWwtYWxpZ2 61SAKkiPvzGhExePm5S6MrL cx3PZOh kSkiWP6bnVEmKZqmHh0lhHc foRlrGB7wWHXdjcabr593Ko Zht4cbWVWycPNnQSjiAHL3V 17kl5G5 EGRlFLAwSRT2kBD3nR8gdEk nbjogbGVmdDsgdmVydGljYW paBTsxI828ASLlsJapEmCnc GllbnQg IJuiNVk6B4LkTlibyJK+PC9 4YAVrQE67zTVlvJDsn6dcrM l1RxRtURXtVBD0tVajUUfyj 3JkZXIt I50dwMPxu4B6YDOctWlaaUP sQoKqrUR1nA5cQCmdlbwqi8 jdgkwjFrovz7fdrv03oN81Q 29sIHdp ZHRoPSIzMCUiIHZhbGlnbj0 wqG1gDn8+QRMvcKB8uHO9tP 4cOABzEjZ0OEcmP178OsMvv CIvPjxj p9btm3bplIi7UsE1PIJtymR mwNdhTGF9u2YjUg43W74bQM dpZHRoPSIyMCUiIHZhbGlnb i8fqE4i Ii8+ZUEglDK7uJS8dF7lHtF zUzR2RBviC299YpBqjEIjBs chO91zE8QtlUE+RTPqDav3P CBzdHls CP8apFRmRBbnBi6qVIZ0XjF mPuPyLGooQ0WxQTYjdxxyok kzzYA0GQZqMRIxbM25Ky2tc DogMTBw sEZZbR3llyohz9rhvnmbIvQ cIIXwERn2CRk0XVOrvOojBo UnYEQ0AxS5ZFD3zACgaE1uq Glnbjog vD9tX5EuQXCvckjbOu72dB1 qRxLlOoR9FCdiIwf+U0FOQ0 zYRxtyFX4EJRvPYYYDUPhzc GQ+PHRk IHD7uBxkFGwmFDThyJ4eZHK mT8l4BhZfEkN7PFrhA8OeCH HacjphHf81nF7zLyJpHqK9P PvjD2Th tpR9OTHtyNXoINdmGRE8D09 qa1A4MXZkABDeHXA2sGN3cW 1hbGlnbjogbGVmdDsgdmVyd GljYWwt DJehN448FHWdfGkqUiJ3YwW zEyR3NpU1L4VkNay8JQRogD yuBY9auMAzSRweFd5ulEsew CogCA3x CGHrzwnwLWOjsG2cNOOovVR srVqfMQ7pJVBnbtjtw258En SlETS3LLKukZGyA3GjaR2uP iAjMDAw AVMuN6SifGMoWMljJ410YKv aHjY7UCVtsiFwV5BjTKYkeJ waFyB8u4O6Is61FuCXGINcm zwvdGQ+ RNEfNSU0zSzcQDfcHYXnmX6 fNIMlD2x1ZpSpGpY5EDkqJ8 YnTKIekjukNp84mI7rQtCqP mP1XIrb E4ZxweQ4KRPnkSEkCCbxBGT 0L39rq7A0WLDlVVFcUUN6gN J7wF5jsLkgyflqtAVkoMkgh mVydGlj JQueALxmG196KPKffXpoHyG FTUFMRTwvdGQ+AZZjWFU3hW jxBJjwIKXyqS0lRQTzK4c2S iAwLjA1 UGixO3HwLKEsmzedLw69xR3 oDkOyDsV4ZWdvR2YtyzG2TP RdcJLrEYrhART1M95in8B2J CMwMDAw ICN0eSL0cY3yiDwoeztxvCB mdDsgdmVydGljYWwtYWxpZ2 88OYWjxWsjPk7GAY77FC15A 3RyPjwv dGFibGU+PHRhYmxlIHdpZHR pVOmyDUNhWwDspKanIX1bMh 9yZGVyLWNvbGxhcHNlOiBjb 2xsYXBz WPmbUO1cmKdpR2TinZI7WDI li8e5Ze75C04mD7SwaGW+PG SxvCI3bSQ0rV1nQdXhKlX4Z YvvM896 ToMwfBAlXivjr7xgf7dxvGz 9MxXnQKHqiaEhnEixGKR2p8 FaQi02E07nLYmmJDGvXDFsK CUiIHZh hJscjt7qiZ8lPk8+PGNvbCB 9wMQ3cN6dOpGdGrX4XGqrQ5 93BvGapJCeTontT15kN7Sku XA+PHRy Xfd1GXNncUcyZI4ajIMgVAb jFu9aUGJ5OeReIfEuIPcqJ0 OnRUYedagaalcrsWH3VYXiS DUwaW47 Nl6bsVhbWz2hJSSiWQN1CGR moHHfZ4NdxA8sIxUaZKSuJC FdY1ImyMMvQXnkK587OKofF dQ7HSFq niTmD7EfUOZgwBbqPsW6k4E 0Iw4UoCfksZWjIO6lWcFtQX f0D4XnPcs2YVZffKprMS8ne GFkZGlu Io9hbKwsaEeuZX2mYHEesdq ap005ZkHbx1btDEFybJFyJY vrAFD8K04rg2P9HVMtKJNlO CU8kWB7 oF5lkFukzszokWAliTfxtxS glMmyNYbfLRnfH717DCTuaJ ygPdUSSqi4C6LsBsk6ORLud XvmLT5p qYUyUPjjAt2ivMzkjUkyZG1 uAYXzolbfo283NwHke3imVV DweHIiTFlsALN3C02ws2A9O CMwMDAw SMC2hHB5iD8uwGnygqmaiWY mdDsgdmVydGljYWwtYWxpZ2 57LGRluTtvRh4TIir7D2MqJ fs6GTCx tSgzAO3kuMEwBEooUd2zoGq jmMhwBW1pNFPoiwouc035Gb Xmt5mrTCJbyXGmFBccLNH6T 70lx2N4 EWWwFGXsGLY2qWZ1pQ4yeOg nbjogbGVmdDsgdmVydGljYW qgZMtsX038YISxdOiyXfHrb WVyOjwv dGQ+KV38zo01C7EtIrhtWki 9OJWlKMA7mWI5hW7xXPVnHX thf9N0nUT5P4TdfcSpby2rg 2xsYXBz ZTo (more content not included)... [facility] Coding Summary HTMLBase 64 FfpzcayeJRk8uOa+PGhlYWQ +BK1SGCDwE67gkRXlmU5jV6 NMTElOSywgQVBQTElOSyIgb fTfXQ9xfZEuKNXj IC8+PB7yRPGoZngaeAGce1N 3lLX9L12dse8xWOreaLQ7PG BvGgYfyokmk1mtqOj8DAabL mluOyBt XSQdiZ27HCA4pU25Xc48cQY ieYPwg7mbdWt6QpPwJLUcBA I8gFawQYamf3VtKWQoC46bp VJie5C1 VMItgYzhxHJgGmTnnUX8wW7 wXRektuaka2zeoyyoFxt2hl 62eHPcm5L1bDO1V5HumnZ8P GJvbGQg BwfqcHFZlF5rkusvt4gendr pDzWxFJOmZDz9KPf3JMYzgC xrLpVrZD62DCT8KEJxglMbV 2FsLWFs cPocQjI8n7A0Jb7TG1XARxx gB2AUYFXGOSjreGD+PC90cj 81O1VaQxxpPim3BFBbUKT5l SN0rC0i UAWiTSqly8F8aVT0W6BfetQ uxv1eq5tjTSEwWRrwJ34dlK Mhv6U6ZYQsdSC0COZfwBhbN iBzaG93 Oyc+PFZkzWpis4SrPxmfn8z nc3cuiUe4CcqsPCRxuoTkdJ hzVEF5r5FdVi4mLWFffTV3w VF6cD3q LyPvUfA4CHcwX850WbCrzKT aMgrfS40tM9UetLB+PHRyPj f0FWHpiIpgHM6hN6OjYIEtt mctbGVm yCxgAU3xLMHriaysKUWwhF6 aWKAhT6a8RdDgRwS5BFkbA1 XfRLUhyhuzBj30kI0gJdGpG tF1LCsn U3BugeX1NKQmqEFqOZanMQS 1H75fk8M0HQBmLMOyBBD0tR W0tK6weIyyyewefZRlvJblb mVydGlj MWxgXGbsV609HFYokGguBzP vZGluZyBEYXRlOiAgMDEvMD MvMjAyNDwvdGQ+CUXnGVF9w WxlPSAn sMOhEMpsWj3npAaurIxoOH8 rPKIwaawcZQPhyQ3jSXKtwR JajRzmGI0rGNWattrfb176T iAxMHB0 KFMhuEViZ1PpwR8kLlIoSLH mFTZiF2SsaMYgCDzmU025AY jrEkS5COSctsFoS4NuVCEzg WduOiB0 p3P6Fz9Wm0ZyrfgmR5QjqQK hWeNiInwoGNy6J7VrLwcdnU I+WQ29QDUdGR89MUa7MXF7j WxlPSdi UDErG6DvyO6lGbPwERRxKCG kOyc+PHRhYmxlIHdpZHRoPS woDWVeBtMyaCdqXG1aRe4cK GVyLWNv bWlspXFwNxYer8khDMZlYLz qKY7frYftG7UbwOK5EPFnh3 q2Rm98H69eM6BhqWM+PGNvb MS6dJB5 iE6bOvQvNaZ9BEkhH909XxN zbMVfGupnx9zdt5ixmNs0Ub U3QWTpfkQyiGpvTAG0x6YkK b73P62i IHdpZHRoPSIxNSUiIHZhbGl zby2bxL1kUq3+LBSaiPF8rL J4qL5iUwYwUtK8VOhxC323S nRvcCIv Mhryp6fna1wriKd8NvTvYZX xurRebAifUGZ1v2AlCv23V1 JliExwr8FiKuf4ii32fUWda 8E2uKC4 H0ZzMLByxhswlWNqxJdeDI2 zBISiynzxTVCthM4zDVQwJ8 e5GoHuJoV6HDyzZ9SftkD6U GJvbGQg BGTvrBWCbC8lvblgh3urvda wVkHrQLOiBMd0JSs7GOCnjV fkYgHnAPK1UwE8XCY4hRKxu I8huNww tuaukB5dZez+PFT8dRVcpNK QNU5fBjujpYK+RMKiZKF7nY tgOSjiNOAzcH1gWPRfW0h8Z iAwLjA1 RVoiW8LjrhR2FEVwoAXpSNY pbUPHtR8smuibu2urthcxDy NeTXKeVKf3DDt9UNQheXxoN iBsZWZ0 HdA7TKA4nGHsmB7fuQwxqiu mrL8nPtd+RpklbHrxPTJ5KO f4U7KaHvd0PHIryLvbTR6wg GFkZGlu Uv7evLmnfNrtAR6vJDVirya se291DrBvj4hfIEStnKBdXY clQUE5V70kd7O9ZTDvRUGmS TJ7xCQ8 bO3tqUsqqftdrDIopNorazG otEulDBpcYYygM472AMEszW yvEzZsXGa5D8SdXyh0FAMqa AflJA8x cNDuWAoxSk9dyVsxsCkzYH9 aGSPgtzvii900BrDyc7phAG JlbJRuPXssPSL9P74xq5K4N CMwMDAw IMR2wLR9mU4wiAnkcidkkUQ mdDsgdmVydGljYWwtYWxpZ2 71LJViaHaqRnImgXa0X4KiG pr1ZDAt gVinZH6ynEMpZTwsIb0vyTg scNkbYF3lSAIsqpjkn839Fu Xum7ahVSAfaVXkILapGOM5B 05da6G9 KPIpDYFqNWR7mST4nF0smQf nbjogbGVmdDsgdmVydGljYW nyFSheV682SGKehEzaJdTay GllbnQg FIdqVHf0A2NxFokbdWJ+PC9 5CCJtXI16gXAyjOIig0qggX w0GrMbBJFuVAL3lXksITyif 3JkZXIt Q94czSZky0G2OPGknLwqkGI tGmPmvAG0vN8sNOvuyoyez7 qrvspxPftuv3zuoz69dD69C 29sIHdp ZHRoPSIzMCUiIHZhbGlnbj0 buF9dVw0+KNUmyRR8tED4hZ 7iFMVuAaM2FQnyL182KbClq CIvPjxj q8uyw6rllUq2VmM7COPslpR fmAjpRJR2l9WuTd90E66wGH dpZHRoPSIyMCUiIHZhbGlnb t5ktI5r Ii8+AUXpaWS7lAB5kJ7yYhO yHmS0FNckA455OcOokYMtFi dhH70gI9KkaHH+WNNtBsa8X CBzdHls CP1yrVTzBPoxJs0yYNG9QyL hWhVyLQtlN9ZgHSMqrbkver kgsBV8GBBwTCFheD75Nm9op DogMTBw sJJUsJ5hexxyp1jajityGcW pLYRgTNz3YZa8JNPzyOwkSr FjCLC1YyH9QUE6uBPmyC6ks Glnbjog uR2fS4JoTIKqyzfkOw12eC1 nUkOrStB0GHsiNau+U0FOQ0 hJIktxUP7KQYfGHPIMIXfde GQ+PHRk CBK6rWhlUEhnIPXkaN9kGJW nV3y9TdEbGlW6SCdtH9ZiYQ VakzjoPh36oO7gHnWxCfT4A DwvZ8Jb nbN9WYWqrURsXIcaZGD6X50 oj1K7PQEqVEDsYRB2qPW4hR 1hbGlnbjogbGVmdDsgdmVyd GljYWwt OUntS754DENjqAzcGyY4DgO nYwJ6MmB5O1VdFvc8IVUtaR qtLA0hyTAzHUkrOn7uyZyrd AgaTW9q MTLcboieDFPjtO0aRRXhuQB wtOeyEI6xWLGapqlri980Xi NbWLZ6MODfeTFgS4XfxO6jT iAjMDAw HHXhR6TcsZFgHEfwX136FYg oNcJ9SFNqxcRgK4MnDIUagT loXpX7a7X8Ny74WuTSXASem zwvdGQ+ NSRiXOF4bBqoDEesZNBanH7 hAFXjZ7v0XjSoXjW3MSndH6 ZeHDQbbudaFh45gK4pFuJwP aB7GGku Z9DrnbA1TUKaqQPfXHlnKKG 6F35pd7E9KUEfPFZfVBA8uA H7qE6qrXapljaarSPfaFhgf mVydGlj TFszTKenH499MTLbvJovWjI FTUFMRTwvdGQ+HWKyQIL3zY lkDYbkWNEfnZ8pBVItY0q0N iAwLjA1 HDevV7RmOYYmugpqPe65mE5 vPuFaWcU9IPcgG4VqfjD5VZ EmvRJcGLiiTKY5N20ne8B4E CMwMDAw MJM0kMO0bU1ygUrseneqyHN mdDsgdmVydGljYWwtYWxpZ2 21YCTnyEtdXz8RMX75UC33V 3RyPjwv dGFibGU+PHRhYmxlIHdpZHR xZYgfLGGjBtDgpPgbFJ6lDf 9yZGVyLWNvbGxhcHNlOiBjb 2xsYXBz ZLvhOZ7azGpvP0PeqBE8VZG lf0y3Zl69P93hV7GdwRA+PG UsvQG3kOK8cS9zVpVjAxX7G TyvT916 ZbOzeMMwVqnqa7bkw3xznRi 9JcBaEEMulnAoeYhjZLE1x4 YeOr30Y91qJSmxLBHlPHXeO CUiIHZh aKsrez1lhK1hLo1+PGNvbCB 2iRF7cS2vUeQgLwU0CUhlL2 79BjDkgQJtLxgdR90qL8Gko XA+PHRy Oji5JYEcoXejJG8btCOaRJz zJv0tEZO7QsRpIeBeFOegN3 KuIVYrwphiefewoKG7QGHcS DUwaW47 Pi6hsVozPr4vSNZxXRC2ZQT jzHOcJ6YftE2wWlYxUSIkPE SgF6UawZCgEDojJ424ETreJ eJ2QSPf xtQbJ3VkGHGwuXvdZzV8i8M 5Mj5BqTgydANtUL8pJmPaPX n5A0NiOkh5SHHkjShuYC1kp GFkZGlu Lj6kvPejlWrgKK2oZJZaqpf ag421FqMgx0fwQJLeuOAaFF daHHE6Z95ku7X8GGMcZKXrT GG7dDB1 fN0qfWnonttvwYSrgIckzqC kpYmtFPosWLvsX101NSNdkY noThGJGpc0N0BfJmp2DZMhl OsvYW7e xJGnGVshRi2phJkkbWxhHS3 nCYDogzzap171EiPrz6hvDX KpsIVrEGqvSLM9D67hx0K2W CMwMDAw VXT0kTJ6nH6zmXzukbdwwZU mdDsgdmVydGljYWwtYWxpZ2 74MDDpdHpmXw2AFtt0X7QiF os7RXIs aFzaZT9vhJXnIMlnTb2htYs mkSsgMC5gHRFrgcxtr538Si Osm1zySLKbtTGpQCjsMBU8W 98dz8X1 IWPtBIPuIPF4zCL0zC6syOa nbjogbGVmdDsgdmVydGljYW gaSXrhD953NFUvfLwiDtDrb WVyOjwv dGQ+XR68wp26X4RiBuhbLnu 9KBCvUID1cXP8vJ7zZLSnKX wim7P6oJO8Y3AmmrKtgf1wt 2xsYXBz ZTo (more content not included)... Normal [facility] .Auto Diff 09-27-2023 Auto Atkinson % 6 % Normal 10-12 [facility] Comment on above: Performed By: #### 7 363732, 15787404, 9139820, [id number] #### [facility] (DEFAULT) [address] [place] [address] Baso Abs# 0.0 x10 Normal 0.0-0.2 [facility] Comment on above: Performed By: #### 7 458356, [id number], 6321884, [id number] #### [facility] (DEFAULT) [address] [place] [address] 26100 Basophils/100 WBC (Bld) 1.1 % Normal 0.2-2.0 [facility] Comment on above: Performed By: #### 7 706290, 60168694, 1667556, [id number] #### [facility] (DEFAULT) [address] [place] [address] Eos Abs# 0.1 x10 Normal 0.0-0.4 [facility] Comment on above: Performed By: #### 7 022138, 29717986, 4817168, [id number] #### [facility] (DEFAULT) [address] [place] [address] Eosinophils/100 WBC (Bld) 1.9 % Normal 0.9-4.0 [facility] Comment on above: Performed By: #### 7 610687, 93675790, 8994823, [id number] #### [facility] (DEFAULT) [address] [place] [address] Lymph Abs# 1.0 x10 Low 1.3-2.9 [facility] Comment on above: Performed By: #### 7 519886, 69482324, 4992954, [id number] #### [facility] (DEFAULT) [address] [place] [address] Lymphocytes/100 WBC (Bld) 27 % Normal 14-48 [facility] Comment on above: Performed By: #### 7 906769, 32161475, 7082491, [id number] #### [facility] (DEFAULT) [address] [place] [address] Atkinson Abs# 0.2 x10 Normal 0.0-0.8 [facility] Comment on above: Performed By: #### 7 609768, 60794873, 0786951, [id number] #### [facility] (DEFAULT) [address] [place] [address] Neut Abs# 2.5 x10 Normal 1.5-9.2 [facility] Comment on above: Performed By: #### 7 205521, 03859632, 1385016, [id number] #### [facility] (DEFAULT) [address] [place] [address] Neutrophils/100 WBC (Bld) 64 % Normal 44-88 [facility] Comment on above: Performed By: #### 7 487882, 39716055, 2481399, [id number] #### [facility] (DEFAULT) [address] [place] [address] CBC w/ Auto Diffon Erythrocyte distribution width (RBC) [Ratio] 14.5 % Normal 11.5-15.0 [facility] Comment on above: Performed By: #### 7 273694, 08457593, 6475687, [id number] #### [facility] (DEFAULT) [address] [place] [address] Hematocrit (Bld) [Volume fraction] 33.8 % Normal 33.7-40.4 [facility] Comment on above: Performed By: #### 7 967142, 17944832, 0805961, [id number] #### [facility] (DEFAULT) [address] [place] [address] Hemoglobin (Bld) [Mass/Vol] 11.0 g/dL Low 11.3-15.9 [facility] Comment on above: Performed By: #### 7 219409, 25467970, 2153752, [id number] #### [facility] (DEFAULT) [address] [place] [address] MCH (RBC) [Entitic mass] 27 pg Normal 24-34 [facility] Comment on above: Performed By: #### 7 531082, 16070578, 9779891, [id number] #### [facility] (DEFAULT) [address] [place] [address] 12557 MCHC (RBC) [Mass/Vol] 32 g/dL Normal 26-37 [facility] Comment on above: Performed By: #### 7 424625, 80958530, 4358664, [id number] #### [facility] (DEFAULT) [address] [place] [address] 60507 MCV (RBC) [Entitic vol] 84 fL Normal 81-100 [facility] Comment on above: Performed By: #### 7 567582, 70768381, 2460179, [id number] #### [facility] (DEFAULT) [address] [place] [address] 62729 Platelet 294 x10 Normal 138-427 [facility] Comment on above: Performed By: #### 7 631780, 12234031, 0741686, [id number] #### [facility] (DEFAULT) [address] [place] [address] Platelet mean volume (Bld) [Entitic vol] 6.7 fL Normal 6.3-10.2 [facility] Comment on above: Performed By: #### 7 716087, 42875874, 1583697, [id number] #### [facility] (DEFAULT) [address] [place] [address] RBC 4.02 x10 Normal 3.70-5.30 [facility] Comment on above: Performed By: #### 7 746012, 70679220, 3947863, [id number] #### [facility] (DEFAULT) [address] [place] [address] WBC 3.9 x10 Normal 3.5-10.5 [facility] Comment on above: Performed By: #### 7 266404, 51896529, 7013098, [id number] #### [facility] (DEFAULT) [address] [place] [address] Man Diff? Auto Invalid Interpretation Code [facility] Comment on above: Performed By: #### 7 775470, 37497394, 4879357, [id number] #### [facility] (DEFAULT) [address] [place] [address] Standardon 09-27-2023 eGFR Non AA >60 Invalid Interpretation Code [facility] Comment on above: Performed By: #### 7 002385, 34676347, 0307376, [id number] #### [facility] (DEFAULT) [address] [place] [address] eGFR AA >60 Invalid Interpretation Code [facility] Comment on above: Performed By: #### 7 811267, 86384731, 0196744, [id number] #### [facility] (DEFAULT) [address] [place] [address] Albumin [Mass/Vol] 4.0 g/dL Normal 3.5-5.0 [facility] Comment on above: Performed By: #### 7 281622, 95310530, 6489270, [id number] #### [facility] (DEFAULT) [address] [place] [address] 68443 Albumin/Globulin [Mass ratio] 1.2 {ratio} Low 1.4-2.6 [facility] Comment on above: Performed By: #### 7 551538, 27862480, 0443032, [id number] #### [facility] (DEFAULT) [address] [place] [address] 84735 Alk Phos 79 IU/L Normal 32-91 [facility] Comment on above: Performed By: #### 7 932946, 26906803, 6802469, [id number] #### [facility] (DEFAULT) [address] [place] [address] ALT [Catalytic activity/Vol] 15.0 U/L Normal 14.0-54.0 [facility] Comment on above: Performed By: #### 7 848418, 89192065, 8994101, [id number] #### [facility] (DEFAULT) [address] [place] [address] Anion gap [Moles/Vol] 11.9 mmol/L Normal 5.0-19.0 [facility] Comment on above: Performed By: #### 7 965449, 36887256, 8757217, [id number] #### [facility] (DEFAULT) [address] [place] [address] AST [Catalytic activity/Vol] 22 U/L Normal 15-41 [facility] Comment on above: Performed By: #### 7 457570, 55655808, 5564412, [id number] #### [facility] (DEFAULT) [address] [place] [address] 61578 Bili Total 0.9 mg/dL Normal 0.3-1.2 [facility] Comment on above: Performed By: #### 7 293226, 49234546, 4336599, [id number] #### [facility] (DEFAULT) [address] [place] [address] 72262 Calcium [Mass/Vol] 8.8 mg/dL Low 8.9-10.3 [facility] Comment on above: Performed By: #### 7 862998, 33299011, 9960701, [id number] #### [facility] (DEFAULT) [address] [place] [address] 56003 Chloride [Moles/Vol] 107 mmol/L Normal 101-111 [facility] Comment on above: Performed By: #### 7 885922, 14090133, 8062312, [id number] #### [facility] (DEFAULT) [address] [place] [address] 42418 CO2 [Moles/Vol] 25 mmol/L Normal 21-32 [facility] Comment on above: Performed By: #### 7 380788, 56585450, 7119283, [id number] #### [facility] (DEFAULT) [address] [place] [address] 04382 Creatinine [Mass/Vol] 0.57 mg/dL Low 0.60-1.30 [facility] Comment on above: Performed By: #### 7 116578, 38099206, 5487313, [id number] #### [facility] (DEFAULT) [address] [place] [address] 05890 Globulin (S) [Mass/Vol] 3.1 g/dL Normal 1.5-4.3 [facility] Comment on above: Performed By: #### 7 368331, 25785791, 6524302, [id number] #### [facility] (DEFAULT) [address] [place] [address] 83320 Glucose [Mass/Vol] 99.0 mg/dL Normal 74.0-118.0 [facility] Comment on above: Performed By: #### 7 900836, 54570234, 9755075, [id number] #### [facility] (DEFAULT) [address] [place] [address] 83225 Osmolality 278 mOsm/L Invalid Interpretation Code [facility] Comment on above: Performed By: #### 7 275215, 16639127, 9454838, [id number] #### [facility] (DEFAULT) [address] [place] [address] 21427 Potassium [Moles/Vol] 3.9 mmol/L Normal 3.6-5.1 [facility] Comment on above: Performed By: #### 7 781041, 07267516, 3701833, 0840153412 #### [facility] (DEFAULT) [address] [place] [address] 58855 Protein [Mass/Vol] 7.1 g/dL Normal 6.5-8.1 [facility] Comment on above: Performed By: #### 7 651911, 14447145, 9776211, [id number] #### [facility] (DEFAULT) [address] [place] [address] 87879 Sodium [Moles/Vol] 140.0 mmol/L Normal 136.0-144.0 [facility] Comment on above: Performed By: #### 7 049268, 03567720, 2680536, [id number] #### [facility] (DEFAULT) [address] [place] [address] 77121 Urea nitrogen [Mass/Vol] 10 mg/dL Normal 8-26 [facility] Comment on above: Performed By: #### 7 139044, 45708205, 0337094, [id number] #### [facility] (DEFAULT) [address] [place] [address] 72200 Urea nitrogen/Creatinin e [Mass ratio] 17.5 mg/mg High 4.6-16.2 [facility] Comment on above: Performed By: #### 7 289363, 17988710, 1846243, [id number] #### [facility] (DEFAULT) [address] [place] [address] 93546 Lipid Panel Standardon 09-27 Cholesterol [Mass/Vol] 119.0 mg/dL Normal 66.0-200.0 [facility] Comment on above: Order Comment: pt rodriguez d a dup order for lipidc.c. dr jade johnson Performed By: #### 1 [id number] ####[facility] (DEFAULT)[address] [place] [address] 55318 Cholesterol in HDL [Mass/Vol] 59 mg/dL Normal 40-71 [facility] Comment on above: Order Comment: pt rodriguez d a dup order for lipidc.c. dr jade johnson Performed By: #### 1 [id number] ####[facility] (DEFAULT)[address] [place] [address] 37322 Cholesterol in LDL [Mass/Vol] 33 mg/dL Normal 1-100 [facility] Comment on above: Order Comment: pt rodriguez d a dup order for lipidc.c. dr jade johnson Performed By: #### 1 [id number] ####[facility] (DEFAULT)[address] [place] [address] 19584 Cholesterol.total/ Cholesterol in HDL [Mass ratio] 2.0 {ratio} Normal 0.0-4.5 [facility] Comment on above: Order Comment: pt rodriguez d a dup order for lipidc.c. dr jade johnson Performed By: #### 1 [id number] ####[facility] (DEFAULT)[address] [place] [address] 36455 Triglyceride [Mass/Vol] 136.0 mg/dL Normal 0.0-150.0 [facility] Comment on above: Order Comment: pt rodriguez d a dup order for lipidc.c. dr jade johnson Performed By: #### 1 [id number] ####[facility] (DEFAULT)[address] [place] [address] 35418 VLDL. 27 mg/dL Normal 5-40 [facility] Comment on above: Order Comment: pt rodriguez d a dup order for lipidc.c. dr jade johnson Performed By: #### 1 [id number] ####[facility] (DEFAULT)[address] [place] [address] 11231 Provider Orderson 09-27-2023 Provider Orders [id number] [id number]#1.00 [facility] Provider Orders [id number] [id number]#1.00 [facility] TSHon 09-27-2023 TSH Qn 0.88 m[IU]/L Normal 0.45-5.33 [facility] Comment on above: Performed By: #### 7 495302, 31875955, 2008783, [id number] #### [facility] (DEFAULT) [address] [place] [address] 83026 Covid-19 PCR (CVDTBH)on 10-01 SARS-CoV-2 (COVID-19) RNA CHRISTAL+probe Ql (Unsp spec) Not detected Normal NOT DETECTED [facility] Comment on above: Result Comment: This test is not yet approved or cleared by the [place] FDA. When there are no FDA-approved or cleared tests available, and other criteria are met, FDA can make tests available under an emergency access mechanism called an Emergency Use Authorization (EUA). The EUA for this test is supported by the [employer] of Health and Human Service's (HHS's) declaration [...] SARS-CoV-2. Performed By: #### C VDTBH #### [facility] [address] [place], [place] [address] Dr. Madeline Short AMYLASEon 05-18-2021 Amylase [Catalytic activity/Vol] 55 U/L Normal 31-110 [facility] Comment on above: Performed By: #### H STROPN, LIPA, DREW ####[facility] [address] [place], [place] [address]AjwinrGianluca Lebron CARDIAC ARAM ADMITon 021 CK [Catalytic activity/Vol] 47 U/L Normal 30-135 [facility] Comment on above: Performed By: #### C VALDEZ, CMADM #### [facility] [address] [place], [place] [address] Gianluca Lebron CK.MB [Mass/Vol] 0.37 ng/mL Normal <=2.37 [facility] Comment on above: Performed By: #### C VALDEZ, CMADM #### [facility] [address] [place], [place] [address] Gianluca Lebron HSTROP <4.0 Normal 4.0-35.5 [facility] Comment on above: Result Comment: CUT- OFF POINTS HAVE BEEN ESTABLISHED BASED ON THE FOURTH UNIVERSAL DEFINITIONS OF MYOCARDIAL INFARCTION. THE UPPER REFERENCE LIMIT (URL) OF TROPONIN, DEFINED THE 99TH PERCENTILE OF cTnI DISTRIBUTION IN A REFERENCE POPULATION, HAS BEEN CONFIRMED THE DECISION THRESHOLD FOR KS DIAGNOSIS. Performed By: #### C VALDEZ, CMADM #### [facility] [address] [place], [place] [id number] Gianluca Vi KRISTINE 13.0 ng/mL Normal <=61.5 [facility] Comment on above: Performed By: #### C VALDEZ, CMADM #### [facility] [address] [place], [place] [address] Gianluca Vi CBC AUTO DIFFon 05-18-2021 BASO # 0.0 103/ul Normal 0.0-0.1 [facility] Comment on above: Performed By: #### C BC #### [facility] [address] [place] [address] Gianluca Vi Basophils/100 WBC (Bld) 0.6 % Normal 0.2-2.0 [facility] Comment on above: Performed By: #### C BC #### [facility] [address] [place], [place] [address] Gianluca Vi EO # 0.1 103/ul Normal 0.0-0.7 [facility] Comment on above: Performed By: #### C BC #### [facility] [address] [place], [place] [address] Gianluca Vi Eosinophils/100 WBC (Bld) 1.7 % Normal 0.9-7.0 [facility] Comment on above: Performed By: #### C BC #### [facility] [address] [place], [place] [address] Gianluca Vi Erythrocyte distribution width (RBC) [Ratio] 13.0 % Normal 11.0-15.0 [facility] Comment on above: Performed By: #### C BC #### [facility] [address] [place], [place] [address] Gianluca Iv Hematocrit (Bld) [Volume fraction] 42.4 % Normal 36.0-48.0 [facility] Comment on above: Performed By: #### C BC #### [facility] [address] [place] [id number] Gianluca Vi Hemoglobin (Bld) [Mass/Vol] 13.4 g/dL Normal 12.0-16.0 [facility] Comment on above: Performed By: #### C BC #### [facility] [address] [place] [address] Gianluca Vi IG # 0.03 10e3/ul Normal 0.00-0.03 [facility] Comment on above: Performed By: #### C BC #### [facility] [address] [place], [place] [address] Gianluca Vi IG % 0.5 % Normal 0.0-0.5 [facility] Comment on above: Performed By: #### C BC #### [facility] [address] [place] [address] Gianluca Vi LYMPH # 1.5 103/ul Normal 1.2-3.8 [facility] Comment on above: Performed By: #### C BC #### [facility] [address] [place] [address] Gianluca Vi Lymphocytes/100 WBC (Bld) 23.6 % Normal 20.5-60.0 [facility] Comment on above: Performed By: #### C BC #### [facility] [address] [place] [address] Gianluca Vi MANUAL DIFF REQ NO Normal [facility] Comment on above: Performed By: #### C BC #### [facility] [address] [place], [place] [id number] Gianluca Vi MCH (RBC) [Entitic mass] 30.7 pg Normal 26.7-34.0 [facility] Comment on above: Performed By: #### C BC #### [facility] [address] [place], [place] [address] Gianluca Vi MCHC (RBC) [Mass/Vol] 31.6 g/dL Normal 29.9-35.2 [facility] Comment on above: Performed By: #### C BC #### [facility] [address] [place], [place] [address] Gianlucarayo Lebron MCV (RBC) [Entitic vol] 97.0 fL Normal 81.0-99.0 [facility] Comment on above: Performed By: #### C BC #### [facility] [address] [place] [address] Gianlucarayo Lebron MONO # 0.4 103/ul Normal 0.3-0.8 [facility] Comment on above: Performed By: #### C BC #### [facility] [address] [place], [place] [address] Gianlucarayo Kochen Monocytes/100 WBC (Bld) 6.9 % Normal 1.7-12.0 [facility] Comment on above: Performed By: #### C BC #### [facility] [address] [place] [address] Gianlucarayo Kochen NEUT # 4.3 103/ul Normal 1.4-6.5 [facility] Comment on above: Performed By: #### C BC #### [facility] [address] [place], [place] [address] Gianluca Lebron Neutrophils/100 WBC (Bld) 66.7 % Normal 43.0-75.0 [facility] Comment on above: Performed By: #### C BC #### [facility] [address] [place], [place] [address] Gianlucarayo Lebron Platelet mean volume (Bld) [Entitic vol] 9.3 fL Critically low 9.5-13.5 [facility] Comment on above: Performed By: #### C BC #### [facility] [address] [place], [place] [address] Gianluca Vi PLT 227 103/ul Normal 150-450 [facility] Comment on above: Performed By: #### C BC #### [facility] [address] [place], [place] [address] Gianluca Vi RBC 4.37 106/ul Normal 4.20-5.40 [facility] Comment on above: Performed By: #### C BC #### [facility] [address] [place], [place] [address] Gianluca Vi WBC 6.4 103/ul Normal 4.0-11.0 [facility] Comment on above: Performed By: #### C BC #### [facility] [address] [place], [place] [address] Gianluca Vi LACTATE/LACTIC ACIDon 2020 Lactate [Moles/Vol] 1.6 mmol/L Normal 0.7-2.0 [facility] Comment on above: Performed By: #### L ACT ####[facility] [address] [place], [place] [address]Uiofdi Vi LIPASEon 05-18-2021 Lipase [Catalytic activity/Vol] 88.0 U/L Normal 23.0-300.0 [facility] Comment on above: Performed By: #### H RODNEY RAMIREZ AMY ####[facility] [address] [place], [place] [address]Nxsxti Karen PROF 14(COMP METB)on 021 Albumin [Mass/Vol] 4.2 g/dL Normal 3.5-5.0 [facility] Comment on above: Performed By: #### C KOMAL KELLOGG #### [facility] [address] [place], [place] [address] Gianluca Vi Albumin/Globulin [Mass ratio] 1.2 {ratio} Normal [facility] Comment on above: Performed By: #### C VALDEZ, KOMAL #### [facility] [address] [place], [place] [address] Gainluca Vi ALP [Catalytic activity/Vol] 76 U/L Normal 38-126 [facility] Comment on above: Performed By: #### C VALDEZ, KOMAL #### [facility] [address] [place], [place] [address] Gianluca Vi ALT [Catalytic activity/Vol] 50 U/L Normal 9-52 [facility] Comment on above: Performed By: #### C VALDEZ, MUKUNDDM #### [facility] [address] [place], [place] [address] Gianluca Vi Anion gap [Moles/Vol] 15.0 mmol/L Normal [facility] Comment on above: Performed By: #### C VALDEZ, CMADM #### [facility] [address] [place], [place] [address] Gianluca Vi AST [Catalytic activity/Vol] 28 U/L Normal 14-36 [facility] Comment on above: Performed By: #### C VALDEZ, CMADM #### [facility] [address] [place] [id number] Gianluca Vi Bilirubin [Mass/Vol] 0.4 mg/dL Normal 0.2-1.3 [facility] Comment on above: Performed By: #### C VALDEZ, CMADM #### [facility] [address] [place] [id number] Gianluca Vi Calcium [Mass/Vol] 9.1 mg/dL Normal 8.4-10.2 [facility] Comment on above: Performed By: #### C VALDEZ, CMADM #### [facility] [address] [place] [id number] Gianluca Vi Chloride [Moles/Vol] 104 mmol/L Normal 98-107 [facility] Comment on above: Performed By: #### C VALDEZ, CMADM #### [facility] [address] [place] [id number] Gianluca Vi CO2 [Moles/Vol] 26.2 mmol/L Normal 22.0-30.0 [facility] Comment on above: Performed By: #### C VALDEZ, CMADM #### [facility] [address] [place] [id number] Gianluca Vi Creatinine [Mass/Vol] 0.82 mg/dL Normal 0.52-1.04 [facility] Comment on above: Performed By: #### C VALDEZ, CMADM #### [facility] [address] [place] [id number] Gianluca Vi EGFR-AF QATARI >60 Normal >=60 [facility] Comment on above: Performed By: #### C VALDEZ, CMADM #### [facility] [address] [id number] Gianluca Iv EGFR-NON AF QATARI >60 Normal >=60 [facility] Comment on above: Performed By: #### C VALDEZ, CMADM #### [facility] [address] [place], [place] [address] Gianluca Vi Globulin (S) [Mass/Vol] 3.4 g/dL Normal [facility] Comment on above: Performed By: #### C VALDEZ, KOMAL #### [facility] [address] [phone] Gianluca Vi Glucose [Mass/Vol] 88 mg/dL Normal 74-106 [facility] Comment on above: Performed By: #### C VALDEZ, KOMAL #### [facility] [address] [phone] Gianluca Vi Potassium [Moles/Vol] 3.2 mmol/L Critically low 3.4-5.0 [facility] Comment on above: Performed By: #### C VALDEZ, KOMAL #### [facility] [address] [phone] Gianluca Vi Protein [Mass/Vol] 7.6 g/dL Normal 6.1-8.2 [facility] Comment on above: Performed By: #### C VALDEZ, KOMAL #### [facility] [address] [address] Gianluca Vi Sodium [Moles/Vol] 142 mmol/L Normal 137-145 [facility] Comment on above: Performed By: #### C VALDEZ, KOMAL #### [facility] [address] [place], [place] [phone] Gianluca Vi Urea nitrogen [Mass/Vol] 16.0 mg/dL Normal 7.0-17.0 [facility] Comment on above: Performed By: #### C VALDEZ, KOMAL #### [facility] [address] [phone] Gianluca Vi Urea nitrogen/Creatinin e [Mass ratio] 19.5 mg/mg Normal [facility] Comment on above: Performed By: #### C KOMAL KELLOGG #### [facility] [address] [place], [place] [phone] Gianluca Vi PROTIMEon 05-18-2021 INR Coag (PPP) [Relative time] 1.01 {INR} Normal [facility] Comment on above: Performed By: #### P T PTT #### [facility] [address] [place], [place] [address] Gianluca Lebron INR GUIDELINES SEE BELOW Normal [facility] Comment on above: Result Comment: ARLEY RED INR: 2.0 - 3.0 CONDITIONS NOT LISTED BELOW 2.5 - 3.5 FOR PROSTHETIC HEART VALVE REPLACEMENT 2.5 - 3.5 RECURRENT THROMBOSIS Performed By: #### P T, PTT #### [facility] [address] [address] Gianluca Lebron PT Coag (PPP) [Time] 10.9 s Normal 9.0-11.6 [facility] Comment on above: Performed By: #### P T, PTT #### [facility] [address] [address] Gianluca Lebron PTTon 05-18-2021 aPTT Coag (Bld) [Time] 25.7 s Normal 22.3-36.2 [facility] Comment on above: Performed By: #### P T, PTT #### [facility] [address] [address] Gianluca Lebron TROPONIN, HIGH SENSITIVITYon 05-18-2021 HSTROP 4.3 pg/mL Normal 4.0-35.5 [facility] Comment on above: Result Comment: CUT- OFF POINTS HAVE BEEN ESTABLISHED BASED ON THE FOURTH UNIVERSAL DEFINITIONS OF MYOCARDIAL INFARCTION. THE UPPER REFERENCE LIMIT (URL) OF TROPONIN, DEFINED THE 99TH PERCENTILE OF cTnI DISTRIBUTION IN A REFERENCE POPULATION, HAS BEEN CONFIRMED THE DECISION THRESHOLD FOR [place] DIAGNOSIS. Performed By: #### H RODNEY RAMIREZ AMY ####[facility] [address] [place], [place] [address]SyvclvGianluca Lebron XR CHEST 1 Von 05-18-2021 XR [...] Jeremie MALDONADO Date: 2021-05-18 00:22 Normal [facility] Covid-19 PCR (CVDTB)on 01-30 SARS-CoV-2 (COVID-19) RNA CHRISTAL+probe Ql (Unsp spec) Not detected Normal NOT DETECTED [facility] Comment on above: Result Comment: This test is not yet approved or cleared by the [place] FDA. When there are no FDA-approved or cleared tests available, and other criteria are met, FDA can make tests available under an emergency access mechanism called an Emergency Use Authorization (EUA). The EUA for this test is supported by the [place] of Health and Human Service's (HHS's) declaration [...] consistent with SARS-CoV-2. Performed By: #### C [facility] #### [facility] [address] [place] [address] Gianluca Lebron Vital Signs Date Time Vital Sign Value Performing Clinician Facility 10-29-2024 09:26-0500 Body height 162.6 cm Dione Monge MD Work Phone: [facility] 10-29-2024 09:26-0500 Body mass index (BMI) [Ratio] 31.24 kg/m2 Dione Monge MD Work Phone: [facility] 10-29-2024 09:26-0500 Body weight 82.56 kg Dione Monge MD Work Phone: [facility] 10-29-2024 09:26-0500 Diastolic blood pressure 84 mm[Hg] Dione Monge MD Work Phone: [facility] 10-29-2024 09:26-0500 Heart rate 74 /min Dione Monge MD Work Phone: [facility] 10-29-2024 09:26-0500 Systolic blood pressure 132 mm[Hg] Dione Monge MD Work Phone: [facility] 10-15-2024 13:11-0500 Body mass index (BMI) [Ratio] 31.38 kg/m2 Leonard Oyel DO Work Phone: [facility] 10-15-2024 13:11-0500 Body weight 82.92 kg Leonard Yoel DO Work Phone: [facility] 10-15-2024 13:11-0500 Diastolic blood pressure 84 mm[Hg] Leonard Yoel DO Work Phone: [facility] 10-15-2024 13:11-0500 Systolic blood pressure 122 mm[Hg] Leonard Yoel DO Work Phone: [facility] 10-08-2024 13:04-0500 Body height 162.6 cm Ayaan Murcek DO Work Phone: [facility] 10-08-2024 13:04-0500 Body mass index (BMI) [Ratio] 44.63 kg/m2 Ayaan Murcek DO Work Phone: [facility] 10-08-2024 13:04-0500 Body weight 117.94 kg Ayaan Murcek DO Work Phone: [facility] 09-10-2024 14:24-0500 Body height 162.6 cm Ayaan Murcek DO Work Phone: [facility] 09-10-2024 14:24-0500 Body mass index (BMI) [Ratio] 44.63 kg/m2 Ayaan Murcek DO Work Phone: [facility] 09-10-2024 14:24-0500 Body weight 117.94 kg Ayaan Murcek DO Work Phone: [facility] 08-19-2024 10:05-0500 Body height 162.6 cm Ayaan Murcek DO Work Phone: [facility] 08-19-2024 10:05-0500 Body mass index (BMI) [Ratio] 44.97 kg/m2 Ayaan Espitia DO Work Phone: [facility] 08-19-2024 10:05-0500 Body weight 118.84 kg Ayaan Espitia DO Work Phone: [facility] 04-16-2024 14:56-0400 Blood Pressure Location Marvin HOOKS [facility] 04-16-2024 14:56-0400 Diastolic blood pressure 84 mm[Hg] Marvin HOOKS [facility] 04-16-2024 14:56-0400 Heart rate 72 /min Marvin [facility] 04-16-2024 14:56-0400 Respiratory rate 16 /min Marvin [facility] 04-16-2024 14:56-0400 Systolic blood pressure 124 mm[Hg] Marvin [facility]OOKS [facility] 03-20-2024 11:02-0400 Body height 162.56 cm [facility] 03-20-2024 11:02-0400 Body mass index (BMI) [Ratio] 31.2 kg/m2 [facility] 03-20-2024 11:02-0400 Body weight 82.55 kg [facility] 03-20-2024 11:02-0400 Diastolic blood pressure 88 mm[Hg] [facility] 03-20-2024 11:02-0400 Heart rate 80 /min [facility] 03-20-2024 11:02-0400 Systolic blood pressure 143 mm[Hg] [facility] 10-25-2023 11:43-0500 Body height 162.6 cm Dione Monge MD Work Phone: [employer] 10-25-2023 11:43-0500 Body mass index (BMI) [Ratio] 31.24 kg/m2 Dione Monge MD Work Phone: [employer] 10-25-2023 11:43-0500 Body weight 82.56 kg Dione Monge MD Work Phone: [employer] 10-25-2023 11:43-0500 Diastolic blood pressure 80 mm[Hg] Dione Monge MD Work Phone: [employer] 10-25-2023 11:43-0500 Heart rate 77 /min Dione Monge MD Work Phone: [employer] 10-25-2023 11:43-0500 SaO2% (BldA) [Mass fraction] 96 % Dione Monge MD Work Phone: [employer] 10-25-2023 11:43-0500 Systolic blood pressure 98 mm[Hg] Dione Monge MD Work Phone: [employer] 02-21-2023 10:30-0400 Body height 161.29 cm Jade Johnson Other [employer] Other 02-21-2023 10:30-0400 Body mass index (BMI) [Ratio] 30.68 kg/m2 Jade Johnson Other [employer] Other 02-21-2023 10:30-0400 Body weight 79.83 kg Jade Johnson Other [employer] Other 02-21-2023 10:30-0400 Diastolic blood pressure 82 mm[Hg] Jade Johnson Other [employer] Other 02-21-2023 10:30-0400 Systolic blood pressure 115 mm[Hg] Jade Johnson Other [employer] Other Encounters Encounter Date Encounter Type Care Provider Facility Start: 10-29-2024 End: 10-29-2024 ambulatory DIONE MONGE [facility] Start: 10-29-2024 End: 10-29-2024 Office outpatient visit 15 minutes Dione Monge MD Work Phone: [facility] Comment on above: ASCVD (arteriosclero tic cardiovascular disease) (Primary Dx); Essential hypertension; Mixed hyperlipidemia; Presence of coronary angioplasty implant and graft Start: 10-28-2024 End: 10-28-2024 [facility] Start: 10-15-2024 End: 10-15-2024 Bamboo flowsheet Leonard Yoel DO Work Phone: [facility] Start: 10-15-2024 End: 10-20-2024 Bamboo flowsheet Leonard Yoel DO Work Phone: [facility] Start: 10-15-2024 End: 10-20-2024 Clinisync Result Encounter Leonard Yoel DO Work Phone: [facility] Department Unsolicited Start: 10-15-2024 End: 10-15-2024 ambulatory LEONARD YOEL Not Available Start: 10-15-2024 End: 10-15-2024 Patient encounter procedure Leonard Yoel DO Work Phone: [facility] Start: 10-15-2024 End: 10-15-2024 Periodic preventive med est patient 40-64yrs Leonard Yoel DO Work Phone: [facility] Comment on above: Well woman exam with routine gynecological exam; Breast cancer screening by mammogram Start: 10-08-2024 End: 10-08-2024 Bamboo flowsheet Ayaan Espitia DO Work Phone: [facility] Start: 10-08-2024 End: 10-08-2024 Bamboo flowsheet Ayaan Espitia DO Work Phone: [facility] Start: 10-08-2024 End: 10-08-2024 Office outpatient visit 15 minutes Ayaan Espitia DO Work Phone: [facility] Comment on above: Epistaxis (Primary D x) Start: 10-08-2024 End: 10-08-2024 ambulatory AYAAN ESPITIA Not Available Start: 09-10-2024 End: 09-10-2024 Office outpatient visit 25 minutes Ayaan Espitia DO Work Phone: [facility] Comment on above: Epistaxis (Primary D x) Start: 09-10-2024 End: 09-10-2024 ambulatory AYAAN ESPITIA Not Available Start: 09-10-2024 End: 09-10-2024 Bamboo flowsheet Ayaan Espitia DO Work Phone: [facility] Start: 09-10-2024 End: 09-10-2024 Bamboo flowsheet Ayaan Espitia DO Work Phone: [facility] Start: 09-03-2024 End: 09-03-2024 ambulatory AYAAN ESPITIA Not Available Start: 08-19-2024 End: 08-19-2024 Bamboo flowsheet Ayaan Espitia DO Work Phone: [facility] Start: 08-19-2024 End: 08-19-2024 Bamboo flowsheet Ayaan Espitia DO Work Phone: [facility] Start: 08-19-2024 End: 08-19-2024 External Result Encounter Ayaan Espitia DO Work Phone: [facility] Unsolicited Start: 08-19-2024 End: 08-19-2024 Patient encounter procedure Jade Johnson MD Work Phone: [facility] Work Phone: Start: 08-19-2024 End: 08-19-2024 ambulatory Jade Johnson MD Work Phone: [facility] Work Phone: Start: 08-19-2024 Encounter for other preprocedural examination Ayaan Chavezdavidjeremie [facility] Start: 08-19-2024 End: 08-19-2024 Office outpatient new 45 minutes Ayaan Espitia DO Work Phone: [facility] Comment on above: Epistaxis (Primary D x); Preop testing; Chronic anticoagulation Start: 08-19-2024 End: 08-19-2024 Patient encounter status Ayaan Espitia DO Work Phone: [facility] Start: 08-19-2024 End: 08-19-2024 ambulatory AYAAN ESPITIA Not Available Start: 08-16-2024 End: 08-16-2024 Patient encounter status Ayaan Espitia DO Work Phone: [facility] Start: 06-25-2024 ambulatory Marvin R NILL Facility : [place] Start: 06-25-2024 End: 06-25-2024 [facility] Start: 06-11-2024 End: 06-11-2024 ambulatory MD Jade Johnson Work Phone: [facility] Work Phone: Start: 06-11-2024 End: 06-11-2024 Departed Referred MD Jade Johnson Work Phone: [facility] Start: 06-11-2024 End: 06-11-2024 ambulatory Marvin R NILL Facility:CD:[id number] Start: 04-16-2024 End: 04-16-2024 ambulatory Marvin R NILL Facility: [facility] Start: 04-16-2024 End: 04-16-2024 Patient encounter procedure Marvin R NILL [facility] [place] Start: 03-31-2024 End: 03-31-2024 ambulatory Jade Johnson Facility:[facility] Start: 03-31-2024 Patient encounter status MD Keven Johnson Work Phone: [facility] Start: 03-23-2024 End: 03-28-2024 Refill Gerri Shiva Thiago PHYSICIAN RELATIONS SPECIALIST-ABORIGINAL LIAISON OFFICER Work Phone: [facility] Comment on above: Med Refill Start: 03-20-2024 End: 03-20-2024 ambulatory [facility] Work Phone: Start: 03-20-2024 End: 03-20-2024 Encounter for general adult medical examination without abnormal findings MD Jade Johnson Work Phone: [facility] Start: 03-20-2024 End: 03-20-2024 Patient encounter procedure [facility] Work Phone: Start: 11-15-2023 Refill Frank sanchez DO Work Phone: [facility] Comment on above: Med Refill Start: 10-25-2023 End: 10-25-2023 ambulatory Jade Johnson Facility:[facility] Start: 10-25-2023 End: 10-25-2023 Office outpatient visit 25 minutes Dione Monge MD Work Phone: [facility] Comment on above: Presence of coronary angioplasty implant and graft (Primary Dx); Mixed hyperlipidemia; Primary hypertension; Obstructive sleep apnea Start: 10-24-2023 Telephone encounter [facility] Start: 09-27-2023 End: 09-27-2023 ambulatory Jade Johnson Facility:[facility] Comment on above: Med Refill Start: 09-06-2023 End: 09-06-2023 ambulatory Jade Johnson Other [employer] Other Start: 09-06-2023 Encounter for genera l adult medical examination without abnormal findings Jade Johnson [facility] Start: 09-06-2023 Telephone encounter Jade Johnson [facility] Start: 02-21-2023 End: 02-21-2023 ambulatory Jade Johnson Other [employer] Other Start: 02-21-2023 Encounter for genera l adult medical examination without abnormal findings Jade Johnson [facility] Start: 02-21-2023 Periodic preventive med est patient 40-64yrs Jade Johnson [facility] Start: 10-12-2021 End: 10-12-[address] JADE JOHNSON Facility:[facility] Start: 05-18-2021 End: 05-18-[address] JADE JOHNSON Facility:[facility] Start: 02-25-2021 Encounter for preprocedural laboratory examination DR MARVIN HOOKS [facility] Start: 02-23-2021 End: 02-23-[address] MARVIN HOOKS Facility:[facility] Start: 02-21-2021 End: 02-22-[address] MARVIN HOOKS Facility:[facility] Start: 02-21-2021 End: 02-22-2021 Encounter for preprocedural laboratory examination DR MARVIN HOOKS Facility:[facility] Start: 01-27-2021 Adult health examination Sweta Johnson Other [employer] Other Start: 01-27-2021 Gynecological examination normal Jade Johnson Other [employer] Other Procedures Date Procedure Procedure Detail Performing Clinician Start: 10-29-2024 Follow-up visit Follow-up DIONE MONGE Start: 10-15-2024 IGP,APTIMA HPV,AGE GDLN Leonard Yoel DO Work Phone: Start: 08-19-2024 Complete blood count with white cell differential, automated Ayaan Espitia DO Work Phone: Start: 06-11-2024 Colonoscopy Ayaan geronimo DO Work Phone: Start: 06-11-2024 Colonoscopy Marvin BRITTON Start: 10-25-2023 ECG, HOSPITAL REPORT SCAN Dione oMnge MD Work Phone: Start: 02-23-2021 Colonoscopy Marvin NI LL Comment on above: with polypectomy Start: 10-01-2018 Parathyroidectomy Barrett ARAUJOL Start: 02-28-2017 Screening mammography Shiva Johnson Other Start: 10-21-2013 General examination of patient Jade Johnson Other Bilateral oophorectomy Barrett ARAUJOL Extraction of wisdom tooth Shiva ichdrake NILL Fasciotomy of foot Marvin N ILL Gastric sleeve Marvin NILL Myringotomy and inse rtion of short-term tympanic ventilation tube Marvin NILL Nasal septoplasty Marvin NI LL Placement of stent i n coronary artery Marvin NILL Rectal prolapse (disorder) hSiva ichdrake NILL Repair of umbilical hernia Shiva ichael NILL Repair of vaginal wa ll prolapse Marvin NILL Screening for malign ant neoplasm of breast Jade Johnson Other Screening for malign ant neoplasm of colon Jade Johnson Other Vaginal hysterectomy Marvin NILL Plan of Treatment Date Care Activity Detail Author Start: 06-11-2034 Screening for malign ant neoplasm of colon [facility] Start: 10-21-2025 End: 10-21-2025 Patient encounter procedure 10/21/2025 1:00 PM EST Office Visit [facility] [address] [place] [phone] Leonard Diallo, DO [address] [place], [place] [phone] [facility] Start: 10-29-2024 End: 10-29-2024 Patient encounter procedure 10/29/2024 9:15 AM EST Office Visit [facility] [address] [place] [phone] Dione Monge MD [address] [place] [address] [facility] Start: 10-25-2024 Adult BMI Screening Adult BMI Screen ing [facility] Start: 10-25-2024 Tobacco Screening Tobacco Screening [facility] Start: 10-15-2024 End: 12-13-2025 MG Breast - bilateral Screening Bilateral screening mammogram Imaging Routine Breast cancer screening by mammogram Expected: 10/15/2024, Expires: 12/13/2025 [facility] Work Phone: Comment on above: Expected: 10/15/2024 , Expires: 12/13/2025 Start: 10-15-2024 End: 10-15-2024 Patient encounter procedure 10/15/2024 1:00 PM EST Office Visit [facility] [address] [place] [phone] Leonard Diallo DO [address] [place] [address] [facility] Start: 10-08-2024 End: 10-08-2024 Patient encounter procedure [facility] Comment on above: Arrived Start: 09-10-2024 End: 09-10-2024 Patient encounter procedure [facility] Comment on above: Arrived Start: 08-19-2024 End: 08-19-2025 CBC W Auto Differential panel - Blood CBC and differential Lab Routine Preop testing Expected: 08/19/2024 (Approximate), Expires: 08/19/2025 [facility] Work Phone: Comment on above: Expected: 08/19/2024 (Approximate), Expires: 08/19/2025 Start: 08-19-2024 End: 08-19-2025 ECG 12 lead ECG 12 lead ECG Routine Preop testing Expected: 08/19/2024 (Approximate), Expires: 08/19/2025 [facility] Comment on above: Expected: 08/19/2024 (Approximate), Expires: 08/19/2025 Start: 08-19-2024 End: 08-19-2024 Patient encounter procedure 08/19/2024 10:00 AM EST [facility] [address] [place] [address] Ayaan Espitia DO [address] [place] [address] Arrived [facility] Comment on above: Arrived Start: 06-01-2024 COVID-19 Vaccine ( season) COVID-19 Vaccine () [facility] Start: 06-01-2024 Influenza vaccination Influenza Vacc ine [facility] Start: 10-25-2023 End: 10-25-2023 Patient encounter procedure 10/25/2023 11:45 AM EST Office Visit [facility] [address] [place] [phone] Dione Monge MD [address] [place] [address] [facility] Start: 09-20-2023 Adult BMI Screening Adult BMI Screen ing [facility] Start: 09-20-2023 Tobacco Screening Tobacco Screening [facility] Start: 06-01-2023 COVID-19 Vaccine ( season) COVID-19 Vaccine ( season) [facility] Start: 06-01-2023 Influenza vaccination Influenza Vacc ine [facility] Start: 01-30-2020 Administration of varicella zoster vaccine Zoster (Shingles) Vaccine (1 of 2) [facility] Start: 2010 Screening for malign ant neoplasm of breast Mammogram [facility] Start: 06-01-2005 DTaP,Tdap and Td Vaccines (1 - Tdap) DTaP,Tdap and Td Vaccines (1 - Tdap) [facility] Start: 01-30-2000 Screening for malign ant neoplasm of cervix [facility] Start: 1991 Screening for malign ant neoplasm of cervix Pap Smear [facility] Start: 01-30-1988 Adult BMI Follow Up Plan Adult BMI F ollow Up Plan [facility] Start: 1982 Depression Screening Depression Scre ening [facility] Start: 1970 Screening for malign ant neoplasm of colon [facility] DXA Skeletal system.axial Views for bone density [facility] End: 10-25-2024 Lipid panel Lipid panel Lab Routine Mixed hyperlipidemia Presence of coronary angioplasty implant and graft 1 Occurrences starting 10/25/2023 until 10/25/2024 [facility] Work Phone: Comment on above: 1 Occurrences starti ng 10/25/2023 until 10/25/2024 MG Breast - bilatera l Screening [facility] THIN PREP TIS PAP AN D HR HPV DNA THIN PREP TIS PAP AND HR HPV DNA Pathology and Cytology Routine Well woman exam with routine gynecological exam Ordered: 10/15/2024 [facility] Comment on above: Ordered: 10/15/2024 Immunizations Immunization Date Immunization Notes Care Provider Catherine holguin 07-11-2024 influenza, seasonal, injectable, preservative free Ayaan Murcek DO Work Phone: [facility] 07-23-2023 influenza virus vaccine, unspecified formulation Gerri Das APRN-ABORIGINAL LIAISON OFFICER Work Phone: [facility] [place] 07-23-2023 influenza, injectabl e, quadrivalent, preservative free Ayaan Murcek DO Work Phone: [facility] 07-04-2022 influenza, injectabl e, quadrivalent, preservative free Ayaan Murcek DO Work Phone: [facility] 07-04-2022 influenza virus vaccine, unspecified formulation Bryanna Matthews RN [facility] 10-03-2021 COVID-19 Vaccine Pfizer - Documentation Purposes Only Jade Johnson Other [facility] 12-31-2020 SARS-CoV-2 (COVID-19 ) mRNA-[id number] [facility] 12-03-2020 SARS-CoV-2 (COVID-19 ) mRNA-[id number] [facility] 07-15-2020 influenza, injectabl e, quadrivalent, preservative free Ayaan Murcek DO Work Phone: [facility] 07-17-2019 influenza, injectabl e, quadrivalent, preservative free Ayaan Murcek DO Work Phone: [facility] 07-09-2018 influenza, injectabl e, quadrivalent, contains preservative Ayaan Murcek DO Work Phone: [facility] 07-09-2017 influenza, seasonal, injectable Ayaan Murcek DO Work Phone: [facility] 07-11-2016 influenza, injectabl e, quadrivalent, preservative free Ayaan Murcek DO Work Phone: [facility] 07-28-2009 novel [id number], preservative-free, injectable Ayaan Murcek DO Work Phone: [facility] 11-03-2005 hepatitis B vaccine, pediatric or pediatric/adolescent dosage Ayaan Murcek DO Work Phone: [facility] 08-02-2005 hepatitis B vaccine, adult dosage Ayaan Murcek DO Work Phone: [facility] 06-28-2005 hepatitis B vaccine, adult dosage Ayaan Murcek DO Work Phone: [facility] 05-31-2005 TD(adult) unspecifie d formulation Ayaan Murcek DO Work Phone: [facility] Payers Date Payer Category Payer Blue [place] Blue Shield BCBS [id number] 2024 Self-pay [id number] 2022 Blue Cross Blue [employer] Managed Care - Other ANTHEM [id number] 2022 Unknown 2022 Blue Cross Blue Shield [id number] 1970 Unknown [id number] 2.16.840.1.823948.3.579. 2.593 1970 Unknown [id number] 2.16.840.1.353719.3.579. 2.593 1970 Unknown [id number] 2.16.840.1.978566.3.579. 2.593 1970 Unknown [id number] 2.16.840.1.544322.3.579. 2.593 1970 Unknown [id number] 2.16.840.1.156018.3.579. 2.8 1970 Unknown [id number] 2.16.840.1.919331.3.579. 2.8 1970 Unknown [id number] 2.16.840.1.830533.3.579. 2. 1970 Unknown [id number] 2.16.840.1.241424.3.579. 2. 1970 Unknown [id number] 2.16.840.1.986008.3.579. 2. 1970 Unknown [id number] 2.16.840.1.451911.3.579. 2. 1970 Unknown [id number] 2.16.840.1.730962.3.579. 2. 1970 Unknown [id number] 2.16.840.1.180579.3.579. 2.1258 1970 Unknown [id number] 2.16.840.1.529522.3.579. 2.1258 1970 Unknown [id number] 2.16.840.1.403743.3.579. 2.1258 1970 Unknown [id number] 2.16.840.1.716104.3.579. 2.1258 1970 Unknown [id number] 2.16.840.1.976130.3.579. 2.1258 1970 Unknown [id number] 2.16.840.1.818243.3.579. 2.1286 1959 Private Health Insurance [id number] 1959 Unknown [id number] Unknown [place] BC/BS [id number] Unknown [id number] 2.16.840.1.574895.3.579. 2.531 Unknown [id number] 2.16.840.1.755281.3.579. 2.531 Social History Date Type Detail Facility Unknown if ever smoked [facility] Other Start: 11-10-2020 End: 08-19-2024 Sex Assigned At [facility] Start: 09-01-2019 End: 09-20-2022 Tobacco smoking status MIIS Ex-smoker (finding) [facility] Start: 1970 Sex Assigned At Female F [facility] Start: 08-19-2024 Tobacco smoking status [facility] Tobacco smoking consumption unknown [facility] Start: 1970 Sex assigned at Not on file P [facility] Start: 05-04-2015 End: 08-20-2024 Sex Female (finding) [facility] Start: 08-19-2024 End: 10-08-2024 Tobacco use and exposure User of smokeless tobacco [facility] Start: 11-10-2020 End: 08-19-2024 History of Social function [facility] Start: 10-08-2024 Tobacco smoking status [facility] Smokes tobacco daily [facility] Start: 10-25-2023 End: 10-08-2024 Alcoholic beverage intake Current drinker of alcohol (finding) [facility] Start: 10-08-2024 Tobacco Comment I use Vape, no t cigarettes [facility] Start: 07-09-2016 History of tobacco use Current smoker [facility] Start: 07-09-2016 History of tobacco use Cigarette Smoker [facility] Start: 09-20-2022 Tobacco use and exposure Smokeless tobacco non-user [facility] Childcare Unknown [facility] Medical Equipment Procedure Code Equipment Code Equipment Origin al Text Equipment Identifier Dates Nathaniel Xience Alpin e 3.03m49rp Repl [id number] - [id number] ()[id number] FDA Start: 02-19-2017 Nathaniel Xience Alpin e 3.0x12mm Repl [id number] - [id number] [id number] [facility] Start: 03-09-2017 Functional Status Date Assessment Result Facility 04-16-2024 Functional Status N/A [facility] [place] Clinical Notes 02-23-2021 to 10-29-2024 Dione Monge MD - 10/29/2024 9:15 AM ESTTelephone Encounter - Jessika Lan MA - 10/28/2024 10:08 AM ESTTelephone Encounter - Jessika Lan MA - 10/28/2024 10:08 AM EST Note Date & Type Note Facility 10-29-2024 History of Present illness Narrative Dana Grijalva Date of visit: 10/29/2024 Date of : 1970 Age: 54 y.o. Patient Active Problem List Diagnosis Hyperlipidemia Presence of coronary angioplasty implant and graft Depression Hypertension Obesity Myocardial infarction ([facility]) Atherosclerotic heart disease of [place] coronary artery with angina pectoris ([facility]) Obstructive sleep apnea Hyperparathyroidism ([facility]) Palpitations Shortness of breath Allergies Allergen Reactions No Known Drug Allergies Other reaction(s): Unknown Other reaction(s): Unknown Current Outpatient Medications Medication Sig Dispense Refill atorvastatin (LIPITOR) 40 mg tablet TAKE 1 TABLET (40 MG TOTAL) BY MOUTH IN THE MORNING 90 tablet 0 BRILINTA 60 mg tablet TAKE 1 TABLET BY MOUTH IN THE MORNING AND 1 TABLET BEFORE BEDTIME 180 tablet 3 metoprolol succinate XL (TOPROL XL) 50 mg 24 hr tablet TAKE 1 TABLET (50 MG TOTAL) BY MOUTH IN THE MORNING 90 tablet 0 omeprazole (PriLOSEC) 20 mg capsule Take 1 capsule (20 mg total) by mouth in the morning. venlafaxine XR (EFFEXOR-XR) 150 mg 24 hr capsule Take 1 capsule (150 mg total) by mouth nightly. 0 No current facility-administered medications for this visit. Chief Complaint Patient presents with Follow-up Coronary Artery Disease History of Present Illness 53-year-old female who is here for follow-up visit. She is past medical history of hypertension, coronary artery disease with prior LAD and RCA stent 2016, history of KS, hyperlipidemia, strong family history of premature coronary [...] of mild pain in the shoulder blades 10/28/24 Doing well, no angina and has 4 grand babies and keeps her running around. BP ok. She is on low dose Brillinta. Prior parathyroidectomy in 2018 LDL 33 in 2022 She has lost 110 pounds after gastric bypass surgery Past Medical History: Diagnosis Date Angina pectoris ([facility]) Atherosclerotic heart disease of [place] coronary artery with unspecified angina pectoris ([facility]) Carnes's palsy 2013 Coronary artery disease Depression Hyperlipidemia Hypertension Myocardial infarction ([facility]) Obesity Presence of coronary angioplasty implant and graft Sleep apnea No data recorded No data recorded No data recorded Past Surgical History: Procedure Laterality Date Coronary angiogram and left ventricular gram/pressure N/A 03/09/2017 Performed by Favian Tinoco MD at [facility] Coronary angiogram and left ventricular gram/pressure N/A 02/19/2017 Performed by Carlos Keyes MD at [facility] HYSTERECTOMY Intravascular pressure measurement first vessel(fractional flow reserve) N/A 03/09/2017 Performed by Favian Tinoco MD at [facility] Revascularization occlusion with myocardial infarction drug eluting stent right coronary artery N/A 02/19/2017 Performed by Carlos Keyes MD at [facility] SEPTOPLASTY SLEEVE GASTROPLASTY Stent drug-eluting left anterior descending N/A 03/09/2017 Performed by Favian Tinoco MD at [facility] Thrombectomy with pronto / export N/A 02/19/2017 Performed by Carlos Keyes MD at [facility] Family History Problem Relation Age of Onset Hypertension Mother Stroke Father Heart disease Father Alcohol abuse Father Heart disease Brother Social History Socioeconomic History Marital status: Spouse name: Not on file Number of children: Not on file Years of education: Not on file Highest education level: Not on file Occupational History Not on file Tobacco Use Smoking status: Former Current packs/day: 0.25 Average packs/day: 0.3 packs/day for 8.3 years (2.1 ttl pk-yrs) Types: Cigarettes Start date: 07/09/2016 Smokeless tobacco: Never Vaping Use Vaping status: Every Day Substances: Nicotine Devices: Pre-filled pod Substance and Sexual Activity Alcohol use: Yes Alcohol/week: 0.0 standard drinks of alcohol Drug use: No Sexual activity: Defer Other Topics Concern Caffeine Use Yes Social History Narrative Not on file Social Drivers of Health Financial Resource Strain: Not on file Food Insecurity: No Food Insecurity (10/29/2024) Hunger Screening Food Insecurity - Worry: Never True Food Insecurity - Inability: Never True Transportation Needs: Not on file Physical Activity: Not on file Stress: Not on file Social Connections: Not on file Interpersonal Safety: Not on file Housing Instability: Not on file Review of Systems Review of Systems Constitutional: Negative for chills, fever and malaise/fatigue. HENT: Negative for hearing loss, hoarse voice and nosebleeds. Eyes: Negative for blurred vision, double vision and redness. Respiratory: Negative for shortness of breath and sleep disturbances due to breathing. Endocrine: Negative for cold intolerance and heat intolerance. Hematologic/Lymphatic: Negative for bleeding problem. Does not bruise/bleed easily. Skin: Negative for color change, flushing, itching and nail changes. Musculoskeletal: Negative for falls, joint pain, joint swelling and myalgias. Gastrointestinal: Negative for heartburn, hematochezia and melena. Genitourinary: Negative for dysuria, frequency and hematuria. Neurological: Negative for dizziness, focal weakness, light-headedness, loss of balance and weakness. Psychiatric/Behavioral: Negative for altered mental status and memory loss. CARDIOVASCULAR: Please review HPI. Physical Examination General [...] mood, memory and judgement. VITAL SIGNS: BP 132/84 Pulse 74 Ht 162.6 cm (5' 4 ) Wt 82.6 kg (182 lb) LMP (LMP Unknown) BMI 31.24 kg/m No orders of the defined types were placed in this encounter. There are no discontinued medications. Assessment and plan Coronary artery disease Prior stents in RCA on LAD asymptomatic continue medical therapy medications were refilled Hypertension Well controlled on beta-thiago Hyperlipidemia Last LDL 33 History of gastric bypass surgery History of parathyroidectomy Doing very well on medical therapy I refilled medications I will see her back in a year TODAYS ORDERS No orders of the defined types were placed in this encounter. FOLLOW UP No follow-ups on file. PCP: JADE JOHNSON MD Referring Physician: Jade Johnson MD [address] [place] [address] documented in this encounter [facility] 10-28-2024 Miscellaneous Notes Left message for patient to remind them to bring their most current medication list with them to their appointment. documented in this encounter [facility] 10-28-2024 Telephone encounter Note Left message for patient to remind them to bring their most current medication list with them to their appointment. [facility] 10-15-2024 History of Present illness Narrative Reason for Appointment: Patient ID: Dana Grijalva is a 54 y.o. female who presents for Well Women Visit Patient presents today for Annual [...] Bilateral sciatica 08/16/2024 Atherosclerotic heart disease of [place] coronary artery with angina pectoris ([facility]) 03/13/2017 Depression ([facility]) 08/16/2024 Edema 01/12/2016 Generalized hyperhidrosis 05/18/2021 History of colonic polyps 08/16/2024 History of parathyroidectomy 08/16/2024 Hyperlipidemia ([facility]) 08/16/2024 Hyperparathyroidism (CMS/HCC) 08/06/2019 Hypertension (CMS/HCC) 06/07/2021 Hypercalcemia 08/16/2024 Lumbar radiculopathy 03/06/2018 Menopause 08/16/2024 Myocardial infarction (CMS/HCC) 08/16/2024 Nontoxic single thyroid nodule (CMS/HCC) 08/16/2024 BMI 31.0-31.9,adult 08/16/2024 Class 3 obesity 08/16/2024 Obstructive sleep apnea 08/06/2019 Palpitations 06/07/2021 Phobic disorder (CMS/HCC) 06/27/2018 Outlet dysfunction constipation 11/19/2013 Postprocedural hypoparathyroidism [...] History: Diagnosis Date Atherosclerotic heart disease of [place] coronary artery with angina pectoris ([facility]) 03/13/2017 Benign neoplasm of ascending colon 08/16/2024 [...] dysfunction constipation 11/19/2013 Palpitations 06/07/2021 Phobic disorder ([facility]) 06/27/2018 Postprocedural hypoparathyroidism ([facility]) 08/16/2024 Presence of coronary angioplasty implant and graft 08/16/2024 Pure hyperglyceridemia ([facility]) 10/21/2013 Screening mammogram for breast cancer 08/16/2024 Shortness of breath 09/16/2021 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 Exam conducted with a company pilot present. Vitals: Estimated body mass index is [...] Leonard Diallo DO documented in this encounter [facility] 10-08-2024 History of Present illness [...] back as needed documented in this encounter [facility] 09-10-2024 History of Present illness [...] in a month documented in this encounter [facility] 08-19-2024 History of Present illness Narrative Allergies as of 08/19/2024 - Reviewed 08/19/2024 Allergen Reaction Noted Benzonatate Cough 08/16/2024 Macrolides and ketolides 08/16/2024 Past Medical History: Diagnosis Date Atherosclerotic heart disease of [place] coronary artery with angina pectoris (CMS/HCC) 03/13/2017 [...] Insecurity: No Food Insecurity (09/20/2022) Received from [facility] Hunger Screening Within the past 12 months [...] consent was given. documented in this encounter [facility] 11-15-2023 Miscellaneous Notes OV 10/25/23 09/27/23 CMP, Lipids, CBC documented in this encounter [facility] 11-15-2023 Telephone encounter Note OV 10/25/23 09/27/23 CMP, Lipids, CBC [facility] 10-25-2023 History of Present illness Narrative Dana Grijalva Date of visit: 10/25/2023 Date of : 1970 Age: 53 y.o. Patient Active Problem List Diagnosis Hyperlipidemia Presence of coronary angioplasty implant and graft Depression Hypertension Obesity Myocardial infarction ([facility]) Atherosclerotic heart disease of [place] coronary artery with angina pectoris ([facility]) Obstructive sleep apnea Hyperparathyroidism ([facility]) Palpitations Shortness of breath Allergies Allergen Reactions [...] prior LAD and RCA stent, history of [place], hyperlipidemia, strong family history of premature coronary [...] Past Medical History: Diagnosis Date Angina pectoris ([facility]) Atherosclerotic heart disease of [place] coronary artery with unspecified angina pectoris ([facility]) Carnes's palsy 2013 Coronary artery disease Depression Hyperlipidemia Hypertension Myocardial infarction ([facility]) Obesity Presence of coronary angioplasty implant and graft Sleep apnea No data recorded No data recorded No data recorded Past Surgical History: Procedure Laterality Date Coronary angiogram and left ventricular gram/pressure N/A 03/09/2017 Performed by Favian Tinoco MD at [facility] Coronary angiogram and left ventricular gram/pressure N/A 02/19/2017 Performed by Carlos Keyes MD at [facility] HYSTERECTOMY Intravascular pressure measurement first vessel(fractional flow reserve) N/A 03/09/2017 Performed by Favian Tinoco MD at [facility] Revascularization occlusion with myocardial infarction drug eluting stent right coronary artery N/A 02/19/2017 Performed by Carlos Keyes MD at [facility] SEPTOPLASTY SLEEVE GASTROPLASTY Stent drug-eluting left anterior descending N/A 03/09/2017 Performed by Favian Tinoco MD at [facility] Thrombectomy with pronto / export N/A 02/19/2017 Performed by Carlos Keyes MD at [facility] Family History Problem Relation [...] JOHNSON MD Referring Physician: Jade Johnson MD [address] [place] [address] [facility] Miscellaneous Notes Left message for patient to remind them to bring their most current medication list with them to their appointment. documented [facility] this [facility]23 Telephone encounter Note Left message for patient to remind them to bring their most current medication list with them to their appointment. [facility] 09-06-2023 Evaluation note Encounter Date Diagnosis Assessment Notes Aug, Wellness examination (ICD-10 - Z00.00) [facility] Other 05-24-2023 Evaluation note* Encounter Date Diagnosis [...] patient is sent home pleased, without concerns. [facility] Other 05-26-2021 NoteOPERATIVE NOTE OPERATION DATE: 02-23-21 [...] Room in good condition. cc:Dr. Jade Johnson. [facility] Signed and Approved by: DR MARVIN HOOKS . 02/23/2021 13:56:00[facility]05-26-2021 NoteOPERATIVE NOTE ADDENDUM 03-09-21 ADDENDUM: Followup colonoscopy will be obtained in three years due to findings of a tubulovillous adenoma on this colonoscopy. IF Signed and Approved by: DR MARVIN HOOKS . 03/11/2021 17:31:00[facility] No data available for this section [facility] [place] Evaluation note* Diagnosis Onset Date Resolution Status Menopause acute Screening mammogram for breast cancer acute [facility] Work Phone: evaluation note* Diagnosis Onset Date Resolution Status Menopause acute Screening mammogram for breast cancer acute Wellness examination acute [facility] Work Phone: evaluation noteNo assessment information available [facility] Work Phone: evaluvzsry note* Diagnosis Epistaxis- Primary Preop testing Unspecified pre-operative examination Chronic anticoagulation Encounter for long-term (current) use of anticoagulants documented in this encounter [facility]* Diagnosis Epistaxis- Primary documented in this encounter [facility]* Diagnosis Epistaxis- Primary documented in this encounter [facility]* Diagnosis Well woman exam with routine gynecological exam Routine gynecological examination Breast cancer screening by mammogram documented in this encounter [facility]* Diagnosis ASCVD (arteriosclerotic cardiovascular disease)- Primary Unspecified cardiovascular disease Essential hypertension Unspecified essential hypertension Mixed hyperlipidemia Presence of coronary angioplasty implant and graft [facility] Diagnosis Presence of coronary angioplasty implant and graft Mixed hyperlipidemia documented in this encounter [facility]* Diagnosis Presence of coronary angioplasty implant and graft- Primary Mixed hyperlipidemia Primary hypertension Unspecified essential hypertension Obstructive sleep apnea Obstructive sleep apnea (adult) (pediatric) documented in this encounter [facility]* Diagnosis Presence of coronary angioplasty implant and graft Mixed hyperlipidemia documented in this encounter [facility] general Narrative - Reported* Type Description Date Medical History Depression Medical History heart disease Surgical History septoplasty Surgical History hernia repair Surgical History hysterectomy Surgical History 2 stents in heart Hospitalization History see above surgical histo ry [facility] Other Hospital Discharge instructions No data available for this section [facility] InstructionsNot on filedocumented in [facility] encounter [facility] [...] note No data available for this section [facility] Summary Purpose Family History Relationship Condition Age [...] Time Advance Directives No March 25 12:45pm Chief Complaint and Reason for Visit Chief Complaint Wellness Reason for Visit Menopause Screening mammogram for breast cancer Chief Complaint Wellness Unknown Reason for Visit Menopause Screening mammogram for breast cancer Wellness examination Chief Complaint Admit Date Unknown June 11, 2024 7:53am Z01.818 August 19, 2024 11:07am Reason for Referral Specialty Diagnoses / Procedures Referred By Contac t Referred To Contact Diagnoses Mixed hyperlipidemia Presence of coronary angioplasty implant and graft Procedures ECG, Hospital Report Scan Dione Monge MD [address] [place] [address] Referral ID Status Reason Start Date Expiration Date V isits Requested Visits Authorized [id number] Pending Review 10/25/2023 10/24/2024 1 1 Additional Source Comments INFORMATION SOURCE (unrecogn ized section and content) DATE CREATED AUTHOR 10/15/2021 [facility] DATE CREATED AUTHOR AUTHOR'S ORGANIZ ATION 04/15/2024 [facility] DATE CREATED AUTHOR AUTHOR'S ORGANIZ ATION 06/24/2024 [facility] DATE CREATED AUTHOR AUTHOR'S ORGANIZ ATION 08/21/2024 [facility] DATE CREATED AUTHOR AUTHOR'S ORGANIZ ATION 10/18/2024 [facility] EPIC DATE CREATED AUTHOR AUTHOR'S ORGANIZ ATION 10/31/2024 [facility] REASON FOR VISIT (unrecogniz ed section and content) Reason Comments Epistaxis (Nose Bleed) New Patient: Epis taxis Reason Comments Epistaxis (Nose Bleed) S/p cautery Reason Comments Epistaxis (Nose Bleed) 1 month kenroy / na ana cristina cautery Reason Comments Well Women Visit Reason Comments Follow-up Coronary Artery Disease Reason Onset Date Comments Med Refill 09/27/2023 Reason Comments Follow-up 1 YR L/S BCD SCHED W / PT LABS-08/2023 Med Refill Coronary Artery Disease Hyperlipidemia Reason Comments Med Refill Care Teams (unrecognized sec tion and content) Team Status: Active Member Role Status Dates Jade Johnson MD Primary Care Provider Active Team Status: Inactive Member Role Status Dates Jade Johnson MD Primary Care Provide r, Attending Provider Active Start: March 20, 2024 End: March 20, 2024 Team Status: Inactive Member Role Status Dates Jade Johnson MD Primary Care Provider Active Start: June 11, 2024 End: June 11, 2024 Marvin Hooks MD FACS Attending Provider Active Start: June 11, 2024 End: June 11, 2024 Sand Technologist Relationship Specialty Start Date End Date Jade Johnson MD [address] [facility] [place] [id number] PCP - General Family Medicine 08/13/24 Ayaan Espitia DO [address] [place] [address] Otolaryngology 08/19/24 Team Status: Inactive Member Role Status Dates Jade Johnson MD Primary Care Provider Active Start: August 19, 2024 End: August 19, 2024 Ayaan Esptiia DO Attending Provider Active S tart: August 19, 2024 End: August 19, 2024 Sand Technologist Relationship Specialty [place] [address] [place] [phone] PCP - General Family Medicine 08/13/24 Ayaan Espitia DO [address] [place] [id number] Otolaryngology 08/19/24 Sand Technologist Relationship Specialty Start Date End Date Jade Johnson MD [address] [place] [phone] PCP - General Family Medicine 08/13/24 Ayaan Espitia DO [address] [place] [id number] Otolaryngology 08/19/24 Sand Technologist Relationship Specialty Start Date End Date Jade Johnson MD [address] [place] [phone] PCP - General Family Medicine 08/13/24 Ayaan Espitia DO [address] [place] [address] Otolaryngology 08/19/24 Sand Technologist Relationship Specialty Start Date End Date Jade Johnson MD [address] [facility] [place] [phone] PCP - General Family Medicine 08/13/24 Ayaan Espitia, [address] [place] [address] Otolaryngology 08/19/24 Sand Technologist Relationship Specialty Start Date End Date Jade Johnson MD [address] [facility] [place] [phone] PCP - General Family Medicine 08/13/24 Ayaan Epsitia, [address] [place] [place] [address] Otolaryngology 08/19/24 Sand Technologist Relationship Specialty Start Date End Date Jade Johnson MD [address] [facility] [place] [phone] PCP - General Family Medicine 08/13/24 Ayaan Espitia, [address] [place] [place] [address] Otolaryngology 08/19/24 Sand Technologist Relationship Specialty Start Date End Date Jade Johnson MD [address] [facility] [place] [phone] PCP - General Family Medicine 08/13/24 Ayaan Espitia DO [address] [place] [address] Otolaryngology 08/19/24 Sand Technologist Relationship Specialty [place] [address] [place] [address], [place] [phone] PCP - General Family Medicine 08/13/24 Ayaan Espitia, DO [address] [place] [address] Otolaryngology 08/19/24 Sand Technologist Relationship Specialty Start Date End Date Jade Johnson MD [address] [place] [address], [place] [address] PCP - General 02/19/17 Sand Technologist Relationship Specialty Start Date End Date Jade Johnson MD [address] [place] [address] PCP - General 02/19/17 Sand Technologist Relationship Specialty Start Date End Date Jade Johnson MD [address] [place] [address] PCP - General 02/19/17 Sand Technologist Relationship Specialty [place] [address] [place] [address], [place] [address] PCP - General 02/19/17 Sand Technologist Relationship Specialty [place] [address] [place] [address] [place] [address] PCP - General 02/19/17 Sand Technologist Relationship Specialty Start Date End Date Jade Johnson MD [address] [place] [phone] PCP - General 02/19/17 Sand Technologist Relationship Specialty Start Date End Date Jade Johnson MD [address] [place] [address] PCP - General 02/19/17 Goals (unrecognized section and content) Goals may [...] BE BASED ON THE PRIMARY CLINICAL RECORDS. [facility] [employer] [facility]. provides no warranty or guarantee of the accuracy or completeness of information in this document.
[2025-02-09] MEDS: MORPHINE SULFATE 4 MG/ML VIAL IV (06:35)
[2025-02-09] MEDS: ONDANSETRON PF 4 MG/2 ML VIAL IV (06:35)
[2025-02-09 06:36] LABS: Basophils Percent Auto 0.3 % (0.2-2.0); Eosinophils Percent Auto 0.3 % (0.9-7.0); Hematocrit 29.9 % (36.0-48.0); Hemoglobin 9.2 g/dL (12.0-16.0); Immature Granulocytes Abs Auto 0.01 10^3/uL (0.00-0.03); Immature Granulocytes Pct Auto 0.3 % (0.0-0.5); Lymphocytes Absolute Auto 0.8 10^3/uL (1.2-3.8); Lymphocytes Percent Auto 25.6 % (20.5-60.0); Mean Corpuscular HGB Conc 30.8 g/dL (29.9-35.2); Mean Corpuscular Volume 77.9 fL (81.0-99.0); Mean Platelet Volume 8.7 fL (9.5-13.5); Monocytes Absolute Auto 0.3 10^3/uL (0.3-0.8); Neutrophils Absolute Auto 1.9 10^3/uL (1.4-6.5); Neutrophils Percent Auto 63.5 % (43.0-75.0); Platelet Count 252 10^3/uL (150-450); Red Blood Count 3.84 10^6/uL (4.20-5.40); Red Cell Distribution Width 16.1 % (11.0-15.0)
[2025-02-09] MEDS: 0.9 % SODIUM CHLORIDE 1,000 ML 1000 ML IV (06:48)
[2025-02-09 06:58] LABS: Alanine Aminotransferase 24 U/L (14-59); Albumin Globulin Ratio 1.1; Albumin Level 3.6 g/dL (3.4-5.0); Alkaline Phosphatase 87 U/L (46-116); Anion Gap 14.6; BUN Creatinine Ratio 10.9; Bilirubin Total 0.3 mg/dL (0.2-1.0); Calcium 8.4 mg/dL (8.5-10.1); Carbon Dioxide 27.2 mmol/L (21.0-32.0); Chloride 105 mmol/L (98-107); Estimated GFR (African America >60 (>=60 mL/min/1.73m^2); Estimated GFR (Non-African Ame >60 (>=60 mL/min/1.73m^2); Globulin 3.4 g/dL; Glucose 106 mg/dL (74-106); Potassium 3.8 mmol/L (3.5-5.1); Sodium 143 mmol/L (136-145)
[2025-02-09 07:08] LABS: Aspartate Amino Transferase 20 U/L (15-37)
--- NOTE | 2025-02-09 08:42 | ED.GENADUL1 ---
HPI HPI - General Adult General Chief complaint: Fall Stated complaint: FALL Time Seen by Provider: 02/09/25 05:40 Source: patient Mode of arrival: walk-in Limitations: no limitations History of Present Illness HPI narrative: 55-year-old female presents to the emergency department and was initially seen by Dr. Valles and signed out to me after discussing the case with her thoroughly. Please see her full history and physical exam. Related Data Home Medications ?Medication ?Instructions ?Recorded ?Confirmed atorvastatin 40 mg tablet 40 mg PO DAILY 06/03/24 02/09/25 metoprolol succinate 50 mg 50 mg PO DAILY 06/03/24 02/09/25 tablet,extended release 24 hr nitroglycerin 0.4 mg sublingual 0.4 mg sublingual Q5M PRN chest 06/03/24 06/11/24 tablet pain omeprazole 10 mg capsule,delayed 10 mg PO DAILY 06/03/24 02/09/25 release ticagrelor 90 mg tablet (Brilinta) 90 mg PO BID 06/03/24 02/09/25 venlafaxine 150 mg 150 mg PO DAILY 06/03/24 06/11/24 capsule,extended release 24 hr Previous Rx's ?Medication ?Instructions ?Recorded amoxicillin 500 mg capsule 500 mg PO TID 10 days #30 caps 02/09/25 hydrocodone 5 mg-acetaminophen 325 1 tab PO Q6H PRN pain 5 days #20 02/09/25 mg tablet tabs Allergies Allergy/AdvReac Type Severity Reaction Status Date / Time benzonatate (From Tessalon Allergy Cough Verified 02/09/25 05:46 Perles) clarithromycin (From Biaxin) Allergy Unknown Verified 02/09/25 05:46 Opioid HPI Opioid Management Most Recent Opioid Data: Last Pain Scale 8 Today, 06:51 Last ED Pain Assessment Today, 06:51 Last MAR Pain Assessment Today, 06:35 [facility] Medical History (Updated 02/09/25 @ 08:40 by Art Martinez MD) Osteopenia ?M85.80 - Other specified disorders of bone density and structure, unspecified site (ICD-10) Lateral epicondylitis ?M77.10 - Lateral epicondylitis, unspecified elbow (ICD-10) Dysmenorrhea ?N94.6 - Dysmenorrhea, unspecified (ICD-10) 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) Pelvic pain ?R10.2 - Pelvic and perineal pain (ICD-10) 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) Arthralgia ?M25.50 - Pain in unspecified joint (ICD-10) Anxiety ?F41.9 - Anxiety disorder, unspecified (ICD-10) Acute ischemic heart disease ?I24.9 - Acute ischemic heart disease, unspecified (ICD-10) Acute coronary syndrome ?I24.9 - Acute ischemic heart disease, unspecified (ICD-10) 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 - Benign neoplasm of colon, unspecified (ICD-10) 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-10) 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 - Phobic anxiety disorder, unspecified (ICD-10) Lumbar radiculopathy ?M54.16 - Radiculopathy, lumbar region (ICD-10) Hyperparathyroidism ?E21.3 - Hyperparathyroidism, unspecified (ICD-10) Hyperhidrosis ?R61 - Generalized hyperhidrosis (ICD-10) Osteoporosis ?M81.0 - Age-related osteoporosis without current pathological fracture (ICD-10) Sleep disorder ?G47.9 - Sleep disorder, unspecified (ICD-10) Arthritis ?M19.90 - Unspecified osteoarthritis, unspecified site (ICD-10) Back pain ?M54.9 - Dorsalgia, unspecified (ICD-10) Fibromyalgia ?M79.7 - Fibromyalgia (ICD-10) Anticoagulated ?Z79.01 - assisted (current) use of anticoagulants (ICD-10) Depression ?F32.A - Depression, unspecified (ICD-10) Electronic cigarette use ?Z78.9 - Other specified health status (ICD-10) Sleep apnea ?G47.30 - Sleep apnea, unspecified (ICD-10) Extremity edema ?R60.0 - Localized edema (ICD-10) Vertigo ?R42 - Dizziness and giddiness (ICD-10) GERD (gastroesophageal reflux disease) ?K21.9 - Gastro-esophageal reflux disease without esophagitis (ICD-10) Hypertension ?I10 - Essential (primary) hypertension (ICD-10) High cholesterol ?E78.00 - Pure hypercholesterolemia, unspecified (ICD-10) Coronary artery disease ?I25.10 - Atherosclerotic heart disease of [place] coronary artery without angina pectoris (ICD-10) Myocardial infarction ?I21.9 - Acute myocardial infarction, unspecified (ICD-10) Colon polyp ?K63.5 - Polyp of colon (ICD-10) Surgical History (Updated 06/03/24 @ 12:47 by Dana Salas NP) History of pubovaginal sling ?Z96.0 - Presence of urogenital implants (ICD-10) History of foot surgery ?Z98.890 - Other specified postprocedural states (ICD-10) History of nasal septoplasty ?Z98.890 - Other specified postprocedural states (ICD-10) History of myringotomy ?Z98.890 - Other specified postprocedural states (ICD-10) History of bilateral oophorectomy ?Z90.722 - Acquired absence of ovaries, bilateral (ICD-10) History of wisdom tooth extraction ?K08.409 - Partial loss of teeth, unspecified cause, unspecified class (ICD-10) History of gastric bypass ?Z98.84 - Bariatric surgery status (ICD-10) History of hysterectomy ?Z90.710 - Acquired absence of both cervix and uterus (ICD-10) H/O parathyroidectomy ?Z98.890 - Other specified postprocedural states (ICD-10) ?Z90.89 - Acquired absence of other organs (ICD-10) History of hernia repair ?Z98.890 - Other specified postprocedural states (ICD-10) ?Z87.19 - Personal history of other diseases of the digestive system (ICD-10) History of colonoscopy ?Z98.890 - Other specified postprocedural states (ICD-10) History of cardiac catheterization ?Z98.890 - Other specified postprocedural states (ICD-10) History of heart artery stent ?Z95.5 - Presence of coronary angioplasty implant and graft (ICD-10) Family History (Updated 06/03/24 @ 12:47 by Dana Salas NP) Other Cancer Family history of diabetes mellitus Family history of hypertension Family history of myocardial infarction Family history of stroke Social History (Updated 06/03/24 @ 12:36 by Dana Salas NP) Within the past year, how often did you have a drink containing alcohol: 2-4 times a month Do you use any of these nicotine containing products: vaping products Non-prescribed substance use: denies use 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 Highest level of school completed/degree received: Associate degree: academic program Little interest or pleasure in doing things: not at all Feeling down, depressed, or hopeless: not at all Exam Constitutional Vital Signs, click to edit/add: Last Vital Signs Temp 98.0 F 02/09/25 05:46 Pulse 75 02/09/25 07:40 Resp 19 02/09/25 07:40 BP 120/79 02/09/25 07:30 Pulse Ox 94 L 02/09/25 07:40 O2 Del Method Room Air 02/09/25 05:46 Course Vital Signs Vital signs: Vital Signs Temperature 98.0 F 02/09/25 05:46 Pulse Rate 87 02/09/25 05:46 Respiratory Rate 19 02/09/25 05:46 Blood Pressure 142/89 H 02/09/25 05:46 Pulse Oximetry 99 02/09/25 05:46 Oxygen Delivery Method Room Air 02/09/25 05:46 Temperature 98.0 F 02/09/25 05:46 Pulse Rate 75 02/09/25 07:40 Respiratory Rate 19 02/09/25 07:40 Blood Pressure 120/79 02/09/25 07:30 Pulse Oximetry 94 L 02/09/25 07:40 Oxygen Delivery Method Room Air 02/09/25 05:46 Medical Decision Making MDM Narrative Medical decision making narrative: CT scan shows comminuted depressed fracture of the anterior and lateral cisneros of the right maxillary sinus. There is also a comminuted depressed fracture of the right zygomaticosphenoidal suture. There is a comminuted depressed fracture of the right orbital floor. She will follow-up with ENT or plastic surgery. She will contact her insurance company to determine who is in her network for follow-up. The likely need for surgery was discussed with her as well and she is prescribed amoxicillin and Rogers. Treatment diagnosis and follow-up were discussed with the patient. She is a with [facility] on her own and is able to be discharged. Differential Diagnosis Differential Diagnosis: Intracranial hemorrhage, C-spine fracture, facial fracture Lab Data Lab results reviewed: Yes I reviewed the patient's lab results Labs: Lab Results 05/12/25 Range/Units 06:25 WBC 3.0 L (4.0-11.0) 10^3/uL RBC 3.84 L (4.20-5.40) 10^6/uL Hgb 9.2 L (12.0-16.0) g/dL Hct 29.9 L (36.0-48.0) % MCV 77.9 L (81.0-99.0) fL MCH 24.0 L (26.7-34.0) pg MCHC 30.8 (29.9-35.2) g/dL RDW 16.1 H (11.0-15.0) % Plt Count 252 (150-450) 10^3/uL MPV 8.7 L (9.5-13.5) fL Neut % (Auto) 63.5 (43.0-75.0) % Lymph % (Auto) 25.6 (20.5-60.0) % [place] % (Auto) 10.0 (1.7-12.0) % Eos % (Auto) 0.3 L (0.9-7.0) % Baso % (Auto) 0.3 (0.2-2.0) % Neut # (Auto) 1.9 (1.4-6.5) 10^3/uL Lymph # (Auto) 0.8 L (1.2-3.8) 10^3/uL [place] # (Auto) 0.3 (0.3-0.8) 10^3/uL Eos # (Auto) 0.0 (0.0-0.7) 10^3/uL Baso # (Auto) 0.0 (0.0-0.1) 10^3/uL Abs Immat Gran (auto) 0.01 (0.00-0.03) 10^3/uL Imm/Tot Granulo (auto) 0.3 (0.0-0.5) % Sodium 143 (136-145) mmol/L Potassium 3.8 (3.5-5.1) mmol/L Chloride 105 (98-107) mmol/L Carbon Dioxide 27.2 (21.0-32.0) mmol/L Anion Gap 14.6 BUN 7.0 (7.0-18.0) mg/dL Creatinine 0.64 (0.55-1.02) mg/dL Est GFR ( Amer) >60 (>=60 mL/min/1.73m^2) Est GFR (Non-Af Amer) >60 (>=60 mL/min/1.73m^2) BUN/Creatinine Ratio 10.9 Glucose 106 (74-106) mg/dL Calcium 8.4 L (8.5-10.1) mg/dL Total Bilirubin 0.3 (0.2-1.0) mg/dL AST 20 (15-37) U/L ALT 24 (14-59) U/L Alkaline Phosphatase 87 (46-116) U/L Troponin I High Sens 6.0 (4.0-51.3) pg/mL Total Protein 7.0 (6.4-8.2) g/dL Albumin 3.6 (3.4-5.0) g/dL Globulin 3.4 g/dL Albumin/Globulin Ratio 1.[address] C-spine, CT brain, CT facial bones: Radiologist's impression: CT C-spine: No evidence of acute fracture or subluxation CT facial bones: Comminuted depressed fracture of the anterior wall and lateral wall of the right maxillary sinus. Comminuted depressed fracture of the right zygomaticosphenoidal suture. Comminuted depressed fracture of the right orbital floor CT brain: No CT evidence of acute intracranial pathology ECG Data Attestation: I personally reviewed and interpreted this ECG as follows: (EKG on my interpretation shows normal sinus rhythm with rate of 90 and no acute findings) Discharge Plan Discharge Chief Complaint: Fall Clinical Impression: Syncope, Fracture of right maxillary sinus Patient Disposition: Home, Self-Care Time of Disposition Decision: 08:40 Condition: Good Mode of Transportation: Private Vehicle Prescriptions / Home Meds: New amoxicillin 500 mg capsule 500 mg PO TID 10 Days Qty: 30 0RF hydrocodone-acetaminophen 5-325 mg tablet 1 tab PO Q6H PRN (Reason: pain) 5 Days Qty: 20 0RF No Action atorvastatin 40 mg tablet 40 mg PO DAILY ticagrelor [Brilinta] 90 mg tablet 90 mg PO BID metoprolol succinate 50 mg tablet extended release 24 hr 50 mg PO DAILY nitroglycerin 0.4 mg tablet, sublingual 0.4 mg sublingual Q5M PRN (Reason: chest pain) Rx Instructions: do not exceed 3 doses per episode omeprazole 10 mg capsule,delayed release(DR/EC) 10 mg PO DAILY venlafaxine 150 mg capsule,extended release 24hr 150 mg PO DAILY Print Language: Citizen [place] Instructions: Facial Fracture (ED), Syncope (ED) Additional Instructions: Follow-up with plastic surgery or ENT. You will likely need surgery. Speak with your insurance company to find somebody who is in your network. Referrals: Shwetha Owens MD [Primary Care Provider, Family Practice] - 1 week
== END 2025-02-09 09:11 | disposition home or self-care (01) ==
PROVIDERS: Emergency Medicine; Emergency Provider Emergency Medicine; PCP Family Medicine
DX: R55 Syncope and collapse (principal); S02.40CA Maxillary fracture, right side, initial encounter for closed fracture; S02.40EA Zygomatic fracture, right side, initial encounter for closed fracture; S02.31XA Fracture of orbital floor, right side, initial encounter for closed fracture; M25.78 Osteophyte, vertebrae; M48.02 Spinal stenosis, cervical region; W18.39XA Other fall on same level, initial encounter; Y93.89 Activity, other specified; Y92.012 Bathroom of single-family (private) house as the place of occurrence of the external cause; Z79.01 Long term (current) use of anticoagulants; Z95.5 Presence of coronary angioplasty implant and graft; I51.9 Heart disease, unspecified; Z98.84 Bariatric surgery status; Z90.710 Acquired absence of both cervix and uterus; F17.290 Nicotine dependence, other tobacco product, uncomplicated
CPT/HCPCS: 36415; 70450; 70486; 72125; 80053; 84484; 85025; 93005; 96361; 96374; 96375; 99285; J2270; J2405